=== PATIENT | female | born 1985 | race Caucasian/White ===

== ENCOUNTER 2017-07-18 11:58 | Emergency (ER) | payer OTHER ==
[2017-07-18 12:18] VITALS: BP 138/86; PULSE 92; O2SAT 99
--- NOTE | 2017-07-18 12:23 | ERPHSYRPT ---
- History of Present Illness Time Seen by Provider: 07/18/17 12:07 Source: patient Patient Subjective Stated Complaint: pt here for rash to right wrist for a week , Triage Nursing Assessment: pt has red rash to right wrist with dry cracking skin. walked in, resp easy Physician History: CC: rash hx: 31 y/o patient of Dr Curiel. She has rash on right wrist/hand. It itches. Started with a few other patches on her left arm also. She thought it was poison malik so she used alcohol on it. It is now red, cracked, dry. No fever. No drng. She has hx of DM. Tetanus vaccine up to date. Quality: itchy Severity: moderate Hx Tetanus, Diphtheria Vaccination/Date Given: Yes Hx Influenza Vaccination/Date Given: Yes Hx Pneumococcal Vaccination/Date Given: No Immunizations Up to Date: Yes - Review of Systems Constitutional: No Fever, No Chills Skin: Rash (right hand), Skin Lesions Neurological: No Focal Weakness, No Parasthesia - Past Medical History Pertinent Past Medical History: Yes Cardiac History: High Cholesterol Endocrine Medical History: Diabetes Type I - Social History Smoking Status: Current every day smoker Exposure to second hand smoke: Yes Patient Lives Alone: No - Female History Hx Last Menstrual Period: 2 weeks ago Hx Now: No - Nursing Vital Signs Nursing Vital Signs: Initial Vital Signs Temperature 97.8 F 07/18/17 12:08 Pulse Rate 92 H 07/18/17 12:08 Respiratory Rate 16 07/18/17 12:08 Blood Pressure 138/86 07/18/17 12:08 O2 Sat by Pulse Oximetry 99 07/18/17 12:08 Pain Scale Pain Intensity 13 - Physical Exam General Appearance: alert Eye Exam: PERRL/EOMI Ears, Nose, Throat Exam: moist mucous membranes Neck Exam: supple Extremity Exam: other (right hand/wrist has dry cracked skin. The wrist has thickened skin, appears to be contact/irritant dermatitis. ROM intact. There is a linear border that is unclear why almost like part was covered and not exposed. ) Neurologic Exam: alert, oriented x 3, cooperative Skin Exam: warm, dry, other (no evidence of cellulitis or superinfection) SpO2: 99 Oxygen Delivery: Room Air - Course Nursing assessment & vital signs reviewed: Yes - Progress Progress Note: 07/18/17 12:25 She declines abtx which doesn't appear indicated at present. Will use steroid ointment and also udder cream/bagbalm. Instr given. Counseled pt/family regarding: diagnosis, need for follow-up - Departure Time of Disposition: 12:25 Departure Disposition: Home Clinical Impression: Irritant contact dermatitis due to chemical Condition: Stable Critical Care Time: No Referrals: GOMEZ CURIEL [Primary Care Provider] - Instructions: Contact Dermatitis Additional Instructions: Rx steroid ointment twice a day. Use udder cream/bag balm for dry hand skin. Report any sign of infection right away. Prescriptions: Mometasone Furoate [Elocon] 0 gm TP UD #1 oint...g.
== END 2017-07-18 12:56 | disposition home or self-care (01) ==
LOC: ED 11:58
DX: L24.5 Irritant contact dermatitis due to other chemical products (principal)
CPT/HCPCS: 99282

== ENCOUNTER 2017-12-24 09:00 | Emergency (ER) | payer OTHER ==
[2017-12-24 09:08] VITALS: PULSE 82; O2SAT 100
[2017-12-24] MEDS ORDERED: Sodium Chloride 0.9% 1000 ML 1,000 ML IV STA (09:13)
[2017-12-24] MEDS ORDERED: Zofran 4 MG/2 ML VIAL IV ONE (09:13)
--- NOTE | 2017-12-24 09:19 | ERPHSYRPT ---
- History of Present Illness Time Seen by Provider: 12/24/17 09:13 Historian: patient Exam Limitations: no limitations Patient Subjective Stated Complaint: VOMITING FOR 3 DAYS, WEAKNESS, CHILLS Triage Nursing Assessment: PATIENT ALERT AND ORIENTED. DENIES SHORTNESS OF BREATH, LUNGS CLEAR TO AUSCULTATION. BOWEL SOUNDS HYPOACTIVE. STATES LAST BM , NO DIFFICULTIES. NO EDEMA NOTED. Physician History: 32-year-old female who states that she has a history of pancreatitis in the past also history of diabetes arrives with complaints of persistent nausea and vomiting symptoms for 2-3 days she states she's had epigastric and periumbilical tenderness She has no fevers no urinary symptoms. Past medical history includes hyperlipidemia, diabetes, high blood pressure, kidney problems, pancreatitis Past surgical history includes knee surgery 2 pituitary tumor removed Timing/Duration: day(s) (2-3 days) Activities at Onset: none Quality: aching Abdominal Pain Onset Location: epigastric, periumbilical Severity of Pain-Max: moderate Severity of Pain-Current: mild Modifying Factors: Improves With: vomiting Associated Symptoms: nausea, vomiting, No back, No chest pain, No diaphoresis, No fever/chills, No fatigue, No headache, No heartburn, No loss of appetite, No neck pain, No rash, No shortness of breath Previous symptoms: same symptoms as today Allergies/Adverse Reactions: morphine Allergy (Verified 07/18/17 12:23) Home Medications: Esomeprazole Magnesium [Nexium 24Hr] 40 mg PO DAILY 12/24/17 [History] Insulin Glargine,Hum.rec.anlog [Basaglar Kwikpen U-100] 80 unit SQ BID 12/24/17 [History] Insulin Glulisine [Apidra] 10 unit SQ TID 12/24/17 [History] Lisinopril 10 mg [Zestril 10 MG] 5 mg PO DAILY 12/24/17 [History] Metformin HCl 500 mg [Glucophage 500 MG] 1,000 mg PO BIDWM 12/24/17 [ History] Nebivolol HCl 5 MG [Bystolic 5 MG] 10 mg PO DAILY 12/24/17 [History] Hx Tetanus, Diphtheria Vaccination/Date Given: Yes Hx Influenza Vaccination/Date Given: Yes Hx Pneumococcal Vaccination/Date Given: Yes Immunizations Up to Date: Yes - Review of Systems Constitutional: No Fever, No Chills Eyes: No Symptoms Ears, Nose, & Throat: No Symptoms Respiratory: No Cough, No Dyspnea Cardiac: No Chest Pain, No Edema, No Syncope Abdominal/Gastrointestinal: Abdominal Pain, Nausea, Vomiting, No Diarrhea, No Constipation, No Hematochezia, No Melena, No Dysphagia, No Appetite Changes Genitourinary Symptoms: No Dysuria Musculoskeletal: No Back Pain, No Neck Pain Skin: No Rash Neurological: No Dizziness, No Focal Weakness, No Sensory Changes Psychological: No Symptoms Endocrine: No Symptoms All Other Systems: Reviewed and Negative - Past Medical History Pertinent Past Medical History: Yes Cardiac History: High Cholesterol, Hypertension Endocrine Medical History: Diabetes Type I Psycho-Social History: Anxiety - Past Surgical History Past Surgical History: Yes Musculoskeletal: Orthopedic Surgery Other Surgical History: knee surg, tumor removed - Social History Smoking Status: Current every day smoker Exposure to second hand smoke: Yes Drug Use: none Patient Lives Alone: No - Female History Hx Last Menstrual Period: 10/24/17 Hx Now: (UNSURE) - Nursing Vital Signs Nursing Vital Signs: Initial Vital Signs Temperature 98.7 F 12/24/17 09:01 Pulse Rate 82 12/24/17 09:01 Respiratory Rate 16 12/24/17 09:01 Blood Pressure 145/91 12/24/17 09:01 O2 Sat by Pulse Oximetry 100 12/24/17 09:01 Pain Scale Pain Intensity 0 - Physical Exam General Appearance: no apparent distress, alert Eye Exam: PERRL/EOMI, eyes nml inspection Ears, Nose, Throat Exam: normal ENT inspection, pharynx normal, moist mucous membranes Neck Exam: normal inspection, non-tender, supple, full range of motion Respiratory Exam: normal breath sounds, lungs clear, No respiratory distress Cardiovascular Exam: regular rate/rhythm, normal heart sounds, normal peripheral pulses, No murmur Gastrointestinal/Abdomen Exam: soft, tenderness (mild epigastric tenderness), No distention, No mass, No guarding, No ecchymosis, No pulsatile mass, No rebound, No hernia, No hepatomegaly, No organomegaly, No splenomegaly Back Exam: normal inspection, normal range of motion, No CVA tenderness, No vertebral tenderness Extremity Exam: normal inspection, normal range of motion, pelvis stable Neurologic Exam: alert, oriented x 3, cooperative, 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 II-XII nml as tested, normal mood/affect, nml cerebellar function, sensation nml, No motor deficits Skin Exam: normal color, warm, dry SpO2 Interpretation: normal (100%) SpO2: 100 Oxygen Delivery: Room Air - Course Nursing assessment & vital signs reviewed: Yes Ordered Tests: Active Orders 24 hr Category Date Time Status Accucheck STAT Care 12/24/17 09:15 Active IV Insertion STAT Care 12/24/17 09:13 Active Orthostatic Vital Signs STAT Care 12/24/17 09:19 Active AMYLASE Stat Lab 12/24/17 09:24 Completed CBC W DIFF Stat Lab 12/24/17 09:24 Completed CMP Stat Lab 12/24/17 09:24 Completed CULTURE,URINE Stat Lab 12/24/17 09:14 Received HCG QUALITATIVE,SERUM Stat Lab 12/24/17 09:24 Completed LIPASE Stat Lab 12/24/17 09:24 Completed UA W/ MICROSCOPIC Stat Lab 12/24/17 09:14 Completed Medication Summary Generic Name Dose Route Start Last Admin Trade Name Freq PRN Reason Stop Dose Admin Sodium Chloride 1,000 mls @ 999 mls/hr 12/24/17 09:13 12/24/17 09:34 Sodium Chloride 0.9% 1000 Ml IV 12/24/17 10:13 999 mls/hr .Q1H1M STA Administration Discontinued Medications Generic Name Dose Route Start Last Admin Trade Name Freq PRN Reason Stop Dose Admin Sodium Chloride Confirm 12/24/17 09:31 Sodium Chloride 0.9% 1000 Ml Administered 12/24/17 09:32 Dose 1,000 mls @ ud .ROUTE .STK-MED ONE Ondansetron HCl 4 mg 12/24/17 09:13 12/24/17 09:34 Zofran 4 Mg/2 Ml Vial IV 12/24/17 09:14 4 mg STAT ONE Administration Ondansetron HCl Confirm 12/24/17 09:31 Zofran 4 Mg/2 Ml Vial Administered 12/24/17 09:32 Dose 4 mg .ROUTE .STK-MED ONE Lab/Rad Data: Laboratory Result Diagrams 12/24/17 09:24 12/24/17 09:24 Laboratory Results 12/24/17 12/24/17 12/24/17 Range/Units 09:24 09:24 09:24 WBC 9.6 (4.0-10.5) K/mm3 RBC 3.91 L (4.1-5.4) M/mm3 Hgb 10.6 L (12.0-16.0) gm/dl Hct 30.7 L (35-47) % MCV 78.5 (78-100) fl MCH 27.1 (26-32) pg MCHC 34.5 (32-36) g/dl RDW 13.5 (11.5-14.0) % Plt Count 221 (150-450) K/mm3 MPV 9.7 H (6-9.5) fl Gran % 65.6 (36.0-66.0) % Eos # (Auto) 0.34 (0-0.5) Absolute Lymphs (auto) 2.29 (1.0-4.6) Absolute Monos (auto) 0.65 (0.0-1.3) Lymphocytes % 23.8 L (24.0-44.0) % Monocytes % 6.7 (0.0-12.0) % Eosinophils % 3.5 (0.00-5.0) % Basophils % 0.4 (0.0-0.4) % Absolute Granulocytes 6.32 (1.4-6.9) Basophils # 0.04 (0-0.4) Sodium 139 (137-145) mmol/L Potassium 3.8 (3.5-5.1) mmol/L Chloride 102 (98-107) mmol/L Carbon Dioxide 24 (22-30) mmol/L Anion Gap 16.3 H (5-15) MEQ/L BUN 14 (7-17) mg/dL Creatinine 0.98 (0.52-1.04) mg/dL Estimated GFR > 60.0 ML/MIN Glucose 117 H (74-106) mg/dL Calcium 10.2 (8.4-10.2) mg/dL Total Bilirubin 0.80 (0.2-1.3) mg/dL AST 15 (14-36) U/L ALT 12 (0-35) U/L Alkaline Phosphatase 32 L (38-126) U/L Serum Total Protein 7.2 (6.3-8.2) g/dL Albumin 4.1 (3.5-5.0) g/dL Amylase 41 (30-110) U/L Lipase 42 (23-300) U/L Serum , Qual POSITIVE (Negative) Ur Collection Type Urine Color (YELLOW) Urine Appearance (CLEAR) Urine pH (5-6) Ur Specific [place] (1.005-1.025) Urine Protein (Negative) Urine Ketones (NEGATIVE) Urine Blood (0-5) [place]/ul Urine Nitrite (NEGATIVE) Urine Bilirubin (NEGATIVE) Urine Urobilinogen (0-1) mg/dL Ur Leukocyte Esterase (NEGATIVE) Urine Microscopic RBC (0-2) /HPF Urine Microscopic WBC (0-5) /HPF Ur Epithelial Cells (FEW) /HPF Urine Bacteria (NEGATIVE) /HPF Urine Culture Reflexed (NO) Urine Glucose (NEGATIVE) mg/dL Specimen Received 12/24/17 Range/Units 09:14 WBC (4.0-10.5) K/mm3 RBC (4.1-5.4) M/mm3 Hgb (12.0-16.0) gm/dl Hct (35-47) % MCV (78-100) fl MCH (26-32) pg MCHC (32-36) g/dl RDW (11.5-14.0) % Plt Count (150-450) K/mm3 MPV (6-9.5) fl Gran % (36.0-66.0) % Eos # (Auto) (0-0.5) Absolute Lymphs (auto) (1.0-4.6) Absolute Monos (auto) (0.0-1.3) Lymphocytes % (24.0-44.0) % Monocytes % (0.0-12.0) % Eosinophils % (0.00-5.0) % Basophils % (0.0-0.4) % Absolute Granulocytes (1.4-6.9) Basophils # (0-0.4) Sodium (137-145) mmol/L Potassium (3.5-5.1) mmol/L Chloride (98-107) mmol/L Carbon Dioxide (22-30) mmol/L Anion Gap (5-15) MEQ/L BUN (7-17) mg/dL Creatinine (0.52-1.04) mg/dL Estimated GFR ML/MIN Glucose (74-106) mg/dL Calcium (8.4-10.2) mg/dL Total Bilirubin (0.2-1.3) mg/dL AST (14-36) U/L ALT (0-35) U/L Alkaline Phosphatase (38-126) U/L Serum Total Protein (6.3-8.2) g/dL Albumin (3.5-5.0) g/dL Amylase (30-110) U/L Lipase (23-300) U/L Serum , Qual (Negative) Ur Collection Type VOID Urine Color YELLOW (YELLOW) Urine Appearance CLEAR (CLEAR) Urine pH 6.0 (5-6) Ur Specific [place] 1.010 (1.005-1.025) Urine Protein 30 (Negative) Urine Ketones NEGATIVE (NEGATIVE) Urine Blood NEGATIVE (0-5) [place]/ul Urine Nitrite NEGATIVE (NEGATIVE) Urine Bilirubin NEGATIVE (NEGATIVE) Urine Urobilinogen NORMAL (0-1) mg/dL Ur Leukocyte Esterase TRACE (NEGATIVE) Urine Microscopic RBC 0-2 (0-2) /HPF Urine Microscopic WBC 10-15 (0-5) /HPF Ur Epithelial Cells MANY (FEW) /HPF Urine Bacteria FEW (NEGATIVE) /HPF Urine Culture Reflexed YES (NO) Urine Glucose NEGATIVE (NEGATIVE) mg/dL Specimen Received 12/24/1714 - Progress Progress: improved Progress Note: 12/24/17 10:07 Patient is feeling better after IV fluids and Zofran. Patient with positive hCG and her serum. Patient with 10-15 white cells per high-power field in her urine. Cultures are pending Will place patient on Macrobid 100 mg orally twice a day. Patient does not want anti-emetics at home at this time. No signs of pancreatitis abdominal pain was in the epigastric region which is better after IV fluids. Will discharge patient . Patient advised to follow-up with [facility] or her family doctor - Departure Time of Disposition: 10:09 Departure Disposition: Home Clinical Impression: Epigastric pain, Incidental Vomiting Qualifiers: Vomiting type: unspecified Vomiting Intractability: non-intractable Nausea presence: with nausea Qualified Code(s): R11.2 - Nausea with vomiting, unspecified UTI (urinary tract infection) Qualifiers: Urinary tract infection type: site unspecified Hematuria presence: without hematuria Qualified Code(s): N39.0 - Urinary tract infection, site not specified Condition: Fair Critical Care Time: No Referrals: GOMEZ CURIEL [Primary Care Provider] - Additional Instructions: Return home. Plenty of fluids clear fluids only 24-48 hours if nausea and vomiting or abdominal pain. Macrobid 100 mg orally twice a day for 10 days. Follow-up with your family doctor or [facility]NA[facility]ST physician, call and schedule an appointment. Return for acute distress or for severe symptoms. hold your lisinopril until you talk with your family doctor in the morning. Prescriptions: Nitrofurantoin Macro 100 mg [Macrobid 100MG Capsule] 100 mg PO BID #20 capsule
[2017-12-24] MEDS ORDERED: Sodium Chloride 0.9% 1000 ML 1,000 ML ONE (09:31)
[2017-12-24] MEDS ORDERED: Zofran 4 MG/2 ML VIAL ONE (09:31)
[2017-12-24 09:34] LABS: BASOPHIL % 0.4 % (0.0-0.4); Basophil (Absolute #) 0.04 (0-0.4); Eosinophil % 3.5 % (0.00-5.0); Eosinophil (Absolute #) 0.34 (0-0.5); Granulocyte Absolute (ANC) 6.32 (1.4-6.9); Granulocytes % 65.6 % (36.0-66.0); Hematocrit 30.7 % (35-47); Hemoglobin 10.6 gm/dl (12.0-16.0); Lymphocyte (Absolute #) 2.29 (1.0-4.6); Lymphocytes % 23.8 % (24.0-44.0); Mean Cell Volume 78.5 fl (78-100); Mean Corpuscular Hemoglobin 27.1 pg (26-32); Mean Corpuscular Hgb Concent. 34.5 g/dl (32-36); Mean Platelet Volume 9.7 fl (6-9.5); Monocyte (Absolute #) 0.65 (0.0-1.3); Monocytes % 6.7 % (0.0-12.0); Platelet Count 221 K/mm3 (150-450); Red Blood Count 3.91 M/mm3 (4.1-5.4); Red Cell Distribution Width 13.5 % (11.5-14.0); White Blood Count 9.6 K/mm3 (4.0-10.5)
[2017-12-24 09:45] LABS: ALBUMIN 4.1 g/dL (3.5-5.0); ALKALINE PHOSPHATASE 32 U/L (38-126); AMYLASE 41 U/L (30-110); ANION GAP 16.3 MEQ/L (5-15); BLOOD UREA NITROGEN 14 mg/dL (7-17); CHLORIDE 102 mmol/L (98-107); Calcium 10.2 mg/dL (8.4-10.2); Carbon Dioxide 24 mmol/L (22-30); Creatinine 1 0.98 mg/dL (0.52-1.04); Glucose 117 mg/dL (74-106); LIPASE 42 U/L (23-300); Potassium 3.8 mmol/L (3.5-5.1); SGOT/AST 15 U/L (14-36); SGPT/ALT 12 U/L (0-35); SODIUM 139 mmol/L (137-145); Total Protein 7.2 g/dL (6.3-8.2)
[2017-12-24 09:59] LABS: Appearance CLEAR (CLEAR); Bilirubin NEGATIVE (NEGATIVE); Blood NEGATIVE Ery/ul (0-5); Glucose NEGATIVE (NEGATIVE); Ketones NEGATIVE (NEGATIVE); Leukocyte Esterase TRACE (NEGATIVE); Nitrite NEGATIVE (NEGATIVE); Protein,Urine Dip 30 (Negative); Urobilinogen NORMAL mg/dL (0-1)
[2017-12-24 10:00] VITALS: BP 123/80
[2017-12-24 10:00] LABS: Bacteria FEW /HPF (NEGATIVE); Epithelial Cells MANY /HPF (FEW); RBC 0-2 /HPF (0-2)
== END 2017-12-24 10:47 | disposition home or self-care (01) ==
LOC: ED 09:00
DX: R10.13 Epigastric pain (principal); R11.2 Nausea with vomiting, unspecified; N39.0 Urinary tract infection, site not specified; Z33.1 Pregnant state, incidental; Z79.899 Other long term (current) drug therapy; E10.9 Type 1 diabetes mellitus without complications; Z79.4 Long term (current) use of insulin
CPT/HCPCS: 36000; 36415; 80053; 81000; 82150; 82962; 83690; 84703; 85025; 87077; 87086; 87186; 96360; 96374; 99284; J2405

== ENCOUNTER 2018-01-12 07:33 | Emergency (ER) | payer OTHER ==
[2018-01-12] MEDS ORDERED: Sodium Chloride 0.9% 1000 ML 1,000 ML IV STA (07:48)
--- NOTE | 2018-01-12 07:55 | ERPHSYRPT ---
- History of Present Illness Time Seen by Provider: 01/12/18 07:50 Source: patient Exam Limitations: no limitations Patient Subjective Stated Complaint: Bleeding during , approximately 14 weeks . Triage Nursing Assessment: Pt presents to the ED with complaints of abdominal cramping and bleeding during . Pt states she began spotting blood on Monday, was seen and told she was having a miscarriage. Pt states she was seen by OB on Monday and miscarriage was verified. Pt states bleeding and pain worsened last night and continued this AM. Pt states weakness present at this time, no distress noted, skin PWD. Physician History: 32-year-old white female 1 para 0 last menstrual period October 13. Arrives with complaint of vaginal bleeding and lower abdominal cramping symptoms since Monday. Patient seen January 08 with complaint of vaginal spotting told she was having a miscarriage she had this verified on January 10 she states that she was told that her fetus quit growing at 6 weeks size. He states that she has continued vaginal bleeding and spotting which is increased today. Patient states that she's had ultrasound 2. 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 Timing/Duration: day(s) (vaginal bleeding for 5 days cramping for 5 days, worse today) Severity: moderate Modifying Factors: Improves With: nothing Associated Symptoms: abdominal pain (lower abdominal cramping), other (vaginal bleeding), No nausea, No vomiting, No shortness of breath, No heartburn, No diaphoresis, No cough, No chills, No chest pain, No fever, No headaches, No loss of appetite, No malaise, No rash, No syncope, No seizure, No weakness Allergies/Adverse Reactions: morphine Allergy (Verified 07/18/17 12:23) Home Medications: Insulin Glargine,Hum.rec.anlog [Basaglar Kwikpen U-100] 80 unit SQ BID 12/24/17 [History] Insulin Glulisine [Apidra] 10 unit SQ TID 12/24/17 [History] Methyldopa 250 mg [Aldomet 250 MG] 250 mg PO BID 01/12/18 [History] Vits W-Ca,Fe,FA(<1Mg) [] 1 each PO DAILY 01/12/18 [History] Hx Tetanus, Diphtheria Vaccination/Date Given: Yes Hx Influenza Vaccination/Date Given: Yes Hx Pneumococcal Vaccination/Date Given: No Immunizations Up to Date: Yes - Review of Systems Constitutional: No Fever, No Chills Eyes: No Symptoms Ears, Nose, & Throat: No Symptoms Respiratory: No Cough, No Dyspnea Cardiac: No Chest Pain, No Edema, No Syncope Abdominal/Gastrointestinal: Abdominal Pain (Lower abdominal cramping), No Nausea , No Vomiting, No Diarrhea, No Constipation, No Hematemesis, No Hematochezia, No Melena, No Dysphagia, No Appetite Changes Genitourinary Symptoms: , Vaginal Bleeding, No Dysuria, No Frequency, No Hematuria, No Hesitancy, No Incontinence, No Urgency, No Urinary Retention, No Flank Pain, No Menorrhagia, No Vaginal Discharge, No Vaginal Itching Musculoskeletal: No Back Pain, No Neck Pain Skin: No Rash Neurological: No Dizziness, No Focal Weakness, No Sensory Changes Psychological: No Symptoms Endocrine: No Symptoms All Other Systems: Reviewed and Negative - Past Medical History Pertinent Past Medical History: Yes Cardiac History: High Cholesterol, Hypertension Endocrine Medical History: Diabetes Type I GI Medical History: Pancreatitis Psycho-Social History: Anxiety - Past Surgical History Past Surgical History: Yes Musculoskeletal: Orthopedic Surgery Other Surgical History: knee surg, tumor removed - Social History Smoking Status: Former smoker Exposure to second hand smoke: Yes Drug Use: none Patient Lives Alone: No - Female History Hx Last Menstrual Period: 10/13/2017 Hx Now: Yes - Nursing Vital Signs Nursing Vital Signs: Initial Vital Signs Temperature 98.1 F 01/12/18 07:39 Pulse Rate 97 H 01/12/18 07:39 Respiratory Rate 16 01/12/18 07:39 Blood Pressure 103/74 01/12/18 07:39 O2 Sat by Pulse Oximetry 99 01/12/18 07:39 Pain Scale Pain Intensity 10 - Physical Exam General Appearance: mild distress Eye Exam: PERRL/EOMI, eyes nml inspection Ears, Nose, Throat Exam: normal ENT inspection, TMs normal, pharynx normal, moist mucous membranes Neck Exam: normal inspection, non-tender, supple, full range of motion Respiratory Exam: normal breath sounds, lungs clear, No respiratory distress Cardiovascular Exam: regular rate/rhythm, normal heart sounds, normal peripheral pulses Gastrointestinal/Abdomen Exam: soft, normal bowel sounds, No tenderness, No mass Back Exam: normal inspection, normal range of motion, No CVA tenderness, No vertebral tenderness Extremity Exam: normal inspection, normal range of motion, pelvis stable Neurologic Exam: alert, oriented x 3, cooperative, normal mood/affect, nml cerebellar function, nml station & gait, sensation nml, No motor deficits Skin Exam: normal color, warm, dry, No rash SpO2 Interpretation: normal (99%) SpO2: 99 Oxygen Delivery: Room Air - Course Nursing assessment & vital signs reviewed: Yes - Radiology Ultrasound Exam OB Ultrasound: discussed w/radiologist (2-dimensional trans-abdominal ultrasound: impression: endometrial fluid collection without pole/heart tones either blighted ovum ilene versus early . Spontaneous/incomplete completely excludedgiven clinical history) Ordered Tests: Active Orders 24 hr Category Date Time Status Accucheck STAT Care 01/12/18 10:09 Active IV Insertion STAT Care 01/12/18 07:48 Active Orthostatic Vital Signs STAT Care 01/12/18 10:34 Active Pelvic Exam Assist STAT Care 01/12/18 08:02 Active OB <14 WKS 1ST GESTATION [US] Stat Exams 01/12/18 09:56 Completed CBC W DIFF Stat Lab 01/12/18 07:48 Completed CMP Stat Lab 01/12/18 07:48 Completed HCG, Quantitative (Inhouse) Stat Lab 01/12/18 07:48 Completed PROTIME WITH INR Stat Lab 01/12/18 07:48 Completed PTT Stat Lab 01/12/18 07:48 Completed Medication Summary Generic Name Dose Route Start Last Admin Trade Name Freq PRN Reason Stop Dose Admin Sodium Chloride 1,000 mls @ 100 mls/hr 01/12/18 09:15 01/12/18 09:23 Sodium Chloride 0.9% 1000 Ml IV 02/11/18 09:14 100 mls/hr .Q10H ALO Administration Discontinued Medications Generic Name Dose Route Start Last Admin Trade Name Freq PRN Reason Stop Dose Admin Fentanyl Citrate 25 mcg 01/12/18 08:00 01/12/18 08:08 Sublimaze 100 Mcg/2 Ml IV 01/12/18 08:01 25 mcg STAT ONE Administration Fentanyl Citrate Confirm 01/12/18 08:05 Sublimaze 100 Mcg/2 Ml Administered 01/12/18 08:06 Dose 100 mcg .ROUTE .STK-MED ONE Fentanyl Citrate 75 mcg 01/12/18 09:05 01/12/18 09:27 Sublimaze 100 Mcg/2 Ml IV 01/12/18 09:06 75 mcg STAT ONE Administration Fentanyl Citrate Confirm 01/12/18 09:17 Sublimaze 100 Mcg/2 Ml Administered 01/12/18 09:18 Dose 100 mcg .ROUTE .STK-MED ONE Sodium Chloride 1,000 mls @ 999 mls/hr 01/12/18 07:48 01/12/18 09:29 Sodium Chloride 0.9% 1000 Ml IV 01/12/18 08:48 Infused .Q1H1M STA Infusion Sodium Chloride Confirm 01/12/18 07:59 Sodium Chloride 0.9% 1000 Ml Administered 01/12/18 08:00 Dose 1,000 mls @ ud .ROUTE .STK-MED ONE Insulin Human Regular 7 unit 01/12/18 10:33 01/12/18 10:55 Novolin R SQ 01/12/18 10:34 7 unit STAT ONE Administration Insulin Human Regular Confirm 01/12/18 10:42 Novolin R Administered 01/12/18 10:43 Dose 7 unit .ROUTE .STK-MED ONE Ondansetron HCl 4 mg 01/12/18 08:04 01/12/18 08:08 Zofran 4 Mg/2 Ml Vial IV 01/12/18 08:05 4 mg STAT ONE Administration Ondansetron HCl Confirm 01/12/18 08:05 Zofran 4 Mg/2 Ml Vial Administered 01/12/18 08:06 Dose 4 mg .ROUTE .STK-MED ONE Promethazine HCl 12.5 mg 01/12/18 09:05 01/12/18 09:23 Phenergan 25 Mg Inj IV 01/12/18 09:06 12.5 mg STAT ONE Administration Promethazine HCl Confirm 01/12/18 09:17 Phenergan 25 Mg Inj Administered 01/12/18 09:18 Dose 25 mg .ROUTE .STK-MED ONE Lab/Rad Data: Laboratory Result Diagrams 01/12/18 07:48 01/12/18 07:48 Laboratory Results 0601/12/18 01/12/18 Range/Units 07:48 07:48 07:48 WBC 12.8 H (4.0-10.5) K/mm3 RBC 4.16 (4.1-5.4) M/mm3 Hgb 11.3 L (12.0-16.0) gm/dl Hct 32.7 L (35-47) % MCV 78.6 (78-100) fl MCH 27.1 (26-32) pg MCHC 34.6 (32-36) g/dl RDW 13.6 (11.5-14.0) % Plt Count 276 (150-450) K/mm3 MPV 10.5 H (6-9.5) fl Gran % 72.7 H (36.0-66.0) % Eos # (Auto) 0.35 (0-0.5) Absolute Lymphs (auto) 2.26 (1.0-4.6) Absolute Monos (auto) 0.86 (0.0-1.3) Lymphocytes % 17.7 L (24.0-44.0) % Monocytes % 6.7 (0.0-12.0) % Eosinophils % 2.7 (0.00-5.0) % Basophils % 0.2 (0.0-0.4) % Absolute Granulocytes 9.25 H (1.4-6.9) Basophils # 0.03 (0-0.4) PT 11.3 (9.95-12.35) SECONDS INR 0.97 (0.8-3.0) APTT 35.6 (25.3-37.0) SECONDS Sodium 135 L (137-145) mmol/L Potassium 4.0 (3.5-5.1) mmol/L Chloride 104 (98-107) mmol/L Carbon Dioxide 21 L (22-30) mmol/L Anion Gap 13.4 (5-15) MEQ/L BUN 13 (7-17) mg/dL Creatinine 0.77 (0.52-1.04) mg/dL Estimated GFR > 60.0 ML/MIN Glucose 294 H (74-106) mg/dL Calcium 9.1 (8.4-10.2) mg/dL Total Bilirubin 0.60 (0.2-1.3) mg/dL AST 25 (14-36) U/L ALT 45 H (0-35) U/L Alkaline Phosphatase 62 (38-126) U/L Serum Total Protein 6.7 (6.3-8.2) g/dL Albumin 3.4 L (3.5-5.0) g/dL Beta HCG, Quant 1085.3 mIU/ml - Progress Progress: improved Progress Note: 01/12/18 09:22 32-year-old white female who was diagnosed with an incomplete spontaneous on January 08 when seen in [facility] emergency room she was subsequently seen [address] kina rivera. She states that she's been having lower abdominal cramping and bleeding since January 08, 2018 she states the bleeding has increased and increased pain this morning Patient with demise on ultrasound estimated gestational age is 6 weeks and 6 days by crown rump length on that ultrasound. Patient's hemoglobin is stable as compared to January 08 patient had received RhoGAM according to patient patient's hemoglobin and hematocrit were 10.8 and 31.7 respectively on January 08. Patient is receiving IV normal saline she has received fentanyl 25 g, Zofran 4 mg IV Repeat dosage of 75 g of fentanyl and Phenergan 12.5 mg IV have been ordered because of complaints of patient's continued pain patient's quantitative hCG on January 08 was 3230 Today's quantitative is around 1000 01/12/18 09:52 Pelvic examination patient with large amount of clots and blood in the vaginal vault. These are removed with suction and moody swabs. Patient's cervix is open. Uterus is massaged clots expressed. no products of conception noted. Patient still with the slight open cervix less than 1 cm Some oozing of blood Will obtain ultrasound 01/12/18 11:13 Pelvic ultrasound: Endometrial fluid collection without pole/heart tones either blighted old versus early . Spontaneous/incomplete not completely excluded given clinical history Patient given IV fluids initial 1 L bolus started at 100 per hour blood pressure did go down to the high 80s this possibly could be a fact of her pain medication patient given another bolus of IV fluids blood pressure now 108/65 Patient's hemoglobin is stable quantitative hCG was 1085 it was around 3001 4 days ago I've discussed case with Dr. Bedoya , the patient's OB physician. He will accept patient for transfer over to [facility]. Patient is somewhat somnolent but stable at this time. Will plan to transfer to [facility] impression. Incomplete , vaginal bleeding. Hyperglycemia. (Patient was given 7 units of insulin NovoLog for Accu-Chek of 333) - Departure Time of Disposition: 11:17 Departure Disposition: Transfer (transfer to [facility] Dr Cisneros) Clinical Impression: Vaginal bleeding, Incomplete , Hyperglycemia Condition: Fair Critical Care Time: No Referrals: GOMEZ CURIEL [Primary Care Provider] -
[2018-01-12] MEDS ORDERED: Sodium Chloride 0.9% 1000 ML 1,000 ML ONE ×2 (07:59→09:17)
[2018-01-12] MEDS ORDERED: SUBLIMAZE 100 MCG/2 ML IV ONE ×2 (08:00→09:05)
[2018-01-12 08:04] LABS: BASOPHIL % 0.2 % (0.0-0.4); Basophil (Absolute #) 0.03 (0-0.4); Eosinophil % 2.7 % (0.00-5.0); Eosinophil (Absolute #) 0.35 (0-0.5); Granulocyte Absolute (ANC) 9.25 (1.4-6.9); Granulocytes % 72.7 % (36.0-66.0); Hematocrit 32.7 % (35-47); Hemoglobin 11.3 gm/dl (12.0-16.0); Lymphocyte (Absolute #) 2.26 (1.0-4.6); Lymphocytes % 17.7 % (24.0-44.0); Mean Cell Volume 78.6 fl (78-100); Mean Corpuscular Hgb Concent. 34.6 g/dl (32-36); Mean Platelet Volume 10.5 fl (6-9.5); Monocyte (Absolute #) 0.86 (0.0-1.3); Monocytes % 6.7 % (0.0-12.0); Platelet Count 276 K/mm3 (150-450); Red Blood Count 4.16 M/mm3 (4.1-5.4); Red Cell Distribution Width 13.6 % (11.5-14.0); White Blood Count 12.8 K/mm3 (4.0-10.5)
[2018-01-12] MEDS ORDERED: Zofran 4 MG/2 ML VIAL IV ONE (08:04)
[2018-01-12 08:05] LABS: Mean Corpuscular Hemoglobin 27.1 pg (26-32)
[2018-01-12] MEDS ORDERED: Zofran 4 MG/2 ML VIAL ONE (08:05)
[2018-01-12] MEDS ORDERED: SUBLIMAZE 100 MCG/2 ML ONE ×2 (08:05→09:17)
[2018-01-12 08:51] LABS: ALBUMIN 3.4 g/dL (3.5-5.0); ALKALINE PHOSPHATASE 62 U/L (38-126); ANION GAP 13.4 MEQ/L (5-15); BLOOD UREA NITROGEN 13 mg/dL (7-17); CHLORIDE 104 mmol/L (98-107); Calcium 9.1 mg/dL (8.4-10.2); Carbon Dioxide 21 mmol/L (22-30); Creatinine 1 0.77 mg/dL (0.52-1.04); Glucose 294 mg/dL (74-106); SGOT/AST 25 U/L (14-36); SGPT/ALT 45 U/L (0-35); SODIUM 135 mmol/L (137-145); Total Protein 6.7 g/dL (6.3-8.2)
[2018-01-12] MEDS ORDERED: Phenergan 25 MG INJ IV ONE (09:05)
[2018-01-12 09:07] LABS: HCG, Quantitative (Inhouse) 1085.3 mIU/ml
[2018-01-12] MEDS ORDERED: Sodium Chloride 0.9% 1000 ML 1,000 ML IV SCH (09:15)
[2018-01-12] MEDS ORDERED: Phenergan 25 MG INJ ONE (09:17)
[2018-01-12 10:07] LABS: INR 0.97 (0.8-3.0)
[2018-01-12 10:10] LABS: PTT 35.6 SECONDS (25.3-37.0)
[2018-01-12] MEDS ORDERED: NovoLIN R SQ ONE (10:33)
[2018-01-12] MEDS ORDERED: NovoLIN R ONE (10:42)
--- NOTE | 2018-01-12 10:51 | XRAY ---
Indication: Active miscarriage. Two-dimensional transabdominal early OB ultrasound performed. Comparison: None Uterus is anteverted with ovoid/deformed intraluminal fluid collection either empty gestational sac. No pole, heart tones, or yolk sac. Cervix appears closed. Findings possible early versus blighted ovum. Spontaneous/incomplete not completely excluded given clinical history. Right ovary sonographically unremarkable. Left ovary not seen. No suspicious adnexal mass or free fluid. Impression: Endometrial fluid collection without pole/heart tones either blighted ovum versus early . Spontaneous/incomplete not completely excluded given clinical history.
[2018-01-12 11:38] VITALS: BP 126/76; PULSE 78; O2SAT 100
== END 2018-01-12 12:23 | disposition short-term general hospital (02) ==
LOC: ED 07:33
DX: O03.4 Incomplete spontaneous abortion without complication (principal); E10.65 Type 1 diabetes mellitus with hyperglycemia; Z79.4 Long term (current) use of insulin
CPT/HCPCS: 36000; 36415; 76801; 80053; 82962; 84702; 85025; 85610; 85730; 96360; 96361; 96365; 96366; 96374; 96375; 96376; 99285; J2405; J2550; J3010; A9270-GY

== ENCOUNTER 2018-04-22 21:05 | Emergency (ER) | payer OTHER ==
[2018-04-22 21:22] VITALS: PULSE 84
[2018-04-22] MEDS ORDERED: Tylenol #3 Tablet PO ONE ×2 (21:43→22:33)
[2018-04-22] MEDS ORDERED: Tylenol #3 Tablet ONE ×2 (21:47→22:32)
--- NOTE | 2018-04-22 21:57 | ERPHSYRPT ---
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 DENIES FALL, SWELLING OR BRUISING. Occurred: hours ago Method of Injury: other (LIFTING WITH LEFT ARM) Quality: constant Severity of Pain-Max: moderate Severity of Pain-Current: moderate Extremities Pain Location: arm: left Modifying Factors: Improves With: movement Associated Symptoms: none Allergies/Adverse Reactions: morphine Allergy (Verified 04/22/18 21:22) Home Medications: Insulin Glulisine [Apidra] 10 unit SQ TID 12/24/17 [History] Methyldopa 250 mg [Aldomet 250 MG] 250 mg PO BID 01/12/18 [History] Vits W-Ca,Fe,FA(<1Mg) [] 1 each PO DAILY 01/12/18 [History] Esomeprazole Magnesium [Nexium] 40 mg PO DAILY 04/22/18 [History] Insulin Glargine,Hum.rec.anlog [Tohoracio Solostpeter] 45 unit SQ HS 04/22/18 [History ] Meloxicam [Mobic] 15 mg PO HS 04/22/18 [History] Nebivolol HCl [Bystolic] 10 mg PO DAILY 04/22/18 [History] Tizanidine HCl 4 mg [Zanaflex 4 MG] 4 mg PO TID 04/22/18 [History] Hx Tetanus, Diphtheria Vaccination/Date Given: Yes Hx Influenza Vaccination/Date Given: Yes Hx Pneumococcal Vaccination/Date Given: No - Review of Systems Constitutional: No Symptoms, No Fever, No Chills Ears, Nose, & Throat: No Symptoms Respiratory: No Cough, No Dyspnea Cardiac: No Chest Pain, No Edema, No Syncope Abdominal/Gastrointestinal: No Abdominal Pain, No Nausea, No Vomiting, No Diarrhea Genitourinary Symptoms: No Dysuria Musculoskeletal: Injury, Joint Pain, No Back Pain, No Neck Pain Skin: No Rash Neurological: No Dizziness, No Focal Weakness, No Sensory Changes Psychological: No Symptoms Endocrine: No Symptoms All Other Systems: Reviewed and Negative - Past Medical History Pertinent Past Medical History: Yes Cardiac History: High Cholesterol, Hypertension Endocrine Medical History: Diabetes Type I GI Medical History: Pancreatitis Psycho-Social History: Anxiety - Past Surgical History Past Surgical History: Yes Musculoskeletal: Orthopedic Surgery Female Surgical History: Dilation & Curettage Other Surgical History: knee surg, tumor removed - Social History Smoking Status: Current every day smoker How long have you smoked: 5 years Exposure to second hand smoke: Yes Drug Use: none Patient Lives Alone: Yes - Female History Hx Last Menstrual Period: 03/07/2018 Hx Now: No (unknown) - Nursing Vital Signs Nursing Vital Signs: Initial Vital Signs Temperature 99.0 F 04/22/18 21:14 Pulse Rate 84 04/22/18 21:14 Blood Pressure 159/108 04/22/18 21:14 O2 Sat by Pulse Oximetry 97 04/22/18 21:14 Pain Scale Pain Intensity 7 - Physical Exam General Appearance: no apparent distress Shoulder Exam: pain, soft tissue tenderness (THE LEFT BICEPS IS POSITIONED DISTALLY, PAIN OVER BICEPS WITH RANGE OF MOTION OF ELBOW) Elbow/Forearm Exam: normal inspection Hand Exam: normal inspection DTR - Upper Extremity Exam: bicep (R): 2+, bicep (L): 2+, tricep (R): 2+, tricep (L): 2+ Mental Status Exam: alert, oriented x 3 SpO2: 98 Oxygen Delivery: Room Air Ordered Tests: Active Orders 24 hr Category Date Time Status Sling Application STAT Care 04/22/18 21:43 Active Medication Summary Discontinued Medications Generic Name Dose Route Start Last Admin Trade Name Odalys PRN Reason Stop Dose Admin Acetaminophen/Codeine Phosphate 1 tab 04/22/18 21:43 04/22/18 21:48 Tylenol #3 Tablet PO 04/22/18 21:44 1 tab STAT ONE Administration Acetaminophen/Codeine Phosphate Confirm 04/22/18 21:47 Tylenol #3 Tablet Administered 04/22/18 21:48 Dose 1 tab .ROUTE .STK-MED ONE - Progress Progress: pain not gone completely Progress Note: 04/22/18 22:27 ADMINISTERED LEFT ARM SLING, TYLENOL #3 ORALLY Counseled pt/family regarding: diagnosis - Departure Time of Disposition: 22:30 Departure Disposition: Home Clinical Impression: LEFT BICEPS TENDON TEAR Condition: Stable Critical Care Time: No Referrals: GOMEZ CURIEL [Primary Care Provider] - Additional Instructions: MAINTAIN LEFT ARM SLING FOR COMFORT. TYLENOL #3 EVERY 6 HOURS FOR PAIN. AVOID LIFTING USING LEFT ARM. CONSULT YOUR PRIMARY CARE PROVIDER FOR EVALUATION AND REFERRAL TO ORTHOPEDIC SURGEON. Prescriptions: Codeine Phosphate/APAP #3 [Tylenol #3 Tablet] 1 tab PO Q6H PRN PRN #10 tablet PRN Reason: Pain
[2018-04-22 22:41] VITALS: BP 178/111; O2SAT 97
== END 2018-04-22 22:46 | disposition home or self-care (01) ==
LOC: ED 21:05
DX: S46.212A Strain of muscle, fascia and tendon of other parts of biceps, left arm, initial encounter (principal); X50.0XXA Overexertion from strenuous movement or load, initial encounter; Y93.89 Activity, other specified; Y92.524 Gas station as the place of occurrence of the external cause; Y99.0 Civilian activity done for income or pay; Z79.899 Other long term (current) drug therapy
CPT/HCPCS: 99283; A9270-GY

== ENCOUNTER 2018-10-21 09:38 | Emergency (ER) | payer OTHER ==
[2018-10-21] MEDS ORDERED: Sodium Chloride 0.9% 1000 ML 1,000 ML IV STA (10:04)
[2018-10-21] MEDS ORDERED: Sodium Chloride 0.9% 1000 ML 1,000 ML ONE (10:11)
--- NOTE | 2018-10-21 10:13 | ERPHSYRPT ---
- History of Present Illness Time Seen by Provider: 10/21/18 10:03 Source: patient Exam Limitations: no limitations Patient Subjective Stated Complaint: abdominal cramping, 10 weeks Triage Nursing Assessment: Pt reports being 10 weeks and is having bilateral lower quadrant cramping that began last night, denies bleeding, hx of a miscarriage before she even knew she was approximately 6 months ago, unable to find heart tones at this time Physician History: 32-year-old white female 2 para 0010 Who states she is 10 weeks with last menstrual period 3 months ago estimated date of confinement June 15, 2019, with history of high blood pressure, hypercholesterolemia, diabetes, pancreatitis, anxiety. Arrives with complaint of lower abdominal cramping symptoms since last night, no vaginal bleeding states her urine has been dark no fevers. Patient states she has had transvaginal ultrasound in the past and heart tones were noted during this . Past medical history includes high blood pressure, hypercholesterolemia, diabetes type 1, pancreatitis, anxiety. 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 Social history positive for tobacco use positive for marijuana use Timing/Duration: yesterday Severity: moderate Modifying Factors: Improves With: nothing Associated Symptoms: abdominal pain, No nausea, No vomiting, No shortness of breath, No heartburn, No diaphoresis, No cough, No chills, No chest pain, No fever, No headaches, No loss of appetite, No malaise, No rash, No syncope, No seizure, No weakness Allergies/Adverse Reactions: morphine Allergy (Verified 10/21/18 10:01) Home Medications: Vits W-Ca,Fe,FA(<1Mg) [] 1 each PO DAILY 01/12/18 [History] Esomeprazole Magnesium [Nexium] 40 mg PO DAILY 04/22/18 [History] Insulin Glargine,Hum.rec.anlog [Mana Shaffer] 45 unit SQ HS 04/22/18 [History ] Carvedilol 12.5 mg [Coreg 12.5 mg] 12.5 mg PO BID 10/21/18 [History] Enoxaparin Sodium 30 mg SQ BID 10/21/18 [History] Fexofenadine HCl 180 mg PO DAILY 10/21/18 [History] Insulin Lispro [Humalog] 1 unit SQ UD 10/21/18 [History] Prochlorperazine Maleate 5 mg* [Compazine 5 MG] 5 mg PO TID PRN 10/21/18 [ History] Hx Tetanus, Diphtheria Vaccination/Date Given: Yes Hx Influenza Vaccination/Date Given: Yes Hx Pneumococcal Vaccination/Date Given: No - Review of Systems Constitutional: No Fever, No Chills Eyes: No Symptoms Ears, Nose, & Throat: No Symptoms Respiratory: No Cough, No Dyspnea Cardiac: No Chest Pain, No Edema, No Syncope Abdominal/Gastrointestinal: Abdominal Pain, No Nausea, No Vomiting, No Diarrhea , No Constipation, No Hematemesis, No Hematochezia, No Melena, No Dysphagia, No Appetite Changes Genitourinary Symptoms: No Dysuria Musculoskeletal: No Back Pain, No Neck Pain Skin: No Rash Neurological: No Dizziness, No Focal Weakness, No Sensory Changes Psychological: No Symptoms Endocrine: No Symptoms All Other Systems: Reviewed and Negative - Past Medical History Pertinent Past Medical History: Yes Cardiac History: High Cholesterol, Hypertension Endocrine Medical History: Diabetes Type I GI Medical History: Pancreatitis Psycho-Social History: Anxiety - Past Surgical History Past Surgical History: Yes Musculoskeletal: Orthopedic Surgery Female Surgical History: Dilation & Curettage Other Surgical History: knee surg, tumor removed - Social History Smoking Status: Current every day smoker How long have you smoked: 5 years Exposure to second hand smoke: Yes Drug Use: marijuana Patient Lives Alone: Yes - Female History Hx Now: Yes Expected Date of Delivery: 05/15/19 - Nursing Vital Signs Nursing Vital Signs: Initial Vital Signs Temperature 98.1 F 10/21/18 09:43 Pulse Rate 98 H 10/21/18 09:43 Blood Pressure 143/111 10/21/18 09:43 O2 Sat by Pulse Oximetry 100 10/21/18 09:43 Pain Scale Pain Intensity 4 - Physical Exam General Appearance: no apparent distress, alert Eye Exam: PERRL/EOMI, eyes nml inspection Ears, Nose, Throat Exam: normal ENT inspection, TMs normal, pharynx normal, moist mucous membranes Neck Exam: normal inspection, non-tender, supple, full range of motion Respiratory Exam: normal breath sounds, lungs clear, No respiratory distress Cardiovascular Exam: regular rate/rhythm, normal heart sounds, normal peripheral pulses, capillary refill <2 sec Gastrointestinal/Abdomen Exam: soft, normal bowel sounds, No tenderness, No mass Pelvic Exam: normal external exam, other (pelvic exam: Normal female externnal genitalia, cervix closed, no adnexal tenderness, no bleeding small amount of white mucous, uterus enlarged,) Back Exam: normal inspection, normal range of motion, No CVA tenderness, No vertebral tenderness Extremity Exam: normal inspection, normal range of motion, pelvis stable Neurologic Exam: alert, oriented x 3, cooperative, 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, normal mood/affect, nml cerebellar function, nml station & gait, sensation nml, No motor deficits Skin Exam: normal color, warm, dry, No rash Lymphatic Exam: No adenopathy SpO2 Interpretation: normal (100%) SpO2: 100 - Course Nursing assessment & vital signs reviewed: Yes - Radiology Ultrasound Exam OB Ultrasound: Other (pelvic ultrasound (OB) intrauterine 10 weeks estimated gestational age, heart rate 157) Ordered Tests: Active Orders 24 hr Category Date Time Status Heart Tones-ED STAT Care 10/21/18 10:15 Active IV Insertion STAT Care 10/21/18 10:04 Active Pelvic Exam Assist STAT Care 10/21/18 10:04 Active OB <14 WKS 1ST GESTATION [US] Stat Exams 10/21/18 10:04 Taken CBC W DIFF Stat Lab 10/21/18 10:00 Completed CMP Stat Lab 10/21/18 10:00 Completed Glucose,Critical Care Urgent Lab 10/21/18 11:31 Completed HCG, Quantitative (Inhouse) Stat Lab 10/21/18 10:00 Completed Manual Differential NC Stat Lab 10/21/18 10:00 Completed UA W/RFX UR CULTURE Stat Lab 10/21/18 10:00 Completed Wet Prep Stat Lab 10/21/18 10:05 Completed Medication Summary Discontinued Medications Generic Name Dose Route Start Last Admin Trade Name Freq PRN Reason Stop Dose Admin Cephalexin HCl 500 mg 10/21/18 11:47 10/21/18 11:56 Keflex 500 Mg PO 10/21/18 11:48 500 mg STAT ONE Administration Cephalexin HCl Confirm 10/21/18 11:53 Keflex 500 Mg Administered 10/21/18 11:54 Dose 500 mg .ROUTE .STK-MED ONE Sodium Chloride 1,000 mls @ 999 mls/hr 10/21/18 10:04 10/21/18 11:15 Sodium Chloride 0.9% 1000 Ml IV 10/21/18 11:04 Infused .Q1H1M STA Infusion Sodium Chloride Confirm 10/21/18 10:11 Sodium Chloride 0.9% 1000 Ml Administered 10/21/18 10:12 Dose 1,000 mls @ ud .ROUTE .STK-MED ONE Lab/Rad Data: Laboratory Result Diagrams 10/21/18 10:00 10/21/18 10:00 Laboratory Results 10/21/18 10/21/18 10/21/18 Range/Units 11:31 10:05 10:00 WBC (4.0-10.5) K/mm3 RBC (4.1-5.4) M/mm3 Hgb (12.0-16.0) gm/dl Hct (35-47) % MCV (78-100) fl MCH (26-32) pg MCHC (32-36) g/dl RDW (11.5-14.0) % Plt Count (150-450) K/mm3 MPV (6-9.5) fl Segmented Neutrophils (36.0-66.0) % Band Neutrophils (0.0-2.0) % Lymphocytes (Manual) (24-44) % Monocytes (Manual) (0.0-12.0) % Eosinophils (Manual) (0.00-3.0) % Basophils (Manual) (0.0-1.0) % Platelet Estimate (NORMAL) RBC Morphology Sodium (137-145) mmol/L Potassium (3.5-5.1) mmol/L Chloride (98-107) mmol/L Carbon Dioxide (22-30) mmol/L Anion Gap (5-15) MEQ/L BUN (7-17) mg/dL Creatinine (0.52-1.04) mg/dL Estimated GFR ML/MIN Glucose 253 H (74-106) mg/dL Calcium (8.4-10.2) mg/dL Total Bilirubin (0.2-1.3) mg/dL AST (14-36) U/L ALT (0-35) U/L Alkaline Phosphatase (38-126) U/L Serum Total Protein (6.3-8.2) g/dL Albumin (3.5-5.0) g/dL Beta HCG, Quant mIU/ml Urine Color YELLOW (YELLOW) Urine Appearance SLIGHTLY CLOUDY (CLEAR) Urine pH 6.0 (5-6) Ur Specific [place] 1.013 (1.005-1.025) Urine Protein >=500 (Negative) Urine Ketones NEGATIVE (NEGATIVE) Urine Blood NEGATIVE (0-5) Frederick/ul Urine Nitrite NEGATIVE (NEGATIVE) Urine Bilirubin NEGATIVE (NEGATIVE) Urine Urobilinogen NEGATIVE (0-1) mg/dL Ur Leukocyte Esterase NEGATIVE (NEGATIVE) Urine WBC (Auto) 11-15 (0-5) /HPF Urine RBC (Auto) NONE (0-2) /HPF U Epithel Cells (Auto) RARE (FEW) /HPF Urine Bacteria (Auto) RARE (NEGATIVE) /HPF Urine Culture Reflexed NO (NO) Urine Glucose >=500 (NEGATIVE) mg/dL WBC (Wet Prep) Rare RBC (Wet Prep) Rare Epi Cells (Wet Prep) Moderate Bacteria (Wet Prep) Few Clue Cells (Wet Prep) None Seen Trichomonas (Wet Prep) None Seen Budding Yeast (Wet Prp) Rare 10/21/18 10/21/18 Range/Units 10:00 10:00 WBC 9.4 (4.0-10.5) K/mm3 RBC 3.96 L (4.1-5.4) M/mm3 Hgb 11.9 L (12.0-16.0) gm/dl Hct 32.7 L (35-47) % MCV 82.6 (78-100) fl MCH 30.0 (26-32) pg MCHC 36.4 H (32-36) g/dl RDW 13.6 (11.5-14.0) % Plt Count 162 (150-450) K/mm3 MPV 10.7 H (6-9.5) fl Segmented Neutrophils 82 H (36.0-66.0) % Band Neutrophils 2 (0.0-2.0) % Lymphocytes (Manual) 10 L (24-44) % Monocytes (Manual) 2 (0.0-12.0) % Eosinophils (Manual) 3 (0.00-3.0) % Basophils (Manual) 1 (0.0-1.0) % Platelet Estimate NORMAL (NORMAL) RBC Morphology NORMAL Sodium 132 L (137-145) mmol/L Potassium 3.9 (3.5-5.1) mmol/L Chloride 101 (98-107) mmol/L Carbon Dioxide 23 (22-30) mmol/L Anion Gap 11.5 (5-15) MEQ/L BUN 13 (7-17) mg/dL Creatinine 0.82 (0.52-1.04) mg/dL Estimated GFR > 60.0 ML/MIN Glucose 255 H (74-106) mg/dL Calcium 9.2 (8.4-10.2) mg/dL Total Bilirubin 0.40 (0.2-1.3) mg/dL AST 19 (14-36) U/L ALT 20 (0-35) U/L Alkaline Phosphatase 47 (38-126) U/L Serum Total Protein 6.8 (6.3-8.2) g/dL Albumin 3.3 L (3.5-5.0) g/dL Beta HCG, Quant 42422 mIU/ml Urine Color (YELLOW) Urine Appearance (CLEAR) Urine pH (5-6) Ur Specific [place] (1.005-1.025) Urine Protein (Negative) Urine Ketones (NEGATIVE) Urine Blood (0-5) Frederick/ul Urine Nitrite (NEGATIVE) Urine Bilirubin (NEGATIVE) Urine Urobilinogen (0-1) mg/dL Ur Leukocyte Esterase (NEGATIVE) Urine WBC (Auto) (0-5) /HPF Urine RBC (Auto) (0-2) /HPF U Epithel Cells (Auto) (FEW) /HPF Urine Bacteria (Auto) (NEGATIVE) /HPF Urine Culture Reflexed (NO) Urine Glucose (NEGATIVE) mg/dL WBC (Wet Prep) RBC (Wet Prep) Epi Cells (Wet Prep) Bacteria (Wet Prep) Clue Cells (Wet Prep) Trichomonas (Wet Prep) Budding Yeast (Wet Prp) - Progress Progress: improved Progress Note: 10/21/18 11:27 32-year-old white female 2 para 0010 Who states she believes she is 10 weeks . Here arrives with complaint of lower abdominal cramping since last night no bleeding no nausea no vomiting. Patient with elevated blood pressure on arrival now improved at 138/90 Patient's labs white blood cell 9.4 hemoglobin 11.9 hematocrit 32.7 platelets 162 Sodium 132 potassium 3.9 chloride 101 bicarbonate 23 BUN 13 creatinine 0.82 glucose is elevated at 255 Patient noted to have lipemic blood specimen Quantitative hCG 27,655 Urinalysis specific gravity 1.013 pH 6.0 greater greater than 500 protein greater than 500 glucose 11-15 white cells per high-power field Patient's blood pressure markedly improved from arrival now 138/90. Patient does have a history of chronic high blood pressure Patient is given 1 L of normal saline. Will plan on placing patient on Keflex 500 mg orally every 6 hours for her urine. Patient will be advised to follow-up with her [facility] physician tomorrow and/or her family doctor. Will check patient's glucose now that 1 L of normal saline have instilled. 10/21/18 11:46 Patient states she did not take her insulin coverage this morning. Her repeat glucose is 253. She's been advised to take her glucose. I've advised her of her lipemic blood specimen she states that she has high triglycerides she will follow-up with her family doctor concerning this. She also was informed of her high blood pressure on arrival she states she was nervous she will follow-up with her family doctor concerning this. 10/21/18 12:00 6patient was advised to stop smoking. - Departure Time of Disposition: 11:47 Departure Disposition: Home Clinical Impression: Abdominal cramping affecting , Hyperglycemia Qualifiers: Weeks of gestation: 10 weeks Qualified Code(s): Z3A.10 - 10 weeks gestation of UTI (urinary tract infection) Qualifiers: Urinary tract infection type: acute cystitis Hematuria presence: without hematuria Qualified Code(s): N30.00 - Acute cystitis without hematuria Hypertension Qualifiers: Hypertension type: unspecified Qualified Code(s): I10 - Essential (primary) hypertension Condition: Fair Critical Care Time: No Referrals: JAVIER STEWART [NON-STAFF PHY W/O PRIVILEGES] - GOMEZ CURIEL [Primary Care Provider] - Instructions: Urinary Tract Infection, Adult (DC) Additional Instructions: Return home. Plenty of fluids. Keflex as prescribed. Follow-up with your [facility] physician tomorrow. Follow-up with your family doctor. Take your insulin coverage as instructed by your family doctor/[facility] physician. Continue your current medications. Her blood pressure was elevated today it is improved however you need to follow- up with your [facility] physician/family doctor for continuing care. you are also noted noted to have a lipemic specimen on your blood draw he will need to follow-up with your family doctor for monitoring of your triglyceride/ cholesterol. Contact your family doctor/[facility] physician tomorrow and schedule an appointment. Contact them sooner if any problems. Return for acute distress severe symptoms or for any problems. Prescriptions: Cephalexin Mh 500 mg [Keflex 500 mg] 500 mg PO Q6H #28 capsule
[2018-10-21 10:23] LABS: Hematocrit 32.7 % (35-47); Hemoglobin 11.9 gm/dl (12.0-16.0); Mean Cell Volume 82.6 fl (78-100); Mean Corpuscular Hgb Concent. 36.4 g/dl (32-36); Mean Platelet Volume 10.7 fl (6-9.5); Platelet Count 162 K/mm3 (150-450); Red Blood Count 3.96 M/mm3 (4.1-5.4); Red Cell Distribution Width 13.6 % (11.5-14.0); White Blood Count 9.4 K/mm3 (4.0-10.5)
[2018-10-21 10:29] LABS: Appearance SLIGHTLY CLOUDY (CLEAR); Bacteria RARE /HPF (NEGATIVE); Bilirubin NEGATIVE (NEGATIVE); Blood NEGATIVE Ery/ul (0-5); Epithelial Cells RARE /HPF (FEW); Glucose >=500 mg/dL (NEGATIVE); Ketones NEGATIVE (NEGATIVE); Leukocyte Esterase NEGATIVE (NEGATIVE); Nitrite NEGATIVE (NEGATIVE); Protein,Urine Dip >=500 (Negative); Specific Gravity 1.013 (1.005-1.025); Urobilinogen NEGATIVE mg/dL (0-1)
[2018-10-21 10:38] LABS: Bacteria Few; Clue Cells None Seen; Red Blood Cells Rare; Trichomonas None Seen; White Blood Cells Rare; Yeast Rare
[2018-10-21 10:43] LABS: ALBUMIN 3.3 g/dL (3.5-5.0); ALKALINE PHOSPHATASE 47 U/L (38-126); ANION GAP 11.5 MEQ/L (5-15); BLOOD UREA NITROGEN 13 mg/dL (7-17); CHLORIDE 101 mmol/L (98-107); Calcium 9.2 mg/dL (8.4-10.2); Carbon Dioxide 23 mmol/L (22-30); Creatinine 1 0.82 mg/dL (0.52-1.04); Potassium 3.9 mmol/L (3.5-5.1); SGOT/AST 19 U/L (14-36); SGPT/ALT 20 U/L (0-35); SODIUM 132 mmol/L (137-145); Total Protein 6.8 g/dL (6.3-8.2)
[2018-10-21 10:45] LABS: Glucose 255 mg/dL (74-106)
[2018-10-21 10:49] LABS: BAND 2 % (0.0-2.0); Basophil 1 % (0.0-1.0); Eosinophil 3 % (0.00-3.0); Lymphocytes 10 % (24-44); Monocyte 2 % (0.0-12.0); Neutrophils 82 % (36.0-66.0); Platelet Estimate NORMAL (NORMAL); Total Cells Counted 100
[2018-10-21 11:08] LABS: HCG, Quantitative (Inhouse) 27665 mIU/ml
[2018-10-21 11:15] VITALS: BP 138/90; PULSE 95
[2018-10-21 11:31] VITALS: O2SAT 100
[2018-10-21] MEDS ORDERED: KEFLEX 500 MG PO ONE (11:47)
[2018-10-21] MEDS ORDERED: KEFLEX 500 MG ONE (11:53)
[2018-10-21 12:13] LABS: CHLAMYDIA DNA NEGATIVE; N GONORRHOEAE DNA NEGATIVE
--- NOTE | 2018-10-21 19:34 | XRAY ---
Indication: Cramping. Two-dimensional transabdominal early OB ultrasound performed. Comparison: None for this . There is a single intrauterine gestational sac with presence of a single pole. Mean crown-rump length measures 3.20 cm corresponding to 10 weeks 1 day. heart rate 156 BPM. No abnormal subchorionic fluid. Left and right ovaries unremarkable. No suspicious adnexal mass or free fluid. Impression: Single viable intrauterine measuring 10 weeks 1 day. Expected date confinement is May 18, 2019. Comment: Preliminary report was given.
== END 2018-10-21 12:05 | disposition home or self-care (01) ==
LOC: ED 09:38
DX: O26.891 Other specified pregnancy related conditions, first trimester (principal); Z3A.10 10 weeks gestation of pregnancy; R10.32 Left lower quadrant pain; R10.31 Right lower quadrant pain; I10 Essential (primary) hypertension; E78.00 Pure hypercholesterolemia, unspecified; E10.9 Type 1 diabetes mellitus without complications; F41.9 Anxiety disorder, unspecified; F12.90 Cannabis use, unspecified, uncomplicated
CPT/HCPCS: 36000; 36415; 76801; 80053; 81001; 82947; 84702; 85025; 87210; 87490; 87590; 96360; 99284; A9270-GY

== ENCOUNTER 2018-11-21 16:09 | Emergency (ER) | payer OTHER ==
--- NOTE | 2018-11-21 16:54 | ERPHSYRPT ---
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; EDC May 152018 Timing/Duration: yesterday, gradual onset Activities at Onset: rest Quality: aching, cramping Abdominal Pain Onset Location: suprapubic, flank Pain Radiation: no radiation Severity of Pain-Max: moderate Severity of Pain-Current: mild Modifying Factors: Improves With: nothing Associated Symptoms: back, fatigue, nausea, vomiting (morning sickness), No fever/chills, No rash, No shortness of breath, No syncope Previous symptoms: same symptoms as today Allergies/Adverse Reactions: morphine Allergy (Verified 10/21/18 10:01) Home Medications: Vits W-Ca,Fe,FA(<1Mg) [] 1 each PO DAILY 01/12/18 [History] Esomeprazole Magnesium [Nexium] 40 mg PO DAILY 04/22/18 [History] Insulin Glargine,Hum.rec.anlog [Mana Shaffer] 45 unit SQ HS 04/22/18 [History ] Carvedilol 12.5 mg [Coreg 12.5 mg] 12.5 mg PO BID 10/21/18 [History] Enoxaparin Sodium 30 mg SQ BID 10/21/18 [History] Fexofenadine HCl 180 mg PO DAILY 10/21/18 [History] Insulin Lispro [Humalog] 1 unit SQ UD 10/21/18 [History] Prochlorperazine Maleate 5 mg* [Compazine 5 MG] 5 mg PO TID PRN 10/21/18 [ History] Hx Tetanus, Diphtheria Vaccination/Date Given: Yes Hx Influenza Vaccination/Date Given: Yes Hx Pneumococcal Vaccination/Date Given: No - Review of Systems Constitutional: Malaise, No Fever, No Weight Loss Eyes: No Symptoms Ears, Nose, & Throat: No Symptoms Respiratory: No Cough, No Dyspnea, No Wheezing Cardiac: No Chest Pain, No Palpitations, No Syncope Abdominal/Gastrointestinal: Abdominal Pain, Nausea, Vomiting, No Diarrhea, No Hematemesis Genitourinary Symptoms: Flank Pain, , No Dysuria, No Frequency, No Hematuria, No Vaginal Bleeding, No Vaginal Discharge Musculoskeletal: No Symptoms Skin: No Symptoms Neurological: No Symptoms Psychological: No Symptoms Endocrine: Polyuria, Polydipsia Hematologic/Lymphatic: No Symptoms - Past Medical History Pertinent Past Medical History: Yes Cardiac History: High Cholesterol, Hypertension Endocrine Medical History: Diabetes Type I GI Medical History: Pancreatitis Psycho-Social History: Anxiety - Past Surgical History Past Surgical History: Yes Musculoskeletal: Orthopedic Surgery Female Surgical History: Dilation & Curettage Other Surgical History: knee surg, tumor removed - Social History Smoking Status: Current every day smoker How long have you smoked: 5 years Exposure to second hand smoke: Yes Alcohol Use: None Drug Use: marijuana Patient Lives Alone: Yes Significant Family History: no pertinent family hx - Female History Hx Now: Yes ( 05-15-19) - Nursing Vital Signs Nursing Vital Signs: Initial Vital Signs Temperature 99.5 F 11/21/18 16:10 Pulse Rate 115 H 11/21/18 16:10 Respiratory Rate 18 11/21/18 16:10 Blood Pressure 137/87 11/21/18 16:10 O2 Sat by Pulse Oximetry 97 11/21/18 16:10 Pain Scale Pain Intensity 4 - Physical Exam General Appearance: mild distress, alert Eye Exam: PERRL/EOMI, eyes nml inspection, No photophobia Ears, Nose, Throat Exam: normal ENT inspection, TMs normal, pharynx normal, moist mucous membranes, No pharyngeal erythema, No tonsillar exudate Neck Exam: normal inspection, non-tender, supple, full range of motion, No meningismus, No carotid bruit, No JVD, No lymphadenopathy Respiratory Exam: normal breath sounds, lungs clear, airway intact, No chest tenderness, No respiratory distress, No crackles/rales, No rhonchi, No wheezing Cardiovascular Exam: regular rate/rhythm, normal heart sounds, normal peripheral pulses, capillary refill <2 sec, No murmur, No edema Gastrointestinal/Abdomen Exam: soft, normal bowel sounds, No tenderness, No distention, No mass, No guarding, No rebound, No organomegaly Pelvic Exam: normal external exam, other (cx closed; uterus midline enlarged near dates; no FHT detected), No adnexal mass, No cervical motion tenderness, No vaginal bleeding, No uterine tenderness Rectal Exam: deferred Back Exam: normal inspection, normal range of motion, CVA tenderness (left), No vertebral tenderness, No rash Extremity Exam: normal inspection, normal range of motion, pelvis stable, other (no clonus), No tawanna's sign, No pedal edema Neurologic Exam: alert, oriented x 3, 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, 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, normal mood/affect, nml cerebellar function, nml station & gait Skin Exam: normal color, warm, dry, No rash, No petechiae, No cyanosis - Course Nursing assessment & vital signs reviewed: Yes Ordered Tests: Active Orders 24 hr Category Date Time Status Accucheck STAT Care 11/21/18 16:56 Active Accucheck STAT Care 11/21/18 18:21 Active Cath for Specimen-Straight STAT Care 11/21/18 16:48 Active Heart Tones-ED STAT Care 11/21/18 16:49 Active IV Insertion STAT Care 11/21/18 16:47 Active Pelvic Exam Assist STAT Care 11/21/18 16:47 Active Re-Check Vital Signs STAT Care 11/21/18 16:47 Active BMP Stat Lab 11/21/18 17:00 Completed CBC W DIFF Stat Lab 11/21/18 17:00 Completed CULTURE,URINE Stat Lab 11/21/18 18:00 Received HCG QUALITATIVE,SERUM Stat Lab 11/21/18 17:00 Completed HCG, Quantitative (Inhouse) Stat Lab 11/21/18 17:00 Completed Manual Differential NC Stat Lab 11/21/18 17:00 Completed UA W/RFX UR CULTURE Stat Lab 11/21/18 18:00 Completed Medication Summary Discontinued Medications Generic Name Dose Route Start Last Admin Trade Name Freq PRN Reason Stop Dose Admin Sodium Chloride 250 mls @ 999 mls/hr 11/21/18 16:47 11/21/18 18:30 Sodium Chloride 0.9% 1000 Ml IV 11/21/18 17:02 Infused .Q16M STA Infusion Sodium Chloride Confirm 11/21/18 17:11 Sodium Chloride 0.9% 1000 Ml Administered 11/21/18 17:12 Dose 1,000 mls @ ud .ROUTE .STK-MED ONE Insulin Aspart 20 unit 11/21/18 18:19 11/21/18 18:26 Novolog Insulin SQ 11/21/18 18:20 20 unit STAT ONE Administration Insulin Aspart Confirm 11/21/18 18:25 Novolog Insulin Administered 11/21/18 18:26 Dose 20 unit .ROUTE .RUST-MED ONE Lab/Rad Data: Laboratory Result Diagrams 11/21/18 17:00 11/21/18 17:00 Laboratory Results 11/21/18 11/21/18 11/21/18 Range/Units 18:00 17:00 17:00 WBC (4.0-10.5) K/mm3 RBC (4.1-5.4) M/mm3 Hgb (12.0-16.0) gm/dl Hct (35-47) % MCV (78-100) fl MCH (26-32) pg MCHC (32-36) g/dl RDW (11.5-14.0) % Plt Count (150-450) K/mm3 MPV (6-9.5) fl Sodium 128 L (137-145) mmol/L Potassium 4.5 (3.5-5.1) mmol/L Chloride 99 (98-107) mmol/L Carbon Dioxide 18 L (22-30) mmol/L Anion Gap 15.4 H (5-15) MEQ/L BUN 20 H (7-17) mg/dL Creatinine 0.88 (0.52-1.04) mg/dL Estimated GFR > 60.0 ML/MIN Glucose 420 H (74-106) mg/dL Calcium 9.5 (8.4-10.2) mg/dL Beta HCG, Quant 66138 mIU/ml Serum , Qual POSITIVE (Negative) Urine Color YELLOW (YELLOW) Urine Appearance SLIGHTLY CLOUDY (CLEAR) Urine pH 6.0 (5-6) Ur Specific [place] 1.023 (1.005-1.025) Urine Protein >=500 (Negative) Urine Ketones NEGATIVE (NEGATIVE) Urine Blood SMALL (0-5) Frederick/ul Urine Nitrite NEGATIVE (NEGATIVE) Urine Bilirubin NEGATIVE (NEGATIVE) Urine Urobilinogen NEGATIVE (0-1) mg/dL Ur Leukocyte Esterase NEGATIVE (NEGATIVE) Urine WBC (Auto) 3-5 (0-5) /HPF Urine RBC (Auto) 0-2 (0-2) /HPF U Epithel Cells (Auto) RARE (FEW) /HPF Urine Bacteria (Auto) FEW (NEGATIVE) /HPF Urine Culture Reflexed YES (NO) Urine Glucose >=500 (NEGATIVE) mg/dL 11/21/18 Range/Units 17:00 WBC 12.7 H (4.0-10.5) K/mm3 RBC 3.65 L (4.1-5.4) M/mm3 Hgb 10.9 L (12.0-16.0) gm/dl Hct 30.5 L (35-47) % MCV 83.6 (78-100) fl MCH 29.8 (26-32) pg MCHC 35.7 (32-36) g/dl RDW 13.7 (11.5-14.0) % Plt Count 162 (150-450) K/mm3 MPV 10.8 H (6-9.5) fl Sodium (137-145) mmol/L Potassium (3.5-5.1) mmol/L Chloride (98-107) mmol/L Carbon Dioxide (22-30) mmol/L Anion Gap (5-15) MEQ/L BUN (7-17) mg/dL Creatinine (0.52-1.04) mg/dL Estimated GFR ML/MIN Glucose (74-106) mg/dL Calcium (8.4-10.2) mg/dL Beta HCG, Quant mIU/ml Serum , Qual (Negative) Urine Color (YELLOW) Urine Appearance (CLEAR) Urine pH (5-6) Ur Specific [place] (1.005-1.025) Urine Protein (Negative) Urine Ketones (NEGATIVE) Urine Blood (0-5) Frederick/ul Urine Nitrite (NEGATIVE) Urine Bilirubin (NEGATIVE) Urine Urobilinogen (0-1) mg/dL Ur Leukocyte Esterase (NEGATIVE) Urine WBC (Auto) (0-5) /HPF Urine RBC (Auto) (0-2) /HPF U Epithel Cells (Auto) (FEW) /HPF Urine Bacteria (Auto) (NEGATIVE) /HPF Urine Culture Reflexed (NO) Urine Glucose (NEGATIVE) mg/dL reviewed - Progress Progress: improved (CLINICALLY), re-examined (thirsty; ) Progress Note: 11/21/18 16:55 will hydrate with IV fluid; do pelvic; check fht and lab and recheck 11/21/18 17:47 feeling better after IV fluids; will monitor and recheck 11/21/18 18:20 rechecked and feeling better with IV fluids; reviewed lab and BS 420- she said her sliding scale called for 20 units Humalog sub q- it was ordered; will monitor and recheck; 11/21/18 19:08 RECHECKED AND WILL CONTINUE iv FLUIDS; CONTINUES TO IMPROVE CLINICALLY; INSTRUCTIONS GIVEN Counseled pt/family regarding: lab results, diagnosis, need for follow-up, smoking cessation - Departure Departure Disposition: Home Clinical Impression: iddm POOR CONTROL, First trimester Condition: Stable Critical Care Time: No Referrals: GOMEZ CURIEL [Primary Care Provider] - Instructions: Symptoms Additional Instructions: WATCH DIET; MONITOR GLUCOSE AND USE SLIDING SCALE CALL job placement officer DOC IN AM FOR FOLLOW UP Follow-up with family doctor as directed. Call for appointment. Return if any problems. If you smoke please stop. Call or follow up with your family doctor for assistance if you need it to stop. Please wear your seatbelt when driving. Have a nice day. Thank you for allowing us to participate in your care today. :o) Dr Jose Reaves
[2018-11-21 17:05] LABS: Hematocrit 30.5 % (35-47); Hemoglobin 10.9 gm/dl (12.0-16.0); Mean Cell Volume 83.6 fl (78-100); Mean Corpuscular Hgb Concent. 35.7 g/dl (32-36); Mean Platelet Volume 10.8 fl (6-9.5); Platelet Count 162 K/mm3 (150-450); Red Blood Count 3.65 M/mm3 (4.1-5.4); Red Cell Distribution Width 13.7 % (11.5-14.0); White Blood Count 12.7 K/mm3 (4.0-10.5)
[2018-11-21 17:07] LABS: Mean Corpuscular Hemoglobin 29.8 pg (26-32)
[2018-11-21] MEDS ORDERED: Sodium Chloride 0.9% 1000 ML 1,000 ML ONE (17:11)
[2018-11-21 17:33] LABS: ANION GAP 15.4 MEQ/L (5-15); BLOOD UREA NITROGEN 20 mg/dL (7-17); CHLORIDE 99 mmol/L (98-107); Calcium 9.5 mg/dL (8.4-10.2); Carbon Dioxide 18 mmol/L (22-30); Creatinine 1 0.88 mg/dL (0.52-1.04); HCG, Quantitative (Inhouse) 12665 mIU/ml; Potassium 4.5 mmol/L (3.5-5.1); SODIUM 128 mmol/L (137-145)
[2018-11-21 17:35] LABS: Glucose 420 mg/dL (74-106)
[2018-11-21] MEDS ORDERED: NovoLOG Insulin SQ ONE (18:19)
[2018-11-21] MEDS ORDERED: NovoLOG Insulin ONE (18:25)
[2018-11-21 18:33] LABS: Appearance SLIGHTLY CLOUDY (CLEAR); Bacteria FEW /HPF (NEGATIVE); Bilirubin NEGATIVE (NEGATIVE); Blood SMALL Ery/ul (0-5); Epithelial Cells RARE /HPF (FEW); Glucose >=500 mg/dL (NEGATIVE); Ketones NEGATIVE (NEGATIVE); Leukocyte Esterase NEGATIVE (NEGATIVE); Nitrite NEGATIVE (NEGATIVE); Protein,Urine Dip >=500 (Negative); RBC 0-2 /HPF (0-2); Specific Gravity 1.023 (1.005-1.025); Urobilinogen NEGATIVE mg/dL (0-1)
[2018-11-21 19:58] VITALS: BP 145/99; PULSE 84; O2SAT 99
[2018-11-21 20:38] LABS: Basophil 1 % (0.0-1.0); Eosinophil 1 % (0.00-3.0); Lymphocytes 11 % (24-44); Monocyte 6 % (0.0-12.0); Neutrophils 81 % (36.0-66.0); Platelet Estimate NORMAL (NORMAL); Total Cells Counted 100
[2018-11-21 20:39] LABS: ANISOCYTOSIS 1+
== END 2018-11-21 19:56 | disposition home or self-care (01) ==
LOC: ED 16:09
DX: O24.012 Pre-existing type 1 diabetes mellitus, in pregnancy, second trimester (principal); E10.65 Type 1 diabetes mellitus with hyperglycemia
CPT/HCPCS: 36000; 36415; 80048; 81001; 81025; 82962; 84702; 85025; 87086; 96360; 96372; 99284; P9612; 96374; A9270-GY

== ENCOUNTER 2019-06-03 12:49 | Emergency (ER) | payer OTHER ==
[2019-06-03] MEDS ORDERED: DUONEB 0.5-3 MG/3 ml Neb IH ONE ×2 (13:20→13:41)
[2019-06-03] MEDS ORDERED: Sodium Chloride 0.9% 1000 ML 1,000 ML IV STA ×2 (13:20→14:18)
--- NOTE | 2019-06-03 13:27 | ERPHSYRPT ---
- History of Present Illness Time Seen by Provider: 06/03/19 13:05 Source: patient Exam Limitations: no limitations Patient Subjective Stated Complaint: pt to ER with lightheadedness, weakness and swelling all over body since this morning. pt states he has hx of PE and just had a baby 2 months ago. pt denies fever, N/V. Triage Nursing Assessment: pt presents to ER with weakness and dizziness since this morning. pt states she is also SOB and pts O2 low. pt placed on 2 L O2. pt appears pale and flushed. Physician History: Patient began having dyspnea and dizziness with near-syncope while beginning work at 06:00, that worsened as she was there. Patient's symptoms worsened throughout her time at work prior to coming into the emergency department. Timing/Duration: today, hour(s) (7) Activities at Onset: activity (she was at work) Severity of Dyspnea-Max: severe Severity of Dyspnea-Current: severe Possible Cause: no prior episodes Modifying Factors: Improves With: activity, deep breath Associated Symptoms: constant, lightheadedness, weakness, ankle swelling, dizziness, heaviness, leg swelling, painful breathing, tightness, No chest pain/ discomfort, No edema, No fever, No insomnia, No loss of appetite, No wheezing, No chills, No hemoptysis, No calf pain, No heart racing, No lightheadedness, No muscle spasms feet, No muscle spasms hands, No productive cough, No sweating, No tingling face, No tingling hands International travel in last 2 weeks: No Allergies/Adverse Reactions: morphine Allergy (Verified 06/03/19 14:21) Home Medications: Vits W-Ca,Fe,FA(<1Mg) [] 1 each PO DAILY 01/12/18 [History] Esomeprazole Magnesium [Nexium] 40 mg PO DAILY 04/22/18 [History] Insulin Glargine,Hum.rec.anlog [Mana Shaffer] 45 unit SQ HS 04/22/18 [History ] Carvedilol 12.5 mg [Coreg 12.5 mg] 25 mg PO BID 10/21/18 [History] Enoxaparin Sodium 30 mg SQ BID 10/21/18 [History] Fexofenadine HCl 180 mg PO DAILY 10/21/18 [History] Insulin Lispro [Humalog] 1 unit SQ UD 10/21/18 [History] Prochlorperazine Maleate 5 mg* [Compazine 5 MG] 5 mg PO TID PRN 10/21/18 [ History] Hx Tetanus, Diphtheria Vaccination/Date Given: Yes Hx Influenza Vaccination/Date Given: Yes Hx Pneumococcal Vaccination/Date Given: No Immunizations Up to Date: Yes - Review of Systems Constitutional: Fatigue, No Fever, No Chills Eyes: No Eye Pain, No Vision Changes Ears, Nose, & Throat: No Nose Congestion, No Mouth Pain, No Mouth Swelling, No Throat Swelling, No Hoarse, No Painful Swallowing, No Stridor Respiratory: Dyspnea, Dyspnea on Exertion (TA), No Cough, No Stridor, No Wheezing Cardiac: Edema, Palpitations, No Chest Pain, No Syncope Abdominal/Gastrointestinal: No Abdominal Pain, No Nausea, No Vomiting, No Hematemesis, No Hematochezia, No Melena Genitourinary Symptoms: No Dysuria, No Frequency, No Hematuria, No Flank Pain Musculoskeletal: No Back Pain, No Neck Pain Skin: No Pruritis, No Rash Neurological: No Focal Weakness, No Headache, No Lethargy, No Paralysis, No Parasthesia, No Tremors, No Vertigo Psychological: Anxiety, No Emotional Lability Endocrine: No Polydipsia, No Excessive Sweating Hematologic/Lymphatic: No Easy Bleeding, No Easy Bruising All Other Systems: Reviewed and Negative - Past Medical History Pertinent Past Medical History: Yes Neurological History: No Pertinent History ENT History: No Pertinent History Cardiac History: High Cholesterol, Hypertension Respiratory History: Pulmonary Embolism Endocrine Medical History: Diabetes Type I Musculoskeletal History: No Pertinent History GI Medical History: Pancreatitis History: No Pertinent History Psycho-Social History: Anxiety Female Reproductive Disorders: No Pertinent History Other Medical History: Pituitary removed - Past Surgical History Past Surgical History: Yes Neuro Surgical History: No Pertinent History Cardiac: No Pertinent History Respiratory: No Pertinent History Gastrointestinal: No Pertinent History Genitourinary: No Pertinent History Musculoskeletal: Orthopedic Surgery Female Surgical History: Dilation & Curettage, Section Other Surgical History: knee surg, tumor removed - Social History Smoking Status: Former smoker How long have you smoked: 5 years Exposure to second hand smoke: Yes Alcohol Use: None Drug Use: none Patient Lives Alone: No Significant Family History: no pertinent family hx - Female History Hx Now: No - Nursing Vital Signs Nursing Vital Signs: Initial Vital Signs Temperature 97.4 F 06/03/19 13:01 Pulse Rate 99 H 06/03/19 13:01 Respiratory Rate 16 06/03/19 13:01 Blood Pressure 91/66 06/03/19 13:01 O2 Sat by Pulse Oximetry 90 L 06/03/19 13:01 Pain Scale Pain Intensity 7 - Physical Exam General Appearance: mild distress, alert Eye Exam: PERRL/EOMI, eyes nml inspection, No scleral icterus Ears, Nose, Throat Exam: hearing grossly normal, normal ENT inspection, normal pharynx, No abnormal TM (R), No abnormal TM (L), No sinus pain/drainage, No hearing decreased, No nasal congestion, No pharyngeal erythema, No tonsillar exudate Neck Exam: normal inspection, non-tender, supple, full range of motion, No Brudzinski, No meningismus, No subcutaneous emphysema Respiratory Exam: airway intact, diminished breath sounds, No chest tenderness, No respiratory distress, No accessory muscle use, No prolonged expirations, No crackles/rales, No rhonchi, No wheezing, No stridor Cardiovascular/Chest Exam: normal heart sounds, regular rate/rhythm, normal peripheral pulses, No murmur, No edema, No JVD Abdominal/Gastrointestinal Exam: soft, normal bowel sounds, No tenderness, No distention, No mass, No guarding, No ecchymosis Extremity Exam: non-tender, normal range of motion, normal inspection, pelvis stable, No no calf tenderness, No no pedal edema, No pedal edema, No swelling, No tawanna's sign Peripheral Pulses Exam: dorsalis-pedis (R): 2+, dorsalis-pedis (L): 2+ Neurologic Exam: alert, oriented x 3, 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, 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, normal mood/affect, sensation nml, No motor deficits, No uncooperative, No motor weakness Skin Exam: normal color, warm, dry, No rash, No petechiae, No cyanosis SpO2 Interpretation: normal, hypoxic, ABG ordered, O2 applied SpO2: 92 O2 Delivery: Nasal Cannula (increased from 2 liters to 4 liters) - Course Nursing assessment & vital signs reviewed: Yes EKG Interpreted by Me: RATE (97), Sinus Rhythm, NORMAL AXIS, NORMAL INTERVALS, NORMAL QRS, NORMAL ST-T, Other (nonspecific T wave changes in leads II, III, V5 , V6; negative previous EKG changes) - Radiology Exams Chest X-ray Interpretation: Reviewed by me, Other (Per Radiologist interpretation: mild interstitial pulmonary edema without consolidation/large effusion. Remaining heart, lungs and bony thorax normal) - CT Exams Chest CT Interpretation: No PE, Other (Per Radiologist Interpretation: Negative Pulmonary Embolus; Diffuse Interstitial pulmonary edema with small bilateral pleural effusions without cardiomegaly. Rule out noncardiogenic causes. Small hiatal hernia with distal esophageal wall thickening favoring esophagitis. Old granulomatous disease. 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 Care 06/03/19 13:21 Active Catheter-[place] STAT Care 06/03/19 13:41 Active EKG-ER Only STAT Care 06/03/19 13:20 Active IV Insertion STAT Care 06/03/19 13:20 Active CHEST 1 VIEW (PORTABLE) Stat Exams 06/03/19 13:21 Completed CHEST WITH CONTRAST [CT] Stat Exams 06/03/19 14:17 Completed ARTERIAL BLOOD GASES Stat Lab 06/03/19 13:20 Completed ARTERIAL BLOOD GASES Stat Lab 06/03/19 16:05 Completed BLOOD CULTURE Stat Lab 06/03/19 14:15 Received CBC W DIFF Stat Lab 06/03/19 13:20 Completed CMP Stat Lab 06/03/19 13:40 Completed CULTURE,URINE Stat Lab 06/03/19 15:07 Received Glucose,Critical Care Urgent Lab 06/03/19 13:51 Completed HCG,QUALITATIVE URINE Stat Lab 06/03/19 14:15 Completed Lactic Acid Stat Lab 06/03/19 13:20 Completed MAGNESIUM Stat Lab 06/03/19 13:40 Completed NT PRO BNP Stat Lab 06/03/19 13:40 Completed PROTIME WITH INR Stat Lab 06/03/19 13:40 Received PTT Stat Lab 06/03/19 13:40 Received TROPONIN Q3H Lab 06/04/19 01:30 Ordered TSH, 3RD Generation Stat Lab 06/03/19 13:40 Completed UA W/RFX UR CULTURE Stat Lab 06/03/19 15:07 Completed Urine Triage Profile Stat Lab 06/03/19 14:01 Completed BiPap/CPAP STAT RT 06/03/19 13:31 Active Medication Summary Generic Name Dose Route Start Last Admin Trade Name Odalys PRN Reason Stop Dose Admin Insulin Human Regular 100 101 mls @ 8.08 mls/hr 06/03/19 14:30 06/03/19 15:42 units/ Sodium Chloride IV 07/03/19 14:29 8 units/hr .[id number] ALO 8.08 mls/hr Administration 8 UNITS/HR Discontinued Medications Generic Name Dose Route Start Last Admin Trade Name Odalys PRN Reason Stop Dose Admin Albuterol/Ipratropium 3 ml 06/03/19 13:20 06/03/19 13:42 Duoneb 0.5-3 Mg/3 Ml Neb IH 06/03/19 13:21 3 ml STAT ONE Administration Albuterol/Ipratropium Confirm 06/03/19 13:41 Duoneb 0.5-3 Mg/3 Ml Neb Administered 06/03/19 13:42 Dose 3 ml IH .STK-MED ONE Etomidate 20 mg 06/03/19 13:35 06/03/19 13:52 Amidate 20 Mg/10 Ml IV 06/03/19 13:36 Not Given STAT ONE Sodium Chloride 1,000 mls @ 999 mls/hr 06/03/19 13:20 06/03/19 13:56 Sodium Chloride 0.9% 1000 Ml IV 06/03/19 14:20 999 mls/hr .Q1H1M STA Administration Sodium Chloride Confirm 06/03/19 13:53 Sodium Chloride 0.9% 1000 Ml Administered 06/03/19 13:54 Dose 1,000 mls @ ud .ROUTE .STK-MED ONE Sodium Chloride 1,000 mls @ 999 mls/hr 06/03/19 14:18 06/03/19 15:12 Sodium Chloride 0.9% 1000 Ml IV 06/03/19 15:18 999 mls/hr .Q1H1M STA Administration Sodium Chloride Confirm 06/03/19 15:12 Sodium Chloride 0.9% 1000 Ml Administered 06/03/19 15:13 Dose 1,000 mls @ ud .ROUTE .STK-MED ONE Insulin Human Regular 8 unit 06/03/19 14:18 06/03/19 14:34 Novolin R IV 06/03/19 14:19 8 unit STAT ONE Administration Insulin Human Regular Confirm 06/03/19 14:33 Novolin R Administered 06/03/19 14:34 Dose 8 unit .ROUTE .STK-MED ONE Rocuronium [place] 70 mg 06/03/19 13:35 06/03/19 13:52 Zemuron 100 Mg/10 Ml IV 06/03/19 13:36 Not Given STAT ONE Lab/Rad Data: Laboratory Result Diagrams 06/03/19 13:20 06/03/19 16:10 Laboratory Results 06/03/19 06/03/19 06/03/19 Range/Units 16:10 16:05 15:07 WBC (4.0-10.5) K/mm3 RBC (4.1-5.4) M/mm3 Hgb (12.0-16.0) gm/dl Hct (35-47) % MCV (78-100) fl MCH (26-32) pg MCHC (32-36) g/dl RDW (11.5-14.0) % Plt Count (150-450) K/mm3 MPV (6-9.5) fl Total Counted Absolute Granulocytes (1.4-6.9) Absolute Neutrophils Segmented Neutrophils (36.0-66.0) % Band Neutrophils Lymphocytes (Manual) (24-44) % Monocytes (Manual) (0.0-12.0) % Eosinophils (Manual) (0.00-3.0) % Basophils (Manual) (0.0-1.0) % Metamyelocytes Myelocytes Promyelocytes Nucleated RBCs Hypersegmented Polys Atypical Lymphocytes Blast Cells Plasma Cells Other Cell Type Hypochromia Toxic Granulation Dohle Bodies Matt Rods Platelet Estimate (NORMAL) RBC Morphology Polychromasia Poikilocytosis Basophilic Stippling Anisocytosis Microcytosis Macrocytosis Spherocytes Sickle Cells Target Cells Tear Drop Cells Ovalocytes Stomatocytes Helmet Cells Marion-Garner Bodies [place] Rings Ignacia Cells Acanthocytes (Spur) Rouleaux Schistocytes Morphology Comment Puncture Site RIGHT RADIAL pCO2 33 L (35-45) mmHg pO2 112 H (75-100) mmHg Base Excess -7.0 L (-2.0-2.0) ABG pH 7.34 L (7.35-7.45) ABG HCO3 17.8 L (22-28) Jerry Test YES A-a Gradient 560 a/A Ratio 0.17 Potassium 4.4 4.3 (3.5-5.1) Temperature 37.0 C POC O2 Flow Rate 100 % Vent Mode BiPAP Inspiratory BiPAP 16 Expiratory BiPAP 6 Sodium Direct 128 L (138-146) mmol/L Chloride 105 (98-109) mmol/L Carbon Dioxide 19 L (24-29) mmol/L Anion Gap (5-15) MEQ/L Venous BUN 35 H (8-26) mg/dL Creatinine 2.1 H (0.6-1.3) mg/dL Glucose 354 H (70-105) mg/dL Lactic Acid (0.4-2.0) Ionized Calcium 1.04 L (1.12-1.32) mmol/L Troponin Urine Color YELLOW (YELLOW) Urine Appearance CLOUDY (CLEAR) Urine pH 5.0 (5-6) Ur Specific Mckenzie 1.032 (1.005-1.025) Urine Protein >=500 (Negative) Urine Ketones TRACE (NEGATIVE) Urine Blood NEGATIVE (0-5) Frederick/ul Urine Nitrite NEGATIVE (NEGATIVE) Urine Bilirubin NEGATIVE (NEGATIVE) Urine Urobilinogen NEGATIVE (0-1) mg/dL Ur Leukocyte Esterase NEGATIVE (NEGATIVE) Urine WBC (Auto) 11-15 (0-5) /HPF Urine RBC (Auto) 6-10 (0-2) /HPF U Epithel Cells (Auto) RARE (FEW) /HPF Urine Bacteria (Auto) FEW (NEGATIVE) /HPF Urine Mucus (Auto) SLIGHT (NEGATIVE) /HPF Urine Culture Reflexed YES (NO) Urine Glucose >=500 (NEGATIVE) mg/dL Urine HCG, Qual (Negative) Urine Opiates Level (NEGATIVE) Ur Methadone (NEGATIVE) Urine Barbiturates (NEGATIVE) Ur Phencyclidine (PCP) (NEGATIVE) Urine Amphetamine (NEGATIVE) U Benzodiazepine Level (NEGATIVE) Urine Cocaine (NEGATIVE) Urine Marijuana (THC) (NEGATIVE) 06/03/19 06/03/19 06/03/19 Range/Units 14:15 14:01 13:51 WBC (4.0-10.5) K/mm3 RBC (4.1-5.4) M/mm3 Hgb (12.0-16.0) gm/dl Hct (35-47) % MCV (78-100) fl MCH (26-32) pg MCHC (32-36) g/dl RDW (11.5-14.0) % Plt Count (150-450) K/mm3 MPV (6-9.5) fl Total Counted Absolute Granulocytes (1.4-6.9) Absolute Neutrophils Segmented Neutrophils (36.0-66.0) % Band Neutrophils Lymphocytes (Manual) (24-44) % Monocytes (Manual) (0.0-12.0) % Eosinophils (Manual) (0.00-3.0) % Basophils (Manual) (0.0-1.0) % Metamyelocytes Myelocytes Promyelocytes Nucleated RBCs Hypersegmented Polys Atypical Lymphocytes Blast Cells Plasma Cells Other Cell Type Hypochromia Toxic Granulation Dohle Bodies Matt Rods Platelet Estimate (NORMAL) RBC Morphology Polychromasia Poikilocytosis Basophilic Stippling Anisocytosis Microcytosis Macrocytosis Spherocytes Sickle Cells Target Cells Tear Drop Cells Ovalocytes Stomatocytes Helmet Cells Marion-Garner Bodies [place] Rings Ignacia Cells Acanthocytes (Spur) Rouleaux Schistocytes Morphology Comment Puncture Site pCO2 (35-45) mmHg pO2 (75-100) mmHg Base Excess (-2.0-2.0) ABG pH (7.35-7.45) ABG HCO3 (22-28) Jerry Test A-a Gradient a/A Ratio Potassium (3.5-5.1) Temperature C POC O2 Flow Rate % Vent Mode Inspiratory BiPAP Expiratory BiPAP Sodium Direct (138-146) mmol/L Chloride (98-109) mmol/L Carbon Dioxide (24-29) mmol/L Anion Gap (5-15) MEQ/L Venous BUN (8-26) mg/dL Creatinine (0.6-1.3) mg/dL Glucose 489 H (70-105) mg/dL Lactic Acid (0.4-2.0) Ionized Calcium (1.12-1.32) mmol/L Troponin Urine Color (YELLOW) Urine Appearance (CLEAR) Urine pH (5-6) Ur Specific Mckenzie (1.005-1.025) Urine Protein (Negative) Urine Ketones (NEGATIVE) Urine Blood (0-5) Frederick/ul Urine Nitrite (NEGATIVE) Urine Bilirubin (NEGATIVE) Urine Urobilinogen (0-1) mg/dL Ur Leukocyte Esterase (NEGATIVE) Urine WBC (Auto) (0-5) /HPF Urine RBC (Auto) (0-2) /HPF U Epithel Cells (Auto) (FEW) /HPF Urine Bacteria (Auto) (NEGATIVE) /HPF Urine Mucus (Auto) (NEGATIVE) /HPF Urine Culture Reflexed (NO) Urine Glucose (NEGATIVE) mg/dL Urine HCG, Qual NEGATIVE (Negative) Urine Opiates Level NEGATIVE (NEGATIVE) Ur Methadone NEGATIVE (NEGATIVE) Urine Barbiturates NEGATIVE (NEGATIVE) Ur Phencyclidine (PCP) NEGATIVE (NEGATIVE) Urine Amphetamine NEGATIVE (NEGATIVE) U Benzodiazepine Level POSITIVE (NEGATIVE) Urine Cocaine NEGATIVE (NEGATIVE) Urine Marijuana (THC) NEGATIVE (NEGATIVE) 06/03/19 06/03/19 06/03/19 Range/Units 13:40 13:22 13:20 WBC (4.0-10.5) K/mm3 RBC (4.1-5.4) M/mm3 Hgb (12.0-16.0) gm/dl Hct (35-47) % MCV (78-100) fl MCH (26-32) pg MCHC (32-36) g/dl RDW (11.5-14.0) % Plt Count (150-450) K/mm3 MPV (6-9.5) fl Total Counted Absolute Granulocytes (1.4-6.9) Absolute Neutrophils Segmented Neutrophils (36.0-66.0) % Band Neutrophils Lymphocytes (Manual) (24-44) % Monocytes (Manual) (0.0-12.0) % Eosinophils (Manual) (0.00-3.0) % Basophils (Manual) (0.0-1.0) % Metamyelocytes Myelocytes Promyelocytes Nucleated RBCs Hypersegmented Polys Atypical Lymphocytes Blast Cells Plasma Cells Other Cell Type Hypochromia Toxic Granulation Dohle Bodies Matt Rods Platelet Estimate (NORMAL) RBC Morphology Polychromasia Poikilocytosis Basophilic Stippling Anisocytosis Microcytosis Macrocytosis Spherocytes Sickle Cells Target Cells Tear Drop Cells Ovalocytes Stomatocytes Helmet Cells Marion-Garner Bodies [place] Rings Ignacia Cells Acanthocytes (Spur) Rouleaux Schistocytes Morphology Comment Puncture Site LEFT RADIAL pCO2 24 L (35-45) mmHg pO2 43 L* (75-100) mmHg Base Excess -4.9 L (-2.0-2.0) ABG pH 7.46 H (7.35-7.45) ABG HCO3 17.1 L (22-28) Jerry Test YES A-a Gradient 640 a/A Ratio 0.06 Potassium 5.8 H 5.3 H (3.5-5.1) Temperature 37.0 C POC O2 Flow Rate 100 % Vent Mode Inspiratory BiPAP Expiratory BiPAP Sodium Direct 126 L (138-146) mmol/L Chloride 103 (98-109) mmol/L Carbon Dioxide 19 L (24-29) mmol/L Anion Gap (5-15) MEQ/L Venous BUN 32 H (8-26) mg/dL Creatinine 2.3 H (0.6-1.3) mg/dL Glucose 491 H (70-105) mg/dL Lactic Acid 1.8 (0.4-2.0) Ionized Calcium 1.04 L (1.12-1.32) mmol/L Troponin Cancelled Urine Color (YELLOW) Urine Appearance (CLEAR) Urine pH (5-6) Ur Specific Mckenzie (1.005-1.025) Urine Protein (Negative) Urine Ketones (NEGATIVE) Urine Blood (0-5) Frederick/ul Urine Nitrite (NEGATIVE) Urine Bilirubin (NEGATIVE) Urine Urobilinogen (0-1) mg/dL Ur Leukocyte Esterase (NEGATIVE) Urine WBC (Auto) (0-5) /HPF Urine RBC (Auto) (0-2) /HPF U Epithel Cells (Auto) (FEW) /HPF Urine Bacteria (Auto) (NEGATIVE) /HPF Urine Mucus (Auto) (NEGATIVE) /HPF Urine Culture Reflexed (NO) Urine Glucose (NEGATIVE) mg/dL Urine HCG, Qual (Negative) Urine Opiates Level (NEGATIVE) Ur Methadone (NEGATIVE) Urine Barbiturates (NEGATIVE) Ur Phencyclidine (PCP) (NEGATIVE) Urine Amphetamine (NEGATIVE) U Benzodiazepine Level (NEGATIVE) Urine Cocaine (NEGATIVE) Urine Marijuana (THC) (NEGATIVE) 06/03/19 Range/Units 13:20 WBC 15.3 H (4.0-10.5) K/mm3 RBC 4.49 (4.1-5.4) M/mm3 Hgb 17.4 H (12.0-16.0) gm/dl Hct 35.7 (35-47) % MCV 79.5 (78-100) fl MCH 38.7 H (26-32) pg MCHC 48.7 H (32-36) g/dl RDW 14.7 H (11.5-14.0) % Plt Count 386 (150-450) K/mm3 MPV 10.3 H (6-9.5) fl Total Counted Cancelled Absolute Granulocytes 10.28 H (1.4-6.9) Absolute Neutrophils Cancelled Segmented Neutrophils 67 H (36.0-66.0) % Band Neutrophils Cancelled Lymphocytes (Manual) 23 L (24-44) % Monocytes (Manual) 5 (0.0-12.0) % Eosinophils (Manual) 3 (0.00-3.0) % Basophils (Manual) 2 H (0.0-1.0) % Metamyelocytes Cancelled Myelocytes Cancelled Promyelocytes Cancelled Nucleated RBCs Cancelled Hypersegmented Polys Cancelled Atypical Lymphocytes Cancelled Blast Cells Cancelled Plasma Cells Cancelled Other Cell Type Cancelled Hypochromia Cancelled Toxic Granulation Cancelled Dohle Bodies Cancelled Matt Rods Cancelled Platelet Estimate NORMAL (NORMAL) RBC Morphology NORMAL Polychromasia Cancelled Poikilocytosis Cancelled Basophilic Stippling Cancelled Anisocytosis Cancelled Microcytosis Cancelled Macrocytosis Cancelled Spherocytes Cancelled Sickle Cells Cancelled Target Cells Cancelled Tear Drop Cells Cancelled Ovalocytes Cancelled Stomatocytes Cancelled Helmet Cells Cancelled Marion-Garner Bodies Cancelled [place] Rings Cancelled Holly Cells Cancelled Acanthocytes (Spur) Cancelled Rouleaux Cancelled Schistocytes Cancelled Morphology Comment Cancelled Puncture Site pCO2 (35-45) mmHg pO2 (75-100) mmHg Base Excess (-2.0-2.0) ABG pH (7.35-7.45) ABG HCO3 (22-28) Jerry Test A-a Gradient a/A Ratio Potassium (3.5-5.1) Temperature C POC O2 Flow Rate % Vent Mode Inspiratory BiPAP Expiratory BiPAP Sodium Direct (138-146) mmol/L Chloride (98-109) mmol/L Carbon Dioxide (24-29) mmol/L Anion Gap (5-15) MEQ/L Venous BUN (8-26) mg/dL Creatinine (0.6-1.3) mg/dL Glucose (70-105) mg/dL Lactic Acid (0.4-2.0) Ionized Calcium (1.12-1.32) mmol/L Troponin Urine Color (YELLOW) Urine Appearance (CLEAR) Urine pH (5-6) Ur Specific Mckenzie (1.005-1.025) Urine Protein (Negative) Urine Ketones (NEGATIVE) Urine Blood (0-5) Frederick/ul Urine Nitrite (NEGATIVE) Urine Bilirubin (NEGATIVE) Urine Urobilinogen (0-1) mg/dL Ur Leukocyte Esterase (NEGATIVE) Urine WBC (Auto) (0-5) /HPF Urine RBC (Auto) (0-2) /HPF U Epithel Cells (Auto) (FEW) /HPF Urine Bacteria (Auto) (NEGATIVE) /HPF Urine Mucus (Auto) (NEGATIVE) /HPF Urine Culture Reflexed (NO) Urine Glucose (NEGATIVE) mg/dL Urine HCG, Qual (Negative) Urine Opiates Level (NEGATIVE) Ur Methadone (NEGATIVE) Urine Barbiturates (NEGATIVE) Ur Phencyclidine (PCP) (NEGATIVE) Urine Amphetamine (NEGATIVE) U Benzodiazepine Level (NEGATIVE) Urine Cocaine (NEGATIVE) Urine Marijuana (THC) (NEGATIVE) - Progress Progress: improved, re-examined Air Movement: poor Progress Note: 06/03/19 13:30 Patient's pulse oximetry is getting lower even on 4 liters. Patient feels chest tightness. DuoNeb ordered and BiPap ordered with Respiratory therapy consulted. 06/03/19 13:36 Patient has increased difficulty breathing. low oxygen saturation in the lower 80s and decreased mental status and respiratory effort. Patient was going to be intubated with RSI with etomidate and rocuronium 06/03/19 13:39 Patient is more alert, better respiratory effort and refused intubation. BiPaP placed with significant improved airflow throughout the lungs with improvement in pulse oximetry to the mid 90s. DuoNeb is being performed with the BiPAP 06/03/19 14:19 Patient is maintaing oxygen saturations with BiPAP. Patient will have an IV fluids, Insulin bolus and drip, and will give CTA of Pulmonary Arteries 06/03/19 14:35 Patient doing much better, alert, answers appropriately and in no type of respiratory distress with CTA throughout the lung wilkinson and equal breath sounds 06/03/19 14:45 Laboratory has notified the emergency department two times now that the patient' s blood is so lipemic, that the CMP will take a while to return results and coagulation measurements need to be sent to an outside laboratory. 06/03/19 15:35 Patient did not do well without noninvasive positive pressure ventilation while getting CT scan of her Chest. Patient desaturated to the 70s in a very quick time. Patient improved with positive pressure placed again. 06/03/19 16:05 Patient oxygenating very well with no respiratory distress with the BiPAP and remains alert. Repeat ABG performed. 06/03/19 16:32 Patient's creatinine has improved as well as they hyperglycemia has improved with IV hydration and IV Insulin. Patient has low calcium still, so Insulin drip will be stopped and IV Calcium gluconate will be given. Patient understands the need for [facility] and management with specialty capabilities. Blood Culture(s) Obtained: Yes Antibiotics given: No Discussed with Dr.: Other (@ 16:34, spoke with Dr Orr, Emergency Department attending at [facility] in [place], [place]. Dr Orr accepted the patient for transfer to the emergency department at [facility].) Counseled pt/family regarding: lab results, diagnosis, need for follow-up, rad results - Departure Departure Disposition: Transfer ([facility] Emergency Department) Clinical Impression: Acute respiratory distress, Acute renal insufficiency, Bilateral pleural effusion, Hyperglycemia due to type 1 diabetes mellitus, Hypocalcemia Pulmonary edema Qualifiers: Chronicity: acute Qualified Code(s): J81.0 - Acute pulmonary edema Condition: Serious Critical Care Time: Yes Critical Care Time(excluding separately billable procedures): Critical 75-104 mins Referrals: GOMEZ CURIEL [Primary Care Provider] -
[2019-06-03] MEDS ORDERED: Zemuron 100 MG/10 ML IV ONE (13:35)
[2019-06-03] MEDS ORDERED: Amidate 20 MG/10 ML IV ONE (13:35)
[2019-06-03 13:48] LABS: A-aADO2 640; ABG POTASSIUM 5.3 (3.5-5.1); ARTERIAL BLOOD GAS BASE EXCESS -4.9 (-2.0-2.0); ARTERIAL BLOOD GAS FIO2 100 %; ARTERIAL BLOOD GAS PCO2 24 mmHg (35-45); ARTERIAL BLOOD GAS pH 7.46 (7.35-7.45); HCO3- 17.1 (22-28); Hematocrit 35.7 % (35-47); Hemoglobin 17.4 gm/dl (12.0-16.0); Lactic Acid 1.8 (0.4-2.0); Mean Cell Volume 79.5 fl (78-100); Mean Corpuscular Hgb Concent. 48.7 g/dl (32-36); Mean Platelet Volume 10.3 fl (6-9.5); Platelet Count 386 K/mm3 (150-450); Red Blood Count 4.49 M/mm3 (4.1-5.4); Red Cell Distribution Width 14.7 % (11.5-14.0); White Blood Count 15.3 K/mm3 (4.0-10.5); paO2 pAO1 0.06
[2019-06-03 13:49] LABS: ABG SITE LEFT RADIAL; ARTERIAL BLOOD GAS PO2 43 mmHg (75-100)
[2019-06-03 13:50] LABS: ALLEN TEST OK? YES
[2019-06-03 13:52] LABS: Mean Corpuscular Hemoglobin 38.7 pg (26-32)
[2019-06-03] MEDS ORDERED: Sodium Chloride 0.9% 1000 ML 1,000 ML ONE ×2 (13:53→15:12)
--- NOTE | 2019-06-03 14:16 | XRAY ---
Indication: Dyspnea. Comparison: None Portable apical lordotic chest demonstrates mild interstitial pulmonary edema without consolidation/large effusion. Remaining heart, lungs, and bony thorax normal.
[2019-06-03] MEDS ORDERED: NovoLIN R IV ONE (14:18)
[2019-06-03] MEDS ORDERED: NOVOLIN R INSULIN (FOR DRIPS)** 100 UNITS in Sodium Chloride 0.9% 100 ML IVPB 100 ML IV SCH (14:30)
[2019-06-03] MEDS ORDERED: NovoLIN R ONE (14:33)
[2019-06-03 14:42] LABS: Amphetamine,Urine NEGATIVE (NEGATIVE); Barbiturate,Urine NEGATIVE (NEGATIVE); Benzodiazepine,Urine POSITIVE (NEGATIVE); Cocaine,Urine NEGATIVE (NEGATIVE); Methadone,Urine NEGATIVE (NEGATIVE); Opiate,Urine NEGATIVE (NEGATIVE); PCP,Urine NEGATIVE (NEGATIVE); THC,Urine NEGATIVE (NEGATIVE)
[2019-06-03 15:18] LABS: Appearance CLOUDY (CLEAR); Bacteria FEW /HPF (NEGATIVE); Bilirubin NEGATIVE (NEGATIVE); Blood NEGATIVE Ery/ul (0-5); Epithelial Cells RARE /HPF (FEW); Glucose >=500 mg/dL (NEGATIVE); Ketones TRACE (NEGATIVE); Leukocyte Esterase NEGATIVE (NEGATIVE); Mucus SLIGHT /HPF (NEGATIVE); Nitrite NEGATIVE (NEGATIVE); Protein,Urine Dip >=500 (Negative); Specific Gravity 1.032 (1.005-1.025); Urobilinogen NEGATIVE mg/dL (0-1)
[2019-06-03 15:43] LABS: Basophil 2 % (0.0-1.0); Eosinophil 3 % (0.00-3.0); Lymphocytes 23 % (24-44); Monocyte 5 % (0.0-12.0); Neutrophils 67 % (36.0-66.0); Platelet Estimate NORMAL (NORMAL); Total Cells Counted 100
[2019-06-03 15:57] LABS: Absolute Neutrophil Ct (ANC) 10.28 (1.4-6.9)
[2019-06-03 16:08] LABS: A-aADO2 560; ABG POTASSIUM 4.3 (3.5-5.1); ARTERIAL BLOOD GAS FIO2 100 %; ARTERIAL BLOOD GAS PCO2 33 mmHg (35-45); ARTERIAL BLOOD GAS PO2 112 mmHg (75-100); ARTERIAL BLOOD GAS VENT MODE BiPAP; ARTERIAL BLOOD GAS pH 7.34 (7.35-7.45); HCO3- 17.8 (22-28); paO2 pAO1 0.17
[2019-06-03 16:09] LABS: ISTAT CREA 2.3 mg/dL (0.6-1.3)
[2019-06-03 16:09] LABS: ABG SITE RIGHT RADIAL; ALLEN TEST OK? YES
--- NOTE | 2019-06-03 16:24 | XRAY ---
Indication: Dyspnea and edema. History pulmonary emboli. Multiple contiguous axial images obtained through the chest using 80 cc Isovue-370 contrast and PE protocol. Comparison: None There is good opacification of the pulmonary arteries to include the lobar and segmental branches. No filling defect or pulmonary embolus. Heart is not enlarged. No pericardial effusion/thickening. A few subcarinal and bilateral hilar calcified nodes. Small hiatal hernia. Distal esophagus demonstrates circumferential wall thickening, possible esophagitis from gastroesophageal reflux. Lungs demonstrates diffuse bilateral interstitial pulmonary edema, small bilateral pleural effusions, and mild bilateral compressive atelectasis greatest near the lung bases. Bony thorax intact with minimal degenerative changes throughout the spine. Limited upper abdomen including adrenal glands are unremarkable. Impression: 1. Negative pulmonary embolus. 2. Diffuse interstitial pulmonary edema with small bilateral pleural effusions without cardiomegaly. Rule out noncardiogenic causes. 3. Small hiatal hernia with distal esophageal wall thickening favoring esophagitis. 4. Evidence for old granulomatous disease. CTDI 24.93
[2019-06-03 16:28] LABS: ISTAT CREA 2.1 mg/dL (0.6-1.3)
[2019-06-03] MEDS ORDERED: Calcium Gluconate 10% 1000 MG IV ONE ×2 (16:38→16:52)
[2019-06-03 17:03] VITALS: BP 113/83; PULSE 99; O2SAT 99
== END 2019-06-03 17:30 | disposition short-term general hospital (02) ==
LOC: ED 12:49
DX: J81.0 Acute pulmonary edema (principal); R06.03 Acute respiratory distress; E10.65 Type 1 diabetes mellitus with hyperglycemia; N28.9 Disorder of kidney and ureter, unspecified; J90 Pleural effusion, not elsewhere classified
CPT/HCPCS: 36000; 36415; 36600; 51702; 71045; 71260; 80047; 80053; 80307; 81001; 82375; 82803; 82947; 82962; 83605; 83735; 83880; 84443; 84703; 85025; 85610; 85730; 87040; 87086; 93005; 93041; 94002; 94640; 96360; 96361; 96365; 96374; 96375; 99285; 99291; 99292; J0610; J1815; A9270-GY

== ENCOUNTER 2019-10-23 12:55 | Emergency (ER) | payer OTHER ==
[2019-10-23 13:16] VITALS: BP 148/85; PULSE 89; O2SAT 100
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
[2019-10-23] MEDS ORDERED: Hydromorphone 1 mg/ml Ampule IM ONE (13:38)
[2019-10-23] MEDS ORDERED: Phenergan 25 MG INJ IM ONE (13:38)
[2019-10-23] MEDS ORDERED: solu-MEDROL 125 MG IM ONE (13:39)
[2019-10-23] MEDS ORDERED: Ativan 2 MG/1 ML VIAL IM ONE (13:39)
[2019-10-23] MEDS ORDERED: Phenergan 25 MG INJ ONE (13:49)
[2019-10-23] MEDS ORDERED: Ativan 2 MG/1 ML VIAL ONE (13:50)
[2019-10-23] MEDS ORDERED: Hydromorphone 1 mg/ml Ampule ONE (13:50)
[2019-10-23] MEDS ORDERED: solu-MEDROL 125 MG ONE (13:51)
== END 2019-10-23 15:05 | disposition home or self-care (01) ==
LOC: ED 12:55
DX: M54.6 Pain in thoracic spine (principal); M54.5 Low back pain; V48 Car occupant injured in noncollision transport accident
CPT/HCPCS: 96372; 99284; J1170; J2060; J2550; J2930

== ENCOUNTER 2019-11-01 17:33 | Emergency (ER) | payer OTHER ==
[2019-11-01] MEDS ORDERED: Sodium Chloride 0.9% 1000 ML 1,000 ML IV STA (18:22)
[2019-11-01] MEDS ORDERED: Norflex 60 MG/2 ML IV ONE (18:24)
[2019-11-01] MEDS ORDERED: TORAdol 30 mg Injection IV ONE (18:24)
[2019-11-01] MEDS ORDERED: Sodium Chloride 0.9% 1000 ML 1,000 ML ONE (18:38)
[2019-11-01] MEDS ORDERED: TORAdol 30 mg Injection ONE (18:38)
[2019-11-01] MEDS ORDERED: Norflex 60 MG/2 ML ONE (18:38)
[2019-11-01 18:39] LABS: Hematocrit 33.3 % (35-47); Hemoglobin 12.7 gm/dl (12.0-16.0); Mean Cell Volume 80.6 fl (78-100); Mean Corpuscular Hemoglobin 30.8 pg (26-32); Mean Corpuscular Hgb Concent. 38.1 g/dl (32-36); Mean Platelet Volume 9.3 fl (7.5-11.0); Platelet Count 425 K/mm3 (150-450); Red Blood Count 4.13 M/mm3 (4.1-5.4); Red Cell Distribution Width 15.5 % (11.5-14.0)
[2019-11-01 18:51] LABS: ALBUMIN 3.6 g/dL (3.5-5.0); ANION GAP 15.1 MEQ/L (5-15); Calcium 9.4 mg/dL (8.4-10.2); Creatinine 1 1.63 mg/dL (0.52-1.04)
[2019-11-01 18:52] LABS: Potassium 4.3 mmol/L (3.5-5.1)
[2019-11-01 19:09] LABS: BAND 2 % (0.0-2.0); Eosinophil 7 % (0.00-3.0); Lymphocytes 20 % (24-44); Monocyte 10 % (0.0-12.0); Platelet Estimate NORMAL (NORMAL)
[2019-11-01 19:53] LABS: Neutrophils 61 % (36.0-66.0)
[2019-11-01 19:54] LABS: Total Cells Counted 100
[2019-11-01 20:03] LABS: Appearance CLOUDY (CLEAR); Bacteria RARE /HPF (NEGATIVE); Bilirubin NEGATIVE (NEGATIVE); Blood SMALL Ery/ul (0-5); Epithelial Cells MODERATE /HPF (FEW); Glucose >=500 mg/dL (NEGATIVE); Granular Casts 0-2 /LPF (NEGATIVE); Ketones NEGATIVE (NEGATIVE); Leukocyte Esterase NEGATIVE (NEGATIVE); Nitrite NEGATIVE (NEGATIVE); Protein,Urine Dip >=500 (Negative); Specific Gravity 1.014 (1.005-1.025); Urobilinogen NEGATIVE mg/dL (0-1)
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
[2019-11-01 20:52] VITALS: BP 128/86; PULSE 92
[2019-11-01 23:36] VITALS: O2SAT 93
== END 2019-11-01 20:45 | disposition left against medical advice (07) ==
LOC: ED 17:33
DX: M62.830 Muscle spasm of back (principal); I12.9 Hypertensive chronic kidney disease with stage 1 through stage 4 chronic kidney disease, or unspecified chronic kidney disease; N18.9 Chronic kidney disease, unspecified; D72.829 Elevated white blood cell count, unspecified; E10.9 Type 1 diabetes mellitus without complications; Z79.4 Long term (current) use of insulin; I25.810 Atherosclerosis of coronary artery bypass graft(s) without angina pectoris
CPT/HCPCS: 36000; 36415; 80053; 81001; 83690; 85025; 87086; 96374; 96375; 99284; J1885; J2360

== ENCOUNTER 2020-08-05 10:57 | Emergency (ER) | payer OTHER ==
[2020-08-05] MEDS ORDERED: Sodium Chloride 0.9% 1000 ML 1,000 ML IV STA (11:09)
[2020-08-05] MEDS ORDERED: Zofran 4 MG/2 ML VIAL IV ONE (11:09)
[2020-08-05] MEDS ORDERED: TORAdol 30 mg Injection IV ONE (11:09)
[2020-08-05] MEDS ORDERED: TYLENOL 325 MG PO ONE (11:09)
[2020-08-05] MEDS ORDERED: TORAdol 30 mg Injection ONE (11:17)
[2020-08-05] MEDS ORDERED: TYLENOL 325 MG ONE (11:17)
[2020-08-05] MEDS ORDERED: Zofran 4 MG/2 ML VIAL ONE (11:17)
[2020-08-05] MEDS ORDERED: Sodium Chloride 0.9% 1000 ML 1,000 ML ONE (11:17)
[2020-08-05 11:27] LABS: Absolute Neutrophil Ct (ANC) 6.31 (1.4-6.9); BASOPHIL % 0.6 % (0.0-0.4); Basophil (Absolute #) 0.06 (0-0.4); Eosinophil % 3.9 % (0.00-5.0); Eosinophil (Absolute #) 0.37 (0-0.5); Hematocrit 37.7 % (35-47); Hemoglobin 13.2 gm/dl (12.0-16.0); Mean Cell Volume 79.2 fl (78-100); Mean Corpuscular Hemoglobin 27.7 pg (26-32); Mean Platelet Volume 9.9 fl (7.5-11.0); Monocyte (Absolute #) 0.64 (0.0-1.3); Monocytes % 6.7 % (0.0-12.0); Neutrophil % 65.8 % (36.0-66.0); Platelet Count 186 K/mm3 (150-450); Red Blood Count 4.76 M/mm3 (4.1-5.4); Red Cell Distribution Width 14.2 % (11.5-14.0); White Blood Count 9.6 K/mm3 (4.0-10.5)
[2020-08-05 11:33] LABS: Appearance SLIGHTLY CLOUDY (CLEAR); Bilirubin NEGATIVE (NEGATIVE); Blood NEGATIVE Ery/ul (0-5); Epithelial Cells RARE /HPF (FEW); Glucose >=500 mg/dL (NEGATIVE); Ketones NEGATIVE (NEGATIVE); Leukocyte Esterase NEGATIVE (NEGATIVE); Mucus SLIGHT /HPF (NEGATIVE); Nitrite NEGATIVE (NEGATIVE); Protein,Urine Dip >=500 (Negative); Specific Gravity 1.015 (1.005-1.025); Urobilinogen NEGATIVE mg/dL (0-1)
[2020-08-05 11:36] LABS: ALBUMIN 4.1 g/dL (3.5-5.0); ANION GAP 14.9 MEQ/L (5-15); BILIRUBIN,TOTAL 0.4 mg/dL (0.2-1.3); Bacteria NONE SEEN /HPF (NEGATIVE); Calcium 9.5 mg/dL (8.4-10.2); Creatinine 1 1.54 mg/dL (0.52-1.04); EST GLOMERULAR FILTRATION RATE 41.2 ML/MIN; Potassium 4.7 mmol/L (3.5-5.1); Total Protein 7.7 g/dL (6.3-8.2)
--- NOTE | 2020-08-05 11:45 | ERPHSYRPT ---
- History of Present Illness Time Seen by Provider: 08/05/20 10:58 Source: patient Exam Limitations: no limitations Patient Subjective Stated Complaint: Pt states "I think my pancreatitis is acting up again. My belly has hurt for the past 4 days and I fell two days ago and now I hurt more." Triage Nursing Assessment: presented alert and oriented X 3, skin pwd. Pt ambulates with an upright steady gait, able to speak in clear full sentences. pt in no apparent respiratory distress. Physician History: Patient is here with left hip pain fall headache. Patient also feels like her pancreatitis is acting up. She is some generalized abdominal pain. Location: abdomen Quality: sharp Radiation: none Severity: moderate Duration: fall yesterday Timing: suddenly Modifying factors/associated signs and symptoms: home OTC medication Timing/Duration: today Severity: moderate Modifying Factors: Improves With: other Allergies/Adverse Reactions: morphine Allergy (Verified 11/01/19 17:58) Home Medications: Esomeprazole Magnesium [Nexium] 40 mg PO DAILY 04/22/18 [History] Insulin Glargine,Hum.rec.anlog [Toujeo Solostar] 45 unit SQ HS 04/22/18 [History] Carvedilol 12.5 mg [Coreg 12.5 mg] 25 mg PO BID 10/21/18 [History] Fexofenadine HCl 180 mg PO DAILY 10/21/18 [History] Insulin Lispro [Humalog] 1 unit SQ UD 10/21/18 [History] Prochlorperazine Maleate 5 mg* [Compazine 5 MG] 5 mg PO TID PRN 10/21/18 [History] Clopidogrel Bisulfate 75 mg [PLAVIX 75 MG Tablet] 75 mg PO DAILY 10/23/19 [History] Hx Tetanus, Diphtheria Vaccination/Date Given: Yes Hx Influenza Vaccination/Date Given: Yes Hx Pneumococcal Vaccination/Date Given: No Immunizations Up to Date: Yes Travel Risk - International Travel Have you traveled outside of the country in past 3 weeks: No - Coronavirus Screening Are you exhibiting any of the following symptoms?: No Close contact with a COVID-19 positive Pt in past 14-21 Days: No - Review of Systems Constitutional: No Fever, No Chills Eyes: No Symptoms Ears, Nose, & Throat: No Symptoms Respiratory: No Cough, No Dyspnea Cardiac: No Chest Pain, No Edema, No Syncope Abdominal/Gastrointestinal: No Nausea, No Vomiting, No Diarrhea Genitourinary Symptoms: No Dysuria Musculoskeletal: Other (left hip pain), No Back Pain, No Neck Pain Skin: No Rash Neurological: Headache, No Dizziness, No Focal Weakness, No Sensory Changes Psychological: No Symptoms Endocrine: No Symptoms All Other Systems: Reviewed and Negative - Past Medical History Pertinent Past Medical History: Yes Neurological History: No Pertinent History ENT History: No Pertinent History Cardiac History: Congestive Heart Failure, Coronary Artery Disease, High Cholesterol, Hypertension Respiratory History: Pulmonary Embolism Endocrine Medical History: Diabetes Type I Musculoskeletal History: No Pertinent History GI Medical History: Pancreatitis History: No Pertinent History Psycho-Social History: Anxiety Female Reproductive Disorders: No Pertinent History Other Medical History: Pituitary tumor removed - Past Surgical History Past Surgical History: Yes Neuro Surgical History: No Pertinent History Cardiac: CABG, Cardiac Catheterization Respiratory: No Pertinent History Gastrointestinal: No Pertinent History Genitourinary: No Pertinent History Musculoskeletal: Orthopedic Surgery Female Surgical History: Dilation & Curettage, Section Other Surgical History: knee surg, tumor removed - Social History Smoking Status: Current every day smoker How long have you smoked: years Exposure to second hand smoke: Yes Alcohol Use: None Drug Use: marijuana Patient Lives Alone: Yes Significant Family History: no pertinent family hx - Female History Hx Last Menstrual Period: 07/26/2020 Hx Now: No - Nursing Vital Signs Nursing Vital Signs: Initial Vital Signs Temperature 98.6 F 08/05/20 11:05 Pulse Rate 98 H 08/05/20 11:05 Respiratory Rate 20 08/05/20 11:05 Blood Pressure 140/107 08/05/20 11:05 O2 Sat by Pulse Oximetry 99 08/05/20 11:05 Pain Scale Pain Intensity 8 - Physical Exam General Appearance: no apparent distress, alert Eye Exam: PERRL/EOMI, eyes nml inspection Ears, Nose, Throat Exam: normal ENT inspection, TMs normal, pharynx normal, moist mucous membranes Neck Exam: normal inspection, non-tender, supple, full range of motion Respiratory Exam: normal breath sounds, lungs clear, No respiratory distress Cardiovascular Exam: regular rate/rhythm, normal heart sounds, normal peripheral pulses Gastrointestinal/Abdomen Exam: soft, normal bowel sounds, tenderness, other (Midepigastric tenderness to palpation. No rebound or guarding.), No mass Back Exam: normal inspection, normal range of motion, No CVA tenderness, No vertebral tenderness Extremity Exam: normal inspection, normal range of motion, pelvis stable Neurologic Exam: alert, oriented x 3, cooperative, normal mood/affect, nml cerebellar function, nml station & gait, sensation nml, No motor deficits Skin Exam: normal color, warm, dry, No rash Lymphatic Exam: No adenopathy SpO2 Interpretation: normal SpO2: 99 Comments: 08/05/20 11:45 Motor: There is no pronator drift of out-stretched arms. Muscle bulk and tone are normal. Strength is full bilaterally. Reflexes: Reflexes are 2+ and symmetric at the biceps, triceps, knees, and ankles. Plantar responses are flexor. Sensory: Light touch sense are intact in bilateral upper and lower extremities. There is no sign of neglect. Coordination: Rapid alternating movements are intact. There is no dysmetria on [id number] and [id number]. There are no abnormal or extraneous movements. Romberg is absent. Gait/Stance: Posture is normal. Gait is steady with normal steps, base, arm swing, and turning. Heel and toe walking are normal. Tandem gait is normal. No trismus, able to fully extend neck, normal range of motion of neck without pain. Uvula is midline, no swelling of the mouth, noraml oropharynx. No exudate, no signs of meningitis, no floor of mouth swelling, no hot potato voice on exam. No buccal swelling, no gum bleeding, no signs of tooth abscess/infection. No obvious deformity, sensation intact, 2+ capillary refill, 2 point tactile discrimination intact. 5 out of 5 strength. Full range of motion without pain. Compartments are soft, nontender. Overlying skin shows no tenting, bruising, ecchymosis. - Course Nursing assessment & vital signs reviewed: Yes EKG Interpreted by Me: Sinus Tach Ordered Tests: Active Orders 24 hr Category Date Time Status EKG-ER Only STAT Care 08/05/20 11:09 Active IV Insertion STAT Care 08/05/20 11:09 Active ABDOMEN AND PELVIS W CONTRAST [CT] Stat Exams 08/05/20 11:10 Completed CHEST 2 VIEWS (PA AND LAT) Stat Exams 08/05/20 11:10 Completed HEAD WITHOUT CONTRAST [CT] Stat Exams 08/05/20 11:11 Completed AMYLASE Stat Lab 08/05/20 11:27 Completed CBC W DIFF Stat Lab 08/05/20 11:27 Completed CMP Stat Lab 08/05/20 11:27 Completed HCG,QUALITATIVE URINE Stat Lab 08/05/20 11:27 Completed LIPASE Stat Lab 08/05/20 11:27 Completed Lactic Acid Stat Lab 08/05/20 11:09 Completed TROPONIN Q3H Lab 08/05/20 11:27 Completed TROPONIN Q3H Lab 08/05/20 14:15 Ordered TROPONIN Q3H Lab 08/05/20 17:15 Ordered TROPONIN Q3H Lab 08/05/20 20:15 Ordered TROPONIN Q3H Lab 08/05/20 23:15 Ordered UA W/RFX UR CULTURE Stat Lab 08/05/20 11:27 Completed Medication Summary Discontinued Medications Generic Name Dose Route Start Last Admin Trade Name Freq PRN Reason Stop Dose Admin Acetaminophen 975 mg 08/05/20 11:09 08/05/20 11:19 Tylenol 325 Mg PO 08/05/20 11:10 975 mg STAT ONE Administration Acetaminophen Confirm 08/05/20 11:17 Tylenol 325 Mg Administered 08/05/20 11:18 Dose 975 mg .ROUTE .STK-MED ONE Sodium Chloride 1,000 mls @ 999 mls/hr 08/05/20 11:09 08/05/20 12:21 Sodium Chloride 0.9% 1000 Ml IV 08/05/20 12:09 Infused .Q1H1M STA Infusion Sodium Chloride Confirm 08/05/20 11:17 Sodium Chloride 0.9% 1000 Ml Administered 08/05/20 11:18 Dose 1,000 mls @ ud .ROUTE .STK-MED ONE Ketorolac Tromethamine 30 mg 08/05/20 11:09 08/05/20 11:19 Toradol 30 Mg Injection IV 08/05/20 11:10 30 mg STAT ONE Administration Ketorolac Tromethamine Confirm 08/05/20 11:17 Toradol 30 Mg Injection Administered 08/05/20 11:18 Dose 30 mg .ROUTE .STK-MED ONE Ondansetron HCl 4 mg 08/05/20 11:09 08/05/20 11:19 Zofran 4 Mg/2 Ml Vial IV 08/05/20 11:10 4 mg STAT ONE Administration Ondansetron HCl Confirm 08/05/20 11:17 Zofran 4 Mg/2 Ml Vial Administered 08/05/20 11:18 Dose 4 mg .ROUTE .STK-MED ONE Lab/Rad Data: Laboratory Result Diagrams 08/05/20 11:27 08/05/20 11:27 Laboratory Results 08/05/20 08/05/20 08/05/20 Range/Units 11:27 11:27 11:27 WBC 9.6 (4.0-10.5) K/mm3 RBC 4.76 (4.1-5.4) M/mm3 Hgb 13.2 (12.0-16.0) gm/dl Hct 37.7 (35-47) % MCV 79.2 (78-100) fl MCH 27.7 (26-32) pg MCHC 35.0 (32-36) g/dl RDW 14.2 H (11.5-14.0) % Plt Count 186 (150-450) K/mm3 MPV 9.9 (7.5-11.0) fl Gran % 65.8 (36.0-66.0) % Eos # (Auto) 0.37 (0-0.5) Absolute Lymphs (auto) 2.20 (1.0-4.6) Absolute Monos (auto) 0.64 (0.0-1.3) Lymphocytes % 23.0 L (24.0-44.0) % Monocytes % 6.7 (0.0-12.0) % Eosinophils % 3.9 (0.00-5.0) % Basophils % 0.6 (0.0-0.4) % Absolute Granulocytes 6.31 (1.4-6.9) Basophils # 0.06 (0-0.4) Sodium 129 L (137-145) mmol/L Potassium 4.7 (3.5-5.1) mmol/L Chloride 97 L (98-107) mmol/L Carbon Dioxide 22 (22-30) mmol/L Anion Gap 14.9 (5-15) MEQ/L BUN 37 H (7-17) mg/dL Creatinine 1.54 H (0.52-1.04) mg/dL Estimated GFR 41.2 ML/MIN Glucose 373 H (74-106) mg/dL Lactic Acid (0.4-2.0) Calcium 9.5 (8.4-10.2) mg/dL Total Bilirubin 0.40 (0.2-1.3) mg/dL AST 20 (14-36) U/L ALT 17 (0-35) U/L Alkaline Phosphatase 53 (38-126) U/L Troponin I < 0.012 (0.000-0.034) ng/mL Serum Total Protein 7.7 (6.3-8.2) g/dL Albumin 4.1 (3.5-5.0) g/dL Amylase 47 (30-110) U/L Lipase 190 (23-300) U/L Urine Color (YELLOW) Urine Appearance (CLEAR) Urine pH (5-6) Ur Specific [place] (1.005-1.025) Urine Protein (Negative) Urine Ketones (NEGATIVE) Urine Blood (0-5) [place]/ul Urine Nitrite (NEGATIVE) Urine Bilirubin (NEGATIVE) Urine Urobilinogen (0-1) mg/dL Ur Leukocyte Esterase (NEGATIVE) Urine WBC (Auto) (0-5) /HPF Urine RBC (Auto) (0-2) /HPF U Epithel Cells (Auto) (FEW) /HPF Urine Bacteria (Auto) (NEGATIVE) /HPF Urine Mucus (Auto) (NEGATIVE) /HPF Urine Culture Reflexed (NO) Urine Glucose (NEGATIVE) mg/dL Urine HCG, Qual (Negative) 08/05/20 08/05/20 08/05/20 Range/Units 11:27 11:27 11:09 WBC (4.0-10.5) K/mm3 RBC (4.1-5.4) M/mm3 Hgb (12.0-16.0) gm/dl Hct (35-47) % MCV (78-100) fl MCH (26-32) pg MCHC (32-36) g/dl RDW (11.5-14.0) % Plt Count (150-450) K/mm3 MPV (7.5-11.0) fl Gran % (36.0-66.0) % Eos # (Auto) (0-0.5) Absolute Lymphs (auto) (1.0-4.6) Absolute Monos (auto) (0.0-1.3) Lymphocytes % (24.0-44.0) % Monocytes % (0.0-12.0) % Eosinophils % (0.00-5.0) % Basophils % (0.0-0.4) % Absolute Granulocytes (1.4-6.9) Basophils # (0-0.4) Sodium (137-145) mmol/L Potassium (3.5-5.1) mmol/L Chloride (98-107) mmol/L Carbon Dioxide (22-30) mmol/L Anion Gap (5-15) MEQ/L BUN (7-17) mg/dL Creatinine (0.52-1.04) mg/dL Estimated GFR ML/MIN Glucose (74-106) mg/dL Lactic Acid 2.0 (0.4-2.0) Calcium (8.4-10.2) mg/dL Total Bilirubin (0.2-1.3) mg/dL AST (14-36) U/L ALT (0-35) U/L Alkaline Phosphatase (38-126) U/L Troponin I (0.000-0.034) ng/mL Serum Total Protein (6.3-8.2) g/dL Albumin (3.5-5.0) g/dL Amylase (30-110) U/L Lipase (23-300) U/L Urine Color YELLOW (YELLOW) Urine Appearance SLIGHTLY CLOUDY (CLEAR) Urine pH 5.0 (5-6) Ur Specific [place] 1.015 (1.005-1.025) Urine Protein >=500 (Negative) Urine Ketones NEGATIVE (NEGATIVE) Urine Blood NEGATIVE (0-5) [place]/ul Urine Nitrite NEGATIVE (NEGATIVE) Urine Bilirubin NEGATIVE (NEGATIVE) Urine Urobilinogen NEGATIVE (0-1) mg/dL Ur Leukocyte Esterase NEGATIVE (NEGATIVE) Urine WBC (Auto) 3-5 (0-5) /HPF Urine RBC (Auto) NONE (0-2) /HPF U Epithel Cells (Auto) RARE (FEW) /HPF Urine Bacteria (Auto) NONE SEEN (NEGATIVE) /HPF Urine Mucus (Auto) SLIGHT (NEGATIVE) /HPF Urine Culture Reflexed NO (NO) Urine Glucose >=500 (NEGATIVE) mg/dL Urine HCG, Qual NEGATIVE (Negative) - Progress Progress: improved Progress Note: 08/05/20 11:46 Patient here with abdominal pain and left hip pain. differential diagnosis includes kidney stone, compression fracture, infection, UTI, triple AAA - basic labs including: CBC, lipase, CMP, UA, - insert IV for fluids, pain meds, nausea control - consider imaging: CT ab/pelvis - will also show us the left hip joint. 08/05/20 13:19 CT scan of the head and abdomen did not show any obvious fracture or brain bleed. No signs of pancreatitis on CT scan. Patient did have gastric wall thickening. This may be incomplete distention versus a new malignancy. She will need a endoscopy as an outpatient. I did discuss this with the patient and give her a copy of the CT report for her primary care physician. She should return here if she is unable to see him to get a endoscopy scheduled. Overall, patient does have hyperglycemia without DKA or HHS. She is feeling improved with fluids and pain medication. Therefore, will discharge home at this point time. Return here for new or changing symptoms. - Departure Departure Disposition: Home Clinical Impression: Hyperglycemia, Fall at home, Gastric wall thickening Condition: Stable Critical Care Time: No Referrals: GOMEZ CURIEL [Primary Care Provider] - Instructions: Acute Abdomen (Belly Pain), Adult (DC) Additional Instructions: The gastric wall thickening on your CT scan may be a type of cancer. Therefore I recommend very close follow-up with your primary care physician for urgent endoscopy for further evaluation. If you cannot see your primary care physician, you should make an appointment with a unionmelt operator or return here for new or changing pain.
--- NOTE | 2020-08-05 13:04 | XRAY ---
Indication: Cough. Comparison: June 03, 2019. PA/lateral chest hyperinflated and clear. Heart is not enlarged with interval CABG surgery. Bony thorax intact with new sternotomy wires. Impression: Nonacute hyperinflated chest with chronic features.
--- NOTE | 2020-08-05 13:08 | XRAY ---
Indication: Abdomen pain. History pancreatitis. Multiple contiguous axial images obtained through the abdomen and pelvis using 80 cc Isovue 370 contrast. Comparison: None Lung bases are clear of infiltrate or effusion. Heart is not enlarged. Noncontrasted stomach demonstrates diffuse wall thickening either incomplete distention versus malignancy such as gastric lymphoma or gastrointestinal stromal tumor. Noncontrasted bowel loops appear nonobstructed. Normal appendix. Mild diffuse scattered colonic fecal debris throughout. Mild sigmoid diverticulosis. 1 cm left mid renal exophytic cyst. Tiny cul-de-sac fluid presumed physiologic from rupture/leaking cyst. Uterus demonstrates IUD in situ. Spleen is enlarged measuring 14.5 cm. Remaining liver, gallbladder, pancreas, spleen, adrenal glands, kidneys, ureters, bladder, uterus, and aorta are unremarkable. No pathologic retroperitoneal lymphadenopathy. Osseous structures intact with minimal degenerative changes throughout the spine. Incidental bilateral L4 spondylolysis without spondylolisthesis. Impression: 1. Diffuse gastric wall thickening either incomplete distention versus malignancy such as gastric lymphoma or gastrointestinal stromal tumor. Direct endoscopy recommended. 2. Diffuse fecal stasis and sigmoid diverticulosis. 3. Incidental splenomegaly, left renal cyst, tiny physiologic cul-de-sac fluid, and L4 spondylolysis without spondylolisthesis.
--- NOTE | 2020-08-05 13:10 | XRAY ---
Indication: Left periorbital pain and swelling following fall 2 days ago. Multiple contiguous axial images obtained through the head without contrast. Comparison: None Normal appearing brain parenchyma, ventricles, and bony calvarium. Visualized paranasal sinuses and mastoid air cells are clear. Impression: Normal CT head without contrast exam.
[2020-08-05 13:11] VITALS: BP 121/82; PULSE 78
[2020-08-05 13:19] VITALS: O2SAT 99
== END 2020-08-05 13:29 | disposition home or self-care (01) ==
LOC: ED 10:57
DX: R73.9 Hyperglycemia, unspecified (principal); K31.89 Other diseases of stomach and duodenum; K85.90 Acute pancreatitis without necrosis or infection, unspecified; M25.552 Pain in left hip; R51.9 Headache, unspecified; Z79.899 Other long term (current) drug therapy; I50.9 Heart failure, unspecified; I25.10 Atherosclerotic heart disease of native coronary artery without angina pectoris; E78.00 Pure hypercholesterolemia, unspecified; I10 Essential (primary) hypertension
CPT/HCPCS: 36000; 36415; 70450; 71046; 74177; 80053; 81001; 82150; 83605; 83690; 84484; 84703; 85025; 93005; 96360; 96374; 96375; 99284; J1885; J2405; A9270-GY

== ENCOUNTER 2021-04-20 18:01 | Emergency (ER) | payer OTHER ==
[2021-04-20 20:56] VITALS: O2SAT 100
--- NOTE | 2021-04-20 21:27 | ERPHSYRPT ---
- History of Present Illness Time Seen by Provider: 04/20/21 21:00 Source: patient Exam Limitations: no limitations Patient Subjective Stated Complaint: Patient states " I have mos[place] bites and the ones posterior right foot started hurting about 3 days ago. I am pretty sure they are now infected." Triage Nursing Assessment: Patient arrived to ED in W/C and was 1 assist to room. Patient A/O times 4. Patient able to follow instructions without difficulty. Patient noted to have several scabbed areas to upper and lower bilateral extremities. Patient complaining of 2 scabbed areas to posterior right foot. Both areas closed with greenish colored scabs. No drainage noted. Slight redness noted around wounds. Patient with swelling to right ankle. Patient denies any injury to ankle. Patient states I live in the [place] [facility]. Patient stated she has had bites now for over 2 weeks. Patient stated she hasn't contacted PCP. Patient states she is having throbbing sharp pain in right ankle/leg and isn't able to bear weight on right lower extremity. Cap refill to right lower extremity < 3 seconds. + pedal pulses noted to right lower extremity. Patient denies any SOB or chest pain. No abnormal warmth noted upon touch of right foot/ankle. Patient afebrile. Physician History: Patient is a 35-year-old female presents to our ED with infected wound to the right lower leg. Patient states that she was bitten by mosquitoes. Patient has been scratching. Over the course of the past week she has noticed the area become swollen and tender. Pain described as an ache that is well localized. No radiation. Pain worse with palpation. There is some swelling around the ankle however there is no injury. No bony tenderness. Right lower extremity is neurovascular intact distally. Compartments are soft. Cap refill less than 2 seconds. Patient is otherwise healthy. Patient denies the possibility of . She voices no other complaints or concerns at this time. Timing/Duration: week(s) Severity: moderate Modifying Factors: Improves With: nothing Associated Symptoms: denies symptoms Allergies/Adverse Reactions: morphine Allergy (Intermediate, Verified 04/20/21 20:54) Itching Home Medications: Esomeprazole Magnesium [Nexium] 40 mg PO DAILY 04/22/18 [History] Insulin Glargine,Hum.rec.anlog [Mana Shaffer] 45 unit SQ HS 04/22/18 [History] Carvedilol 12.5 mg [Coreg 12.5 mg] 25 mg PO BID 10/21/18 [History] Fexofenadine HCl 180 mg PO DAILY 10/21/18 [History] Insulin Lispro [Humalog] 1 unit SQ UD 10/21/18 [History] Prochlorperazine Maleate 5 mg* [Compazine 5 MG] 5 mg PO TID PRN 10/21/18 [History] Clopidogrel Bisulfate 75 mg [PLAVIX 75 MG Tablet] 75 mg PO DAILY 10/23/19 [History] Hx Tetanus, Diphtheria Vaccination/Date Given: Yes Hx Influenza Vaccination/Date Given: Yes Hx Pneumococcal Vaccination/Date Given: No Immunizations Up to Date: Yes Travel Risk - International Travel Have you traveled outside of the country in past 3 weeks: No - Coronavirus Screening Are you exhibiting any of the following symptoms?: No Close contact with a COVID-19 positive Pt in past 14-21 Days: No - Vaccine Status Have you recieved a Covid-19 vaccination: No - Review of Systems Constitutional: No Symptoms, No Fever, No Chills Eyes: No Symptoms Ears, Nose, & Throat: No Symptoms Respiratory: No Symptoms, No Cough, No Dyspnea Cardiac: No Symptoms, No Chest Pain, No Edema, No Syncope Abdominal/Gastrointestinal: No Symptoms, No Abdominal Pain, No Nausea, No Vomiting, No Diarrhea Genitourinary Symptoms: No Symptoms, No Dysuria Musculoskeletal: No Symptoms, No Back Pain, No Neck Pain Skin: No Symptoms, No Rash Neurological: No Symptoms, No Dizziness, No Focal Weakness, No Sensory Changes Psychological: No Symptoms Endocrine: No Symptoms Hematologic/Lymphatic: No Symptoms Immunological/Allergic: No Symptoms All Other Systems: Reviewed and Negative - Past Medical History Pertinent Past Medical History: Yes Neurological History: No Pertinent History ENT History: No Pertinent History Cardiac History: Congestive Heart Failure, Coronary Artery Disease, High Cholesterol, Hypertension Respiratory History: Pulmonary Embolism Endocrine Medical History: Diabetes Type I Musculoskeletal History: No Pertinent History GI Medical History: Pancreatitis History: No Pertinent History Psycho-Social History: Anxiety Female Reproductive Disorders: No Pertinent History Other Medical History: Pituitary tumor removed - Past Surgical History Past Surgical History: Yes Neuro Surgical History: No Pertinent History Cardiac: CABG, Cardiac Catheterization Respiratory: No Pertinent History Gastrointestinal: No Pertinent History Genitourinary: No Pertinent History Musculoskeletal: Orthopedic Surgery Female Surgical History: Dilation & Curettage, Section Other Surgical History: knee surg, tumor removed - Social History Smoking Status: Current every day smoker How long have you smoked: 12 years Exposure to second hand smoke: Yes Alcohol Use: None Drug Use: marijuana Patient Lives Alone: No Significant Family History: no pertinent family hx - Female History Hx Last Menstrual Period: IUD Hx Now: No - Nursing Vital Signs Nursing Vital Signs: Initial Vital Signs Temperature 99.0 F 04/20/21 20:55 Pulse Rate 88 04/20/21 20:55 Respiratory Rate 18 04/20/21 20:55 Blood Pressure 137/86 04/20/21 20:55 O2 Sat by Pulse Oximetry 100 04/20/21 20:55 Pain Scale Pain Intensity 10 - Physical Exam General Appearance: no apparent distress, alert Eye Exam: PERRL/EOMI, eyes nml inspection Ears, Nose, Throat Exam: normal ENT inspection, TMs normal, pharynx normal, moist mucous membranes Neck Exam: normal inspection, non-tender, supple, full range of motion Respiratory Exam: normal breath sounds, lungs clear, airway intact, No respiratory distress Cardiovascular Exam: regular rate/rhythm, normal heart sounds, normal peripheral pulses Gastrointestinal/Abdomen Exam: soft, normal bowel sounds, No tenderness, No mass Back Exam: normal inspection, normal range of motion, No CVA tenderness, No vertebral tenderness Extremity Exam: normal inspection, normal range of motion, pelvis stable, other (There there are 2 scabs chest superficial and cephalad to the Achilles tendon. This area is very tender. There are some redness surrounding the area possible early cellulitis.) Neurologic Exam: alert, oriented x 3, cooperative, normal mood/affect, nml cerebellar function, nml station & gait, sensation nml, No motor deficits Skin Exam: normal color, warm, dry, No rash Lymphatic Exam: No adenopathy SpO2 Interpretation: normal SpO2: 100 O2 Delivery: Room Air - Course Nursing assessment & vital signs reviewed: Yes - Progress Progress: improved Progress Note: Patient denies the possibility of . Patient states she is not sexually active. She has an IUD and she has not missed any periods. Patient states there is no need to obtain a test.. 04/20/21 21:25 Counseled pt/family regarding: diagnosis, need for follow-up - Departure Departure Disposition: Home Clinical Impression: Cellulitis, Infected insect bite Condition: Stable Critical Care Time: No Referrals: GOMEZ CURIEL [Primary Care Provider] - Additional Instructions: Discharge/Care Plan DANO DE LA TORRE was seen on 04/20/21 in the Emergency Room. The patient was counseled regarding Diagnosis,Lab results, Imaging studies, need for follow up and when to return to the Emergency Room. Prescriptions given: Discharge Note I have spoken with the patient and/or caregivers. I have explained the patient's condition, diagnosis and treatment plan based on the information available to me at this time. I have answered the patient's and/or caregiver's questions and addressed any concerns. The patient and/or caregivers have as good understanding of the patient's diagnosis, condition and treatment plan as can be expected at this point. The vital signs have been stable. The patient's condition is stable and appropriate for discharge from the emergency department. The patient will pursue further outpatient evaluation with the primary care phys ician or other designated or consulting physician as outlined in the discharge instructions. The patient and/or caregivers are agreeable to this plan of care and follow-up instructions have been explained in detail. The patient and/or caregivers have received these instruction. The patient/and or caregivers are aware that any significant change in condition or worsening of symptoms should prompt an immediate return to this or the closest emergency department or call 911. Prescriptions: Smz/Tmp Ds Tablet [Bactrim Ds Tablet] 1 tab PO Q12H 7 Days #14 tablet
[2021-04-20] MEDS ORDERED: TORAdol 30 mg Injection IM ONE (21:32)
[2021-04-20] MEDS ORDERED: TORAdol 30 mg Injection ONE (21:40)
[2021-04-20 21:50] VITALS: BP 137/97; PULSE 95
== END 2021-04-20 23:45 | disposition home or self-care (01) ==
LOC: ED 18:01
DX: L03.115 Cellulitis of right lower limb (principal); S90.862A Insect bite (nonvenomous), left foot, initial encounter; W57.XXXA Bitten or stung by nonvenomous insect and other nonvenomous arthropods, initial encounter
CPT/HCPCS: 96372; 99283; J1885

== ENCOUNTER 2021-05-26 13:51 | Emergency (ER) | payer OTHER ==
[2021-05-26] MEDS ORDERED: Hydromorphone 1 mg/ml Injection IV ONE (14:20)
--- NOTE | 2021-05-26 14:20 | ERPHSYRPT ---
- History of Present Illness Time Seen by Provider: 05/26/21 14:10 Historian: patient Patient Subjective Stated Complaint: Pt states "I have had left side and back pain for the past two days." Triage Nursing Assessment: PT presented alert and oriented X 3, skin pwd Pt ambu lates with an upright steady gait, able to speak in clear full sentences pt in no apparent respiratory distress. Pt laying comfortably on the bed. Physician History: Patient is a 35-year-old female with a history of pancreatitis due to high triglycerides presents to our ED with a 2-day history of abdominal pain that is getting progressively worse. Patient believes she is experiencing another episode of her pancreatitis. Patient's pain is described as left flank pain t hat radiates to her back. However she does have some discomfort in the epigastric region. No associated trauma. No fever. No nausea or vomiting. No diarrhea. No rash. Symptoms are mild to moderate in intensity. Palpation to the abdomen reproduces symptoms. Patient voices no other complaints or concerns at this time. Timing/Duration: day(s) (2 days) Activities at Onset: none Quality: aching Abdominal Pain Onset Location: flank Pain Radiation: back Severity of Pain-Max: moderate Severity of Pain-Current: mild (Patient is allergic to morphine. Patient requesting Dilaudid.) Modifying Factors: Improves With: nothing Associated Symptoms: denies symptoms Previous symptoms: same symptoms as today Allergies/Adverse Reactions: morphine Allergy (Intermediate, Verified 04/20/21 20:54) Itching Home Medications: Esomeprazole Magnesium [Nexium] 40 mg PO DAILY 04/22/18 [History] Insulin Glargine,Hum.rec.anlog [Mana Shaffer] 45 unit SQ HS 04/22/18 [History] Carvedilol 12.5 mg [Coreg 12.5 mg] 25 mg PO BID 10/21/18 [History] Fexofenadine HCl 180 mg PO DAILY 10/21/18 [History] Insulin Lispro [Humalog] 1 unit SQ UD 10/21/18 [History] Prochlorperazine Maleate 5 mg* [Compazine 5 MG] 5 mg PO TID PRN 10/21/18 [History] Clopidogrel Bisulfate 75 mg [PLAVIX 75 MG Tablet] 75 mg PO DAILY 10/23/19 [History] Hx Tetanus, Diphtheria Vaccination/Date Given: Yes Hx Influenza Vaccination/Date Given: Yes Hx Pneumococcal Vaccination/Date Given: No Immunizations Up to Date: Yes Travel Risk - International Travel Have you traveled outside of the country in past 3 weeks: No - Coronavirus Screening Are you exhibiting any of the following symptoms?: No Close contact with a COVID-19 positive Pt in past 14-21 Days: No - Vaccine Status Have you recieved a Covid-19 vaccination: No - Review of Systems Constitutional: No Symptoms, No Fever, No Chills Eyes: No Symptoms Ears, Nose, & Throat: No Symptoms Respiratory: No Symptoms, No Cough, No Dyspnea Cardiac: No Symptoms, No Chest Pain, No Edema, No Syncope Abdominal/Gastrointestinal: No Symptoms, No Abdominal Pain, No Nausea, No Vomiting, No Diarrhea Genitourinary Symptoms: No Symptoms, No Dysuria Musculoskeletal: No Symptoms, No Back Pain, No Neck Pain Skin: No Symptoms, No Rash Neurological: No Symptoms, No Dizziness, No Focal Weakness, No Sensory Changes Psychological: No Symptoms Endocrine: No Symptoms Hematologic/Lymphatic: No Symptoms Immunological/Allergic: No Symptoms All Other Systems: Reviewed and Negative - Past Medical History Pertinent Past Medical History: Yes Neurological History: No Pertinent History ENT History: No Pertinent History Cardiac History: Congestive Heart Failure, Coronary Artery Disease, High Cholesterol, Hypertension Respiratory History: Pulmonary Embolism Endocrine Medical History: Diabetes Type I Musculoskeletal History: No Pertinent History GI Medical History: Pancreatitis History: No Pertinent History Psycho-Social History: Anxiety Female Reproductive Disorders: No Pertinent History Other Medical History: Pituitary tumor removed - Past Surgical History Past Surgical History: Yes Neuro Surgical History: No Pertinent History Cardiac: CABG, Cardiac Catheterization Respiratory: No Pertinent History Gastrointestinal: No Pertinent History Genitourinary: No Pertinent History Musculoskeletal: Orthopedic Surgery Female Surgical History: Dilation & Curettage, Section Other Surgical History: knee surg, tumor removed - Social History Smoking Status: Current every day smoker How long have you smoked: 12 years Exposure to second hand smoke: Yes Alcohol Use: None Drug Use: marijuana Patient Lives Alone: No Significant Family History: no pertinent family hx - Female History Hx Last Menstrual Period: 05/09/2021 Hx Now: (iud) - Nursing Vital Signs Nursing Vital Signs: Initial Vital Signs Temperature 97.8 F 05/26/21 13:59 Pulse Rate 116 H 05/26/21 13:59 Respiratory Rate 22 05/26/21 13:59 Blood Pressure 139/100 05/26/21 13:59 O2 Sat by Pulse Oximetry 99 05/26/21 13:59 Pain Scale Pain Intensity 4 - Physical Exam General Appearance: no apparent distress, alert Eye Exam: PERRL/EOMI, eyes nml inspection Ears, Nose, Throat Exam: normal ENT inspection, pharynx normal, moist mucous membranes Neck Exam: normal inspection, non-tender, supple, full range of motion Respiratory Exam: normal breath sounds, lungs clear, airway intact, No respiratory distress Cardiovascular Exam: regular rate/rhythm, normal heart sounds, normal peripheral pulses Gastrointestinal/Abdomen Exam: soft, tenderness (Tenderness palpation left flank and epigastric region. Overlying soft tissue intact. No signs of trauma.), No mass Back Exam: normal inspection, normal range of motion, No CVA tenderness, No vertebral tenderness Extremity Exam: normal inspection, normal range of motion, pelvis stable Neurologic Exam: alert, oriented x 3, cooperative, pilot instructor II-XII nml as tested, normal mood/affect, sensation nml, No motor deficits Skin Exam: normal color, warm, dry Lymphatic Exam: No adenopathy SpO2 Interpretation: normal SpO2: 99 O2 Delivery: Room Air - Course Nursing assessment & vital signs reviewed: Yes - CT Exams Abdomen/Pelvis CT Interpretation: Tele-radiologist Report (New 3.4 cm left ovarian cyst. Incidental left renal cyst. IUD in situ and L4 spondylolysis. Without spondylol isthesis. Remaining CT abdomen and pelvis contrast exam negative.) Ordered Tests: Active Orders 24 hr Category Date Time Status IV Insertion STAT Care 05/26/21 14:20 Active ABDOMEN AND PELVIS W CONTRAST [CT] Stat Exams 05/26/21 14:20 Completed CBC W DIFF Stat Lab 05/26/21 14:54 Completed CMP Stat Lab 05/26/21 14:54 Completed LIPASE Stat Lab 05/26/21 14:54 Completed Manual Differential NC Stat Lab 05/26/21 14:54 Completed TROPONIN Q3H Lab 05/26/21 14:54 Completed TROPONIN Q3H Lab 05/26/21 17:40 Completed TROPONIN Q3H Lab 05/26/21 20:30 Ordered TROPONIN Q3H Lab 05/26/21 23:30 Ordered TROPONIN Q3H Lab 05/27/21 02:30 Ordered UA W/RFX UR CULTURE Stat Lab 05/26/21 14:29 Completed Medication Summary Generic Name Dose Route Start Last Admin Trade Name Odalys PRN Reason Stop Dose Admin Sodium Chloride 1,000 mls @ 100 mls/hr 05/26/21 14:30 05/26/21 14:52 Sodium Chloride 0.9% 1000 Ml IV 06/25/21 14:29 100 mls/hr .Q10H ALO Administration Discontinued Medications Generic Name Dose Route Start Last Admin Trade Name Odalys PRN Reason Stop Dose Admin Droperidol 1.25 mg 05/26/21 16:43 05/26/21 16:56 Droperidol 5 Mg/2 Ml Vial IV 05/26/21 16:44 1.25 mg STAT ONE Administration Droperidol Confirm 05/26/21 16:56 Droperidol 5 Mg/2 Ml Vial Administered 05/26/21 16:57 Dose 5 mg .ROUTE .STK-MED ONE Hydromorphone HCl 0.5 mg 05/26/21 14:20 05/26/21 14:54 Hydromorphone 1 Mg/1ml Inj 1 Mg/Ml Syringe IV 05/26/21 14:21 0.5 mg STAT ONE Administration Hydromorphone HCl Confirm 05/26/21 14:49 Hydromorphone 1 Mg/1ml Inj 1 Mg/Ml Syringe Administered 05/26/21 14:50 Dose 1 mg .ROUTE .STK-MED ONE Lab/Rad Data: Laboratory Result Diagrams 05/26/21 14:54 05/26/21 14:54 Laboratory Results 05/26/21 05/26/21 05/26/21 Range/Units 17:40 14:54 14:54 WBC (4.0-10.5) K/mm3 RBC (4.1-5.4) M/mm3 Hgb (12.0-16.0) gm/dl Hct (35-47) % MCV (78-100) fl MCH (26-32) pg MCHC (32-36) g/dl RDW (11.5-14.0) % Plt Count (150-450) K/mm3 MPV (7.5-11.0) fl Gran % (36.0-66.0) % Eos # (Auto) (0-0.5) Absolute Lymphs (auto) (1.0-4.6) Absolute Monos (auto) (0.0-1.3) Lymphocytes % (24.0-44.0) % Monocytes % (0.0-12.0) % Eosinophils % (0.00-5.0) % Basophils % (0.0-0.4) % Absolute Granulocytes (1.4-6.9) Segmented Neutrophils (36.0-66.0) % Lymphocytes (Manual) (24-44) % Monocytes (Manual) (0.0-12.0) % Eosinophils (Manual) (0.00-3.0) % Basophils # (0-0.4) Platelet Estimate (NORMAL) RBC Morphology Sodium 128 L (137-145) mmol/L Potassium 4.2 (3.5-5.1) mmol/L Chloride 96 L (98-107) mmol/L Carbon Dioxide 23 (22-30) mmol/L Anion Gap 13.5 (5-15) MEQ/L BUN 13 (7-17) mg/dL Creatinine 0.97 (0.52-1.04) mg/dL Estimated GFR > 60.0 ML/MIN Glucose 379 H (74-106) mg/dL Calcium 8.8 (8.4-10.2) mg/dL Total Bilirubin 0.90 (0.2-1.3) mg/dL AST 16 (14-36) U/L ALT 11 (0-35) U/L Alkaline Phosphatase 65 (38-126) U/L Troponin I < 0.012 < 0.012 (0.000-0.034) ng/mL Serum Total Protein 7.5 (6.3-8.2) g/dL Albumin 3.8 (3.5-5.0) g/dL Lipase 137 (23-300) U/L Urine Color (YELLOW) Urine Appearance (CLEAR) Urine pH (5-6) Ur Specific [place] (1.005-1.025) Urine Protein (Negative) Urine Ketones (NEGATIVE) Urine Blood (0-5) [place]/ul Urine Nitrite (NEGATIVE) Urine Bilirubin (NEGATIVE) Urine Urobilinogen (0-1) mg/dL Ur Leukocyte Esterase (NEGATIVE) Urine WBC (Auto) (0-5) /HPF Urine RBC (Auto) (0-2) /HPF U Epithel Cells (Auto) (FEW) /HPF Urine Bacteria (Auto) (NEGATIVE) /HPF Urine Mucus (Auto) (NEGATIVE) /HPF Urine Culture Reflexed (NO) Urine Glucose (NEGATIVE) mg/dL 05/26/21 05/26/21 Range/Units 14:54 14:29 WBC 10.8 H (4.0-10.5) K/mm3 RBC 4.56 (4.1-5.4) M/mm3 Hgb 12.8 (12.0-16.0) gm/dl Hct 35.9 (35-47) % MCV 78.7 (78-100) fl MCH 28.1 (26-32) pg MCHC 35.7 (32-36) g/dl RDW 14.4 H (11.5-14.0) % Plt Count 229 (150-450) K/mm3 MPV 9.7 (7.5-11.0) fl Gran % (36.0-66.0) % Eos # (Auto) (0-0.5) Absolute Lymphs (auto) (1.0-4.6) Absolute Monos (auto) (0.0-1.3) Lymphocytes % (24.0-44.0) % Monocytes % (0.0-12.0) % Eosinophils % (0.00-5.0) % Basophils % (0.0-0.4) % Absolute Granulocytes (1.4-6.9) Segmented Neutrophils 77 H (36.0-66.0) % Lymphocytes (Manual) 21 L (24-44) % Monocytes (Manual) 1 (0.0-12.0) % Eosinophils (Manual) 1 (0.00-3.0) % Basophils # (0-0.4) Platelet Estimate NORMAL (NORMAL) RBC Morphology NORMAL Sodium (137-145) mmol/L Potassium (3.5-5.1) mmol/L Chloride (98-107) mmol/L Carbon Dioxide (22-30) mmol/L Anion Gap (5-15) MEQ/L BUN (7-17) mg/dL Creatinine (0.52-1.04) mg/dL Estimated GFR ML/MIN Glucose (74-106) mg/dL Calcium (8.4-10.2) mg/dL Total Bilirubin (0.2-1.3) mg/dL AST (14-36) U/L ALT (0-35) U/L Alkaline Phosphatase (38-126) U/L Troponin I (0.000-0.034) ng/mL Serum Total Protein (6.3-8.2) g/dL Albumin (3.5-5.0) g/dL Lipase (23-300) U/L Urine Color STRAW (YELLOW) Urine Appearance CLEAR (CLEAR) Urine pH 7.0 (5-6) Ur Specific [place] 1.014 (1.005-1.025) Urine Protein >=500 (Negative) Urine Ketones NEGATIVE (NEGATIVE) Urine Blood NEGATIVE (0-5) [place]/ul Urine Nitrite NEGATIVE (NEGATIVE) Urine Bilirubin NEGATIVE (NEGATIVE) Urine Urobilinogen NEGATIVE (0-1) mg/dL Ur Leukocyte Esterase NEGATIVE (NEGATIVE) Urine WBC (Auto) NONE (0-5) /HPF Urine RBC (Auto) NONE (0-2) /HPF U Epithel Cells (Auto) NONE (FEW) /HPF Urine Bacteria (Auto) NONE (NEGATIVE) /HPF Urine Mucus (Auto) SLIGHT (NEGATIVE) /HPF Urine Culture Reflexed NO (NO) Urine Glucose >=500 (NEGATIVE) mg/dL - Progress Progress: improved Progress Note: Patient reassessed. Pain improved but did not completely resolve. Work-up reveals hyponatremia and hyperglycemia. Patient now requesting discharge. CT abdomen pelvis shows an ovarian cyst. Patient states that she will follow up with her primary care doctor within 48 hours for reevaluation. Patient voices no other complaints or concerns at this time. Portions of this note were created with voice recognition technology. There may be grammatical, spelling, punctuation or sound alike errors 05/26/21 19:20 Counseled pt/family regarding: lab results, diagnosis, need for follow-up, rad results - Departure Departure Disposition: Home Clinical Impression: Proteinuria, Glucosuria, Ovarian cyst, Renal cyst, L4 spondylolysis Condition: Stable Critical Care Time: No Referrals: GOMEZ CURIEL [Primary Care Provider] - Additional Instructions: Discharge/Care Plan WILDANO DAWSON was seen on 05/26/21 in the Emergency Room. The patient was counseled regarding Diagnosis,Lab results, Imaging studies, need for follow up and when to return to the Emergency Room. Prescriptions given: Discharge Note I have spoken with the patient and/or caregivers. I have explained the patient's condition, diagnosis and treatment plan based on the information available to me at this time. I have answered the patient's and/or caregiver's questions and addressed any concerns. The patient and/or caregivers have as good understanding of the patient's diagnosis, condition and treatment plan as can be expected at this point. The vital signs have been stable. The patient's condition is stable and appropriate for discharge from the emergency department. The patient will pursue further outpatient evaluation with the primary care physician or other designated or consulting physician as outlined in the discharge instructions. The patient and/or caregivers are agreeable to this plan of care and follow-up instructions have been explained in detail. The patient and/or caregivers have received these instruction. The patient/and or caregivers are aware that any significant change in condition or worsening of symptoms should prompt an immediate return to this or the closest emergency department or call 911.
[2021-05-26] MEDS ORDERED: Sodium Chloride 0.9% 1000 ML 1,000 ML IV SCH (14:30)
[2021-05-26] MEDS ORDERED: Hydromorphone 1 mg/ml Injection ONE (14:49)
[2021-05-26] MEDS ORDERED: Sodium Chloride 0.9% 1000 ML 1,000 ML ONE (14:49)
[2021-05-26 14:57] LABS: Appearance CLEAR (CLEAR); Bilirubin NEGATIVE (NEGATIVE); Blood NEGATIVE Ery/ul (0-5); Glucose >=500 mg/dL (NEGATIVE); Ketones NEGATIVE (NEGATIVE); Leukocyte Esterase NEGATIVE (NEGATIVE); Mucus SLIGHT /HPF (NEGATIVE); Nitrite NEGATIVE (NEGATIVE); Protein,Urine Dip >=500 (Negative); Specific Gravity 1.014 (1.005-1.025); Urobilinogen NEGATIVE mg/dL (0-1)
[2021-05-26 14:58] LABS: Hematocrit 35.9 % (35-47); Hemoglobin 12.8 gm/dl (12.0-16.0); Mean Cell Volume 78.7 fl (78-100); Mean Corpuscular Hemoglobin 28.1 pg (26-32); Mean Corpuscular Hgb Concent. 35.7 g/dl (32-36); Mean Platelet Volume 9.7 fl (7.5-11.0); Platelet Count 229 K/mm3 (150-450); Red Blood Count 4.56 M/mm3 (4.1-5.4); Red Cell Distribution Width 14.4 % (11.5-14.0); White Blood Count 10.8 K/mm3 (4.0-10.5)
[2021-05-26 15:09] LABS: ALBUMIN 3.8 g/dL (3.5-5.0); ALKALINE PHOSPHATASE 65 U/L (38-126); ANION GAP 13.5 MEQ/L (5-15); BLOOD UREA NITROGEN 13 mg/dL (7-17); CHLORIDE 96 mmol/L (98-107); Calcium 8.8 mg/dL (8.4-10.2); Carbon Dioxide 23 mmol/L (22-30); Creatinine 1 0.97 mg/dL (0.52-1.04); EST GLOMERULAR FILTRATION RATE > 60.0 ML/MIN; Glucose 379 mg/dL (74-106); LIPASE 137 U/L (23-300); Potassium 4.2 mmol/L (3.5-5.1); SGOT/AST 16 U/L (14-36); SGPT/ALT 11 U/L (0-35); SODIUM 128 mmol/L (137-145); Total Protein 7.5 g/dL (6.3-8.2)
[2021-05-26 15:39] LABS: Eosinophil 1 % (0.00-3.0); Lymphocytes 21 % (24-44); Monocyte 1 % (0.0-12.0); Neutrophils 77 % (36.0-66.0); Total Cells Counted 100
[2021-05-26 15:41] LABS: Platelet Estimate NORMAL (NORMAL)
--- NOTE | 2021-05-26 16:20 | XRAY ---
Indication: Right abdomen/flank pain. History of pancreatitis. Multiple contiguous axial images obtained through the abdomen and pelvis using 80 cc Isovue 370 contrast. Comparison: August 05, 2020. Lung bases remain clear. Heart not enlarged. Noncontrasted stomach and bowel loops are nonobstructed again with normal appendix. New 3.4 cm left ovary cyst. No free fluid/air. Uterus demonstrates stable IUD. Stable 1 cm left mid renal cyst. Remaining liver, gallbladder, pancreas, spleen, adrenal glands, kidneys, ureters, bladder, uterus, and aorta are unremarkable. No pathologic retroperitoneal lymphadenopathy. Osseous structures intact again with minimal degenerative changes throughout the spine and L4 spondylolysis without spondylolisthesis. Impression: 1. New 3.4 cm left ovary cyst. 2. Again incidental left renal cyst, IUD in situ, and L4 spondylolysis without spondylolisthesis. 3. Remaining CT abdomen/pelvis with contrast exam is negative.
[2021-05-26] MEDS ORDERED: Inapsine 5 MG/2 ML IV ONE (16:43)
[2021-05-26] MEDS ORDERED: Inapsine 5 MG/2 ML ONE (16:56)
[2021-05-26 18:46] VITALS: BP 106/78; PULSE 88
[2021-05-26 19:21] VITALS: O2SAT 99
== END 2021-05-26 19:30 | disposition home or self-care (01) ==
LOC: ED 13:51
DX: R80.9 Proteinuria, unspecified (principal); R81 Glycosuria; N83.209 Unspecified ovarian cyst, unspecified side; N28.1 Cyst of kidney, acquired; M43.06 Spondylolysis, lumbar region
CPT/HCPCS: 36000; 36415; 74177; 80053; 81001; 83690; 84484; 85025; 96374; 96375; 99284; J1170

== ENCOUNTER 2022-02-09 15:53 | Emergency (ER) | payer OTHER ==
[2022-02-09] MEDS ORDERED: TORAdol 30 mg Injection IM ONE (16:12)
--- NOTE | 2022-02-09 16:19 | ERPHSYRPT ---
- History of Present Illness Time Seen by Provider: 02/09/22 16:10 Source: patient Exam Limitations: no limitations Patient Subjective Stated Complaint: Rib pain Triage Nursing Assessment: Patient ambulated back to ED and transferred self to bed per self. Patient A+O X 3. Patient's skin pink, warm and dry. Patient complains of a fall yesterday where a shovel handle hit her in the right side of the ribs. Patient complains of right sided rib pain 04/16. Bruising noted to right rib area. Physician History: Patient is a 36-year-old female presents to our ED with right posterior lateral rib pain. Patient states she tripped in her father's barn and fell onto a shovel handle. Injury occurred last night. Patient awoke with soreness to her right rib. Pain described as an ache that is localized. Pain reproduced with movement and palpation. Pain improved with rest. No other injuries reported. No BHT or LOC. No neck pain. Cervical spine cleared clinically. The fall was not associated with any neurological or cardiovascular symptomology. No chest pain or shortness of breath. No numbness tingling or weakness. No syncope. Symptoms are mild to moderate in intensity. Patient requesting pain medication at this time. Patient has a history of diabetes. Patient voices no other complaints or concerns at this time. 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 This makes her prone to falls. Timing/Duration: yesterday Severity: moderate Modifying Factors: Improves With: medication (Pain reproduced with movement and palpation.) Associated Symptoms: denies symptoms (No associated nausea vomiting or diaphoresis. No right upper quadrant pain. No abdominal pain. No nausea or vomiting.) Allergies/Adverse Reactions: morphine Allergy (Intermediate, Verified 02/09/22 15:57) Itching Home Medications: Esomeprazole Magnesium [Nexium] 40 mg PO DAILY 04/22/18 [History] Insulin Glargine,Hum.rec.anlog [Mana Shaffer] 45 unit SQ HS 04/22/18 [History] Carvedilol 12.5 mg [Coreg 12.5 mg] 25 mg PO BID 10/21/18 [History] Fexofenadine HCl 180 mg PO DAILY 10/21/18 [History] Insulin Lispro [Humalog] 1 unit SQ UD 10/21/18 [History] Prochlorperazine Maleate 5 mg* [Compazine 5 MG] 5 mg PO TID PRN 10/21/18 [History] Clopidogrel Bisulfate [PLAVIX 75 MG Tablet] 75 mg PO DAILY 10/23/19 [History] Hx Tetanus, Diphtheria Vaccination/Date Given: Yes Hx Influenza Vaccination/Date Given: Yes Hx Pneumococcal Vaccination/Date Given: No Immunizations Up to Date: Yes Travel Risk - International Travel Have you traveled outside of the country in past 3 weeks: No - Coronavirus Screening Are you exhibiting any of the following symptoms?: No Close contact with a COVID-19 positive Pt in past 14-21 Days: No - Vaccine Status Have you recieved a Covid-19 vaccination: No - Review of Systems Constitutional: No Symptoms, No Fever, No Chills Eyes: No Symptoms Ears, Nose, & Throat: No Symptoms Respiratory: No Symptoms, No Cough, No Dyspnea Cardiac: No Symptoms, No Chest Pain, No Edema, No Syncope Abdominal/Gastrointestinal: No Symptoms, No Abdominal Pain, No Nausea, No Vomiting, No Diarrhea Genitourinary Symptoms: No Symptoms, No Dysuria Musculoskeletal: No Symptoms, No Back Pain, No Neck Pain Skin: No Symptoms, No Rash Neurological: No Symptoms, No Dizziness, No Focal Weakness, No Sensory Changes Psychological: No Symptoms Endocrine: No Symptoms Hematologic/Lymphatic: No Symptoms Immunological/Allergic: No Symptoms All Other Systems: Reviewed and Negative - Past Medical History Pertinent Past Medical History: Yes Neurological History: No Pertinent History ENT History: No Pertinent History Cardiac History: Congestive Heart Failure, Coronary Artery Disease, High Cholesterol, Hypertension Respiratory History: Pulmonary Embolism Endocrine Medical History: Diabetes Type I Musculoskeletal History: No Pertinent History GI Medical History: Pancreatitis History: No Pertinent History Psycho-Social History: Anxiety Female Reproductive Disorders: No Pertinent History Other Medical History: Pituitary tumor removed - Past Surgical History Past Surgical History: Yes Neuro Surgical History: No Pertinent History Cardiac: CABG, Cardiac Catheterization Respiratory: No Pertinent History Gastrointestinal: No Pertinent History Genitourinary: No Pertinent History Musculoskeletal: Orthopedic Surgery Female Surgical History: Dilation & Curettage, Section Other Surgical History: knee surg, tumor removed - Social History Smoking Status: Current every day smoker How long have you smoked: 12 years Exposure to second hand smoke: Yes Alcohol Use: None Drug Use: marijuana Patient Lives Alone: Yes Significant Family History: no pertinent family hx - Female History Hx Last Menstrual Period: Hysterectomy Hx Now: No - Nursing Vital Signs Nursing Vital Signs: Initial Vital Signs Temperature 96.9 F 02/09/22 16:00 Pulse Rate 106 H 02/09/22 16:00 Respiratory Rate 19 02/09/22 16:00 Blood Pressure 159/126 02/09/22 16:00 O2 Sat by Pulse Oximetry 99 02/09/22 16:00 Pain Scale Pain Intensity 7 - Physical Exam General Appearance: no apparent distress, alert Eye Exam: PERRL/EOMI, eyes nml inspection Ears, Nose, Throat Exam: normal ENT inspection, TMs normal, pharynx normal, moist mucous membranes Neck Exam: normal inspection, non-tender, supple, full range of motion Respiratory Exam: normal breath sounds, lungs clear, airway intact, No respiratory distress Cardiovascular Exam: regular rate/rhythm, normal heart sounds, normal peripheral pulses, other (Bruising to the right posterior lateral rib area. Point tenderness at this location. Palpation reproduces patient's symptoms.) Gastrointestinal/Abdomen Exam: soft, normal bowel sounds, No tenderness, No mass Back Exam: normal inspection, normal range of motion, No CVA tenderness, No vertebral tenderness Extremity Exam: normal inspection, normal range of motion, pelvis stable Neurologic Exam: alert, oriented x 3, cooperative, normal mood/affect, nml cer ebellar function, nml station & gait, sensation nml, No motor deficits Skin Exam: normal color, warm, dry, No rash Lymphatic Exam: No adenopathy SpO2 Interpretation: normal SpO2: 99 O2 Delivery: Room Air - Course Nursing assessment & vital signs reviewed: Yes - Radiology Exams Chest X-ray Interpretation: Interpreted by me (Clear lung wilkinson, normal cardiac silhouette, intact sternotomy wires intact bony thorax no rib fractures. No pneumothorax) Ribs X-ray Interpretation: Interpreted by me (No fractures. No pneumothorax) Ordered Tests: Active Orders 24 hr Category Date Time Status CHEST 1 VIEW (PORTABLE) Stat Exams 02/09/22 16:07 Completed RIBS UNILATERAL Stat Exams 02/09/22 16:07 Completed Incentive Spirometry TID RT 02/09/22 16:44 Active Medication Summary Discontinued Medications Generic Name Dose Route Start Last Admin Trade Name Freq PRN Reason Stop Dose Admin Ketorolac Tromethamine 30 mg 02/09/22 16:12 02/09/22 16:21 Ketorolac Tromethamine 30 Mg/Ml Inj IM 02/09/22 16:13 30 mg STAT ONE Administration Ketorolac Tromethamine Confirm 02/09/22 16:20 Ketorolac Tromethamine 30 Mg/Ml Inj Administered 02/09/22 16:21 Dose 30 mg .ROUTE .STK-MED ONE - Progress Progress: improved Progress Note: Patient reassessed. Pain improved but not resolved. Dr. Alvarez observed the chest and rib x-rays. No obvious fractures. Formal read pending. Formal read will be performed tomorrow by radiology. Will discharge home. Patient voices no other complaints or concerns at this time. A prescription for Toradol was provided to patient for additional pain control. We also provided patient with incentive spirometer. Incentive spirometry training provided. Patient agrees to follow-up with primary care doctor within 48 hours for evaluation. She voices no other complaints or concerns at this time. Portions of this note were created with voice recognition technology. There may be grammatical, spelling, punctuation or sound alike errors 02/09/22 16:49 Counseled pt/family regarding: diagnosis, need for follow-up, rad results - Departure Departure Disposition: Home Clinical Impression: Rib injury Condition: Stable Critical Care Time: No Referrals: GOMEZ CURIEL [Primary Care Provider] - Follow up/PCP as directed
[2022-02-09] MEDS ORDERED: TORAdol 30 mg Injection ONE (16:20)
--- NOTE | 2022-02-09 16:39 | XRAY ---
Indication: Right lateral chest pain following fall. Comparison: None 2 view right ribs demonstrates nondisplaced fracture anterior tip of 10th rib. Incidental CABG surgery with sternotomy wires. No other bony, articular, or soft tissue abnormalities.
--- NOTE | 2022-02-09 16:41 | XRAY ---
Indication: Right lateral chest pain following fall. Comparison: August 05, 2020. PA chest remains inflated and clear. Heart not enlarged again with CABG. Bony thorax demonstrates new anterior right 10th rib fracture.
[2022-02-09 17:01] VITALS: BP 142/80; PULSE 109; O2SAT 98
== END 2022-02-09 17:00 | disposition home or self-care (01) ==
LOC: ED 15:53
DX: S29.9XXA Unspecified injury of thorax, initial encounter (principal); W01.198A Fall on same level from slipping, tripping and stumbling with subsequent striking against other object, initial encounter; Y92.71 Barn as the place of occurrence of the external cause; R07.81 Pleurodynia; E10.319 Type 1 diabetes mellitus with unspecified diabetic retinopathy without macular edema; E78.5 Hyperlipidemia, unspecified; I11.0 Hypertensive heart disease with heart failure; I50.9 Heart failure, unspecified; Z72.0 Tobacco use; Z79.899 Other long term (current) drug therapy; Z28.310 Unvaccinated for COVID-19
CPT/HCPCS: 71045; 71100; 96372; 99283; J1885

== ENCOUNTER 2022-10-11 17:03 | Inpatient (IN) | payer OTHER ==
[2022-10-11] MEDS ORDERED: Zofran 4 MG/2 ML VIAL IV ONE (17:24)
[2022-10-11] MEDS ORDERED: Sodium Chloride 0.9% 1000 ML 1,000 ML IV STA (17:24)
[2022-10-11] MEDS ORDERED: SUBLIMAZE 100 MCG/2 ML IV ONE ×2 (17:29→18:02)
[2022-10-11] MEDS ORDERED: Zofran 4 MG/2 ML VIAL ONE (17:31)
[2022-10-11] MEDS ORDERED: SUBLIMAZE 100 MCG/2 ML ONE ×2 (17:31→18:05)
[2022-10-11] MEDS ORDERED: Sodium Chloride 0.9% 1000 ML 1,000 ML ONE (17:31)
[2022-10-11 17:50] LABS: Absolute Neutrophil Ct (ANC) 13.69 x10^3/uL (1.4-6.9); BASOPHIL % 0.6 % (0.0-0.4); Basophil (Absolute #) 0.11 x10^3/uL (0-0.4); Eosinophil % 0.9 % (0.00-5.0); Eosinophil (Absolute #) 0.16 x10^3/uL (0-0.5); Hematocrit 38.3 % (35-47); IMMATURE GRAN # 0.21 x10^3u/L (0.00-0.03); IMMATURE GRAN % 1.2 % (0.00-0.4); Lymphocyte (Absolute #) 2.59 x10^3/uL (1.0-4.6); Lymphocytes % 14.7 % (24.0-44.0); Mean Cell Volume 79.6 fL (78-100); Mean Corpuscular Hgb Concent. 33.9 g/dL (32-36); Monocyte (Absolute #) 0.82 x10^3/uL (0.0-1.3); Monocytes % 4.7 % (0.0-12.0); Neutrophil % 77.9 % (36.0-66.0); Platelet Count 330 x10^3/uL (150-450); Red Blood Count 4.81 x10^6/uL (4.1-5.4); Red Cell Distribution Width 13.5 % (11.5-14.0); White Blood Count 17.6 x10^3/uL (4.0-10.5)
[2022-10-11 18:10] LABS: ANION GAP 9.2 MEQ/L (5-15); BILIRUBIN,TOTAL 0.6 mg/dL (0.2-1.3); Calcium 7.9 mg/dL (8.4-10.2); Creatinine 1 2.02 mg/dL (0.52-1.04); EST GLOMERULAR FILTRATION RATE 29.8 ML/MIN; Potassium 4.1 mmol/L (3.5-5.1); Total Protein 6.5 g/dL (6.3-8.2)
[2022-10-11 18:19] LABS: Appearance Clear (Clear); Bacteria None Seen /HPF (None Seen); Bilirubin Negative (Negative); Blood Small (Negative); Epithelial Cells Rare /HPF (None Seen); Glucose, Urine >=1000 mg/dL (Negative); Hyaline Casts 0-2 /LPF (0-2); Ketones Negative (Negative); Leukocyte Esterase Negative (Negative); Nitrite Negative (Negative); Ph 6.5 (4.6-8.0); Protein,Urine Dip >=1000 (Negative); RBC 0-2 /HPF (0-5); Specific Gravity 1.025 (1.005-1.030); Urobilinogen 0.2 mg/dL (0.2); WBC 0-2 /HPF (0-5)
[2022-10-11 18:20] LABS: ADD URINE CULTURE? YES (NO)
--- NOTE | 2022-10-11 18:22 | ERPHSYRPT ---
- History of Present Illness Time Seen by Provider: 10/11/22 17:20 Source: patient Exam Limitations: no limitations Patient Subjective Stated Complaint: Pt has been vomiting and having weakness and left abdominal pain that radiates to the back that is constant stabbing pain for the past 2 days Triage Nursing Assessment: Pt brought to the ER by EMS, hypertensive, rates overall pain as 10/10, was at [facility] on Monday and they didn't know what was wrong but they did not do a scan on her, only did blood work, pulses normal, skin p/w/d, appears weak and frail, only has a bowel movement about once a week and last time was about 5 days ago, last intake was Monday night, pt has not taken any insulin today and stated that she hasn't eaten anything and she didnt' want it to drop so I educated her on checking her sugars and taking her medicin es even if she is sick Physician History: Patient 36-year-old female with history of diabetes presents to our ED via EMS for evaluation of nausea vomiting weakness and generalized abdominal pain. Patient's abdominal pain described as an ache that tends to radiate towards her back. Patient rates her pain 10 out of 10. Patient's symptoms have been ongoing for approximately 3 days. Patient went to [facility] 2 days ago. A laboratory work-up was done. No imaging studies. Patient states they were unsure of what was causing her problems. Patient was discharged home. Patient states her symptoms are getting worse. Patient's last bowel movement was approximately 5 days ago. Patient has been eating less. No trauma. No fever. Patient voices no other complaints or concerns at this time. Portions of this note were created with voice recognition technology. There may be grammatical, spelling, punctuation or sound alike errors Timing/Duration: day(s) Severity: moderate (3 days) Modifying Factors: Improves With: nothing Associated Symptoms: denies symptoms Allergies/Adverse Reactions: morphine Allergy (Intermediate, Verified 10/11/22 17:24) Itching Home Medications: Carvedilol 12.5 mg [Coreg 12.5 mg] 25 mg PO BID 10/21/18 [History] Fexofenadine HCl 180 mg PO DAILY 10/21/18 [History] Insulin Lispro [Humalog] 1 unit SQ UD 10/21/18 [History] Clopidogrel Bisulfate [PLAVIX 75 MG Tablet] 75 mg PO DAILY 10/23/19 [History] Cyclobenzaprine HCl 10 mg [Cyclobenzaprine 10 MG] 10 mg PO TID PRN 10/11/22 [History] Insulin Glargine,Hum.rec.anlog [Basaglar Tempo Pen U-100] 34 unit SQ HS 10/11/22 [History] PANTOPRAZOLE 40 mg Tablet [Protonix 40MG Tablet] 40 mg PO QAM 10/11/22 [H istory] Sacubitril/Valsartan [Entresto 24 mg-26 mg Tablet] 2 tab PO DAILY 10/11/22 [History] Trazodone HCl 100 mg PO DAILY 10/11/22 [History] Venlafaxine HCl [Effexor Xr] 150 mg PO DAILY 10/11/22 [History] Hx Tetanus, Diphtheria Vaccination/Date Given: Yes Hx Influenza Vaccination/Date Given: Yes Hx Pneumococcal Vaccination/Date Given: No Travel Risk - International Travel Have you traveled outside of the country in past 3 weeks: No - Coronavirus Screening Are you exhibiting any of the following symptoms?: Yes Symptoms: Vomiting/Diarrhea Close contact with a COVID-19 positive Pt in past 14-21 Days: No - Vaccine Status Have you recieved a Covid-19 vaccination: No - Review of Systems Constitutional: No Symptoms, No Fever, No Chills Eyes: No Symptoms Ears, Nose, & Throat: No Symptoms Respiratory: No Symptoms, No Cough, No Dyspnea Cardiac: No Symptoms, No Chest Pain, No Edema, No Syncope Abdominal/Gastrointestinal: No Symptoms, No Abdominal Pain, No Nausea, No Vomiting, No Diarrhea Genitourinary Symptoms: No Symptoms, No Dysuria Musculoskeletal: No Symptoms, No Back Pain, No Neck Pain Skin: No Symptoms, No Rash Neurological: No Symptoms, No Dizziness, No Focal Weakness, No Sensory Changes Psychological: No Symptoms Endocrine: No Symptoms Hematologic/Lymphatic: No Symptoms Immunological/Allergic: No Symptoms All Other Systems: Reviewed and Negative - Past Medical History Pertinent Past Medical History: Yes Neurological History: No Pertinent History ENT History: No Pertinent History Cardiac History: Congestive Heart Failure, Coronary Artery Disease, High Cholesterol, Hypertension Respiratory History: Pulmonary Embolism Endocrine Medical History: Diabetes Type I Musculoskeletal History: No Pertinent History GI Medical History: Pancreatitis History: No Pertinent History Psycho-Social History: Anxiety Female Reproductive Disorders: No Pertinent History Other Medical History: Pituitary tumor removed - Past Surgical History Past Surgical History: Yes Neuro Surgical History: No Pertinent History Cardiac: CABG, Cardiac Catheterization Respiratory: No Pertinent History Gastrointestinal: No Pertinent History Genitourinary: No Pertinent History Musculoskeletal: Orthopedic Surgery Female Surgical History: Dilation & Curettage, Section Other Surgical History: knee surg, tumor removed - Social History Smoking Status: Current every day smoker How long have you smoked: 12 years Exposure to second hand smoke: Yes Alcohol Use: None Drug Use: marijuana Patient Lives Alone: No Significant Family History: no pertinent family hx - Female History Hx Now: No (hysterectomy) - Nursing Vital Signs Nursing Vital Signs: Initial Vital Signs Temperature 98.0 F 10/11/22 17:08 Pulse Rate 91 H 10/11/22 17:08 Blood Pressure 156/102 10/11/22 17:08 O2 Sat by Pulse Oximetry 100 10/11/22 17:08 Pain Scale Pain Intensity 8 - Physical Exam General Appearance: no apparent distress, alert Eye Exam: PERRL/EOMI, eyes nml inspection Ears, Nose, Throat Exam: normal ENT inspection, TMs normal, pharynx normal, moist mucous membranes Neck Exam: normal inspection, non-tender, supple, full range of motion Respiratory Exam: normal breath sounds, lungs clear, No respiratory distress Cardiovascular Exam: regular rate/rhythm, normal heart sounds, normal peripheral pulses Gastrointestinal/Abdomen Exam: soft, normal bowel sounds, No tenderness, No mass Back Exam: normal inspection, normal range of motion, No CVA tenderness, No vertebral tenderness Extremity Exam: normal inspection, normal range of motion, pelvis stable Neurologic Exam: alert, oriented x 3, cooperative, normal mood/affect, nml cerebellar function, nml station & gait, sensation nml, No motor deficits Skin Exam: normal color, warm, dry, No rash Lymphatic Exam: No adenopathy SpO2: 98 - Course Nursing assessment & vital signs reviewed: Yes - CT Exams Abdomen/Pelvis CT Interpretation: Tele-radiologist Report (Near empty stomach again demonstrates diffuse wall thickening either incomplete distention versus gastric lymphoma. New moderate diffuse fecal stasis. Remaining abdomen pelvis negative) Ordered Tests: Active Orders 24 hr Category Date Time Status IV Insertion STAT Care 10/11/22 17:24 Active POCT Glucose Check STAT Care 10/11/22 17:23 Active ABDOMEN AND PELVIS W/0 CONTRAS [CT] Stat Exams 10/11/22 17:24 Taken CBC W DIFF Stat Lab 10/11/22 17:30 Completed CMP Stat Lab 10/11/22 17:30 Completed CULTURE,URINE Stat Lab 10/11/22 17:27 Received HCG,QUALITATIVE URINE Stat Lab 10/11/22 17:27 Completed LIPASE Stat Lab 10/11/22 17:30 Completed POCT GLUCOSE Stat Lab 10/11/22 17:18 Completed TROPONIN Q4H Lab 10/11/22 17:30 Completed TROPONIN Q4H Lab 10/11/22 21:30 Ordered TROPONIN Q4H Lab 10/12/22 01:30 Ordered UA W/RFX UR CULTURE Stat Lab 10/11/22 17:27 Completed Transfer Order Routine Transfer 10/11/22 Ordered Medication Summary Discontinued Medications Generic Name Dose Route Start Last Admin Trade Name Freq PRN Reason Stop Dose Admin Fentanyl Citrate 100 mcg 10/11/22 17:29 10/11/22 17:33 Fentanyl Citrate 100 Mcg/2 Ml* Vial IV 10/11/22 17:30 100 mcg STAT ONE Administration Fentanyl Citrate Confirm 10/11/22 17:31 Fentanyl Citrate 100 Mcg/2 Ml* Vial Administered 10/11/22 17:32 Dose 100 mcg .ROUTE .STK-MED ONE Fentanyl Citrate 100 mcg 10/11/22 18:02 10/11/22 18:06 Fentanyl Citrate 100 Mcg/2 Ml* Vial IV 10/11/22 18:03 100 mcg STAT ONE Administration Fentanyl Citrate Confirm 10/11/22 18:05 Fentanyl Citrate 100 Mcg/2 Ml* Vial Administered 10/11/22 18:06 Dose 100 mcg .ROUTE .STK-MED ONE Sodium Chloride 1,000 mls @ 999 mls/hr 10/11/22 17:24 10/11/22 18:34 Sodium Chloride 0.9% 1000 Ml IV 10/11/22 18:24 Infused .Q1H1M STA Infusion Sodium Chloride Confirm 10/11/22 17:31 Sodium Chloride 0.9% 1000 Ml Administered 10/11/22 17:32 Dose 1,000 mls @ ud .ROUTE .STK-MED ONE Ondansetron HCl 4 mg 10/11/22 17:24 10/11/22 17:33 Ondansetron Hcl 4 Mg/2 Ml Vial IV 10/11/22 17:25 4 mg STAT ONE Administration Ondansetron HCl Confirm 10/11/22 17:31 Ondansetron Hcl 4 Mg/2 Ml Vial Administered 10/11/22 17:32 Dose 4 mg .ROUTE .STK-MED ONE Lab/Rad Data: Laboratory Result Diagrams 10/11/22 17:30 10/11/22 17:30 Laboratory Results 10/11/22 10/11/22 10/11/22 Range/Units 17:30 17:30 17:30 WBC 17.6 H (4.0-10.5) x10^3/uL RBC 4.81 (4.1-5.4) x10^6/uL Hgb 13.0 (12.0-16.0) g/dL Hct 38.3 (35-47) % MCV 79.6 (78-100) fL MCH 27.0 (26-32) pg MCHC 33.9 (32-36) g/dL RDW 13.5 (11.5-14.0) % Plt Count 330 (150-450) x10^3/uL MPV 9.0 (7.5-11.0) fL Gran % 77.9 H (36.0-66.0) % Immature Gran % (Auto) 1.2 H (0.00-0.4) % Nucleat RBC Rel Count 0.0 (0.00-0.1) % Eos # (Auto) 0.16 (0-0.5) x10^3/uL Immature Gran # (Auto) 0.21 H (0.00-0.03) x10^3u/L Absolute Lymphs (auto) 2.59 (1.0-4.6) x10^3/uL Absolute Monos (auto) 0.82 (0.0-1.3) x10^3/uL Absolute Nucleated RBC 0.00 (0.00-0.01) x10^3u/L Lymphocytes % 14.7 L (24.0-44.0) % Monocytes % 4.7 (0.0-12.0) % Eosinophils % 0.9 (0.00-5.0) % Basophils % 0.6 (0.0-0.4) % Absolute Granulocytes 13.69 H (1.4-6.9) x10^3/uL Basophils # 0.11 (0-0.4) x10^3/uL Sodium 133 L (137-145) mmol/L Potassium 4.1 (3.5-5.1) mmol/L Chloride 102 (98-107) mmol/L Carbon Dioxide 26 (22-30) mmol/L Anion Gap 9.2 (5-15) MEQ/L BUN 18 H (7-17) mg/dL Creatinine 2.02 H (0.52-1.04) mg/dL Estimated GFR 29.8 ML/MIN Glucose 288 H (74-106) mg/dL POC Glucometer (74 to 106) mg/dL Calcium 7.9 L (8.4-10.2) mg/dL Total Bilirubin 0.60 (0.2-1.3) mg/dL AST 23 (14-36) U/L ALT 16 (0-35) U/L Alkaline Phosphatase 88 (38-126) U/L Troponin I 0.014 (0.000-0.034) ng/mL Serum Total Protein 6.5 (6.3-8.2) g/dL Albumin 3.0 L (3.5-5.0) g/dL Lipase 92 (23-300) U/L Urine Color (Yellow) Urine Appearance (Clear) Urine pH (4.6-8.0) Ur Specific Callaway (1.005-1.030) Urine Protein (Negative) Urine Glucose (UA) (Negative) mg/dL Urine Ketones (Negative) Urine Blood (Negative) Urine Nitrite (Negative) Urine Bilirubin (Negative) Urine Urobilinogen (0.2) mg/dL Ur Leukocyte Esterase (Negative) U Hyaline Cast (Auto) (0-2) /LPF Urine Microscopic RBC (0-5) /HPF Urine Microscopic WBC (0-5) /HPF Ur Epithelial Cells (None Seen) /HPF Urine Bacteria (None Seen) /HPF Urine Culture Reflexed (NO) Urine HCG, Qual (Negative) 10/11/22 10/11/22 10/11/22 Range/Units 17:27 17:27 17:18 WBC (4.0-10.5) x10^3/uL RBC (4.1-5.4) x10^6/uL Hgb (12.0-16.0) g/dL Hct (35-47) % MCV (78-100) fL MCH (26-32) pg MCHC (32-36) g/dL RDW (11.5-14.0) % Plt Count (150-450) x10^3/uL MPV (7.5-11.0) fL Gran % (36.0-66.0) % Immature Gran % (Auto) (0.00-0.4) % Nucleat RBC Rel Count (0.00-0.1) % Eos # (Auto) (0-0.5) x10^3/uL Immature Gran # (Auto) (0.00-0.03) x10^3u/L Absolute Lymphs (auto) (1.0-4.6) x10^3/uL Absolute Monos (auto) (0.0-1.3) x10^3/uL Absolute Nucleated RBC (0.00-0.01) x10^3u/L Lymphocytes % (24.0-44.0) % Monocytes % (0.0-12.0) % Eosinophils % (0.00-5.0) % Basophils % (0.0-0.4) % Absolute Granulocytes (1.4-6.9) x10^3/uL Basophils # (0-0.4) x10^3/uL Sodium (137-145) mmol/L Potassium (3.5-5.1) mmol/L Chloride (98-107) mmol/L Carbon Dioxide (22-30) mmol/L Anion Gap (5-15) MEQ/L BUN (7-17) mg/dL Creatinine (0.52-1.04) mg/dL Estimated GFR ML/MIN Glucose (74-106) mg/dL POC Glucometer 272 H (74 to 106) mg/dL Calcium (8.4-10.2) mg/dL Total Bilirubin (0.2-1.3) mg/dL AST (14-36) U/L ALT (0-35) U/L Alkaline Phosphatase (38-126) U/L Troponin I (0.000-0.034) ng/mL Serum Total Protein (6.3-8.2) g/dL Albumin (3.5-5.0) g/dL Lipase (23-300) U/L Urine Color Yellow (Yellow) Urine Appearance Clear (Clear) Urine pH 6.5 (4.6-8.0) Ur Specific [place] 1.025 (1.005-1.030) Urine Protein >=1000 A (Negative) Urine Glucose (UA) >=1000 A (Negative) mg/dL Urine Ketones Negative (Negative) Urine Blood Small A (Negative) Urine Nitrite Negative (Negative) Urine Bilirubin Negative (Negative) Urine Urobilinogen 0.2 (0.2) mg/dL Ur Leukocyte Esterase Negative (Negative) U Hyaline Cast (Auto) 0-2 (0-2) /LPF Urine Microscopic RBC 0-2 (0-5) /HPF Urine Microscopic WBC 0-2 (0-5) /HPF Ur Epithelial Cells Rare (None Seen) /HPF Urine Bacteria None Seen (None Seen) /HPF Urine Culture Reflexed YES (NO) Urine HCG, Qual NEGATIVE (Negative) - Progress Progress: improved Progress Note: Patient reassessed. Pain improved after administration of fentanyl. Patient feels nauseous. Work-up reveals a leukocytosis hyponatremia acute renal injury hyper glycemia and glucosuria. Testing ordered includes CT scan abdomen pelvis. CBC CMP COVID test pending lipase normal. Initial troponin negative. Patient given normal saline fentanyl and Zofran. Patient is a 36-year-old female presents to our ED for evaluation of abdominal pain. Patient arrived via EMS. Physical exam reveals diffuse abdominal pain. 10/11/22 19:02 Patient complaints are acute. Complexity of problems addressed is moderate. Acute exacerbation with chronic illness. No critical care time. Complexity of data reviewed and analyzed is moderate. Test ordered test reviewed. EMS provided a significant part of patient's history. EMS served as the patient's independent historian upon arrival. Case discussed with hospitalist who accepts admission to observation. Risk of complication and or morbidity/mortality of patient management is moderate. Patient will be admitted. Patient agrees to admission as a [facility] for further evaluation and treatment. Case discussed with Dr. Gerber and hospitalist accepts admission to observation. Plan of care discussed with patient. She agrees to admission at [facility] for further evaluation and treatment. Admitting diagnosis is diffuse fecal stasis, abdominal pain, hyponatremia, dehydration, acute renal injury, leukocytosis, hyperglycemia, glucosuria Portions of this note were created with voice recognition technology. There may be grammatical, spelling, punctuation or sound alike errors D 10/11/22 19:04 10/11/22 19:31 Counseled pt/family regarding: lab results, diagnosis, rad results - Departure Departure Disposition: Observation Clinical Impression: Diffuse fecal stasis, Diffuse wall thickening, Leukocytosis, Hyponatremia, SHANNON (acute kidney injury), Hyperglycemia, Glucosuria, Abdominal pain Condition: Stable Critical Care Time: No Referrals: GOMEZ CURIEL [Primary Care Provider] - Follow up/PCP as directed
[2022-10-11 19:32] LABS: INFLUENZA A NEGATIVE (NEGATIVE); INFLUENZA B NEGATIVE (NEGATIVE); RESPIRATORY SYNCTIAL VIRUS NEGATIVE (Negative); SARS-CoV-2 Xpert Express NEGATIVE (NEGATIVE)
[2022-10-11] MEDS ORDERED: Hydromorphone 1 mg/ml Injection IV ONE (19:33)
[2022-10-11] MEDS ORDERED: Hydromorphone 1 mg/ml Injection ONE ×2 (19:35→23:03)
[2022-10-11] MEDS ORDERED: Hydromorphone 1 mg/ml Injection IV PRN (20:52)
--- NOTE | 2022-10-11 21:16 | PCM.HP ---
History of Present Illness - Chief Complaint Chief Complaint: abdominal pain, leukocytosis History of Present Illness: 36 yo wf with hx of CAD, CHF(unclear EF), T1DM, Blindness, HTN, CKD(unclear Cr) admitted for 3 days of worsening abd pain. Pt has had this issues on and off with this for approx 2 months. Its not clear what makes it better. She went to another hospital 2 weeks with unrevealing imaging and was told it could be her gall bladder. The pain is not colicky in nature. She has had some emesis and notes some dark stools. She has lost 10-15 lbs. She notes night sweats. She has a ? hx of PUD. She takes NSAIDs infrequently. In ED she was noted to have thickening of stomach wall with no other pathology. She also had a possible SHANNON. - Review of Systems Constitutional: Night Sweats Eyes: No Symptoms Ears, Nose, & Throat: No Symptoms Respiratory: No Symptoms Cardiac: No Symptoms Abdominal/Gastrointestinal: Abdominal Pain, Nausea, Vomiting Genitourinary Symptoms: No Symptoms Musculoskeletal: No Symptoms Skin: No Symptoms Neurological: No Symptoms Psychological: No Symptoms Endocrine: No Symptoms Hematologic/Lymphatic: No Symptoms Immunological/Allergic: No Symptoms Medications & Allergies Home Medications: Home Medication List Carvedilol 12.5 mg [Coreg 12.5 mg] 25 mg PO BID 10/21/18 [History Confirmed 10/11/22] Fexofenadine HCl 180 mg PO DAILY 10/21/18 [History Confirmed 10/11/22] Insulin Lispro [Humalog] 1 unit SQ UD 10/21/18 [History Confirmed 10/11/22] Clopidogrel Bisulfate [PLAVIX 75 MG Tablet] 75 mg PO DAILY 10/23/19 [History Confirmed 10/11/22] Clonazepam [Klonopin] 0.5 mg PO TID 10/11/22 [History Confirmed 10/11/22] Cyclobenzaprine HCl 10 mg [Cyclobenzaprine 10 MG] 10 mg PO TID PRN 10/11/22 [History Confirmed 10/11/22] Insulin Glargine,Hum.rec.anlog [Basaglar Tempo Pen U-100] 34 unit SQ HS 10/11/22 [History Confirmed 10/11/22] PANTOPRAZOLE 40 mg Tablet [Protonix 40MG Tablet] 40 mg PO QAM 10/11/22 [History Confirmed 10/11/22] Ramelteon [Rozerem] 8 mg PO HS 10/11/22 [History Confirmed 10/11/22] Sacubitril/Valsartan [Entresto 24 mg-26 mg Tablet] 2 tab PO DAILY 10/11/22 [History Confirmed 10/11/22] Trazodone HCl 150 mg PO HS 10/11/22 [History Confirmed 10/11/22] Venlafaxine HCl [Effexor Xr] 150 mg PO HS 10/11/22 [History Confirmed 10/11/22] Allergies/Adverse Reactions: Allergies Allergy/AdvReac Type Severity Reaction Status Date / Time morphine Allergy Intermediate Itching Verified 10/11/22 20:53 - Past Medical History Past Medical History: Yes Neurological History: No Pertinent History ENT History: Other Cardiac History: Congestive Heart Failure, Coronary Artery Disease, High Cholesterol, Hypertension Respiratory History: CHF, Pulmonary Embolism Endocrine Medical History: Diabetes Type I Musculoskelatal History: No Pertinent History GI Medical History: Pancreatitis History: No Pertinent History Pyscho-Social History: Anxiety, Depression Reproductive Disorders: No Pertinent History Comment: Pituitary tumor removed - Female History Are you now?: No (hysterectomy) - Past Surgical History Past Surgical History: Yes Neuro Surgical History: No Pertinent History Cardiac History: CABG, Cardiac Catheterization Respiratory Surgery: No Pertinent History GI Surgical History: No Pertinent History Genitourinary Surgical Hx: No Pertinent History Musculskeletal Surgical Hx: Orthopedic Surgery Female Surgical History: Dilation & Curettage, Section Other Surgical History: knee surgery, pituitary tumor removed - Social History Smoking Status: Current every day smoker How long have you smoked: 12 years Exposure to second hand smoke: Yes Alcohol: None Drug Use: marijuana Significant Family History: no pertinent family hx - Physical Exam Vital Signs: Vital Signs - 24 hr Temp Pulse Resp BP Pulse Ox 10/11/22 20:00 98.1 F 88 16 171/103 94 L 10/11/22 19:32 98 10/11/22 19:00 88 16 154/105 97 10/11/22 18:00 88 16 159/107 98 10/11/22 17:08 98.0 F 91 H 156/102 100 General Appearance: no apparent distress Neurologic Exam: alert, oriented x 3, cooperative Eye Exam: PERRL/EOMI, eyes nml inspection Ears, Nose, Throat Exam: normal ENT inspection Neck Exam: normal inspection Respiratory Exam: normal breath sounds Cardiovascular Exam: regular rate/rhythm Gastrointestinal/Abdomen Exam: soft, normal bowel sounds, guarding, No tenderness, No distention Back Exam: normal inspection Extremity Exam: normal inspection, normal range of motion Skin Exam: normal color, warm, No dry Results - Labs Lab/Micro Results: Lab Results-Last 24 Hours 10/11/22 10/11/22 10/11/22 Range/Units 17:18 17:27 17:27 WBC (4.0-10.5) x10^3/uL RBC (4.1-5.4) x10^6/uL Hgb (12.0-16.0) g/dL Hct (35-47) % MCV (78-100) fL MCH (26-32) pg MCHC (32-36) g/dL RDW (11.5-14.0) % Plt Count (150-450) x10^3/uL MPV (7.5-11.0) fL Gran % (36.0-66.0) % Immature Gran % (Auto) (0.00-0.4) % Nucleat RBC Rel Count (0.00-0.1) % Eos # (Auto) (0-0.5) x10^3/uL Immature Gran # (Auto) (0.00-0.03) x10^3u/L Absolute Lymphs (auto) (1.0-4.6) x10^3/uL Absolute Monos (auto) (0.0-1.3) x10^3/uL Absolute Nucleated RBC (0.00-0.01) x10^3u/L Lymphocytes % (24.0-44.0) % Monocytes % (0.0-12.0) % Eosinophils % (0.00-5.0) % Basophils % (0.0-0.4) % Absolute Granulocytes (1.4-6.9) x10^3/uL Basophils # (0-0.4) x10^3/uL Sodium (137-145) mmol/L Potassium (3.5-5.1) mmol/L Chloride (98-107) mmol/L Carbon Dioxide (22-30) mmol/L Anion Gap (5-15) MEQ/L BUN (7-17) mg/dL Creatinine (0.52-1.04) mg/dL Estimated GFR ML/MIN Glucose (74-106) mg/dL POC Glucometer 272 H (74 to 106) mg/dL Calcium (8.4-10.2) mg/dL Total Bilirubin (0.2-1.3) mg/dL AST (14-36) U/L ALT (0-35) U/L Alkaline Phosphatase (38-126) U/L Troponin I (0.000-0.034) ng/mL Serum Total Protein (6.3-8.2) g/dL Albumin (3.5-5.0) g/dL Lipase (23-300) U/L Urine Color Yellow (Yellow) Urine Appearance Clear (Clear) Urine pH 6.5 (4.6-8.0) Ur Specific [place] 1.025 (1.005-1.030) Urine Protein >=1000 A (Negative) Urine Glucose (UA) >=1000 A (Negative) mg/dL Urine Ketones Negative (Negative) Urine Blood Small A (Negative) Urine Nitrite Negative (Negative) Urine Bilirubin Negative (Negative) Urine Urobilinogen 0.2 (0.2) mg/dL Ur Leukocyte Esterase Negative (Negative) U Hyaline Cast (Auto) 0-2 (0-2) /LPF Urine Microscopic RBC 0-2 (0-5) /HPF Urine Microscopic WBC 0-2 (0-5) /HPF Ur Epithelial Cells Rare (None Seen) /HPF Urine Bacteria None Seen (None Seen) /HPF Urine Culture Reflexed YES (NO) Urine HCG, Qual NEGATIVE (Negative) Influenza Type A Ag (NEGATIVE) Influenza Type B Ag (NEGATIVE) RSV (PCR) (Negative) SARS-CoV-2 (PCR) (NEGATIVE) 10/11/22 10/11/22 10/11/22 Range/Units 17:30 17:30 17:30 WBC 17.6 H (4.0-10.5) x10^3/uL RBC 4.81 (4.1-5.4) x10^6/uL Hgb 13.0 (12.0-16.0) g/dL Hct 38.3 (35-47) % MCV 79.6 (78-100) fL MCH 27.0 (26-32) pg MCHC 33.9 (32-36) g/dL RDW 13.5 (11.5-14.0) % Plt Count 330 (150-450) x10^3/uL MPV 9.0 (7.5-11.0) fL Gran % 77.9 H (36.0-66.0) % Immature Gran % (Auto) 1.2 H (0.00-0.4) % Nucleat RBC Rel Count 0.0 (0.00-0.1) % Eos # (Auto) 0.16 (0-0.5) x10^3/uL Immature Gran # (Auto) 0.21 H (0.00-0.03) x10^3u/L Absolute Lymphs (auto) 2.59 (1.0-4.6) x10^3/uL Absolute Monos (auto) 0.82 (0.0-1.3) x10^3/uL Absolute Nucleated RBC 0.00 (0.00-0.01) x10^3u/L Lymphocytes % 14.7 L (24.0-44.0) % Monocytes % 4.7 (0.0-12.0) % Eosinophils % 0.9 (0.00-5.0) % Basophils % 0.6 (0.0-0.4) % Absolute Granulocytes 13.69 H (1.4-6.9) x10^3/uL Basophils # 0.11 (0-0.4) x10^3/uL Sodium 133 L (137-145) mmol/L Potassium 4.1 (3.5-5.1) mmol/L Chloride 102 (98-107) mmol/L Carbon Dioxide 26 (22-30) mmol/L Anion Gap 9.2 (5-15) MEQ/L BUN 18 H (7-17) mg/dL Creatinine 2.02 H (0.52-1.04) mg/dL Estimated GFR 29.8 ML/MIN Glucose 288 H (74-106) mg/dL POC Glucometer (74 to 106) mg/dL Calcium 7.9 L (8.4-10.2) mg/dL Total Bilirubin 0.60 (0.2-1.3) mg/dL AST 23 (14-36) U/L ALT 16 (0-35) U/L Alkaline Phosphatase 88 (38-126) U/L Troponin I 0.014 (0.000-0.034) ng/mL Serum Total Protein 6.5 (6.3-8.2) g/dL Albumin 3.0 L (3.5-5.0) g/dL Lipase 92 (23-300) U/L Urine Color (Yellow) Urine Appearance (Clear) Urine pH (4.6-8.0) Ur Specific [place] (1.005-1.030) Urine Protein (Negative) Urine Glucose (UA) (Negative) mg/dL Urine Ketones (Negative) Urine Blood (Negative) Urine Nitrite (Negative) Urine Bilirubin (Negative) Urine Urobilinogen (0.2) mg/dL Ur Leukocyte Esterase (Negative) U Hyaline Cast (Auto) (0-2) /LPF Urine Microscopic RBC (0-5) /HPF Urine Microscopic WBC (0-5) /HPF Ur Epithelial Cells (None Seen) /HPF Urine Bacteria (None Seen) /HPF Urine Culture Reflexed (NO) Urine HCG, Qual (Negative) Influenza Type A Ag (NEGATIVE) Influenza Type B Ag (NEGATIVE) RSV (PCR) (Negative) SARS-CoV-2 (PCR) (NEGATIVE) 10/11/22 Range/Units 17:40 WBC (4.0-10.5) x10^3/uL RBC (4.1-5.4) x10^6/uL Hgb (12.0-16.0) g/dL Hct (35-47) % MCV (78-100) fL MCH (26-32) pg MCHC (32-36) g/dL RDW (11.5-14.0) % Plt Count (150-450) x10^3/uL MPV (7.5-11.0) fL Gran % (36.0-66.0) % Immature Gran % (Auto) (0.00-0.4) % Nucleat RBC Rel Count (0.00-0.1) % Eos # (Auto) (0-0.5) x10^3/uL Immature Gran # (Auto) (0.00-0.03) x10^3u/L Absolute Lymphs (auto) (1.0-4.6) x10^3/uL Absolute Monos (auto) (0.0-1.3) x10^3/uL Absolute Nucleated RBC (0.00-0.01) x10^3u/L Lymphocytes % (24.0-44.0) % Monocytes % (0.0-12.0) % Eosinophils % (0.00-5.0) % Basophils % (0.0-0.4) % Absolute Granulocytes (1.4-6.9) x10^3/uL Basophils # (0-0.4) x10^3/uL Sodium (137-145) mmol/L Potassium (3.5-5.1) mmol/L Chloride (98-107) mmol/L Carbon Dioxide (22-30) mmol/L Anion Gap (5-15) MEQ/L BUN (7-17) mg/dL Creatinine (0.52-1.04) mg/dL Estimated GFR ML/MIN Glucose (74-106) mg/dL POC Glucometer (74 to 106) mg/dL Calcium (8.4-10.2) mg/dL Total Bilirubin (0.2-1.3) mg/dL AST (14-36) U/L ALT (0-35) U/L Alkaline Phosphatase (38-126) U/L Troponin I (0.000-0.034) ng/mL Serum Total Protein (6.3-8.2) g/dL Albumin (3.5-5.0) g/dL Lipase (23-300) U/L Urine Color (Yellow) Urine Appearance (Clear) Urine pH (4.6-8.0) Ur Specific [place] (1.005-1.030) Urine Protein (Negative) Urine Glucose (UA) (Negative) mg/dL Urine Ketones (Negative) Urine Blood (Negative) Urine Nitrite (Negative) Urine Bilirubin (Negative) Urine Urobilinogen (0.2) mg/dL Ur Leukocyte Esterase (Negative) U Hyaline Cast (Auto) (0-2) /LPF Urine Microscopic RBC (0-5) /HPF Urine Microscopic WBC (0-5) /HPF Ur Epithelial Cells (None Seen) /HPF Urine Bacteria (None Seen) /HPF Urine Culture Reflexed (NO) Urine HCG, Qual (Negative) Influenza Type A Ag NEGATIVE (NEGATIVE) Influenza Type B Ag NEGATIVE (NEGATIVE) RSV (PCR) NEGATIVE (Negative) SARS-CoV-2 (PCR) NEGATIVE (NEGATIVE) Accuchecks Date 10/11/22 Time 17:20 - Radiology Impressions Radiology Exams & Impressions: Radiology Procedures Category Date Time Status ABDOMEN AND PELVIS W/0 CONTRAS [CT] Stat Exams 10/11/22 17:24 Taken Assessment/Plan (1) Abdominal pain Current Visit: Yes Status: Acute Assessment & Plan: A/P: 1. Abd pain: subacute. CT read reviewed with ED: noted to have thickening of stomach wall. Will need EGD by surgery during hospital course. Will place on PPI. 2. Leukocytosis: no clear source. No fevers. ? stress response. Will follow 3. SHANNON: ?. Patient states she has CKD. Will hold entresto. IVFs tonight. Urine lytes ordered 4. T1DM: lantus + SS ordered. Lantus dose lowered given poor appetite 5. HTN: Oral meds 6. CAD: Continue plavix for now 7. Dark stools: follow H/H 8. MDD: psych meds ordered 9. FEN: diet tonight. IVFs as well. NPO midnight 10. PX: SCDs Juanito Noriega MD entire encounter done via telemedicine Code(s): R10.9 - UNSPECIFIED ABDOMINAL PAIN Telemedicine Encounter - Telemedicine Encounter Telemedicine Encounter: The entirety of this encounter was performed via Telemedicine"
[2022-10-11] MEDS: Lactated Ringers 1,000 ML IV SCH (21:20)
[2022-10-11] MEDS: Effexor XR 75 MG PO SCH (22:13)
[2022-10-11] MEDS: COREG 12.5 MG PO SCH (22:14)
[2022-10-11] MEDS: clonazePAM PO SCH (22:14)
[2022-10-11] MEDS: Lantus Insulin SQ SCH (22:14)
[2022-10-11] MEDS: Desyrel 150 MG PO SCH (22:14)
[2022-10-11] MEDS: HUMALOG SQ PRN (22:15)
[2022-10-11] MEDS: PROTONIX 40 MG IV IV SCH (22:20)
[2022-10-12 02:29] LABS: Absolute Neutrophil Ct (ANC) 7.58 x10^3/uL (1.4-6.9); BASOPHIL % 0.4 % (0.0-0.4); Basophil (Absolute #) 0.05 x10^3/uL (0-0.4); Eosinophil (Absolute #) 0.26 x10^3/uL (0-0.5); Hematocrit 30.9 % (35-47); Hemoglobin 10.5 g/dL (12.0-16.0); IMMATURE GRAN # 0.09 x10^3u/L (0.00-0.03); IMMATURE GRAN % 0.7 % (0.00-0.4); Lymphocyte (Absolute #) 4.04 x10^3/uL (1.0-4.6); Lymphocytes % 31.5 % (24.0-44.0); Mean Cell Volume 79.4 fL (78-100); Mean Platelet Volume 8.4 fL (7.5-11.0); Monocyte (Absolute #) 0.81 x10^3/uL (0.0-1.3); Monocytes % 6.3 % (0.0-12.0); Neutrophil % 59.1 % (36.0-66.0); Platelet Count 192 x10^3/uL (150-450); Red Blood Count 3.89 x10^6/uL (4.1-5.4); Red Cell Distribution Width 13.5 % (11.5-14.0); White Blood Count 12.8 x10^3/uL (4.0-10.5)
[2022-10-12] MEDS: Hydromorphone 1 mg/ml Injection IV PRN ×4 (02:37→15:25)
[2022-10-12] MEDS: Zofran 4 MG/2 ML VIAL IV PRN ×3 (02:43→17:35)
[2022-10-12 02:49] LABS: ANION GAP 4.4 MEQ/L (5-15); Calcium 7.2 mg/dL (8.4-10.2); Creatinine 1 2.05 mg/dL (0.52-1.04); EST GLOMERULAR FILTRATION RATE 29.3 ML/MIN; Potassium 3.6 mmol/L (3.5-5.1)
[2022-10-12] MEDS: Lactated Ringers 1,000 ML IV SCH ×2 (06:40→17:13)
--- NOTE | 2022-10-12 08:47 | XRAY ---
Indication: Pain, nausea, and vomiting. Multiple contiguous axial images obtained through the abdomen and pelvis without contrast. Comparison: May 26, 2021. Lung bases demonstrate stable right lower lobe calcified granulomas. Heart not enlarged. [place] subcarinal and right infrahilar calcified nodes not previously imaged. Near empty stomach demonstrates diffuse circumferential wall thickening presumed due to incomplete distention. Gastric lymphoma not completely excluded. Noncontrasted stomach and bowel loops appear nonobstructed again with normal appendix. New moderate diffuse fecal debris throughout. There has been interval hysterectomy. Stable tiny left renal cyst and a few tiny splenic calcified granulomas. No free fluid/air. Remaining liver, gallbladder, pancreas, spleen, adrenal glands, kidneys, ureters, and bladder are unremarkable for noncontrast exam. There remains minimal aortoiliac calcifications without AAA. Osseous structures intact again with minimal degenerative changes throughout the spine, remote T9 superior endplate fracture, L4 spondylolysis without listhesis, and broad-based L4-S1 disc bulge. Impression: 1. Diffuse gastric wall thickening either incomplete distention versus gastric lymphoma. 2. New moderate diffuse fecal stasis. 3. Chronic findings including old granulomatous disease, chronic bony findings, and arteriosclerotic disease.
[2022-10-12] MEDS: clonazePAM PO SCH ×3 (09:22→22:28)
[2022-10-12] MEDS: PLAVIX Tablet PO SCH (09:22)
[2022-10-12] MEDS: CLARITIN 10 MG PO SCH (09:22)
[2022-10-12] MEDS: COREG 12.5 MG PO SCH ×2 (09:22→22:28)
[2022-10-12] MEDS: Effexor XR 75 MG PO SCH (09:23)
--- NOTE | 2022-10-12 12:58 | XRAY ---
Indication: Cough 2 weeks. Comparison: February 09, 2022 PA/lateral chest remains inflated and clear. Heart not enlarged again with CABG. Bony thorax intact again with mild degenerative changes. Impression: Nonacute chest with chronic features.
[2022-10-12] MEDS ORDERED: Hydromorphone 1 mg/ml Injection IV ONE (13:15)
[2022-10-12] MEDS ORDERED: HYDROMORPHONE 30 MG/30 ML-NS PCA IV PRN (16:58)
--- NOTE | 2022-10-12 17:14 | PCM.NOTE ---
Date and Time: 10/12/22 170 Subjective Assessment: Pt c/o 9/10 pain, I discussed dilaudid ART GILDER (states not lasting 4h for her) - she says, "That's what helped me in the past." Frequent issues with abd pain related to her diabetes apparently. Per outside medical records: She was in [facility] 10/01/22, for abd pain/n/v and left AMA. Was in [facility] 10/02-10/03/22 before leaving AMA, for abd pain, SHANNON, bryan depression, SOB, and adenomyomatosis of GB. On u/s, had no cholecystitis but gb sludge. She was in [facility] ER on 10/09/22 and they didn't think she needed admitted, but were going to place her on antibiotics and have her f/u with surgery. - Review of Systems Abdominal/Gastrointestinal: Abdominal Pain, Nausea (controlled w zofran) Objective Exam General Appearance: no apparent distress, alert Neurologic Exam: oriented x 3, cooperative Skin Exam: warm, dry, other (facial hair), No rash Eye Exam: eyes nml inspection Ears, Nose, Throat Exam: moist mucous membranes Neck Exam: normal inspection Respiratory Exam: normal breath sounds, lungs clear, No crackles/rales, No rhonchi, No wheezing Cardiovascular Exam: regular rate/rhythm, normal heart sounds, No murmur Gastrointestinal/Abdomen Exam: soft, tenderness (epigastrum, LUQ, LLQ), No normal bowel sounds (hypoactive but present), No distention, No mass, No guarding, No rebound Extremity Exam: normal inspection, No pedal edema, No swelling Back Exam: normal inspection, No rash OBJECTIVE DATA Vital Signs: Vital Signs - 24 hr Temp Pulse Resp BP Pulse Ox 10/12/22 16:00 98.0 F 84 17 146/85 96 10/12/22 11:28 98.8 F 85 16 146/86 96 10/12/22 07:17 92 H 16 131/96 97 10/12/22 04:00 97.8 F 88 15 157/98 94 L 10/11/22 23:36 97.1 F 92 H 17 167/93 95 10/11/22 20:00 98.1 F 88 16 171/103 94 L 10/11/22 19:32 98 10/11/22 19:00 88 16 154/105 97 10/11/22 18:00 88 16 159/107 98 Pain Assessment - Last Documented Pain Intensity 8 Pain Scale Used [facility] Intake and Output: Intake & Output 10/10/22 10/11/22 10/12/22 10/13/22 11:59 11:59 11:59 11:59 Intake Total 899 0 Output Total 200 Balance 699 0 Weight 66.1 kg Lab Results: Lab Results-Last 24 Hours 10/11/22 10/11/22 10/11/22 Range/Units 17:18 17:27 17:27 WBC (4.0-10.5) x10^3/uL RBC (4.1-5.4) x10^6/uL Hgb (12.0-16.0) g/dL Hct (35-47) % MCV (78-100) fL MCH (26-32) pg MCHC (32-36) g/dL RDW (11.5-14.0) % Plt Count (150-450) x10^3/uL MPV (7.5-11.0) fL Gran % (36.0-66.0) % Immature Gran % (Auto) (0.00-0.4) % Nucleat RBC Rel Count (0.00-0.1) % Eos # (Auto) (0-0.5) x10^3/uL Immature Gran # (Auto) (0.00-0.03) x10^3u/L Absolute Lymphs (auto) (1.0-4.6) x10^3/uL Absolute Monos (auto) (0.0-1.3) x10^3/uL Absolute Nucleated RBC (0.00-0.01) x10^3u/L Lymphocytes % (24.0-44.0) % Monocytes % (0.0-12.0) % Eosinophils % (0.00-5.0) % Basophils % (0.0-0.4) % Absolute Granulocytes (1.4-6.9) x10^3/uL Basophils # (0-0.4) x10^3/uL Sodium (137-145) mmol/L Potassium (3.5-5.1) mmol/L Chloride (98-107) mmol/L Carbon Dioxide (22-30) mmol/L Anion Gap (5-15) MEQ/L BUN (7-17) mg/dL Creatinine (0.52-1.04) mg/dL Estimated GFR ML/MIN Glucose (74-106) mg/dL POC Glucometer 272 H (74 to 106) mg/dL Hemoglobin A1c (4.5-6.0) % Calcium (8.4-10.2) mg/dL Total Bilirubin (0.2-1.3) mg/dL AST (14-36) U/L ALT (0-35) U/L Alkaline Phosphatase (38-126) U/L Troponin I (0.000-0.034) ng/mL Serum Total Protein (6.3-8.2) g/dL Albumin (3.5-5.0) g/dL Lipase (23-300) U/L Procalcitonin (0.030-0.080) ng/mL Urine Color Yellow (Yellow) Urine Appearance Clear (Clear) Urine pH 6.5 (4.6-8.0) Ur Specific Reading 1.025 (1.005-1.030) Urine Protein >=1000 A (Negative) Urine Glucose (UA) >=1000 A (Negative) mg/dL Urine Ketones Negative (Negative) Urine Blood Small A (Negative) Urine Nitrite Negative (Negative) Urine Bilirubin Negative (Negative) Urine Urobilinogen 0.2 (0.2) mg/dL Ur Leukocyte Esterase Negative (Negative) U Hyaline Cast (Auto) 0-2 (0-2) /LPF Urine Microscopic RBC 0-2 (0-5) /HPF Urine Microscopic WBC 0-2 (0-5) /HPF Ur Epithelial Cells Rare (None Seen) /HPF Urine Bacteria None Seen (None Seen) /HPF Urine Culture Reflexed YES (NO) Ur Random Creatinine MG/DL Urine Sodium (30-90) mmol/L Urine HCG, Qual NEGATIVE (Negative) Influenza Type A Ag (NEGATIVE) Influenza Type B Ag (NEGATIVE) RSV (PCR) (Negative) SARS-CoV-2 (PCR) (NEGATIVE) 10/11/22 10/11/22 10/11/22 Range/Units 17:27 17:27 17:30 WBC 17.6 H (4.0-10.5) x10^3/uL RBC 4.81 (4.1-5.4) x10^6/uL Hgb 13.0 (12.0-16.0) g/dL Hct 38.3 (35-47) % MCV 79.6 (78-100) fL MCH 27.0 (26-32) pg MCHC 33.9 (32-36) g/dL RDW 13.5 (11.5-14.0) % Plt Count 330 (150-450) x10^3/uL MPV 9.0 (7.5-11.0) fL Gran % 77.9 H (36.0-66.0) % Immature Gran % (Auto) 1.2 H (0.00-0.4) % Nucleat RBC Rel Count 0.0 (0.00-0.1) % Eos # (Auto) 0.16 (0-0.5) x10^3/uL Immature Gran # (Auto) 0.21 H (0.00-0.03) x10^3u/L Absolute Lymphs (auto) 2.59 (1.0-4.6) x10^3/uL Absolute Monos (auto) 0.82 (0.0-1.3) x10^3/uL Absolute Nucleated RBC 0.00 (0.00-0.01) x10^3u/L Lymphocytes % 14.7 L (24.0-44.0) % Monocytes % 4.7 (0.0-12.0) % Eosinophils % 0.9 (0.00-5.0) % Basophils % 0.6 (0.0-0.4) % Absolute Granulocytes 13.69 H (1.4-6.9) x10^3/uL Basophils # 0.11 (0-0.4) x10^3/uL Sodium (137-145) mmol/L Potassium (3.5-5.1) mmol/L Chloride (98-107) mmol/L Carbon Dioxide (22-30) mmol/L Anion Gap (5-15) MEQ/L BUN (7-17) mg/dL Creatinine (0.52-1.04) mg/dL Estimated GFR ML/MIN Glucose (74-106) mg/dL POC Glucometer (74 to 106) mg/dL Hemoglobin A1c (4.5-6.0) % Calcium (8.4-10.2) mg/dL Total Bilirubin (0.2-1.3) mg/dL AST (14-36) U/L ALT (0-35) U/L Alkaline Phosphatase (38-126) U/L Troponin I (0.000-0.034) ng/mL Serum Total Protein (6.3-8.2) g/dL Albumin (3.5-5.0) g/dL Lipase (23-300) U/L Procalcitonin (0.030-0.080) ng/mL Urine Color (Yellow) Urine Appearance (Clear) Urine pH (4.6-8.0) Ur Specific Reading (1.005-1.030) Urine Protein (Negative) Urine Glucose (UA) (Negative) mg/dL Urine Ketones (Negative) Urine Blood (Negative) Urine Nitrite (Negative) Urine Bilirubin (Negative) Urine Urobilinogen (0.2) mg/dL Ur Leukocyte Esterase (Negative) U Hyaline Cast (Auto) (0-2) /LPF Urine Microscopic RBC (0-5) /HPF Urine Microscopic WBC (0-5) /HPF Ur Epithelial Cells (None Seen) /HPF Urine Bacteria (None Seen) /HPF Urine Culture Reflexed (NO) Ur Random Creatinine 77.5 MG/DL Urine Sodium 47 (30-90) mmol/L Urine HCG, Qual (Negative) Influenza Type A Ag (NEGATIVE) Influenza Type B Ag (NEGATIVE) RSV (PCR) (Negative) SARS-CoV-2 (PCR) (NEGATIVE) 10/11/22 10/11/22 10/11/22 Range/Units 17:30 17:30 17:40 WBC (4.0-10.5) x10^3/uL RBC (4.1-5.4) x10^6/uL Hgb (12.0-16.0) g/dL Hct (35-47) % MCV (78-100) fL MCH (26-32) pg MCHC (32-36) g/dL RDW (11.5-14.0) % Plt Count (150-450) x10^3/uL MPV (7.5-11.0) fL Gran % (36.0-66.0) % Immature Gran % (Auto) (0.00-0.4) % Nucleat RBC Rel Count (0.00-0.1) % Eos # (Auto) (0-0.5) x10^3/uL Immature Gran # (Auto) (0.00-0.03) x10^3u/L Absolute Lymphs (auto) (1.0-4.6) x10^3/uL Absolute Monos (auto) (0.0-1.3) x10^3/uL Absolute Nucleated RBC (0.00-0.01) x10^3u/L Lymphocytes % (24.0-44.0) % Monocytes % (0.0-12.0) % Eosinophils % (0.00-5.0) % Basophils % (0.0-0.4) % Absolute Granulocytes (1.4-6.9) x10^3/uL Basophils # (0-0.4) x10^3/uL Sodium 133 L (137-145) mmol/L Potassium 4.1 (3.5-5.1) mmol/L Chloride 102 (98-107) mmol/L Carbon Dioxide 26 (22-30) mmol/L Anion Gap 9.2 (5-15) MEQ/L BUN 18 H (7-17) mg/dL Creatinine 2.02 H (0.52-1.04) mg/dL Estimated GFR 29.8 ML/MIN Glucose 288 H (74-106) mg/dL POC Glucometer (74 to 106) mg/dL Hemoglobin A1c (4.5-6.0) % Calcium 7.9 L (8.4-10.2) mg/dL Total Bilirubin 0.60 (0.2-1.3) mg/dL AST 23 (14-36) U/L ALT 16 (0-35) U/L Alkaline Phosphatase 88 (38-126) U/L Troponin I 0.014 (0.000-0.034) ng/mL Serum Total Protein 6.5 (6.3-8.2) g/dL Albumin 3.0 L (3.5-5.0) g/dL Lipase 92 (23-300) U/L Procalcitonin (0.030-0.080) ng/mL Urine Color (Yellow) Urine Appearance (Clear) Urine pH (4.6-8.0) Ur Specific Reading (1.005-1.030) Urine Protein (Negative) Urine Glucose (UA) (Negative) mg/dL Urine Ketones (Negative) Urine Blood (Negative) Urine Nitrite (Negative) Urine Bilirubin (Negative) Urine Urobilinogen (0.2) mg/dL Ur Leukocyte Esterase (Negative) U Hyaline Cast (Auto) (0-2) /LPF Urine Microscopic RBC (0-5) /HPF Urine Microscopic WBC (0-5) /HPF Ur Epithelial Cells (None Seen) /HPF Urine Bacteria (None Seen) /HPF Urine Culture Reflexed (NO) Ur Random Creatinine MG/DL Urine Sodium (30-90) mmol/L Urine HCG, Qual (Negative) Influenza Type A Ag NEGATIVE (NEGATIVE) Influenza Type B Ag NEGATIVE (NEGATIVE) RSV (PCR) NEGATIVE (Negative) SARS-CoV-2 (PCR) NEGATIVE (NEGATIVE) 10/11/22 10/11/22 10/11/22 Range/Units 17:46 21:28 21:40 WBC (4.0-10.5) x10^3/uL RBC (4.1-5.4) x10^6/uL Hgb (12.0-16.0) g/dL Hct (35-47) % MCV (78-100) fL MCH (26-32) pg MCHC (32-36) g/dL RDW (11.5-14.0) % Plt Count (150-450) x10^3/uL MPV (7.5-11.0) fL Gran % (36.0-66.0) % Immature Gran % (Auto) (0.00-0.4) % Nucleat RBC Rel Count (0.00-0.1) % Eos # (Auto) (0-0.5) x10^3/uL Immature Gran # (Auto) (0.00-0.03) x10^3u/L Absolute Lymphs (auto) (1.0-4.6) x10^3/uL Absolute Monos (auto) (0.0-1.3) x10^3/uL Absolute Nucleated RBC (0.00-0.01) x10^3u/L Lymphocytes % (24.0-44.0) % Monocytes % (0.0-12.0) % Eosinophils % (0.00-5.0) % Basophils % (0.0-0.4) % Absolute Granulocytes (1.4-6.9) x10^3/uL Basophils # (0-0.4) x10^3/uL Sodium (137-145) mmol/L Potassium (3.5-5.1) mmol/L Chloride (98-107) mmol/L Carbon Dioxide (22-30) mmol/L Anion Gap (5-15) MEQ/L BUN (7-17) mg/dL Creatinine (0.52-1.04) mg/dL Estimated GFR ML/MIN Glucose (74-106) mg/dL POC Glucometer 210 H (74 to 106) mg/dL Hemoglobin A1c 9.26 H (4.5-6.0) % Calcium (8.4-10.2) mg/dL Total Bilirubin (0.2-1.3) mg/dL AST (14-36) U/L ALT (0-35) U/L Alkaline Phosphatase (38-126) U/L Troponin I < 0.012 (0.000-0.034) ng/mL Serum Total Protein (6.3-8.2) g/dL Albumin (3.5-5.0) g/dL Lipase (23-300) U/L Procalcitonin (0.030-0.080) ng/mL Urine Color (Yellow) Urine Appearance (Clear) Urine pH (4.6-8.0) Ur Specific Reading (1.005-1.030) Urine Protein (Negative) Urine Glucose (UA) (Negative) mg/dL Urine Ketones (Negative) Urine Blood (Negative) Urine Nitrite (Negative) Urine Bilirubin (Negative) Urine Urobilinogen (0.2) mg/dL Ur Leukocyte Esterase (Negative) U Hyaline Cast (Auto) (0-2) /LPF Urine Microscopic RBC (0-5) /HPF Urine Microscopic WBC (0-5) /HPF Ur Epithelial Cells (None Seen) /HPF Urine Bacteria (None Seen) /HPF Urine Culture Reflexed (NO) Ur Random Creatinine MG/DL Urine Sodium (30-90) mmol/L Urine HCG, Qual (Negative) Influenza Type A Ag (NEGATIVE) Influenza Type B Ag (NEGATIVE) RSV (PCR) (Negative) SARS-CoV-2 (PCR) (NEGATIVE) 10/12/22 10/12/22 10/12/22 Range/Units 02:26 02:26 02:26 WBC 12.8 H (4.0-10.5) x10^3/uL RBC 3.89 L (4.1-5.4) x10^6/uL Hgb 10.5 L (12.0-16.0) g/dL Hct 30.9 L (35-47) % MCV 79.4 (78-100) fL MCH 27.0 (26-32) pg MCHC 34.0 (32-36) g/dL RDW 13.5 (11.5-14.0) % Plt Count 192 D (150-450) x10^3/uL MPV 8.4 (7.5-11.0) fL Gran % 59.1 (36.0-66.0) % Immature Gran % (Auto) 0.7 H (0.00-0.4) % Nucleat RBC Rel Count 0.0 (0.00-0.1) % Eos # (Auto) 0.26 (0-0.5) x10^3/uL Immature Gran # (Auto) 0.09 H (0.00-0.03) x10^3u/L Absolute Lymphs (auto) 4.04 (1.0-4.6) x10^3/uL Absolute Monos (auto) 0.81 (0.0-1.3) x10^3/uL Absolute Nucleated RBC 0.00 (0.00-0.01) x10^3u/L Lymphocytes % 31.5 (24.0-44.0) % Monocytes % 6.3 (0.0-12.0) % Eosinophils % 2.0 (0.00-5.0) % Basophils % 0.4 (0.0-0.4) % Absolute Granulocytes 7.58 H (1.4-6.9) x10^3/uL Basophils # 0.05 (0-0.4) x10^3/uL Sodium 133 L (137-145) mmol/L Potassium 3.6 (3.5-5.1) mmol/L Chloride 106 (98-107) mmol/L Carbon Dioxide 26 (22-30) mmol/L Anion Gap 4.4 L (5-15) MEQ/L BUN 16 (7-17) mg/dL Creatinine 2.05 H (0.52-1.04) mg/dL Estimated GFR 29.3 ML/MIN Glucose 109 H (74-106) mg/dL POC Glucometer (74 to 106) mg/dL Hemoglobin A1c (4.5-6.0) % Calcium 7.2 L (8.4-10.2) mg/dL Total Bilirubin (0.2-1.3) mg/dL AST (14-36) U/L ALT (0-35) U/L Alkaline Phosphatase (38-126) U/L Troponin I < 0.012 (0.000-0.034) ng/mL Serum Total Protein (6.3-8.2) g/dL Albumin (3.5-5.0) g/dL Lipase (23-300) U/L Procalcitonin (0.030-0.080) ng/mL Urine Color (Yellow) Urine Appearance (Clear) Urine pH (4.6-8.0) Ur Specific Reading (1.005-1.030) Urine Protein (Negative) Urine Glucose (UA) (Negative) mg/dL Urine Ketones (Negative) Urine Blood (Negative) Urine Nitrite (Negative) Urine Bilirubin (Negative) Urine Urobilinogen (0.2) mg/dL Ur Leukocyte Esterase (Negative) U Hyaline Cast (Auto) (0-2) /LPF Urine Microscopic RBC (0-5) /HPF Urine Microscopic WBC (0-5) /HPF Ur Epithelial Cells (None Seen) /HPF Urine Bacteria (None Seen) /HPF Urine Culture Reflexed (NO) Ur Random Creatinine MG/DL Urine Sodium (30-90) mmol/L Urine HCG, Qual (Negative) Influenza Type A Ag (NEGATIVE) Influenza Type B Ag (NEGATIVE) RSV (PCR) (Negative) SARS-CoV-2 (PCR) (NEGATIVE) 10/12/22 10/12/22 10/12/22 Range/Units 07:08 11:03 12:44 WBC (4.0-10.5) x10^3/uL RBC (4.1-5.4) x10^6/uL Hgb (12.0-16.0) g/dL Hct (35-47) % MCV (78-100) fL MCH (26-32) pg MCHC (32-36) g/dL RDW (11.5-14.0) % Plt Count (150-450) x10^3/uL MPV (7.5-11.0) fL Gran % (36.0-66.0) % Immature Gran % (Auto) (0.00-0.4) % Nucleat RBC Rel Count (0.00-0.1) % Eos # (Auto) (0-0.5) x10^3/uL Immature Gran # (Auto) (0.00-0.03) x10^3u/L Absolute Lymphs (auto) (1.0-4.6) x10^3/uL Absolute Monos (auto) (0.0-1.3) x10^3/uL Absolute Nucleated RBC (0.00-0.01) x10^3u/L Lymphocytes % (24.0-44.0) % Monocytes % (0.0-12.0) % Eosinophils % (0.00-5.0) % Basophils % (0.0-0.4) % Absolute Granulocytes (1.4-6.9) x10^3/uL Basophils # (0-0.4) x10^3/uL Sodium (137-145) mmol/L Potassium (3.5-5.1) mmol/L Chloride (98-107) mmol/L Carbon Dioxide (22-30) mmol/L Anion Gap (5-15) MEQ/L BUN (7-17) mg/dL Creatinine (0.52-1.04) mg/dL Estimated GFR ML/MIN Glucose (74-106) mg/dL POC Glucometer 102 96 (74 to 106) mg/dL Hemoglobin A1c (4.5-6.0) % Calcium (8.4-10.2) mg/dL Total Bilirubin (0.2-1.3) mg/dL AST (14-36) U/L ALT (0-35) U/L Alkaline Phosphatase (38-126) U/L Troponin I (0.000-0.034) ng/mL Serum Total Protein (6.3-8.2) g/dL Albumin (3.5-5.0) g/dL Lipase (23-300) U/L Procalcitonin 0.061 (0.030-0.080) ng/mL Urine Color (Yellow) Urine Appearance (Clear) Urine pH (4.6-8.0) Ur Specific Reading (1.005-1.030) Urine Protein (Negative) Urine Glucose (UA) (Negative) mg/dL Urine Ketones (Negative) Urine Blood (Negative) Urine Nitrite (Negative) Urine Bilirubin (Negative) Urine Urobilinogen (0.2) mg/dL Ur Leukocyte Esterase (Negative) U Hyaline Cast (Auto) (0-2) /LPF Urine Microscopic RBC (0-5) /HPF Urine Microscopic WBC (0-5) /HPF Ur Epithelial Cells (None Seen) /HPF Urine Bacteria (None Seen) /HPF Urine Culture Reflexed (NO) Ur Random Creatinine MG/DL Urine Sodium (30-90) mmol/L Urine HCG, Qual (Negative) Influenza Type A Ag (NEGATIVE) Influenza Type B Ag (NEGATIVE) RSV (PCR) (Negative) SARS-CoV-2 (PCR) (NEGATIVE) 10/12/22 Range/Units 16:16 WBC (4.0-10.5) x10^3/uL RBC (4.1-5.4) x10^6/uL Hgb (12.0-16.0) g/dL Hct (35-47) % MCV (78-100) fL MCH (26-32) pg MCHC (32-36) g/dL RDW (11.5-14.0) % Plt Count (150-450) x10^3/uL MPV (7.5-11.0) fL Gran % (36.0-66.0) % Immature Gran % (Auto) (0.00-0.4) % Nucleat RBC Rel Count (0.00-0.1) % Eos # (Auto) (0-0.5) x10^3/uL Immature Gran # (Auto) (0.00-0.03) x10^3u/L Absolute Lymphs (auto) (1.0-4.6) x10^3/uL Absolute Monos (auto) (0.0-1.3) x10^3/uL Absolute Nucleated RBC (0.00-0.01) x10^3u/L Lymphocytes % (24.0-44.0) % Monocytes % (0.0-12.0) % Eosinophils % (0.00-5.0) % Basophils % (0.0-0.4) % Absolute Granulocytes (1.4-6.9) x10^3/uL Basophils # (0-0.4) x10^3/uL Sodium (137-145) mmol/L Potassium (3.5-5.1) mmol/L Chloride (98-107) mmol/L Carbon Dioxide (22-30) mmol/L Anion Gap (5-15) MEQ/L BUN (7-17) mg/dL Creatinine (0.52-1.04) mg/dL Estimated GFR ML/MIN Glucose (74-106) mg/dL POC Glucometer 82 (74 to 106) mg/dL Hemoglobin A1c (4.5-6.0) % Calcium (8.4-10.2) mg/dL Total Bilirubin (0.2-1.3) mg/dL AST (14-36) U/L ALT (0-35) U/L Alkaline Phosphatase (38-126) U/L Troponin I (0.000-0.034) ng/mL Serum Total Protein (6.3-8.2) g/dL Albumin (3.5-5.0) g/dL Lipase (23-300) U/L Procalcitonin (0.030-0.080) ng/mL Urine Color (Yellow) Urine Appearance (Clear) Urine pH (4.6-8.0) Ur Specific Reading (1.005-1.030) Urine Protein (Negative) Urine Glucose (UA) (Negative) mg/dL Urine Ketones (Negative) Urine Blood (Negative) Urine Nitrite (Negative) Urine Bilirubin (Negative) Urine Urobilinogen (0.2) mg/dL Ur Leukocyte Esterase (Negative) U Hyaline Cast (Auto) (0-2) /LPF Urine Microscopic RBC (0-5) /HPF Urine Microscopic WBC (0-5) /HPF Ur Epithelial Cells (None Seen) /HPF Urine Bacteria (None Seen) /HPF Urine Culture Reflexed (NO) Ur Random Creatinine MG/DL Urine Sodium (30-90) mmol/L Urine HCG, Qual (Negative) Influenza Type A Ag (NEGATIVE) Influenza Type B Ag (NEGATIVE) RSV (PCR) (Negative) SARS-CoV-2 (PCR) (NEGATIVE) Radiology Exams: Radiology Procedures Category Date Time Status ABDOMEN AND PELVIS W/0 CONTRAS [CT] Stat Exams 10/11/22 17:24 Completed CHEST 2 VIEWS (PA AND LAT) Urgent Exams 10/12/22 12:16 Completed Assessment/Plan (1) Abdominal pain Current Visit: Yes Status: Acute Qualifiers: Abdominal location: generalized Qualified Code(s): R10.84 - Generalized abdominal pain Assessment & Plan: Epigastrum, LUQ rad to L flank, and LLQ. Differential: gastric thickening (possible lymphoma) or PUD; GB disease (per recent u/s at [place]), colitis. Her WBC are elevated, but better today (down to 12.8 from 17.6) and no left shift today. Her procalcitonin is normal. I have not started her on antibiotics. Changed dilaudid to ART GILDER. On PPI 40mg daily IV. NPO awaiting surgery consult, thank you. Advised she may need EGD, colonoscopy, cholecystectomy, or some combination of above. Code(s): R10.9 - UNSPECIFIED ABDOMINAL PAIN (2) SHANNON (acute kidney injury) Current Visit: Yes Status: Acute Assessment & Plan: eGFR 29.3 today. Acute on chronic. 11/01/19 - 38.9 (eGFR) 05/26/21 - >60 08/05/22 - 41.2 Code(s): N17.9 - ACUTE KIDNEY FAILURE, UNSPECIFIED (3) Hyperglycemia due to type 1 diabetes mellitus Current Visit: No Status: Chronic Code(s): E10.65 - TYPE 1 DIABETES MELLITUS WITH HYPERGLYCEMIA (4) CAD (coronary artery disease) Current Visit: Yes Status: Chronic Code(s): I25.10 - ATHSCL HEART DISEASE OF [place] CORONARY ARTERY W/O ANG PCTRS
[2022-10-12] MEDS: PROTONIX 40 MG IV IV SCH (22:28)
[2022-10-12] MEDS: Desyrel 150 MG PO SCH (22:28)
[2022-10-12] MEDS: Lantus Insulin SQ SCH (23:02)
[2022-10-13] MEDS: Lactated Ringers 1,000 ML IV SCH (03:25)
[2022-10-13 04:50] LABS: Absolute Neutrophil Ct (ANC) 4.08 x10^3/uL (1.4-6.9); BASOPHIL % 0.6 % (0.0-0.4); Basophil (Absolute #) 0.05 x10^3/uL (0-0.4); Eosinophil % 2.9 % (0.00-5.0); Eosinophil (Absolute #) 0.23 x10^3/uL (0-0.5); Hematocrit 28.9 % (35-47); Hemoglobin 9.6 g/dL (12.0-16.0); IMMATURE GRAN # 0.04 x10^3u/L (0.00-0.03); IMMATURE GRAN % 0.5 % (0.00-0.4); Lymphocyte (Absolute #) 3.06 x10^3/uL (1.0-4.6); Lymphocytes % 38.1 % (24.0-44.0); Mean Cell Volume 80.1 fL (78-100); Mean Corpuscular Hemoglobin 26.6 pg (26-32); Mean Corpuscular Hgb Concent. 33.2 g/dL (32-36); Mean Platelet Volume 8.7 fL (7.5-11.0); Monocyte (Absolute #) 0.57 x10^3/uL (0.0-1.3); Monocytes % 7.1 % (0.0-12.0); Neutrophil % 50.8 % (36.0-66.0); Platelet Count 146 x10^3/uL (150-450); Red Blood Count 3.61 x10^6/uL (4.1-5.4); Red Cell Distribution Width 13.2 % (11.5-14.0)
[2022-10-13 05:44] LABS: ALBUMIN 2.2 g/dL (3.5-5.0); ANION GAP 3.7 MEQ/L (5-15); BILIRUBIN,TOTAL 0.3 mg/dL (0.2-1.3); Calcium 7.4 mg/dL (8.4-10.2); Creatinine 1 2.21 mg/dL (0.52-1.04); EST GLOMERULAR FILTRATION RATE 26.9 ML/MIN; Potassium 3.8 mmol/L (3.5-5.1); Total Protein 4.8 g/dL (6.3-8.2)
[2022-10-13] MEDS: Zofran 4 MG/2 ML VIAL IV PRN (06:15)
--- NOTE | 2022-10-13 07:43 | CONS ---
CONSULT DATE: 10/12/2022 HISTORY: Mariam Cantu is 36 years old. She has been vomiting for over two weeks. [facility], basically seen no help. She had a CT scan here showing a gallbladder wall thickening with pericholecystic fluid and some sludge certainly seeming consistent with an acalculus cholecystitis. She has been having problems off and on here for six weeks with lots of nausea, vomiting and some abdominal pain and now she basically cannot eat. PHYSICAL EXAM: She is cachectic. Her abdomen was soft. Her abdomen is flat. IMPRESSION: Cholecystitis and sludge. PLAN: Laparoscopic cholecystectomy. The procedure was discussed with her.
--- NOTE | 2022-10-13 08:23 | PCM.NOTE ---
Date and Time: 10/13/22819 Subjective Assessment: Pt's pain is a little better, 7/10 now (more than was previously right now for some reason). No vomiting. She is aggravated at having to be NPO. Surgery consulted, thank you, and will be coming to do cholecystectomy at some point today. - Review of Systems Constitutional: No Fever Abdominal/Gastrointestinal: Abdominal Pain, No Vomiting Objective Exam General Appearance: no apparent distress, alert Neurologic Exam: oriented x 3, cooperative Skin Exam: normal color, warm, dry, No rash Eye Exam: eyes nml inspection Ears, Nose, Throat Exam: moist mucous membranes Neck Exam: normal inspection Respiratory Exam: normal breath sounds, lungs clear, No crackles/rales, No rhonchi, No wheezing Cardiovascular Exam: regular rate/rhythm, normal heart sounds, No murmur Gastrointestinal/Abdomen Exam: soft, normal bowel sounds, tenderness (generalized, but worse in LUQ), No distention, No mass, No guarding, No rebound Extremity Exam: normal inspection, No pedal edema, No swelling Back Exam: normal inspection, No rash OBJECTIVE DATA Vital Signs: Vital Signs - 24 hr Temp Pulse Resp BP Pulse Ox 10/13/22 07:19 97.5 F 94 H 18 130/76 95 10/13/22 07:00 15 92 L 10/13/22 06:53 95 10/13/22 05:07 95 10/13/22 03:51 97.5 F 88 16 125/75 98 10/13/22 03:00 16 100 10/12/22 23:46 97.1 F 94 H 15 155/98 97 10/12/22 23:00 16 98 10/12/22 20:00 97.7 F 86 16 171/99 100 10/12/22 16:00 98.0 F 84 17 146/85 96 10/12/22 11:28 98.8 F 85 16 146/86 96 Pain Assessment - Last Documented Pain Intensity 7 Pain Scale Used [facility] Intake and Output: Intake & Output 10/10/22 10/11/22 10/12/22 10/13/22 11:59 11:59 11:59 11:59 Intake Total 899 416 Output Total 200 400 Balance 699 16 Weight 66.1 kg 66.1 kg Lab Results: Lab Results-Last 24 Hours 10/11/22 10/12/22 10/12/22 Range/Units 21:28 07:08 11:03 WBC (4.0-10.5) x10^3/uL RBC (4.1-5.4) x10^6/uL Hgb (12.0-16.0) g/dL Hct (35-47) % MCV (78-100) fL MCH (26-32) pg MCHC (32-36) g/dL RDW (11.5-14.0) % Plt Count (150-450) x10^3/uL MPV (7.5-11.0) fL Gran % (36.0-66.0) % Immature Gran % (Auto) (0.00-0.4) % Nucleat RBC Rel Count (0.00-0.1) % Eos # (Auto) (0-0.5) x10^3/uL Immature Gran # (Auto) (0.00-0.03) x10^3u/L Absolute Lymphs (auto) (1.0-4.6) x10^3/uL Absolute Monos (auto) (0.0-1.3) x10^3/uL Absolute Nucleated RBC (0.00-0.01) x10^3u/L Lymphocytes % (24.0-44.0) % Monocytes % (0.0-12.0) % Eosinophils % (0.00-5.0) % Basophils % (0.0-0.4) % Absolute Granulocytes (1.4-6.9) x10^3/uL Basophils # (0-0.4) x10^3/uL Sodium (137-145) mmol/L Potassium (3.5-5.1) mmol/L Chloride (98-107) mmol/L Carbon Dioxide (22-30) mmol/L Anion Gap (5-15) MEQ/L BUN (7-17) mg/dL Creatinine (0.52-1.04) mg/dL Estimated GFR ML/MIN Glucose (74-106) mg/dL POC Glucometer 210 H 102 96 (74 to 106) mg/dL Calcium (8.4-10.2) mg/dL Total Bilirubin (0.2-1.3) mg/dL AST (14-36) U/L ALT (0-35) U/L Alkaline Phosphatase (38-126) U/L Serum Total Protein (6.3-8.2) g/dL Albumin (3.5-5.0) g/dL Procalcitonin (0.030-0.080) ng/mL 10/12/22 10/12/22 10/12/22 Range/Units 12:44 16:16 20:49 WBC (4.0-10.5) x10^3/uL RBC (4.1-5.4) x10^6/uL Hgb (12.0-16.0) g/dL Hct (35-47) % MCV (78-100) fL MCH (26-32) pg MCHC (32-36) g/dL RDW (11.5-14.0) % Plt Count (150-450) x10^3/uL MPV (7.5-11.0) fL Gran % (36.0-66.0) % Immature Gran % (Auto) (0.00-0.4) % Nucleat RBC Rel Count (0.00-0.1) % Eos # (Auto) (0-0.5) x10^3/uL Immature Gran # (Auto) (0.00-0.03) x10^3u/L Absolute Lymphs (auto) (1.0-4.6) x10^3/uL Absolute Monos (auto) (0.0-1.3) x10^3/uL Absolute Nucleated RBC (0.00-0.01) x10^3u/L Lymphocytes % (24.0-44.0) % Monocytes % (0.0-12.0) % Eosinophils % (0.00-5.0) % Basophils % (0.0-0.4) % Absolute Granulocytes (1.4-6.9) x10^3/uL Basophils # (0-0.4) x10^3/uL Sodium (137-145) mmol/L Potassium (3.5-5.1) mmol/L Chloride (98-107) mmol/L Carbon Dioxide (22-30) mmol/L Anion Gap (5-15) MEQ/L BUN (7-17) mg/dL Creatinine (0.52-1.04) mg/dL Estimated GFR ML/MIN Glucose (74-106) mg/dL POC Glucometer 82 116 H (74 to 106) mg/dL Calcium (8.4-10.2) mg/dL Total Bilirubin (0.2-1.3) mg/dL AST (14-36) U/L ALT (0-35) U/L Alkaline Phosphatase (38-126) U/L Serum Total Protein (6.3-8.2) g/dL Albumin (3.5-5.0) g/dL Procalcitonin 0.061 (0.030-0.080) ng/mL 10/13/22 10/13/22 10/13/22 Range/Units 04:51 04:51 07:07 WBC 8.0 (4.0-10.5) x10^3/uL RBC 3.61 L (4.1-5.4) x10^6/uL Hgb 9.6 L (12.0-16.0) g/dL Hct 28.9 L (35-47) % MCV 80.1 (78-100) fL MCH 26.6 (26-32) pg MCHC 33.2 (32-36) g/dL RDW 13.2 (11.5-14.0) % Plt Count 146 L (150-450) x10^3/uL MPV 8.7 (7.5-11.0) fL Gran % 50.8 (36.0-66.0) % Immature Gran % (Auto) 0.5 H (0.00-0.4) % Nucleat RBC Rel Count 0.0 (0.00-0.1) % Eos # (Auto) 0.23 (0-0.5) x10^3/uL Immature Gran # (Auto) 0.04 H (0.00-0.03) x10^3u/L Absolute Lymphs (auto) 3.06 (1.0-4.6) x10^3/uL Absolute Monos (auto) 0.57 (0.0-1.3) x10^3/uL Absolute Nucleated RBC 0.00 (0.00-0.01) x10^3u/L Lymphocytes % 38.1 (24.0-44.0) % Monocytes % 7.1 (0.0-12.0) % Eosinophils % 2.9 (0.00-5.0) % Basophils % 0.6 (0.0-0.4) % Absolute Granulocytes 4.08 (1.4-6.9) x10^3/uL Basophils # 0.05 (0-0.4) x10^3/uL Sodium 132 L (137-145) mmol/L Potassium 3.8 (3.5-5.1) mmol/L Chloride 104 (98-107) mmol/L Carbon Dioxide 29 (22-30) mmol/L Anion Gap 3.7 L (5-15) MEQ/L BUN 17 (7-17) mg/dL Creatinine 2.21 H (0.52-1.04) mg/dL Estimated GFR 26.9 ML/MIN Glucose 110 H (74-106) mg/dL POC Glucometer 86 (74 to 106) mg/dL Calcium 7.4 L (8.4-10.2) mg/dL Total Bilirubin 0.30 (0.2-1.3) mg/dL AST 17 (14-36) U/L ALT 14 (0-35) U/L Alkaline Phosphatase 60 (38-126) U/L Serum Total Protein 4.8 L (6.3-8.2) g/dL Albumin 2.2 L (3.5-5.0) g/dL Procalcitonin (0.030-0.080) ng/mL Radiology Exams: Radiology Procedures Category Date Time Status ABDOMEN AND PELVIS W/0 CONTRAS [CT] Stat Exams 10/11/22 17:24 Completed CHEST 2 VIEWS (PA AND LAT) Urgent Exams 10/12/22 12:16 Completed Assessment/Plan (1) Abdominal pain Current Visit: Yes Status: Acute Qualifiers: Abdominal location: generalized Qualified Code(s): R10.84 - Generalized abdominal pain Assessment & Plan: Will get cholecystectomy today with surgery, thank you. Code(s): R10.9 - UNSPECIFIED ABDOMINAL PAIN (2) SHANNON (acute kidney injury) Current Visit: Yes Status: Acute Assessment & Plan: Consulting nephrology; fluids have been repeated but renal function continues to decrease. Code(s): N17.9 - ACUTE KIDNEY FAILURE, UNSPECIFIED (3) Hyperglycemia due to type 1 diabetes mellitus Current Visit: No Status: Chronic Assessment & Plan: Her BS actually lower today - 88 - so adding dextrose to IVs. Code(s): E10.65 - TYPE 1 DIABETES MELLITUS WITH HYPERGLYCEMIA (4) CAD (coronary artery disease) Current Visit: Yes Status: Chronic Qualifiers: Coronary Disease-Associated Artery/Lesion type: [place] artery [place] vs. transplanted heart: [place] heart Associated angina: without angina Qualified Code(s): I25.10 - Atherosclerotic heart disease of [place] coronary artery without angina pectoris Code(s): I25.10 - ATHSCL HEART DISEASE OF [place] CORONARY ARTERY W/O ANG PCTRS
[2022-10-13] MEDS: Dextrose 5%-NS IV Solution 1000 ML 1,000 ML IV SCH (09:44)
[2022-10-13] MEDS: COREG 12.5 MG PO SCH (09:44)
[2022-10-13] MEDS: Effexor XR 75 MG PO SCH (09:44)
[2022-10-13] MEDS: PLAVIX Tablet PO SCH (09:44)
[2022-10-13] MEDS: CLARITIN 10 MG PO SCH (09:44)
[2022-10-13] MEDS: clonazePAM PO SCH ×2 (09:44→15:40)
[2022-10-13] MEDS ORDERED: Sensorcaine 0.25% 10 ML ONE (12:51)
[2022-10-13] MEDS ORDERED: Lactated Ringers 1,000 ML IV ONE (18:00)
[2022-10-13] MEDS ORDERED: Transderm Scop 1.5MG Patch TOP ONE (18:09)
[2022-10-13] MEDS ORDERED: Xylocaine-Mpf 2% 5 Ml Vial ONE (18:18)
[2022-10-13] MEDS ORDERED: Decadron 4 MG INJ ONE (18:18)
[2022-10-13] MEDS ORDERED: TORAdol 30 mg Injection ONE ×2 (18:18→19:40)
[2022-10-13] MEDS ORDERED: SUBLIMAZE 100 MCG/2 ML ONE (18:18)
[2022-10-13] MEDS ORDERED: DIPRIVAN 200 MG/20 ML IV ONE (18:18)
[2022-10-13] MEDS ORDERED: BRIDION 200MG/2ML IV ONE (18:18)
[2022-10-13] MEDS ORDERED: Zemuron 100 MG/10 ML ONE ×3 (18:18→23:13)
[2022-10-13] MEDS ORDERED: Zofran 4 MG/2 ML VIAL ONE (18:18)
[2022-10-13] MEDS ORDERED: Pre-Attached Lta Kit TP ONE (18:21)
[2022-10-13] MEDS ORDERED: Magnesium Sulfate 1 GM/2 ML VIAL ONE (18:21)
[2022-10-13] MEDS ORDERED: OFIRMEV 100 ML IV ONE (18:21)
[2022-10-13] MEDS ORDERED: PHENYLEPHRINE HCL ONE (18:27)
[2022-10-13] MEDS ORDERED: Versed 2 MG/2 ML Injection ONE (18:27)
[2022-10-13] MEDS ORDERED: Ketamine HCl 50 MG/ML ONE (18:36)
[2022-10-13] MEDS ORDERED: MEFOXIN 2 GM PREMIX** 2 GM/50 ML ML IV ONE (18:46)
[2022-10-13] MEDS ORDERED: Ephedrine Sulfate 50 MG/ML ONE ×2 (19:20→23:11)
[2022-10-13] MEDS ORDERED: ROBINUL ONE (19:29)
[2022-10-13] MEDS ORDERED: PITRESSIN 20 UNITS ONE (19:52)
[2022-10-13] MEDS ORDERED: Thrombin-JMI 5000 UNITS TP ONE (19:54)
[2022-10-13] MEDS ORDERED: AlbuRx 25% 50ML VIAL*** 50 ML IV ONE (19:57)
[2022-10-13] MEDS ORDERED: Calcium Gluconate 10% 1000 MG IV ONE (20:02)
[2022-10-13] MEDS ORDERED: CALCIUM CHLORIDE 10% 1000 MG ONE (20:08)
[2022-10-13] MEDS ORDERED: Sodium Chloride 0.9% 1000 ML 1,000 ML ONE ×2 (20:12→21:53)
[2022-10-13] MEDS ORDERED: Sodium Chloride 0.9% 100 ML ONE (20:13)
[2022-10-13] MEDS ORDERED: NOREPINEPHRINE 8 MG/250 ML-D5W 0 MG/0 ML PLAST..BAG IV ONE (20:20)
[2022-10-13 22:06] LABS: ABO TYPING O; Antibody Screen NEGATIVE (NEGATIVE); RH TYPING NEGATIVE
[2022-10-13 22:08] LABS: CROSS MATCH (PRBC) COMPATIBLE (COMPATIBLE)
[2022-10-13] MEDS ORDERED: Propofol 1000 mg/100 ml Bottle 100 ML IV ONE (22:38)
[2022-10-13] MEDS: Propofol 1000 mg/100 ml Bottle 100 ML IV PRN (22:40)
[2022-10-13] MEDS ORDERED: NORCO 7.5/325 MG TAB PO PRN (23:08)
[2022-10-13] MEDS ORDERED: Zofran 4 MG/2 ML VIAL IV PRN (23:09)
[2022-10-13] MEDS ORDERED: MORPHINE SULFATE 2 MG INJ ONE (23:11)
[2022-10-13 23:13] LABS: Hematocrit 37.7 % (35-47)
[2022-10-13 23:16] LABS: Hemoglobin 12.6 g/dL (12.0-16.0)
[2022-10-13] MEDS ORDERED: FENTANYL 500 MCG/10 ML VIAL 1,500 MCG in Sodium Chloride 0.9% 150 ML 120 ML IV PRN (23:19)
[2022-10-13] MEDS ORDERED: FENTANYL 500 MCG/10 ML VIAL IV ONE ×3 (23:29→23:58)
[2022-10-13] MEDS ORDERED: Sodium Chloride 0.9% 150 ML 150 ML IV ONE (23:41)
[2022-10-13 23:58] LABS: A-aADO2 61; ABG HEMOGLOBIN 14.5; ABG POTASSIUM 4.3 (3.5-5.1); ARTERIAL BLD GAS O2 SATURATION 99.2 % (95-100); ARTERIAL BLD GAS TIDAL VOLUME 480 cc; ARTERIAL BLOOD GAS BASE EXCESS -3.9 (-2.0-2.0); ARTERIAL BLOOD GAS FIO2 40 %; ARTERIAL BLOOD GAS PCO2 31 mmHg (35-45); ARTERIAL BLOOD GAS PEEP 5 cmH2O; ARTERIAL BLOOD GAS PO2 185 mmHg (75-100); ARTERIAL BLOOD GAS VENT MODE VC/AC; ARTERIAL BLOOD GAS VENT RATE 12 /MIN; ARTERIAL BLOOD GAS pH 7.41 (7.35-7.45); CARBOXYHEMOGLOBIN 0.9 % THgb (0.0-6.9); HCO3- 19.6 (22-28); HGB O2 SAT 97.2 g/dF (94-100); Methhemoglobin 1.1 % (1.4-1.5); paO2 pAO1 0.75
[2022-10-13 23:59] LABS: ABG SITE Art Line
[2022-10-14] MEDS: D5W/0.45NS W/ 20mEq KCl 1000 ML 1,000 ML IV SCH ×2 (00:01→09:54)
[2022-10-14] MEDS ORDERED: Sodium Chloride 0.9% 150 ML 150 ML IV ONE (00:04)
[2022-10-14] MEDS: PROTONIX 40 MG IV IV SCH ×2 (01:27→22:33)
[2022-10-14] MEDS: clonazePAM PO SCH ×4 (01:44→22:33)
[2022-10-14] MEDS: Desyrel 150 MG PO SCH ×2 (01:44→22:33)
[2022-10-14] MEDS: COREG 12.5 MG PO SCH ×3 (01:44→22:33)
[2022-10-14] MEDS ORDERED: Propofol 1000 mg/100 ml Bottle 100 ML IV ONE ×3 (01:47→09:50)
[2022-10-14] MEDS: Propofol 1000 mg/100 ml Bottle 100 ML IV PRN ×3 (01:48→09:54)
[2022-10-14] MEDS: Lantus Insulin SQ SCH ×2 (01:52→22:44)
[2022-10-14] MEDS: HUMALOG SQ PRN ×3 (01:53→12:16)
[2022-10-14] MEDS: Lubrifresh P.M. 3.5 gm Ointment OP SCH ×2 (02:05→11:16)
[2022-10-14] MEDS: PERIDEX MM SCH ×2 (02:05→11:17)
[2022-10-14] MEDS: Dextrose 5%-NS IV Solution 1000 ML 1,000 ML IV SCH (02:08)
[2022-10-14 04:06] LABS: A-aADO2 43; ABG HEMOGLOBIN 13.8; ABG POTASSIUM 4.5 (3.5-5.1); ABG SITE ART LINE; ARTERIAL BLD GAS O2 SATURATION 99.2 % (95-100); ARTERIAL BLD GAS TIDAL VOLUME 480 cc; ARTERIAL BLOOD GAS BASE EXCESS -5.8 (-2.0-2.0); ARTERIAL BLOOD GAS FIO2 30 %; ARTERIAL BLOOD GAS PCO2 40 mmHg (35-45); ARTERIAL BLOOD GAS PEEP 5 cmH2O; ARTERIAL BLOOD GAS PO2 121 mmHg (75-100); ARTERIAL BLOOD GAS VENT MODE VC/AC; ARTERIAL BLOOD GAS VENT RATE 12 /MIN; ARTERIAL BLOOD GAS pH 7.31 (7.35-7.45); CARBOXYHEMOGLOBIN 1.6 % THgb (0.0-6.9); HCO3- 20.1 (22-28); HGB O2 SAT 96.8 g/dF (94-100); Methhemoglobin 0.8 % (1.4-1.5); paO2 pAO1 0.74
[2022-10-14 04:17] LABS: Hematocrit 39.5 % (35-47); Hemoglobin 13.3 g/dL (12.0-16.0); Mean Cell Volume 83.5 fL (78-100); Mean Corpuscular Hemoglobin 28.1 pg (26-32); Mean Corpuscular Hgb Concent. 33.7 g/dL (32-36); Mean Platelet Volume 8.7 fL (7.5-11.0); Platelet Count 120 x10^3/uL (150-450); Red Blood Count 4.73 x10^6/uL (4.1-5.4); Red Cell Distribution Width 13.5 % (11.5-14.0); White Blood Count 14.2 x10^3/uL (4.0-10.5)
[2022-10-14 04:25] LABS: ALBUMIN 2.2 g/dL (3.5-5.0); ANION GAP 10.3 MEQ/L (5-15); Calcium 7.3 mg/dL (8.4-10.2); Creatinine 1 2.08 mg/dL (0.52-1.04); Direct Bilirubin 0.2 mg/dL (0.0-0.4); EST GLOMERULAR FILTRATION RATE 28.8 ML/MIN; Potassium 4.5 mmol/L (3.5-5.1); Total Protein 4.5 g/dL (6.3-8.2)
[2022-10-14] MEDS ORDERED: Versed 50 MG/ 10 Ml MDV ONE (06:01)
[2022-10-14] MEDS ORDERED: Sodium Chloride 0.9% 250 ML 0 ML IV ONE (06:02)
[2022-10-14] MEDS ORDERED: Sodium Chloride 0.9% 250 ML 250 ML IV ONE (06:05)
[2022-10-14] MEDS ORDERED: Versed 50 MG/ 10 Ml MDV*** 50 MG in Sodium Chloride 0.9% 250 ML 240 ML IV PRN (06:14)
[2022-10-14] MEDS ORDERED: DIPRIVAN 200 MG/20 ML IV ONE (07:01)
[2022-10-14] MEDS ORDERED: Xylocaine-Mpf 2% 5 Ml Vial ONE (07:01)
[2022-10-14] MEDS ORDERED: SUBLIMAZE 100 MCG/2 ML ONE (07:02)
[2022-10-14] MEDS ORDERED: Versed 2 MG/2 ML Injection ONE (07:02)
[2022-10-14] MEDS ORDERED: DIPRIVAN 200 MG/20 ML IV STA (07:17)
[2022-10-14] MEDS ORDERED: DIPRIVAN 200 MG/20 ML IV PRN (07:20)
--- NOTE | 2022-10-14 08:53 | XRAY ---
Indication: Central line, endotracheal tube, and NG tube placement. Status post laparoscopic cholecystectomy. Comparison: One day earlier. Portable chest demonstrates new endotracheal tube and NG tube tips 4 cm above emilia. New right internal jugular central venous access catheter with tip projecting over the SVC without pneumothorax. Remaining heart and lungs normal again with incidental CABG. Limited upper abdomen demonstrates new bilateral subdiaphragmatic free air presumed related to recent surgery. Comment: Preliminary interpretation made by C. No critical discrepancy.
--- NOTE | 2022-10-14 11:05 | OP ---
SURGERY DATE/TIME: 10/13/2022 5483 PREOPERATIVE DIAGNOSIS: Acute cholecystitis/cholelithiasis. POSTOPERATIVE DIAGNOSIS: Acute cholecystitis/cholelithiasis with posterior gallbladder fossa mushiness, necrosis with bleeding. PROCEDURES: 1) Laparoscopic cholecystectomy. 2) Liver bed packing. 3) Re-inspection and control of mid posterior bed 2 mm venous tributary in necrotic liver field. SURGEON: Dr. Alex George. PACKER INSULATION: Dr. Teddy George was called for assistance and assisted to control the bleeding in the second half of the procedure. ANESTHESIA: General. ESTIMATED BLOOD LOSS: Blood loss 3 units. Blood transfused 3 units. DRAINS: None. CONDITION: Stable but critical to the ICU. 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 She had some issues over some years. She might very well have some ulcer disease and I am not totally sure about ETOH intake. DESCRIPTION OF PROCEDURE AND FINDINGS: She was taken to surgery. General anesthetic, routine prep and drape. Veress needle inserted. Opening pressure of 1, insufflating pressure 14. Four - 5's were placed and good visualization. Gallbladder is acutely inflamed. Cystic duct defined. Cystic artery defined. There was one adhesion of the duodenum against the liver which was taken down on the liver side did not show any bleeding but certainly was at least an interesting area. The cystic duct triply clipped. Cystic artery triply clipped. Coming out from this the gallbladder fossa was taken away from the gallbladder. The gallbladder fossa posteriorly was certainly very edematous. She had significant posterior infection into the liver. It continued. It was taken off of the fundus. It was delivered. There had been absolutely no bleeding, no blood, nothing at this point and then after delivering through the epigastric hole and putting the 5 port back in the epigastric hole there was a puddle of blood under this port in the area of the gallbladder fossa in the area where this adhesion was to the duodenum. Initially blood was oozing out. Three or four 4x4's long ways. The 5 port was changed to 10 port and these were placed, packed and it still kept oozing out. Another 8 Raytec was placed for a total of 12 Raytec. There was blood oozing out up over the top of the stomach to the left of the spleen also. At this time the blood pressure had dropped. Blood had been asked for. Blood was starting to get transfused. We were in a total holding pattern. The bleeding was certainly better with the packing but still seemed to be oozing out the edge of the field. The blood was started. Reverse Trendelenburg was changed to flat or slight Trendelenburg. Dr. Teddy George had been called. Dr. Teddy George arrived with two hemostatic kits from [place]. At this time the field really had been drying up and at least three or four of the Raytec had been pulled off of the edges and pulled out. The field basically had gone down to about 4 Raytec centrally and this area of the liver that I thought might be concerning where it had been stuck to the duodenum did not seem to be bleeding at all. It seems to be bleeding straight out of the mid liver-gallbladder fossa. Coming down from the top there was one area not so bad of bleeding that was electrocoagulated at 40 and there was only about 2 cm from the edge but pulling the next Raytec out 3 cm to 4 cm from its fundal edge which was almost right smack dab in the middle of the gallbladder fossa this area of liver was very soft and mushy and there was a 2 mm vein edge seen. This was able to be partially clipped from above and below and substantial hemostasis obtained. Pressure was held for five minutes and at this time it seemed dry. Pressure was held for another five minutes and was dry. The rest of the field was totally cleaned up and everything else was dry. We contemplated drains but we did not feel that we absolutely needed one. The cystic duct was satisfactory. Common bile duct was satisfactory. The foam and Surgicel was placed and then a second row of foam and Surgicel. The field was dry. The hole closure device was used on the 10/11 port. CO2 was evacuated. The other two ports removed, two of these under direct visualization and the last were obviously not. Skin closed with lorna. The larger epigastric port closed with 3-0 Prolene, sterile dressing applied. The patient tolerated the procedure satisfactorily. Findings discussed with the family in the waiting room. IMPRESSION: The patient has had some continuation of infection posteriorly into the gallbladder fossa basically starting to produce a focal abscess-like area where a venous tributary was able to be disrupted while lifting the gallbladder up out of the gallbladder fossa in the traditional steps of dissection. It required temporary packing because the blood pressure dropped down to 60 almost immediately and it was subsequently controlled.
--- NOTE | 2022-10-14 11:59 | PCM.NOTE ---
Date and Time: 10/14/22 1159 Subjective Assessment: Pt's surgery was yesterday evening with Dr. Alex George, thank you (cholecystectomy). Unfortunately she had bleeding during the surgery, about 3L reportedly, with blood transfusion ultimately of 4 units (but no FFP required). I spoke with the [employer] about it this morning. She had low BP and was unstable in the OR, so when transferred to [facility] she actually went to ICU on the ventilator until we could be sure she was stable. This morning she has shown signs of discomfort/tried to self-extubate and she was actually continued on sedation until I got here at about 07:20 and we could determine the plan. RT has been contacted as well and the plan is to wean and extubate at approx 8:45-9 am. - Review of Systems All Other Systems: Unable due to condition Objective Exam General Appearance: no apparent distress, other (sedated, on ventilator) Skin Exam: normal color, warm, dry, No rash Wound Assessment: Skin/Wound Assessment Wound/Incision Assessment Start: 10/13/22 20:00 Text: Status: Active Freq: Q6H Protocol: Document 10/14/22 08:00 [facility] (Rec: 10/14/22 08:50 [facility] [id number]) Co-Sign 10/14/22 08:00 [facility] Wound/Incision Assessment Abdomen Wound Assessment Shift Assessment Wound Type APPEARS TO BE 3 PUNCTURE SITES Comment APPEARS TO BE 3 PUNCTURE SITES . 2 ARE CLEAN, DRY AND INTACT. UMBILICAL INCISION SHADOWING NOTED AND OUTLINED. Wound Photo Photo Taken No Respiratory Exam: normal breath sounds, lungs clear, No crackles/rales, No rhonchi, No wheezing Cardiovascular Exam: regular rate/rhythm, normal heart sounds, No murmur Gastrointestinal/Abdomen Exam: soft, other (periumbilical wound with scant blood present.), No normal bowel sounds (hypoactive but present), No distention Extremity Exam: normal inspection, other (scd's present), No pedal edema, No swelling OBJECTIVE DATA Vital Signs: Vital Signs - 24 hr Temp Pulse Resp BP BP BP Pulse Ox 10/14/22 11:00 105 H 32 H 206/114 206/114 100 10/14/22 10:56 104 H 22 99 10/14/22 09:57 95 H 12 118/75 118/75 99 10/14/22 09:00 97 H 12 121/78 121/78 99 10/14/22 08:00 98.3 F 100 H 12 126/82 122/79 99 10/14/22 07:30 104 H 12 99 10/14/22 07:00 107 H 9 L 149/104 100 10/14/22 06:25 98 H 12 125/90 99 10/14/22 05:23 97 F 98 H 12 116/85 99 10/14/22 04:32 100 H 12 142/86 100 10/14/22 04:31 100 H 10/14/22 04:00 99 H 10/14/22 03:37 97 F 99 H 12 116/74 100 10/14/22 03:00 99 H 10/14/22 02:52 96.7 F 97 H 12 141/86 100 10/14/22 02:00 96.8 F 94 H 12 133/82 133/82 94 L 10/14/22 01:00 86 12 120/75 97 10/14/22 00:30 83 12 110/70 98 10/14/22 00:00 96.2 F 84 12 119/75 119/75 100 10/13/22 23:45 96 F 84 12 119/75 100 10/13/22 23:34 95 H 23 100 10/13/22 23:27 92 H 23 100 10/13/22 18:50 18 96 10/13/22 16:00 97.5 F 91 H 16 155/91 96 10/13/22 15:00 18 97 10/13/22 14:43 97.5 F 90 16 131/87 97 Pain Assessment - Last Documented Pain Intensity 0 Pain Scale Used [facility] Intake and Output: Intake & Output 10/11/22 10/12/22 10/13/22 10/14/22 11:59 11:59 11:59 11:59 Intake Total 290 579 6514 Output Total 517 916 9755 Balance 699 16 848 Weight 66.1 kg 70.2 kg 70.2 kg Lab Results: Lab Results-Last 24 Hours 10/13/22 10/13/22 10/13/22 Range/Units 16:17 20:20 20:20 WBC (4.0-10.5) x10^3/uL RBC (4.1-5.4) x10^6/uL Hgb (12.0-16.0) g/dL Hct (35-47) % MCV (78-100) fL MCH (26-32) pg MCHC (32-36) g/dL RDW (11.5-14.0) % Plt Count (150-450) x10^3/uL MPV (7.5-11.0) fL Puncture Site pCO2 (35-45) mmHg pO2 (75-100) mmHg Base Excess (-2.0-2.0) O2 Saturation (94-100) g/dF ABG pH (7.35-7.45) ABG HCO3 (22-28) ABG O2 Sat (Measured) (95-100) % Jerry Test A-a Gradient a/A Ratio Hemoglobin Carboxyhemoglobin (0.0-6.9) % THgb Methemoglobin (1.4-1.5) % Potassium (3.5-5.1) Temperature C POC O2 Flow Rate % Vent Mode Vent Rate /MIN Tidal Volume cc PEEP cmH2O Sodium (137-145) mmol/L Chloride (98-107) mmol/L Carbon Dioxide (22-30) mmol/L Anion Gap (5-15) MEQ/L BUN (7-17) mg/dL Creatinine (0.52-1.04) mg/dL Estimated GFR ML/MIN Glucose (74-106) mg/dL POC Glucometer 107 H (74 to 106) mg/dL Calcium (8.4-10.2) mg/dL Total Bilirubin (0.2-1.3) mg/dL Direct Bilirubin (0.0-0.4) mg/dL AST (14-36) U/L ALT (0-35) U/L Alkaline Phosphatase (38-126) U/L Serum Total Protein (6.3-8.2) g/dL Albumin (3.5-5.0) g/dL ABO Group Rh Factor Antibody Screen (NEGATIVE) Crossmatch COMPATIBLE COMPATIBLE (COMPATIBLE) 10/13/22 10/13/22 10/13/22 Range/Units 20:35 20:35 20:35 WBC (4.0-10.5) x10^3/uL RBC (4.1-5.4) x10^6/uL Hgb (12.0-16.0) g/dL Hct (35-47) % MCV (78-100) fL MCH (26-32) pg MCHC (32-36) g/dL RDW (11.5-14.0) % Plt Count (150-450) x10^3/uL MPV (7.5-11.0) fL Puncture Site pCO2 (35-45) mmHg pO2 (75-100) mmHg Base Excess (-2.0-2.0) O2 Saturation (94-100) g/dF ABG pH (7.35-7.45) ABG HCO3 (22-28) ABG O2 Sat (Measured) (95-100) % Jerry Test A-a Gradient a/A Ratio Hemoglobin Carboxyhemoglobin (0.0-6.9) % THgb Methemoglobin (1.4-1.5) % Potassium (3.5-5.1) Temperature C POC O2 Flow Rate % Vent Mode Vent Rate /MIN Tidal Volume cc PEEP cmH2O Sodium (137-145) mmol/L Chloride (98-107) mmol/L Carbon Dioxide (22-30) mmol/L Anion Gap (5-15) MEQ/L BUN (7-17) mg/dL Creatinine (0.52-1.04) mg/dL Estimated GFR ML/MIN Glucose (74-106) mg/dL POC Glucometer (74 to 106) mg/dL Calcium (8.4-10.2) mg/dL Total Bilirubin (0.2-1.3) mg/dL Direct Bilirubin (0.0-0.4) mg/dL AST (14-36) U/L ALT (0-35) U/L Alkaline Phosphatase (38-126) U/L Serum Total Protein (6.3-8.2) g/dL Albumin (3.5-5.0) g/dL ABO Group O Rh Factor NEGATIVE Antibody Screen NEGATIVE (NEGATIVE) Crossmatch COMPATIBLE COMPATIBLE COMPATIBLE (COMPATIBLE) 10/13/22 10/13/22 10/13/22 Range/Units 20:35 23:11 23:50 WBC (4.0-10.5) x10^3/uL RBC (4.1-5.4) x10^6/uL Hgb 12.6 D (12.0-16.0) g/dL Hct 37.7 (35-47) % MCV (78-100) fL MCH (26-32) pg MCHC (32-36) g/dL RDW (11.5-14.0) % Plt Count (150-450) x10^3/uL MPV (7.5-11.0) fL Puncture Site Art Line pCO2 31 L (35-45) mmHg pO2 185 H* (75-100) mmHg Base Excess -3.9 L (-2.0-2.0) O2 Saturation 97.2 (94-100) g/dF ABG pH 7.41 (7.35-7.45) ABG HCO3 19.6 L (22-28) ABG O2 Sat (Measured) 99.2 (95-100) % Jerry Test N/A A-a Gradient 61 a/A Ratio 0.75 Hemoglobin 14.5 Carboxyhemoglobin 0.9 (0.0-6.9) % THgb Methemoglobin 1.1 L (1.4-1.5) % Potassium 4.3 (3.5-5.1) Temperature 37.0 C POC O2 Flow Rate 40 % Vent Mode VC/AC Vent Rate 12 /MIN Tidal Volume 480 cc PEEP 5 cmH2O Sodium (137-145) mmol/L Chloride (98-107) mmol/L Carbon Dioxide (22-30) mmol/L Anion Gap (5-15) MEQ/L BUN (7-17) mg/dL Creatinine (0.52-1.04) mg/dL Estimated GFR ML/MIN Glucose (74-106) mg/dL POC Glucometer (74 to 106) mg/dL Calcium (8.4-10.2) mg/dL Total Bilirubin (0.2-1.3) mg/dL Direct Bilirubin (0.0-0.4) mg/dL AST (14-36) U/L ALT (0-35) U/L Alkaline Phosphatase (38-126) U/L Serum Total Protein (6.3-8.2) g/dL Albumin (3.5-5.0) g/dL ABO Group Rh Factor Antibody Screen (NEGATIVE) Crossmatch COMPATIBLE (COMPATIBLE) 10/14/22 10/14/22 10/14/22 Range/Units 01:37 03:57 04:04 WBC 14.2 H (4.0-10.5) x10^3/uL RBC 4.73 (4.1-5.4) x10^6/uL Hgb 13.3 (12.0-16.0) g/dL Hct 39.5 (35-47) % MCV 83.5 (78-100) fL MCH 28.1 (26-32) pg MCHC 33.7 (32-36) g/dL RDW 13.5 (11.5-14.0) % Plt Count 120 L (150-450) x10^3/uL MPV 8.7 (7.5-11.0) fL Puncture Site ART LINE pCO2 40 (35-45) mmHg pO2 121 H* (75-100) mmHg Base Excess -5.8 L (-2.0-2.0) O2 Saturation 96.8 (94-100) g/dF ABG pH 7.31 L (7.35-7.45) ABG HCO3 20.1 L (22-28) ABG O2 Sat (Measured) 99.2 (95-100) % Jerry Test N/A A-a Gradient 43 a/A Ratio 0.74 Hemoglobin 13.8 Carboxyhemoglobin 1.6 (0.0-6.9) % THgb Methemoglobin 0.8 L (1.4-1.5) % Potassium 4.5 (3.5-5.1) Temperature 37.0 C POC O2 Flow Rate 30 % Vent Mode VC/AC Vent Rate 12 /MIN Tidal Volume 480 cc PEEP 5 cmH2O Sodium (137-145) mmol/L Chloride (98-107) mmol/L Carbon Dioxide (22-30) mmol/L Anion Gap (5-15) MEQ/L BUN (7-17) mg/dL Creatinine (0.52-1.04) mg/dL Estimated GFR ML/MIN Glucose (74-106) mg/dL POC Glucometer 258 H (74 to 106) mg/dL Calcium (8.4-10.2) mg/dL Total Bilirubin (0.2-1.3) mg/dL Direct Bilirubin (0.0-0.4) mg/dL AST (14-36) U/L ALT (0-35) U/L Alkaline Phosphatase (38-126) U/L Serum Total Protein (6.3-8.2) g/dL Albumin (3.5-5.0) g/dL ABO Group Rh Factor Antibody Screen (NEGATIVE) Crossmatch (COMPATIBLE) 10/14/22 10/14/22 10/14/22 Range/Units 04:04 04:58 07:56 WBC (4.0-10.5) x10^3/uL RBC (4.1-5.4) x10^6/uL Hgb (12.0-16.0) g/dL Hct (35-47) % MCV (78-100) fL MCH (26-32) pg MCHC (32-36) g/dL RDW (11.5-14.0) % Plt Count (150-450) x10^3/uL MPV (7.5-11.0) fL Puncture Site pCO2 (35-45) mmHg pO2 (75-100) mmHg Base Excess (-2.0-2.0) O2 Saturation (94-100) g/dF ABG pH (7.35-7.45) ABG HCO3 (22-28) ABG O2 Sat (Measured) (95-100) % Jerry Test A-a Gradient a/A Ratio Hemoglobin Carboxyhemoglobin (0.0-6.9) % THgb Methemoglobin (1.4-1.5) % Potassium 4.5 (3.5-5.1) Temperature C POC O2 Flow Rate % Vent Mode Vent Rate /MIN Tidal Volume cc PEEP cmH2O Sodium 131 L (137-145) mmol/L Chloride 106 (98-107) mmol/L Carbon Dioxide 19 L (22-30) mmol/L Anion Gap 10.3 (5-15) MEQ/L BUN 20 H (7-17) mg/dL Creatinine 2.08 H (0.52-1.04) mg/dL Estimated GFR 28.8 ML/MIN Glucose 273 H (74-106) mg/dL POC Glucometer 255 H 249 H (74 to 106) mg/dL Calcium 7.3 L (8.4-10.2) mg/dL Total Bilirubin 1.00 (0.2-1.3) mg/dL Direct Bilirubin 0.2 (0.0-0.4) mg/dL AST 87 H (14-36) U/L ALT 64 H (0-35) U/L Alkaline Phosphatase 72 (38-126) U/L Serum Total Protein 4.5 L (6.3-8.2) g/dL Albumin 2.2 L (3.5-5.0) g/dL ABO Group Rh Factor Antibody Screen (NEGATIVE) Crossmatch (COMPATIBLE) 10/14/22 Range/Units 11:50 WBC (4.0-10.5) x10^3/uL RBC (4.1-5.4) x10^6/uL Hgb (12.0-16.0) g/dL Hct (35-47) % MCV (78-100) fL MCH (26-32) pg MCHC (32-36) g/dL RDW (11.5-14.0) % Plt Count (150-450) x10^3/uL MPV (7.5-11.0) fL Puncture Site pCO2 (35-45) mmHg pO2 (75-100) mmHg Base Excess (-2.0-2.0) O2 Saturation (94-100) g/dF ABG pH (7.35-7.45) ABG HCO3 (22-28) ABG O2 Sat (Measured) (95-100) % Jerry Test A-a Gradient a/A Ratio Hemoglobin Carboxyhemoglobin (0.0-6.9) % THgb Methemoglobin (1.4-1.5) % Potassium (3.5-5.1) Temperature C POC O2 Flow Rate % Vent Mode Vent Rate /MIN Tidal Volume cc PEEP cmH2O Sodium (137-145) mmol/L Chloride (98-107) mmol/L Carbon Dioxide (22-30) mmol/L Anion Gap (5-15) MEQ/L BUN (7-17) mg/dL Creatinine (0.52-1.04) mg/dL Estimated GFR ML/MIN Glucose (74-106) mg/dL POC Glucometer 201 H (74 to 106) mg/dL Calcium (8.4-10.2) mg/dL Total Bilirubin (0.2-1.3) mg/dL Direct Bilirubin (0.0-0.4) mg/dL AST (14-36) U/L ALT (0-35) U/L Alkaline Phosphatase (38-126) U/L Serum Total Protein (6.3-8.2) g/dL Albumin (3.5-5.0) g/dL ABO Group Rh Factor Antibody Screen (NEGATIVE) Crossmatch (COMPATIBLE) Radiology Exams: Radiology Procedures Category Date Time Status CHEST 1 VIEW (PORTABLE) DAILY Exams 10/15/22 04:00 Ordered CHEST 1 VIEW (PORTABLE) DAILY Exams 10/16/22 04:00 Ordered CHEST 1 VIEW (PORTABLE) DAILY Exams 10/17/22 04:00 Ordered CHEST 1 VIEW (PORTABLE) DAILY Exams 10/18/22 04:00 Ordered CHEST 1 VIEW (PORTABLE) DAILY Exams 10/19/22 04:00 Ordered CHEST 1 VIEW (PORTABLE) Stat Exams 10/13/22 23:08 Completed CHEST 2 VIEWS (PA AND LAT) Urgent Exams 10/12/22 12:16 Completed Multi-Disciplinary Progress Notes: Multi-Disciplinary Progress Notes 10/14/22 11:31 Case Management Note by Karen Pichardo S/W MOTHER- SHE DOES NOT ANTICIPATE ANY CHANGES IN DC PLANS AT THIS TIME. SHE ANTICIPATES FOR PATIENT RETURN HOME WITH NO NEW NEEDS. SHE WAS INSTRUCTED TO LET NURSING/LATHE HAND KNOW IF ANYTHING IS NEEDED AT TIME OF DC- SHE VERIFIED UNDERSTANDING Initialized on 10/14/22 11:31 - END OF NOTE 10/14/22 10:56 (created 10/14/22 11:15) Respiratory Note by Yissel Ramirez The patient is weaned off of her Proprofol and Versed and was able to follow all commands and lift head off of bed and keep it off until I told her to relax it. O2 sat 100% HR 107 RR 29. Patient was extubated at 1056 and placed on 2lpm Initialized on 10/14/22 11:15 - END OF NOTE Assessment/Plan (1) post cholecystectomy Current Visit: Yes Status: Acute Assessment & Plan: On ventilator, but should be able to extubate this morning. Tidal volume has been great. She has been rousing and is reported by RN as seeming unhappy at being on a ventilator. POD #1. (2) Anemia Current Visit: Yes Status: Acute Qualifiers: Anemia type: other cause Other causes of anemia: acute posthemorrhagic Qualified Code(s): D62 - Acute posthemorrhagic anemia Assessment & Plan: Due to blood loss during surgery. Check labs again tonight and tomorrow. Code(s): D64.9 - ANEMIA, UNSPECIFIED (3) SHANNON (acute kidney injury) Current Visit: Yes Status: Acute Assessment & Plan: nephrology was consulted. Code(s): N17.9 - ACUTE KIDNEY FAILURE, UNSPECIFIED (4) Hyperglycemia due to type 1 diabetes mellitus Current Visit: No Status: Chronic Code(s): E10.65 - TYPE 1 DIABETES MELLITUS WITH HYPERGLYCEMIA (5) CAD (coronary artery disease) Current Visit: Yes Status: Chronic Qualifiers: Coronary Disease-Associated Artery/Lesion type: [place] artery [place] vs. transplanted heart: koi heart Associated angina: without angina Qualified Code(s): I25.10 - Atherosclerotic heart disease of [place] coronary artery without angina pectoris Code(s): I25.10 - ATHSCL HEART DISEASE OF [place] CORONARY ARTERY W/O ANG PCTRS
[2022-10-14] MEDS ORDERED: Hydromorphone 1 mg/ml Injection IV ONE ×2 (12:03→13:30)
[2022-10-14] MEDS ORDERED: HYDROMORPHONE 30 MG/30 ML-NS PCA IV PRN (12:03)
[2022-10-14] MEDS: Effexor XR 75 MG PO SCH (12:49)
[2022-10-14] MEDS: CLARITIN 10 MG PO SCH (12:49)
[2022-10-14] MEDS ORDERED: PHARMACY DOSING REQUIRED: DILAUDID PCA IV STA (13:23)
[2022-10-14] MEDS ORDERED: Zyprexa Zydis 5 MG PO ONE (16:11)
[2022-10-14] MEDS: PLAVIX Tablet PO SCH (16:12)
--- NOTE | 2022-10-14 16:18 | PCM.NOTE ---
Date and Time: 10/14/22 1612 Subjective Assessment: I came to see patient as she pulled out her IJ line and is insistent to go home immediately. she made a comment to the nurse that she "just wants to " she is tearful and regrets her behavior now, she feels like no one was listenting to her. her major problem is that she wants to be allowed to go outside and smoke, she refuses a nicotine patch. of note she has no local physician and has signed out AMA from several hospitals in the last 3 weeks so it appears this behavior is a pattern. she is not suicidial, she has no hallucinations, she is oriented to person, place and time and seems to be capable of making her own decisions but certainly demonstrates poor judgement and insight. she had a complicated cholecystectomy last night and required transfusion, was extubated earlier today. she has passed flatus Objective Exam General Appearance: anxiety, other (tearful) Neurologic Exam: alert, oriented x 3 Skin Exam: normal color, warm, dry Wound Assessment: Skin/Wound Assessment Wound/Incision Assessment Start: 10/13/22 20:00 Text: Status: Active Freq: Q6H Protocol: Document 10/14/22 14:00 [facility] (Rec: 10/14/22 14:28 [facility] [id number]) Wound/Incision Assessment Abdomen Wound Assessment Shift Assessment Wound Type APPEARS TO BE 3 PUNCTURE SITES Comment APPEARS TO BE 3 PUNCTURE SITES . 2 ARE CLEAN, DRY AND INTACT. UMBILICAL INCISION SHADOWING NOTED AND OUTLINED. Wound Photo Photo Taken No Respiratory Exam: normal breath sounds, lungs clear, No respiratory distress Cardiovascular Exam: regular rate/rhythm, normal heart sounds, other (well healed previous sternotomy incision) Gastrointestinal/Abdomen Exam: soft, normal bowel sounds, other (dressings c/d/i) Extremity Exam: normal inspection, normal range of motion OBJECTIVE DATA Vital Signs: Vital Signs - 24 hr Temp Pulse Resp BP BP BP Pulse Ox 10/14/22 13:30 17 99 10/14/22 12:18 20 94 L 10/14/22 12:00 105 H 20 194/107 180/144 100 10/14/22 11:00 105 H 32 H 206/114 206/114 100 10/14/22 10:56 104 H 22 99 10/14/22 09:57 95 H 12 118/75 118/75 99 10/14/22 09:00 97 H 12 121/78 121/78 99 10/14/22 08:00 98.3 F 100 H 12 126/82 122/79 99 10/14/22 07:30 104 H 12 99 10/14/22 07:00 107 H 9 L 149/104 100 10/14/22 06:25 98 H 12 125/90 99 10/14/22 05:23 97 F 98 H 12 116/85 99 10/14/22 04:32 100 H 12 142/86 100 10/14/22 04:31 100 H 10/14/22 04:00 99 H 10/14/22 03:37 97 F 99 H 12 116/74 100 10/14/22 03:00 99 H 10/14/22 02:52 96.7 F 97 H 12 141/86 100 10/14/22 02:00 96.8 F 94 H 12 133/82 133/82 94 L 10/14/22 01:00 86 12 120/75 97 10/14/22 00:30 83 12 110/70 98 10/14/22 00:00 96.2 F 84 12 119/75 119/75 100 10/13/22 23:45 96 F 84 12 119/75 100 10/13/22 23:34 95 H 23 100 10/13/22 23:27 92 H 23 100 10/13/22 18:50 18 96 Pain Assessment - Last Documented Pain Intensity 10 Pain Scale Used 0-10 Pain Scale Intake and Output: Intake & Output 10/12/22 10/13/22 10/14/22 10/15/22 11:59 11:59 11:59 11:59 Intake Total 515 717 9079 Output Total 114 793 0662 Balance 699 16 848 Weight 66.1 kg 70.2 kg 70.2 kg Lab Results: Lab Results-Last 24 Hours 10/13/22 10/13/22 10/13/22 Range/Units 16:17 20:20 20:20 WBC (4.0-10.5) x10^3/uL RBC (4.1-5.4) x10^6/uL Hgb (12.0-16.0) g/dL Hct (35-47) % MCV (78-100) fL MCH (26-32) pg MCHC (32-36) g/dL RDW (11.5-14.0) % Plt Count (150-450) x10^3/uL MPV (7.5-11.0) fL Puncture Site pCO2 (35-45) mmHg pO2 (75-100) mmHg Base Excess (-2.0-2.0) O2 Saturation (94-100) g/dF ABG pH (7.35-7.45) ABG HCO3 (22-28) ABG O2 Sat (Measured) (95-100) % Jerry Test A-a Gradient a/A Ratio Hemoglobin Carboxyhemoglobin (0.0-6.9) % THgb Methemoglobin (1.4-1.5) % Potassium (3.5-5.1) Temperature C POC O2 Flow Rate % Vent Mode Vent Rate /MIN Tidal Volume cc PEEP cmH2O Sodium (137-145) mmol/L Chloride (98-107) mmol/L Carbon Dioxide (22-30) mmol/L Anion Gap (5-15) MEQ/L BUN (7-17) mg/dL Creatinine (0.52-1.04) mg/dL Estimated GFR ML/MIN Glucose (74-106) mg/dL POC Glucometer 107 H (74 to 106) mg/dL Calcium (8.4-10.2) mg/dL Total Bilirubin (0.2-1.3) mg/dL Direct Bilirubin (0.0-0.4) mg/dL AST (14-36) U/L ALT (0-35) U/L Alkaline Phosphatase (38-126) U/L Serum Total Protein (6.3-8.2) g/dL Albumin (3.5-5.0) g/dL ABO Group Rh Factor Antibody Screen (NEGATIVE) Crossmatch COMPATIBLE COMPATIBLE (COMPATIBLE) 10/13/22 10/13/22 10/13/22 Range/Units 20:35 20:35 20:35 WBC (4.0-10.5) x10^3/uL RBC (4.1-5.4) x10^6/uL Hgb (12.0-16.0) g/dL Hct (35-47) % MCV (78-100) fL MCH (26-32) pg MCHC (32-36) g/dL RDW (11.5-14.0) % Plt Count (150-450) x10^3/uL MPV (7.5-11.0) fL Puncture Site pCO2 (35-45) mmHg pO2 (75-100) mmHg Base Excess (-2.0-2.0) O2 Saturation (94-100) g/dF ABG pH (7.35-7.45) ABG HCO3 (22-28) ABG O2 Sat (Measured) (95-100) % Jerry Test A-a Gradient a/A Ratio Hemoglobin Carboxyhemoglobin (0.0-6.9) % THgb Methemoglobin (1.4-1.5) % Potassium (3.5-5.1) Temperature C POC O2 Flow Rate % Vent Mode Vent Rate /MIN Tidal Volume cc PEEP cmH2O Sodium (137-145) mmol/L Chloride (98-107) mmol/L Carbon Dioxide (22-30) mmol/L Anion Gap (5-15) MEQ/L BUN (7-17) mg/dL Creatinine (0.52-1.04) mg/dL Estimated GFR ML/MIN Glucose (74-106) mg/dL POC Glucometer (74 to 106) mg/dL Calcium (8.4-10.2) mg/dL Total Bilirubin (0.2-1.3) mg/dL Direct Bilirubin (0.0-0.4) mg/dL AST (14-36) U/L ALT (0-35) U/L Alkaline Phosphatase (38-126) U/L Serum Total Protein (6.3-8.2) g/dL Albumin (3.5-5.0) g/dL ABO Group O Rh Factor NEGATIVE Antibody Screen NEGATIVE (NEGATIVE) Crossmatch COMPATIBLE COMPATIBLE COMPATIBLE (COMPATIBLE) 10/13/22 10/13/22 10/13/22 Range/Units 20:35 23:11 23:50 WBC (4.0-10.5) x10^3/uL RBC (4.1-5.4) x10^6/uL Hgb 12.6 D (12.0-16.0) g/dL Hct 37.7 (35-47) % MCV (78-100) fL MCH (26-32) pg MCHC (32-36) g/dL RDW (11.5-14.0) % Plt Count (150-450) x10^3/uL MPV (7.5-11.0) fL Puncture Site Art Line pCO2 31 L (35-45) mmHg pO2 185 H* (75-100) mmHg Base Excess -3.9 L (-2.0-2.0) O2 Saturation 97.2 (94-100) g/dF ABG pH 7.41 (7.35-7.45) ABG HCO3 19.6 L (22-28) ABG O2 Sat (Measured) 99.2 (95-100) % Jerry Test N/A A-a Gradient 61 a/A Ratio 0.75 Hemoglobin 14.5 Carboxyhemoglobin 0.9 (0.0-6.9) % THgb Methemoglobin 1.1 L (1.4-1.5) % Potassium 4.3 (3.5-5.1) Temperature 37.0 C POC O2 Flow Rate 40 % Vent Mode VC/AC Vent Rate 12 /MIN Tidal Volume 480 cc PEEP 5 cmH2O Sodium (137-145) mmol/L Chloride (98-107) mmol/L Carbon Dioxide (22-30) mmol/L Anion Gap (5-15) MEQ/L BUN (7-17) mg/dL Creatinine (0.52-1.04) mg/dL Estimated GFR ML/MIN Glucose (74-106) mg/dL POC Glucometer (74 to 106) mg/dL Calcium (8.4-10.2) mg/dL Total Bilirubin (0.2-1.3) mg/dL Direct Bilirubin (0.0-0.4) mg/dL AST (14-36) U/L ALT (0-35) U/L Alkaline Phosphatase (38-126) U/L Serum Total Protein (6.3-8.2) g/dL Albumin (3.5-5.0) g/dL ABO Group Rh Factor Antibody Screen (NEGATIVE) Crossmatch COMPATIBLE (COMPATIBLE) 10/14/22 10/14/22 10/14/22 Range/Units 01:37 03:57 04:04 WBC 14.2 H (4.0-10.5) x10^3/uL RBC 4.73 (4.1-5.4) x10^6/uL Hgb 13.3 (12.0-16.0) g/dL Hct 39.5 (35-47) % MCV 83.5 (78-100) fL MCH 28.1 (26-32) pg MCHC 33.7 (32-36) g/dL RDW 13.5 (11.5-14.0) % Plt Count 120 L (150-450) x10^3/uL MPV 8.7 (7.5-11.0) fL Puncture Site ART LINE pCO2 40 (35-45) mmHg pO2 121 H* (75-100) mmHg Base Excess -5.8 L (-2.0-2.0) O2 Saturation 96.8 (94-100) g/dF ABG pH 7.31 L (7.35-7.45) ABG HCO3 20.1 L (22-28) ABG O2 Sat (Measured) 99.2 (95-100) % Jerry Test N/A A-a Gradient 43 a/A Ratio 0.74 Hemoglobin 13.8 Carboxyhemoglobin 1.6 (0.0-6.9) % THgb Methemoglobin 0.8 L (1.4-1.5) % Potassium 4.5 (3.5-5.1) Temperature 37.0 C POC O2 Flow Rate 30 % Vent Mode VC/AC Vent Rate 12 /MIN Tidal Volume 480 cc PEEP 5 cmH2O Sodium (137-145) mmol/L Chloride (98-107) mmol/L Carbon Dioxide (22-30) mmol/L Anion Gap (5-15) MEQ/L BUN (7-17) mg/dL Creatinine (0.52-1.04) mg/dL Estimated GFR ML/MIN Glucose (74-106) mg/dL POC Glucometer 258 H (74 to 106) mg/dL Calcium (8.4-10.2) mg/dL Total Bilirubin (0.2-1.3) mg/dL Direct Bilirubin (0.0-0.4) mg/dL AST (14-36) U/L ALT (0-35) U/L Alkaline Phosphatase (38-126) U/L Serum Total Protein (6.3-8.2) g/dL Albumin (3.5-5.0) g/dL ABO Group Rh Factor Antibody Screen (NEGATIVE) Crossmatch (COMPATIBLE) 10/14/22 10/14/22 10/14/22 Range/Units 04:04 04:58 07:56 WBC (4.0-10.5) x10^3/uL RBC (4.1-5.4) x10^6/uL Hgb (12.0-16.0) g/dL Hct (35-47) % MCV (78-100) fL MCH (26-32) pg MCHC (32-36) g/dL RDW (11.5-14.0) % Plt Count (150-450) x10^3/uL MPV (7.5-11.0) fL Puncture Site pCO2 (35-45) mmHg pO2 (75-100) mmHg Base Excess (-2.0-2.0) O2 Saturation (94-100) g/dF ABG pH (7.35-7.45) ABG HCO3 (22-28) ABG O2 Sat (Measured) (95-100) % Jerry Test A-a Gradient a/A Ratio Hemoglobin Carboxyhemoglobin (0.0-6.9) % THgb Methemoglobin (1.4-1.5) % Potassium 4.5 (3.5-5.1) Temperature C POC O2 Flow Rate % Vent Mode Vent Rate /MIN Tidal Volume cc PEEP cmH2O Sodium 131 L (137-145) mmol/L Chloride 106 (98-107) mmol/L Carbon Dioxide 19 L (22-30) mmol/L Anion Gap 10.3 (5-15) MEQ/L BUN 20 H (7-17) mg/dL Creatinine 2.08 H (0.52-1.04) mg/dL Estimated GFR 28.8 ML/MIN Glucose 273 H (74-106) mg/dL POC Glucometer 255 H 249 H (74 to 106) mg/dL Calcium 7.3 L (8.4-10.2) mg/dL Total Bilirubin 1.00 (0.2-1.3) mg/dL Direct Bilirubin 0.2 (0.0-0.4) mg/dL AST 87 H (14-36) U/L ALT 64 H (0-35) U/L Alkaline Phosphatase 72 (38-126) U/L Serum Total Protein 4.5 L (6.3-8.2) g/dL Albumin 2.2 L (3.5-5.0) g/dL ABO Group Rh Factor Antibody Screen (NEGATIVE) Crossmatch (COMPATIBLE) 10/14/22 Range/Units 11:50 WBC (4.0-10.5) x10^3/uL RBC (4.1-5.4) x10^6/uL Hgb (12.0-16.0) g/dL Hct (35-47) % MCV (78-100) fL MCH (26-32) pg MCHC (32-36) g/dL RDW (11.5-14.0) % Plt Count (150-450) x10^3/uL MPV (7.5-11.0) fL Puncture Site pCO2 (35-45) mmHg pO2 (75-100) mmHg Base Excess (-2.0-2.0) O2 Saturation (94-100) g/dF ABG pH (7.35-7.45) ABG HCO3 (22-28) ABG O2 Sat (Measured) (95-100) % Jerry Test A-a Gradient a/A Ratio Hemoglobin Carboxyhemoglobin (0.0-6.9) % THgb Methemoglobin (1.4-1.5) % Potassium (3.5-5.1) Temperature C POC O2 Flow Rate % Vent Mode Vent Rate /MIN Tidal Volume cc PEEP cmH2O Sodium (137-145) mmol/L Chloride (98-107) mmol/L Carbon Dioxide (22-30) mmol/L Anion Gap (5-15) MEQ/L BUN (7-17) mg/dL Creatinine (0.52-1.04) mg/dL Estimated GFR ML/MIN Glucose (74-106) mg/dL POC Glucometer 201 H (74 to 106) mg/dL Calcium (8.4-10.2) mg/dL Total Bilirubin (0.2-1.3) mg/dL Direct Bilirubin (0.0-0.4) mg/dL AST (14-36) U/L ALT (0-35) U/L Alkaline Phosphatase (38-126) U/L Serum Total Protein (6.3-8.2) g/dL Albumin (3.5-5.0) g/dL ABO Group Rh Factor Antibody Screen (NEGATIVE) Crossmatch (COMPATIBLE) Radiology Exams: Radiology Procedures Category Date Time Status CHEST 1 VIEW (PORTABLE) DAILY Exams 10/15/22 04:00 Ordered CHEST 1 VIEW (PORTABLE) DAILY Exams 10/16/22 04:00 Ordered CHEST 1 VIEW (PORTABLE) DAILY Exams 10/17/22 04:00 Ordered CHEST 1 VIEW (PORTABLE) DAILY Exams 10/18/22 04:00 Ordered CHEST 1 VIEW (PORTABLE) DAILY Exams 10/19/22 04:00 Ordered CHEST 1 VIEW (PORTABLE) Stat Exams 10/13/22 23:08 Completed Multi-Disciplinary Progress Notes: Multi-Disciplinary Progress Notes 10/14/22 11:31 Case Management Note by Karen Pichardo S/W MOTHER- SHE DOES NOT ANTICIPATE ANY CHANGES IN DC PLANS AT THIS TIME. SHE ANTICIPATES FOR PATIENT RETURN HOME WITH NO NEW NEEDS. SHE WAS INSTRUCTED TO LET NURSING/MICA MACHINE OPERATOR KNOW IF ANYTHING IS NEEDED AT TIME OF DC- SHE VERIFIED UNDERSTANDING Initialized on 10/14/22 11:31 - END OF NOTE 10/14/22 10:56 (created 10/14/22 11:15) Respiratory Note by Yissel Ramirez The patient is weaned off of her Proprofol and Versed and was able to follow all commands and lift head off of bed and keep it off until I told her to relax it. O2 sat 100% HR 107 RR 29. 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 hopefully can go home tomorrow safely (4) CAD (coronary artery disease) Current Visit: Yes Status: Chronic Qualifiers: Coronary Disease-Associated Artery/Lesion type: [place] artery [place] vs. transplanted heart: [place] heart Associated angina: without angina Qualified Code(s): I25.10 - Atherosclerotic heart disease of [place] coronary artery without angina pectoris Code(s): I25.10 - ATHSCL HEART DISEASE OF [place] CORONARY ARTERY W/O ANG PCTRS
[2022-10-14] MEDS ORDERED: Sodium Chloride 0.9% 1000 ML 0 ML ONE (19:43)
[2022-10-14] MEDS ORDERED: Sodium Chloride 0.9% 1000 ML 1,000 ML IV SCH (19:45)
[2022-10-15] MEDS ORDERED: Lactated Ringers 1,000 ML IV ONE (05:21)
[2022-10-15 05:49] LABS: Hematocrit 37.2 % (35-47); Hemoglobin 12.4 g/dL (12.0-16.0); Mean Cell Volume 83.8 fL (78-100); Mean Corpuscular Hemoglobin 27.9 pg (26-32); Mean Corpuscular Hgb Concent. 33.3 g/dL (32-36); Mean Platelet Volume 9.6 fL (7.5-11.0); Platelet Count 104 x10^3/uL (150-450); Red Blood Count 4.44 x10^6/uL (4.1-5.4); Red Cell Distribution Width 13.8 % (11.5-14.0); White Blood Count 11.1 x10^3/uL (4.0-10.5)
[2022-10-15 06:18] LABS: ALBUMIN 2.3 g/dL (3.5-5.0); ANION GAP 7.5 MEQ/L (5-15); BILIRUBIN,TOTAL 0.5 mg/dL (0.2-1.3); Calcium 7.6 mg/dL (8.4-10.2); Creatinine 1 2.35 mg/dL (0.52-1.04); Potassium 4.1 mmol/L (3.5-5.1); Total Protein 4.8 g/dL (6.3-8.2)
[2022-10-15 07:09] VITALS: BP 149/94; PULSE 84; O2SAT 92
--- NOTE | 2022-10-15 07:16 | PCM.DS ---
Discharge Summary Date of Admission: 10/12/22 17:08 Admitting Physician: JOSAFAT SOLIMAN MD Consults: Consults on Case 10/11/22 22:39 Consult Surgery ROUTINE 10/13/22 06:57 Consult Nephrology ROUTINE Primary Care Provider: GOMEZ CURIEL Allergies Allergies morphine Allergy (Intermediate, Verified 10/11/22 20:53) Itching Hospital Summary - Hospital Course Hospital Course: patient doing well after cholecystectomy, had some bleeding during surgery but now h/h is stable, passing flatus and tolerating po intake. she is doing well postoperatively, transitioning to po pain meds today and if ok with surgery can go home later today - Vitals & Intake/Output Vital Signs: Vital Signs Temperature 98.7 F 10/15/22 07:08 Pulse Rate 84 10/15/22 07:08 Respiratory Rate 16 10/15/22 07:08 Blood Pressure 149/94 10/15/22 07:08 O2 Sat by Pulse Oximetry 92 L 10/15/22 07:08 Intake & Output: Intake & Output 10/12/22 10/13/22 10/14/22 10/15/22 11:59 11:59 11:59 11:59 Intake Total 279 823 8193 2408 Output Total 371 412 0025 250 Balance 699 16 848 2158 Weight 66.1 kg 70.2 kg 70.2 kg - Lab Result Diagrams: 10/15/22 05:38 10/15/22 05:38 Lab Results-Last 24 Hrs: Lab Results-Last 24 Hours 10/14/22 10/14/22 10/14/22 Range/Units 07:56 11:50 16:48 WBC (4.0-10.5) x10^3/uL RBC (4.1-5.4) x10^6/uL Hgb (12.0-16.0) g/dL Hct (35-47) % MCV (78-100) fL MCH (26-32) pg MCHC (32-36) g/dL RDW (11.5-14.0) % Plt Count (150-450) x10^3/uL MPV (7.5-11.0) fL Sodium (137-145) mmol/L Potassium (3.5-5.1) mmol/L Chloride (98-107) mmol/L Carbon Dioxide (22-30) mmol/L Anion Gap (5-15) MEQ/L BUN (7-17) mg/dL Creatinine (0.52-1.04) mg/dL Estimated GFR ML/MIN Glucose (74-106) mg/dL POC Glucometer 249 H 201 H 116 H (74 to 106) mg/dL Calcium (8.4-10.2) mg/dL Total Bilirubin (0.2-1.3) mg/dL Direct Bilirubin (0.0-0.4) mg/dL AST (14-36) U/L ALT (0-35) U/L Alkaline Phosphatase (38-126) U/L Serum Total Protein (6.3-8.2) g/dL Albumin (3.5-5.0) g/dL 10/14/22 10/15/22 10/15/22 Range/Units 22:35 05:38 05:38 WBC 11.1 H (4.0-10.5) x10^3/uL RBC 4.44 (4.1-5.4) x10^6/uL Hgb 12.4 (12.0-16.0) g/dL Hct 37.2 (35-47) % MCV 83.8 (78-100) fL MCH 27.9 (26-32) pg MCHC 33.3 (32-36) g/dL RDW 13.8 (11.5-14.0) % Plt Count 104 L (150-450) x10^3/uL MPV 9.6 (7.5-11.0) fL Sodium 135 L (137-145) mmol/L Potassium 4.1 (3.5-5.1) mmol/L Chloride 107 (98-107) mmol/L Carbon Dioxide 24 (22-30) mmol/L Anion Gap 7.5 (5-15) MEQ/L BUN 21 H (7-17) mg/dL Creatinine 2.35 H (0.52-1.04) mg/dL Estimated GFR 25.0 ML/MIN Glucose 93 (74-106) mg/dL POC Glucometer 197 H (74 to 106) mg/dL Calcium 7.6 L (8.4-10.2) mg/dL Total Bilirubin 0.50 (0.2-1.3) mg/dL Direct Bilirubin 0 (0.0-0.4) mg/dL AST 43 H (14-36) U/L ALT 51 H (0-35) U/L Alkaline Phosphatase 73 (38-126) U/L Serum Total Protein 4.8 L (6.3-8.2) g/dL Albumin 2.3 L (3.5-5.0) g/dL Micro Results-Entire Visit: Microbiology 10/11/22 17:27 Urine Culture - Final Urine, Void <10K NORMAL SKIN EVANGELIST PROBABLE SKIN CONTAMINANT Accuchecks Date 10/14/22 Date 10/14/22 Date 10/14/22 Time 16:45 Time 11:45 Time 07:58 - Radiology Exams Ordered Rad Exams-Entire Visit: Radiology Procedures Category Date Time Status CHEST 1 VIEW (PORTABLE) DAILY Exams 10/16/22 04:00 Stop Req CHEST 1 VIEW (PORTABLE) DAILY Exams 10/17/22 04:00 Stop Req CHEST 1 VIEW (PORTABLE) DAILY Exams 10/18/22 04:00 Stop Req CHEST 1 VIEW (PORTABLE) DAILY Exams 10/19/22 04:00 Stop Req CHEST 1 VIEW (PORTABLE) Stat Exams 10/13/22 23:08 Completed - Procedures and Test Procedures and Tests throughout Hospitalization: Therapy Orders & Screens 10/12/22 08:00 PT Screen per Nursing Assess ONCE Comment: Protocol Order Physician Instructions: Greater than 3 points order PT Admission Screenin Reason For Exam: Triggered on Admission Diagnosis: Abd pain, leukocytosis Open Wound/Cellutlitis/Pressure Ulcers: No Acute Fx/ORIF/Change in wt bearing status: No Severe MUSCULOSKELETAL pain: No ADL Dysfunction: Yes: does not cook for herself Acute CVA w/Hemiparesis/Hemiplegia: No Decreased Functional Mobility/Strength: Yes Sprain/Strain: No Acute Post-op Mobility Dysfunction: No Total Points: 4 10/12/22 09:00 OT Screen per Nursing Assess ONCE Comment: Protocol Order Physician Instructions: Greater than 3 points order OT Admission Screening Reason For Exam: Triggered on Admission Diagnosis: Abd pain, leukocytosis Open Wound/Cellutlitis/Pressure Ulcers: No Acute Fx/ORIF/Change in wt bearing status: No Severe MUSCULOSKELETAL pain: No ADL Dysfunction: Yes: does not cook for herself Acute CVA w/Hemiparesis/Hemiplegia: No Decreased Functional Mobility/Strength: Yes Sprain/Strain: No Acute Post-op Mobility Dysfunction: No Total Points: 4 10/13/22 23:24 Ventilator Management Q4H Comment: Diagnosis: Abd pain, leukocytosis Vent Settings: Vt 480, RR 12, PEEP 5, FiO2 40% 10/13/22 23:33 Oxygen Venti-Mask 40% Comment: Diagnosis: Abd pain, leukocytosis Respiratory Therapy Assessment DAILY Comment: Diagnosis: Abd pain, leukocytosis 10/14/22 10:00 Incentive Spirometry TID Comment: Diagnosis: Abd pain, leukocytosis Discharge Exam General Appearance: no apparent distress, obese Neurologic Exam: alert, oriented x 3 Respiratory Exam: normal breath sounds, lungs clear, No respiratory distress Cardiovascular Exam: regular rate/rhythm, normal heart sounds Gastrointestinal/Abdomen Exam: soft, normal bowel sounds, No guarding, No rebound Wound Assessment: Skin/Wound Assessment Wound/Incision Assessment Start: 10/13/22 20:00 Text: Status: Active Freq: Q6H Protocol: Document 10/15/22 04:35 MS (Rec: 10/15/22 04:58 MS [id number]) Wound/Incision Assessment Abdomen Wound Assessment Shift Assessment Wound Type Incision Wound Stage Non Pressure Wound Dressing Status Dry & Intact,Drainage circled Drainage Amount Minimal Comment 3 SMALL INCISION SITES. 2 DRESSINGS ARE CLEAN, DRY AND INTACT. UMBILICAL INCISION SHADOWING NOTED, NO CHANGES TO DRAINAGE Final Diagnosis/Problem List - Final Discharge Diagnosis/Problem (1) post cholecystectomy Current Visit: Yes Status: Acute Assessment & Plan: passing flatus, tolerating po and h/h stable. doing well (2) Anxiety Current Visit: Yes Status: Acute Code(s): F41.9 - ANXIETY DISORDER, UNS PECIFIED (3) SHANNON (acute kidney injury) Current Visit: Yes Status: Acute Assessment & Plan: will need outpatient f/u with nephrology, appears to have chronic renal disease Code(s): N17.9 - ACUTE KIDNEY FAILURE, UNSPECIFIED (4) CAD (coronary artery disease) Current Visit: Yes Status: Chronic Code(s): I25.10 - ATHSCL HEART DISEASE OF [place] CORONARY ARTERY W/O ANG PCTRS - Discharge Disposition: Home, Self-Care Condition: Stable Prescriptions: New Hydrocodone/Acetaminophen [Hydrocodone-Acetamin 7.5-325] 1 each PO Q4-6HPRN PRN #30 tablet MDD 6 PRN Reason: Pain Continue Carvedilol 12.5 mg [Coreg 12.5 mg] 25 mg PO BID Fexofenadine HCl 180 mg PO DAILY Insulin Lispro [Humalog] 1 unit SQ UD Clopidogrel Bisulfate [PLAVIX Tablet] 75 mg PO DAILY Venlafaxine HCl [Effexor Xr] 150 mg PO HS Sacubitril/Valsartan [Entresto 24 mg-26 mg Tablet] 2 tab PO DAILY PANTOPRAZOLE 40 mg Tablet [Protonix 40MG Tablet] 40 mg PO QAM Cyclobenzaprine HCl 10 mg [Cyclobenzaprine 10 MG] 10 mg PO TID PRN PRN Reason: Muscle Spasms Insulin Glargine,Hum.rec.anlog [Basaglar Tempo Pen U-100] 34 unit SQ HS Trazodone HCl 150 mg PO HS Ramelteon [Rozerem] 8 mg PO HS Clonazepam [Klonopin] 0.5 mg PO TID Follow up with: MAGDALENA RODRIGUEZ [CONSULTING PHYSICIAN] - GOMEZ CURIEL [Primary Care Provider] -
[2022-10-15] MEDS: PLAVIX Tablet PO SCH (09:55)
[2022-10-15] MEDS: clonazePAM PO SCH (10:16)
[2022-10-15] MEDS: Effexor XR 75 MG PO SCH (10:16)
[2022-10-15] MEDS: CLARITIN 10 MG PO SCH (10:17)
[2022-10-15] MEDS: COREG 12.5 MG PO SCH (10:17)
--- NOTE | 2022-10-17 08:36 | PROG NOTE ---
HISTORY: Postoperative day #1. The patient basically extubated herself, removed her arterial lines, removed her Oh, removed her NG through the night. She has settled. She is mad at her boyfriend right now but is doing well. She is sitting at the end of the bed [place] style with legs crossed. Fairly alert and oriented and having a reasonable discussion. She said she feels pretty well. Her breathing is satisfactory. She is not having any unusual pain. Hemoglobin is 12. IMPRESSION: The patient looks totally stable post major gallbladder procedure. She had bleeding intraoperatively that required packing control and treating with blood transfusion. Her hemoglobin is actually up to 13 now. She is doing well.
== END 2022-10-15 11:28 | disposition home or self-care (01) | DRG 418 ==
LOC: ED 17:03 → MED SURG 19:53 → ED 10-12 17:03 → OBSVTOIN 10-12 17:08 → MED SURG 10-12 19:53 → ICU 10-13 22:37
PROVIDERS: ADMIT Internal Medicine Critical Care Medicine; ATTEND Family Medicine
PROC: 0FT44ZZ Resection of Gallbladder, Percutaneous Endoscopic Approach (ICD-10-PCS; principal; 2022-10-12)
DX: K80.00 Calculus of gallbladder with acute cholecystitis without obstruction (principal); K91.61 Intraoperative hemorrhage and hematoma of a digestive system organ or structure complicating a digestive system procedure; N17.9 Acute kidney failure, unspecified; E10.65 Type 1 diabetes mellitus with hyperglycemia; I25.10 Atherosclerotic heart disease of native coronary artery without angina pectoris; I11.0 Hypertensive heart disease with heart failure; I50.9 Heart failure, unspecified; R10.84 Generalized abdominal pain; D64.9 Anemia, unspecified; F41.9 Anxiety disorder, unspecified; F32.9 Major depressive disorder, single episode, unspecified; Z72.0 Tobacco use; Z79.899 Other long term (current) drug therapy; Z20.828 Contact with and (suspected) exposure to other viral communicable diseases
CPT/HCPCS: 0241U; 36000; 36415; 36430; 36600; 47562; 71045; 71046; 74176; 80048; 80053; 81001; 81025; 82248; 82375; 82570; 82803; 82947; 83036; 83690; 84145; 84300; 84484; 85014; 85018; 85025; 85027; 86850; 86900; 86901; 86922; 87086; 94002; 94003; 94762; 96360; 96374; 96375; 96376; 99285; G0378; J0610; J0694; J1100; J1170; J1817; J1885; J2250; J2270; J2370; J2405; J2704; J3010; J3475; P9016; P9047; A9270-GY

== ENCOUNTER 2022-10-26 22:06 | Emergency (ER) | payer OTHER ==
--- NOTE | 2022-10-26 22:36 | ERPHSYRPT ---
- History of Present Illness Time Seen by Provider: 10/26/22 22:20 Historian: patient Exam Limitations: no limitations Patient Subjective Stated Complaint: pt states she has beenhaving abd pain since surgery, has been getting worse every day. did not have a bm since surgery until yesterday. yesterday had diarrhea 3 times. has been passing gas today. Triage Nursing Assessment: pt alert and oriented, answers questions approp. pt arrive per ambulance and transfers to stretcher per self. abd soft, pt reports tenderness on rt side. bowel sounds hypo and distant. skin warm and dry. Physician History: This is a 36-year-old white female patient who underwent a laparoscopic cholecystectomy within the last approximately 2 weeks and had a slightly prolonged hospital course secondary to a liver injury that was able to be dealt with at the time of surgery. Postoperatively she states that she has had pain throughout the postoperative period but the pain was worse today. Patient ran out of her prescription pain medicine 3 days ago. Patient has a history of hypertension, diabetes, gastroesophageal reflux disease, CHF, coronary artery disease (cardiac catheterization and CABG) she also has a history of hyperlipidemia and pancreatitis. She is a daily smoker of cigarettes. Patient specifically states she does not have any shortness of breath and she does not have chest pain at this time. She has not had any vomiting or diarrhea symptoms. Pain is most sharp in the right upper quadrant and pain is improved when she lays on her left side. Patient is moving around well without any evidence of pain while on the hospital bed. Patient cannot take morphine but states that she can take Dilaudid without any issues and that was what they had her on during her recent hospitalization. Timing/Duration: worse Abdominal Pain Onset Location: RUQ Pain Radiation: no radiation Severity of Pain-Max: moderate Severity of Pain-Current: moderate Modifying Factors: Improves With: nothing Associated Symptoms: denies symptoms Previous symptoms: same symptoms as today, recently seen, recent hospitalization, recently treated Allergies/Adverse Reactions: morphine Allergy (Intermediate, Verified 10/11/22 20:53) Itching Home Medications: Carvedilol 12.5 mg [Coreg 12.5 mg] 25 mg PO BID 10/21/18 [History] Fexofenadine HCl 180 mg PO DAILY 10/21/18 [History] Insulin Lispro [Humalog] 1 unit SQ UD 10/21/18 [History] Clonazepam [Klonopin] 0.5 mg PO TID 10/11/22 [History] Cyclobenzaprine HCl 10 mg [Cyclobenzaprine 10 MG] 10 mg PO TID PRN 10/11/22 [History] Insulin Glargine,Hum.rec.anlog [Basaglar Tempo Pen U-100] 34 unit SQ HS 10/11/22 [History] PANTOPRAZOLE 40 mg Tablet [Protonix 40MG Tablet] 40 mg PO QAM 10/11/22 [History] Ramelteon [Rozerem] 8 mg PO HS 10/11/22 [History] Sacubitril/Valsartan [Entresto 24 mg-26 mg Tablet] 2 tab PO DAILY 10/11/22 [History] Trazodone HCl 150 mg PO HS 10/11/22 [History] Venlafaxine HCl [Effexor Xr] 150 mg PO HS 10/11/22 [History] Hx Tetanus, Diphtheria Vaccination/Date Given: Yes Hx Influenza Vaccination/Date Given: Yes Hx Pneumococcal Vaccination/Date Given: No Immunizations Up to Date: Yes Travel Risk - International Travel Have you traveled outside of the country in past 3 weeks: No - Coronavirus Screening Are you exhibiting any of the following symptoms?: No Close contact with a COVID-19 positive Pt in past 14-21 Days: No - Vaccine Status Have you recieved a Covid-19 vaccination: No - Review of Systems Constitutional: No Symptoms Eyes: No Symptoms Ears, Nose, & Throat: No Symptoms Respiratory: No Symptoms Cardiac: No Symptoms Abdominal/Gastrointestinal: Abdominal Pain, No Nausea, No Vomiting, No Diarrhea Genitourinary Symptoms: No Symptoms Musculoskeletal: No Symptoms Skin: No Symptoms Neurological: No Symptoms Psychological: No Symptoms Endocrine: No Symptoms Hematologic/Lymphatic: No Symptoms Immunological/Allergic: No Symptoms All Other Systems: Reviewed and Negative - Past Medical History Pertinent Past Medical History: Yes Neurological History: No Pertinent History ENT History: Other Cardiac History: Congestive Heart Failure, Coronary Artery Disease, High Cholesterol, Hypertension Respiratory History: CHF, Pulmonary Embolism Endocrine Medical History: Diabetes Type I Musculoskeletal History: No Pertinent History GI Medical History: Pancreatitis History: No Pertinent History Psycho-Social History: Anxiety, Depression Female Reproductive Disorders: No Pertinent History Other Medical History: Pituitary tumor removed - Past Surgical History Past Surgical History: Yes Neuro Surgical History: No Pertinent History Cardiac: CABG, Cardiac Catheterization Respiratory: No Pertinent History Gastrointestinal: No Pertinent History, Cholecystectomy Genitourinary: No Pertinent History Musculoskeletal: Orthopedic Surgery Female Surgical History: Hysterectomy, Dilation & Curettage, Section Other Surgical History: cholecystectomy with liver laceration repair 10/13/22. knee surgery, pituitary tumor removed - Social History Smoking Status: Current every day smoker How long have you smoked: 15 yrs Exposure to second hand smoke: No (uses pipe) Alcohol Use: None Drug Use: marijuana Patient Lives Alone: No Significant Family History: no pertinent family hx - Female History Hx Last Menstrual Period: hyster Hx Now: No - Nursing Vital Signs Nursing Vital Signs: Initial Vital Signs Temperature 97.8 F 10/26/22 22:08 Pulse Rate 98 H 10/26/22 22:08 Respiratory Rate 18 10/26/22 22:08 Blood Pressure 181/124 10/26/22 22:08 O2 Sat by Pulse Oximetry 100 10/26/22 22:08 Pain Scale Pain Intensity 8 - Physical Exam General Appearance: no apparent distress, alert, thin Eye Exam: PERRL/EOMI, eyes nml inspection Ears, Nose, Throat Exam: normal ENT inspection, moist mucous membranes Neck Exam: normal inspection, non-tender, supple, full range of motion Respiratory Exam: normal breath sounds, lungs clear, airway intact, No chest tenderness, No respiratory distress Cardiovascular Exam: regular rate/rhythm, normal heart sounds, normal peripheral pulses Gastrointestinal/Abdomen Exam: soft, normal bowel sounds, tenderness (Mild tenderness in the areas of the incision sites.), other (Laparoscopic incision sites all appear to be intact with either lorna or sutures. They are not bleeding. There is no evidence of cellulitis or infection. There is no drainage from any of the port sites.), No distention, No guarding Pelvic Exam: not done Rectal Exam: not done Back Exam: normal inspection, normal range of motion, No CVA tenderness Extremity Exam: normal inspection, normal range of motion, pelvis stable Neurologic Exam: alert, oriented x 3, cooperative, picture enlarger II-XII nml as tested, normal mood/affect, nml cerebellar function, nml station & gait, sensation nml Skin Exam: normal color, warm, dry Lymphatic Exam: No adenopathy SpO2 Interpretation: normal SpO2: 100 O2 Delivery: Room Air - Course Nursing assessment & vital signs reviewed: Yes Ordered Tests: Active Orders 24 hr Category Date Time Status IV Insertion STAT Care 10/26/22 22:37 Active ABDOMEN AND PELVIS W/0 CONTRAS [CT] Stat Exams 10/26/22 22:37 Taken AMYLASE Stat Lab 10/26/22 22:33 Completed CBC W DIFF Stat Lab 10/26/22 22:33 Completed CMP Stat Lab 10/26/22 22:33 Completed CULTURE,URINE Stat Lab 10/26/22 23:14 Received LIPASE Stat Lab 10/26/22 22:33 Completed UA W/RFX UR CULTURE Stat Lab 10/26/22 23:14 Completed Medication Summary Generic Name Dose Route Start Last Admin Trade Name Freq PRN Reason Stop Dose Admin Sodium Chloride 1,000 mls @ 100 mls/hr 10/26/22 22:45 10/26/22 22:49 Sodium Chloride 0.9% 1000 Ml IV 11/25/22 22:44 100 mls/hr .Q10H ALO Administration Discontinued Medications Generic Name Dose Route Start Last Admin Trade Name Freq PRN Reason Stop Dose Admin Hydromorphone HCl 1 mg 10/26/22 22:37 10/26/22 22:49 Hydromorphone 1 Mg/1ml Inj 1 Mg/Ml Syringe IV 10/26/22 22:38 1 mg STAT ONE Administration Hydromorphone HCl Confirm 10/26/22 22:48 Hydromorphone 1 Mg/1ml Inj 1 Mg/Ml Syringe Administered 10/26/22 22:49 Dose 1 mg .ROUTE .STK-MED ONE Hydromorphone HCl 1 mg 10/26/22 23:51 10/27/22 00:28 Hydromorphone 1 Mg/1ml Inj 1 Mg/Ml Syringe IV 10/26/22 23:52 1 mg STAT ONE Administration Hydromorphone HCl Confirm 10/27/22 00:26 Hydromorphone 1 Mg/1ml Inj 1 Mg/Ml Syringe Administered 10/27/22 00:27 Dose 1 mg .ROUTE .STK-MED ONE Ondansetron HCl 4 mg 10/26/22 22:37 10/26/22 22:49 Ondansetron Hcl 4 Mg/2 Ml Vial IV 10/26/22 22:38 4 mg STAT ONE Administration Ondansetron HCl Confirm 10/26/22 22:48 Ondansetron Hcl 4 Mg/2 Ml Vial Administered 10/26/22 22:49 Dose 4 mg .ROUTE .STK-MED ONE Lab/Rad Data: Laboratory Result Diagrams 10/26/22 22:33 10/26/22 22:33 Laboratory Results 10/26/22 10/26/22 10/26/22 Range/Units 23:14 22:33 22:33 WBC 8.6 (4.0-10.5) x10^3/uL RBC 4.43 (4.1-5.4) x10^6/uL Hgb 12.5 (12.0-16.0) g/dL Hct 36.3 (35-47) % MCV 81.9 (78-100) fL MCH 28.2 (26-32) pg MCHC 34.4 (32-36) g/dL RDW 13.3 (11.5-14.0) % Plt Count 178 (150-450) x10^3/uL MPV 9.5 (7.5-11.0) fL Gran % 60.1 (36.0-66.0) % Immature Gran % (Auto) 0.2 (0.00-0.4) % Nucleat RBC Rel Count 0.0 (0.00-0.1) % Eos # (Auto) 0.36 (0-0.5) x10^3/uL Immature Gran # (Auto) 0.02 (0.00-0.03) x10^3u/L Absolute Lymphs (auto) 2.52 (1.0-4.6) x10^3/uL Absolute Monos (auto) 0.44 (0.0-1.3) x10^3/uL Absolute Nucleated RBC 0.00 (0.00-0.01) x10^3u/L Lymphocytes % 29.5 (24.0-44.0) % Monocytes % 5.1 (0.0-12.0) % Eosinophils % 4.2 (0.00-5.0) % Basophils % 0.9 (0.0-0.4) % Absolute Granulocytes 5.13 (1.4-6.9) x10^3/uL Basophils # 0.08 (0-0.4) x10^3/uL Sodium 136 L (137-145) mmol/L Potassium 3.4 L (3.5-5.1) mmol/L Chloride 101 (98-107) mmol/L Carbon Dioxide 34 H (22-30) mmol/L Anion Gap 4.1 L (5-15) MEQ/L BUN 20 H (7-17) mg/dL Creatinine 2.13 H (0.52-1.04) mg/dL Estimated GFR 28.0 ML/MIN Glucose 120 H (74-106) mg/dL Calcium 7.6 L (8.4-10.2) mg/dL Total Bilirubin 0.40 (0.2-1.3) mg/dL AST 23 (14-36) U/L ALT 17 (0-35) U/L Alkaline Phosphatase 95 (38-126) U/L Serum Total Protein 5.7 L (6.3-8.2) g/dL Albumin 2.7 L (3.5-5.0) g/dL Amylase 50 (30-110) U/L Lipase 63 (23-300) U/L Urine Color Yellow (Yellow) Urine Appearance Cloudy A (Clear) Urine pH 5.5 (4.6-8.0) Ur Specific [place] 1.025 (1.005-1.030) Urine Protein >=1000 A (Negative) Urine Glucose (UA) 250 A (Negative) mg/dL Urine Ketones Negative (Negative) Urine Blood Small A (Negative) Urine Nitrite Negative (Negative) Urine Bilirubin Negative (Negative) Urine Urobilinogen 0.2 (0.2) mg/dL Ur Leukocyte Esterase Negative (Negative) U Hyaline Cast (Auto) 26-50 A (0-2) /LPF Urine Microscopic RBC 0-2 (0-5) /HPF Urine Microscopic WBC 11-20 A (0-5) /HPF Ur Epithelial Cells Moderate A (None Seen) /HPF Urine Bacteria Rare A (None Seen) /HPF Urine Culture Reflexed YES (NO) - Progress Progress: improved, pain not gone completely, re-examined Progress Note: 10/27/22 01:00 The CAT scan of the abdomen pelvis does show evidence of enteritis which the patient actually is aware of and on Flagyl at this time. Patient's white count is normal and there is no left shift. Patient is afebrile. There is some fluid in the pelvis and patient did have a significant surgical procedure with postoperative, intraoperative bleed which required longer than typical intervention to correct. Urinalysis does not have positive nitrite and leukocyte Estrace. There is significant epithelial cells present and very rare bacteria in her urine. She does have white cells present but it is not a clean specimen. I will not treat her urine findings at this point. We will wait until the culture returns. The patient's medical issue is 1 of moderate complexity. The complexity and work-up was based on the patient's past medical/past surgical history, review of the patient's medication list, review of the patient's drug allergy list, history present illness and physical final examination. The work-up includes pl acement of intravenous line, infusion of intravenous fluids, infusions of intravenous Dilaudid, intravenous Zofran was provided, we obtain a urinalysis, CBC, CMP, amylase and lipase levels. We also obtained a CAT scan of the abdomen pelvis. The results of the above studies were reviewed by me. I discussed these findings with the patient on a couple of occasions. She is aware that today's CAT scan shows thickened wall of the stomach. She said that she is aware of this finding and had an upper endoscopy performed recently and there were no significant findings per her report. Patient's abdomen is benign clinically. There are no emergent findings on the lab work results or on the CAT scan of the abdomen pelvis. She has had intermittent loose stools and she is to continue taking her Flagyl. She is to make sure that she is taking plenty of clear liquids orally. She is to contact her primary care provider and her surgeon later today to make arranges for follow-up appointment in the next 5 to 7 days. She did state that she has an appointment to see her primary care physician on 10/31/2022 and her surgeon on 11/03/2022. She was encouraged to call them today to let them know that she was here in the emergency department. The outpatient physicians will be controlling her outpatient pain regiment Counseled pt/family regarding: lab results, diagnosis, need for follow-up, rad results Medical Desision Making - Discussion of managment Reviewed:: Test results Agreed on:: Treatment plan - Diagnostic Testing Diagnostic test were ordered, analyzed, and reviewed by me: Yes Radiological Interpretation: Reviewed by me - Departure Departure Disposition: Home Clinical Impression: Postoperative abdominal pain, Enterocolitis, Gastric wall thickening Condition: Stable Critical Care Time: No Additional Instructions: Plenty of clear liquids before advancing your diet. Call your primary care physician and your surgeon today to make them aware that you were here in the emergency room and discussed pain management with them. Continue your Flagyl as prescribed. Discussed with both of them the findings of thickened gastric wall to see if anything further needs to be done with regard to this finding
[2022-10-26] MEDS ORDERED: Hydromorphone 1 mg/ml Injection IV ONE ×2 (22:37→23:51)
[2022-10-26] MEDS ORDERED: Zofran 4 MG/2 ML VIAL IV ONE (22:37)
[2022-10-26] MEDS ORDERED: Sodium Chloride 0.9% 1000 ML 1,000 ML IV SCH (22:45)
[2022-10-26] MEDS ORDERED: Hydromorphone 1 mg/ml Injection ONE (22:48)
[2022-10-26] MEDS ORDERED: Zofran 4 MG/2 ML VIAL ONE (22:48)
[2022-10-26 22:53] LABS: Absolute Neutrophil Ct (ANC) 5.13 x10^3/uL (1.4-6.9); BASOPHIL % 0.9 % (0.0-0.4); Basophil (Absolute #) 0.08 x10^3/uL (0-0.4); Eosinophil % 4.2 % (0.00-5.0); Eosinophil (Absolute #) 0.36 x10^3/uL (0-0.5); Hematocrit 36.3 % (35-47); Hemoglobin 12.5 g/dL (12.0-16.0); IMMATURE GRAN # 0.02 x10^3u/L (0.00-0.03); IMMATURE GRAN % 0.2 % (0.00-0.4); Lymphocyte (Absolute #) 2.52 x10^3/uL (1.0-4.6); Lymphocytes % 29.5 % (24.0-44.0); Mean Cell Volume 81.9 fL (78-100); Mean Corpuscular Hemoglobin 28.2 pg (26-32); Mean Corpuscular Hgb Concent. 34.4 g/dL (32-36); Mean Platelet Volume 9.5 fL (7.5-11.0); Monocyte (Absolute #) 0.44 x10^3/uL (0.0-1.3); Monocytes % 5.1 % (0.0-12.0); Neutrophil % 60.1 % (36.0-66.0); Platelet Count 178 x10^3/uL (150-450); Red Blood Count 4.43 x10^6/uL (4.1-5.4); Red Cell Distribution Width 13.3 % (11.5-14.0); White Blood Count 8.6 x10^3/uL (4.0-10.5)
[2022-10-26 23:43] LABS: ALBUMIN 2.7 g/dL (3.5-5.0); ANION GAP 4.1 MEQ/L (5-15); BILIRUBIN,TOTAL 0.4 mg/dL (0.2-1.3); Calcium 7.6 mg/dL (8.4-10.2); Creatinine 1 2.13 mg/dL (0.52-1.04); Potassium 3.4 mmol/L (3.5-5.1); Total Protein 5.7 g/dL (6.3-8.2)
[2022-10-26 23:50] LABS: Appearance Cloudy (Clear); Bacteria Rare /HPF (None Seen); Bilirubin Negative (Negative); Blood Small (Negative); Epithelial Cells Moderate /HPF (None Seen); Glucose, Urine 250 mg/dL (Negative); Ketones Negative (Negative); Leukocyte Esterase Negative (Negative); Nitrite Negative (Negative); Ph 5.5 (4.6-8.0); Protein,Urine Dip >=1000 (Negative); RBC 0-2 /HPF (0-5); Specific Gravity 1.025 (1.005-1.030); Urobilinogen 0.2 mg/dL (0.2)
[2022-10-27 00:01] LABS: Hyaline Casts 26-50 /LPF (0-2)
[2022-10-27 00:12] LABS: ADD URINE CULTURE? YES (NO)
[2022-10-27] MEDS ORDERED: Hydromorphone 1 mg/ml Injection ONE (00:26)
[2022-10-27 01:06] VITALS: BP 164/104; PULSE 92
[2022-10-27 01:07] VITALS: O2SAT 100
--- NOTE | 2022-10-27 08:42 | XRAY ---
Indication: Right abdomen pain, nausea, vomiting, diarrhea. Status post cholecystectomy October 13, 2022. Multiple contiguous axial images obtained through the abdomen and pelvis without contrast. Comparison: October 11, 2022 Lung bases remain clear again with incidental right lower lobe calcified granuloma. Heart not enlarged. Interval cholecystectomy with tiny fluid in the gallbladder fossa and additional small fluid in pelvis. Free fluid either postoperative seroma, hematoma, biloma, or infected fluid collection. Lack of IV contrast precludes further characterization. No obvious walled off fluid collection or free air. Abdominal wall laparoscopic postsurgical changes. Noncontrasted stomach and bowel loops nonobstructed with normal appendix. Again near empty stomach demonstrates diffuse circumferential wall thickening either incomplete distention versus malignancy such as lymphoma. Duodenal and jejunal bowel loops now demonstrates mild circumferential wall thickening with fluid leveling, ileus versus enteritis. Stable tiny left renal cyst, splenic calcified granulomas, and hysterectomy. Remaining liver, pancreas, spleen, adrenal glands, kidneys, ureters, and bladder are unremarkable for noncontrast exam. Again minimal aortoiliac calcifications without AAA. Impression: 1. Status post laparoscopic cholecystomy. Small free fluid either postoperative seroma, hematoma, biloma, versus infected fluid collection. 2. Again diffuse gastric wall thickening either incomplete distention versus malignancy. 3. New small bowel wall thickening with fluid leveling, ileus versus enteritis. 4. Again chronic findings including tiny left renal cysts, old granulomatous disease, and arteriosclerotic disease. Comment: Preliminary interpretation made by [facility]. No critical discrepancy.
== END 2022-10-27 01:17 | disposition home or self-care (01) ==
LOC: ED 22:06
DX: G89.18 Other acute postprocedural pain (principal); R10.11 Right upper quadrant pain; K52.9 Noninfective gastroenteritis and colitis, unspecified; R93.5 Abnormal findings on diagnostic imaging of other abdominal regions, including retroperitoneum; E10.9 Type 1 diabetes mellitus without complications; I11.0 Hypertensive heart disease with heart failure; E78.5 Hyperlipidemia, unspecified; I50.9 Heart failure, unspecified; Z79.4 Long term (current) use of insulin; Z79.899 Other long term (current) drug therapy; Z28.310 Unvaccinated for COVID-19; Z72.0 Tobacco use
CPT/HCPCS: 36000; 36415; 74176; 80053; 81001; 82150; 83690; 85025; 87086; 96374; 96375; 96376; 99284; J1170; J2405

== ENCOUNTER 2022-11-12 01:33 | Inpatient (IN) | payer OTHER ==
--- NOTE | 2022-11-12 01:40 | ERPHSYRPT ---
- History of Present Illness Historian: patient Exam Limitations: no limitations Timing/Duration: yesterday Activities at Onset: none Quality: sharpness, stabbing Abdominal Pain Onset Location: LUQ, LLQ, flank Pain Radiation: no radiation Severity of Pain-Max: severe Severity of Pain-Current: severe Modifying Factors: Worsens With: movement, palpation, vomiting Associated Symptoms: back, diaphoresis, nausea, vomiting, No chest pain, No diarrhea, No fever/chills, No shortness of breath Previous symptoms: same symptoms as today Hx Tetanus, Diphtheria Vaccination/Date Given: Yes Hx Influenza Vaccination/Date Given: Yes Hx Pneumococcal Vaccination/Date Given: No <ESTEPHANIA COX - Last Filed: 11/12/22 06:59> <CHRISTY ARNDT - Last Filed: 11/12/22 09:18> - History of Present Illness Time Seen by Provider: 11/12/22 01:40 Physician History: Patient presents w/ left sided abd/flank pain x 2 days. She reports nausea w/ 6 episodes of vomiting today. Last BM was today. Denies hematuria, dysuria. No fev ers reported. Pain described as sharp, stabbing, 8/10 in severity after analgesia. No hx of kidney stones. (ESTEPHANIA COX) Allergies/Adverse Reactions: morphine Allergy (Intermediate, Verified 11/12/22 01:35) Itching Home Medications: Carvedilol 12.5 mg [Coreg 12.5 mg] 25 mg PO BID 10/21/18 [History] Fexofenadine HCl 180 mg PO DAILY 10/21/18 [History] Insulin Lispro [Humalog] 1 unit SQ UD 10/21/18 [History] Clonazepam [Klonopin] 0.5 mg PO TID 10/11/22 [History] Cyclobenzaprine HCl 10 mg [Cyclobenzaprine 10 MG] 10 mg PO TID PRN 10/11/22 [History] Insulin Glargine,Hum.rec.anlog [Basaglar Tempo Pen U-100] 34 unit SQ HS 10/11/22 [History] PANTOPRAZOLE 40 mg Tablet [Protonix 40MG Tablet] 40 mg PO QAM 10/11/22 [History] Ramelteon [Rozerem] 8 mg PO HS 10/11/22 [History] Sacubitril/Valsartan [Entresto 24 mg-26 mg Tablet] 2 tab PO DAILY 10/11/22 [History] Trazodone HCl 150 mg PO HS 10/11/22 [History] Venlafaxine HCl [Effexor Xr] 150 mg PO HS 10/11/22 [History] Travel Risk - Vaccine Status Have you recieved a Covid-19 vaccination: No <ESTEPHANIA COX - Last Filed: 11/12/22 06:59> - Review of Systems Constitutional: No Symptoms Eyes: No Symptoms Ears, Nose, & Throat: No Symptoms Respiratory: No Symptoms Cardiac: No Symptoms Abdominal/Gastrointestinal: Abdominal Pain, Nausea, Vomiting, Appetite Changes, No Diarrhea, No Constipation, No Hematemesis, No Hematochezia, No Melena, No Dysphagia Genitourinary Symptoms: Frequency, Urgency, Flank Pain, No Dysuria, No Hematuria Musculoskeletal: No Symptoms Skin: No Symptoms Neurological: No Symptoms Psychological: No Symptoms Endocrine: No Symptoms Hematologic/Lymphatic: No Symptoms Immunological/Allergic: No Symptoms All Other Systems: Reviewed and Negative <ESTEPHANIA COX - Last Filed: 11/12/22 06:59> - Past Medical History Pertinent Past Medical History: Yes Neurological History: No Pertinent History ENT History: Other Cardiac History: Congestive Heart Failure, Coronary Artery Disease, High Cholesterol, Hypertension Respiratory History: CHF, Pulmonary Embolism Endocrine Medical History: Diabetes Type I Musculoskeletal History: No Pertinent History GI Medical History: Pancreatitis History: No Pertinent History Psycho-Social History: Anxiety, Depression Female Reproductive Disorders: No Pertinent History Other Medical History: Pituitary tumor removed - Past Surgical History Past Surgical History: Yes Neuro Surgical History: No Pertinent History Cardiac: CABG, Cardiac Catheterization Respiratory: No Pertinent History Gastrointestinal: No Pertinent History, Cholecystectomy Genitourinary: No Pertinent History Musculoskeletal: Orthopedic Surgery Female Surgical History: Hysterectomy, Dilation & Curettage, Section Other Surgical History: cholecystectomy with liver laceration repair 10/13/22. knee surgery, pituitary tumor removed - Social History Smoking Status: Current every day smoker How long have you smoked: 15 yrs Exposure to second hand smoke: No (uses pipe) Alcohol Use: None Drug Use: marijuana Patient Lives Alone: No Significant Family History: no pertinent family hx <ESTEPHANIA COXMariella - Last Filed: 11/12/22 06:59> - Physical Exam General Appearance: no apparent distress Eye Exam: eyes nml inspection Ears, Nose, Throat Exam: normal ENT inspection Neck Exam: normal inspection Respiratory Exam: normal breath sounds, lungs clear, airway intact, No respiratory distress Cardiovascular Exam: regular rate/rhythm, normal heart sounds, capillary refill <2 sec Gastrointestinal/Abdomen Exam: soft, normal bowel sounds, No tenderness, No guarding, No rebound Back Exam: normal inspection, CVA tenderness (left) Extremity Exam: normal inspection, No swelling, No tenderness Neurologic Exam: alert, oriented x 3, cooperative Skin Exam: diaphoresis SpO2 Interpretation: normal O2 Delivery: Room Air <ESTEPHANIA COXMariella - Last Filed: 11/12/22 06:59> - Nursing Vital Signs Nursing Vital Signs: Initial Vital Signs Temperature 97.6 F 11/12/22 01:44 Pulse Rate 91 H 11/12/22 01:44 Respiratory Rate 18 11/12/22 01:44 Blood Pressure 158/116 11/12/22 01:44 O2 Sat by Pulse Oximetry 99 11/12/22 01:44 Pain Scale Pain Intensity 0 - Course Nursing assessment & vital signs reviewed: Yes - CT Exams Abdomen/Pelvis CT Interpretation: Tele-radiologist Report, Other (interval increase in surrounding perihepatic fluid, increase in loculated pocket of air adjacent to pyloris and duodenum, gastric findings suggestive of gastric pathology vs sealed off duodenal perforation) <ESTEPHANIA COXMariella - Last Filed: 11/12/22 06:59> Ordered Tests: Active Orders 24 hr Category Date Time Status IV Insertion STAT Care 11/12/22 02:08 Active ABDOMEN AND PELVIS W CONTRAST [CT] Stat Exams 11/12/22 04:08 Completed ABDOMEN AND PELVIS W/0 CONTRAS [CT] Stat Exams 11/12/22 02:08 Completed CBC W DIFF Stat Lab 11/12/22 02:31 Completed CMP Stat Lab 11/12/22 02:31 Completed CULTURE,URINE Stat Lab 11/12/22 02:10 Received LIPASE Stat Lab 11/12/22 02:31 Completed Lactic Acid Stat Lab 11/12/22 02:29 Completed MAGNESIUM Stat Lab 11/12/22 02:50 Completed POCT GLUCOSE Stat Lab 11/12/22 03:50 Completed POCT GLUCOSE Stat Lab 11/12/22 07:12 Completed POCT GLUCOSE Stat Lab 11/12/22 09:03 Completed UA W/RFX UR CULTURE Stat Lab 11/12/22 02:10 Completed Urine Protein/Creatinine Ratio [TP/CR Urine Ratio] Stat Lab 11/12/22 03:01 Completed Transfer Order Routine Transfer 11/12/22 Ordered Medication Summary Generic Name Dose Route Start Last Admin Trade Name Freq PRN Reason Stop Dose Admin Magnesium Sulfate/Dextrose 100 mls @ 100 mls/hr 11/12/22 03:15 11/12/22 03:17 Magnesium 1 Gm / 100 Ml D5w IV 11/12/22 05:14 100 mls/hr Q1H ALO Administration Discontinued Medications Generic Name Dose Route Start Last Admin Trade Name Freq PRN Reason Stop Dose Admin Dextrose 50 ml 11/12/22 02:45 11/12/22 03:03 Dextrose 50%-Water 50 Ml Abboject IV 11/12/22 02:46 Not Given STAT ONE Dextrose 50 ml 11/12/22 03:04 11/12/22 03:07 Dextrose 50%-Water 50 Ml Vial IV 11/12/22 03:05 50 ml STAT ONE Administration Droperidol 1.25 mg 11/12/22 02:08 11/12/22 02:48 Droperidol 5 Mg/2 Ml Vial IV 11/12/22 02:09 1.25 mg STAT ONE Administration Droperidol Confirm 11/12/22 02:47 Droperidol 5 Mg/2 Ml Vial Administered 11/12/22 02:48 Dose 5 mg .ROUTE .STK-MED ONE Sodium Chloride 1,000 mls @ 999 mls/hr 11/12/22 02:08 11/12/22 04:06 Sodium Chloride 0.9% 1000 Ml IV 11/12/22 03:08 Infused .Q1H1M STA Infusion Sodium Chloride Confirm 11/12/22 02:47 Sodium Chloride 0.9% 1000 Ml Administered 11/12/22 02:48 Dose 1,000 mls @ ud .ROUTE .STK-MED ONE Dextrose 1,000 mls @ 150 mls/hr 11/12/22 09:30 Dextrose 5%/Water Iv Soln. 1000 Ml IV 12/12/22 09:29 .Q6H40M ALO Dextrose Confirm 11/12/22 09:08 Dextrose 5%/Water Iv Soln. 1000 Ml Administered 11/12/22 09:09 Dose 1,000 mls @ ud IV .STK-MED ONE Ketorolac Tromethamine 30 mg 11/12/22 04:09 11/12/22 04:19 Ketorolac Tromethamine 30 Mg/Ml Inj IV 11/12/22 04:10 30 mg STAT ONE Administration Ketorolac Tromethamine Confirm 11/12/22 04:19 Ketorolac Tromethamine 30 Mg/Ml Inj Administered 11/12/22 04:20 Dose 30 mg .ROUTE .STK-MED ONE Potassium Chloride 40 meq 11/12/22 02:50 11/12/22 03:07 Potassium Chloride Tab 10 Meq Tab PO 11/12/22 02:51 40 meq STAT ONE Administration Potassium Chloride Confirm 11/12/22 02:54 Potassium Chloride Tab 10 Meq Tab Administered 11/12/22 02:55 Dose 40 meq PO .STK-MED ONE Lab/Rad Data: Laboratory Result Diagrams 11/12/22 02:31 11/12/22 02:31 Laboratory Results 11/12/22 11/12/22 11/12/22 Range/Units 09:03 07:12 03:50 WBC (4.0-10.5) x10^3/uL RBC (4.1-5.4) x10^6/uL Hgb (12.0-16.0) g/dL Hct (35-47) % MCV (78-100) fL MCH (26-32) pg MCHC (32-36) g/dL RDW (11.5-14.0) % Plt Count (150-450) x10^3/uL MPV (7.5-11.0) fL Gran % (36.0-66.0) % Immature Gran % (Auto) (0.00-0.4) % Nucleat RBC Rel Count (0.00-0.1) % Eos # (Auto) (0-0.5) x10^3/uL Immature Gran # (Auto) (0.00-0.03) x10^3u/L Absolute Lymphs (auto) (1.0-4.6) x10^3/uL Absolute Monos (auto) (0.0-1.3) x10^3/uL Absolute Nucleated RBC (0.00-0.01) x10^3u/L Lymphocytes % (24.0-44.0) % Monocytes % (0.0-12.0) % Eosinophils % (0.00-5.0) % Basophils % (0.0-0.4) % Absolute Granulocytes (1.4-6.9) x10^3/uL Basophils # (0-0.4) x10^3/uL Sodium (137-145) mmol/L Potassium (3.5-5.1) mmol/L Chloride (98-107) mmol/L Carbon Dioxide (22-30) mmol/L Anion Gap (5-15) MEQ/L BUN (7-17) mg/dL Creatinine (0.52-1.04) mg/dL Estimated GFR ML/MIN Glucose (74-106) mg/dL POC Glucometer 62 L 139 H 109 H (74 to 106) mg/dL Lactic Acid (0.4-2.0) Calcium (8.4-10.2) mg/dL Magnesium (1.6-2.3) mg/dL Total Bilirubin (0.2-1.3) mg/dL AST (14-36) U/L ALT (0-35) U/L Alkaline Phosphatase (38-126) U/L Serum Total Protein (6.3-8.2) g/dL Albumin (3.5-5.0) g/dL Lipase (23-300) U/L Urine Color (Yellow) Urine Appearance (Clear) Urine pH (4.6-8.0) Ur Specific [place] (1.005-1.030) Urine Protein (Negative) Urine Glucose (UA) (Negative) mg/dL Urine Ketones (Negative) Urine Blood (Negative) Urine Nitrite (Negative) Urine Bilirubin (Negative) Urine Urobilinogen (0.2) mg/dL Ur Leukocyte Esterase (Negative) U Hyaline Cast (Auto) (0-2) /LPF Urine Microscopic RBC (0-5) /HPF Urine Microscopic WBC (0-5) /HPF Ur Epithelial Cells (None Seen) /HPF Urine Bacteria (None Seen) /HPF Urine Culture Reflexed (NO) Ur Random Creatinine mg/dl U Random Total Protein (<12) mg/dl U [place] Prot/Creat Ratio (0.0-0.15) mg/mg Influenza Type A Ag (NEGATIVE) Influenza Type B Ag (NEGATIVE) RSV (PCR) (NEGATIVE) SARS-CoV-2 (PCR) (NEGATIVE) 11/12/22 11/12/22 11/12/22 Range/Units 03:30 03:01 02:50 WBC (4.0-10.5) x10^3/uL RBC (4.1-5.4) x10^6/uL Hgb (12.0-16.0) g/dL Hct (35-47) % MCV (78-100) fL MCH (26-32) pg MCHC (32-36) g/dL RDW (11.5-14.0) % Plt Count (150-450) x10^3/uL MPV (7.5-11.0) fL Gran % (36.0-66.0) % Immature Gran % (Auto) (0.00-0.4) % Nucleat RBC Rel Count (0.00-0.1) % Eos # (Auto) (0-0.5) x10^3/uL Immature Gran # (Auto) (0.00-0.03) x10^3u/L Absolute Lymphs (auto) (1.0-4.6) x10^3/uL Absolute Monos (auto) (0.0-1.3) x10^3/uL Absolute Nucleated RBC (0.00-0.01) x10^3u/L Lymphocytes % (24.0-44.0) % Monocytes % (0.0-12.0) % Eosinophils % (0.00-5.0) % Basophils % (0.0-0.4) % Absolute Granulocytes (1.4-6.9) x10^3/uL Basophils # (0-0.4) x10^3/uL Sodium (137-145) mmol/L Potassium (3.5-5.1) mmol/L Chloride (98-107) mmol/L Carbon Dioxide (22-30) mmol/L Anion Gap (5-15) MEQ/L BUN (7-17) mg/dL Creatinine (0.52-1.04) mg/dL Estimated GFR ML/MIN Glucose (74-106) mg/dL POC Glucometer (74 to 106) mg/dL Lactic Acid (0.4-2.0) Calcium (8.4-10.2) mg/dL Magnesium 1.1 L (1.6-2.3) mg/dL Total Bilirubin (0.2-1.3) mg/dL AST (14-36) U/L ALT (0-35) U/L Alkaline Phosphatase (38-126) U/L Serum Total Protein (6.3-8.2) g/dL Albumin (3.5-5.0) g/dL Lipase (23-300) U/L Urine Color (Yellow) Urine Appearance (Clear) Urine pH (4.6-8.0) Ur Specific [place] (1.005-1.030) Urine Protein (Negative) Urine Glucose (UA) (Negative) mg/dL Urine Ketones (Negative) Urine Blood (Negative) Urine Nitrite (Negative) Urine Bilirubin (Negative) Urine Urobilinogen (0.2) mg/dL Ur Leukocyte Esterase (Negative) U Hyaline Cast (Auto) (0-2) /LPF Urine Microscopic RBC (0-5) /HPF Urine Microscopic WBC (0-5) /HPF Ur Epithelial Cells (None Seen) /HPF Urine Bacteria (None Seen) /HPF Urine Culture Reflexed (NO) Ur Random Creatinine 124.8 mg/dl U Random Total Protein 2449.0 (<12) mg/dl U [place] Prot/Creat Ratio 19.62 H (0.0-0.15) mg/mg Influenza Type A Ag NEGATIVE (NEGATIVE) Influenza Type B Ag NEGATIVE (NEGATIVE) RSV (PCR) NEGATIVE (NEGATIVE) SARS-CoV-2 (PCR) NEGATIVE (NEGATIVE) 11/12/22 11/12/22 11/12/22 Range/Units 02:31 02:31 02:29 WBC 10.8 H (4.0-10.5) x10^3/uL RBC 4.42 (4.1-5.4) x10^6/uL Hgb 12.5 (12.0-16.0) g/dL Hct 36.0 (35-47) % MCV 81.4 (78-100) fL MCH 28.3 (26-32) pg MCHC 34.7 (32-36) g/dL RDW 13.5 (11.5-14.0) % Plt Count 182 (150-450) x10^3/uL MPV 9.0 (7.5-11.0) fL Gran % 64.5 (36.0-66.0) % Immature Gran % (Auto) 0.4 (0.00-0.4) % Nucleat RBC Rel Count 0.0 (0.00-0.1) % Eos # (Auto) 0.38 (0-0.5) x10^3/uL Immature Gran # (Auto) 0.04 H (0.00-0.03) x10^3u/L Absolute Lymphs (auto) 2.64 (1.0-4.6) x10^3/uL Absolute Monos (auto) 0.72 (0.0-1.3) x10^3/uL Absolute Nucleated RBC 0.00 (0.00-0.01) x10^3u/L Lymphocytes % 24.4 (24.0-44.0) % Monocytes % 6.7 (0.0-12.0) % Eosinophils % 3.5 (0.00-5.0) % Basophils % 0.5 (0.0-0.4) % Absolute Granulocytes 6.99 H (1.4-6.9) x10^3/uL Basophils # 0.05 (0-0.4) x10^3/uL Sodium 135 L (137-145) mmol/L Potassium 3.1 L (3.5-5.1) mmol/L Chloride 105 (98-107) mmol/L Carbon Dioxide 26 (22-30) mmol/L Anion Gap 7.7 (5-15) MEQ/L BUN 20 H (7-17) mg/dL Creatinine 2.21 H (0.52-1.04) mg/dL Estimated GFR 26.9 ML/MIN Glucose 45 L* (74-106) mg/dL POC Glucometer (74 to 106) mg/dL Lactic Acid 0.8 (0.4-2.0) Calcium 7.1 L (8.4-10.2) mg/dL Magnesium (1.6-2.3) mg/dL Total Bilirubin 0.30 (0.2-1.3) mg/dL AST 20 (14-36) U/L ALT 14 (0-35) U/L Alkaline Phosphatase 71 (38-126) U/L Serum Total Protein 5.5 L (6.3-8.2) g/dL Albumin 2.7 L (3.5-5.0) g/dL Lipase 36 (23-300) U/L Urine Color (Yellow) Urine Appearance (Clear) Urine pH (4.6-8.0) Ur Specific [place] (1.005-1.030) Urine Protein (Negative) Urine Glucose (UA) (Negative) mg/dL Urine Ketones (Negative) Urine Blood (Negative) Urine Nitrite (Negative) Urine Bilirubin (Negative) Urine Urobilinogen (0.2) mg/dL Ur Leukocyte Esterase (Negative) U Hyaline Cast (Auto) (0-2) /LPF Urine Microscopic RBC (0-5) /HPF Urine Microscopic WBC (0-5) /HPF Ur Epithelial Cells (None Seen) /HPF Urine Bacteria (None Seen) /HPF Urine Culture Reflexed (NO) Ur Random Creatinine mg/dl U Random Total Protein (<12) mg/dl U [place] Prot/Creat Ratio (0.0-0.15) mg/mg Influenza Type A Ag (NEGATIVE) Influenza Type B Ag (NEGATIVE) RSV (PCR) (NEGATIVE) SARS-CoV-2 (PCR) (NEGATIVE) 11/12/22 Range/Units 02:10 WBC (4.0-10.5) x10^3/uL RBC (4.1-5.4) x10^6/uL Hgb (12.0-16.0) g/dL Hct (35-47) % MCV (78-100) fL MCH (26-32) pg MCHC (32-36) g/dL RDW (11.5-14.0) % Plt Count (150-450) x10^3/uL MPV (7.5-11.0) fL Gran % (36.0-66.0) % Immature Gran % (Auto) (0.00-0.4) % Nucleat RBC Rel Count (0.00-0.1) % Eos # (Auto) (0-0.5) x10^3/uL Immature Gran # (Auto) (0.00-0.03) x10^3u/L Absolute Lymphs (auto) (1.0-4.6) x10^3/uL Absolute Monos (auto) (0.0-1.3) x10^3/uL Absolute Nucleated RBC (0.00-0.01) x10^3u/L Lymphocytes % (24.0-44.0) % Monocytes % (0.0-12.0) % Eosinophils % (0.00-5.0) % Basophils % (0.0-0.4) % Absolute Granulocytes (1.4-6.9) x10^3/uL Basophils # (0-0.4) x10^3/uL Sodium (137-145) mmol/L Potassium (3.5-5.1) mmol/L Chloride (98-107) mmol/L Carbon Dioxide (22-30) mmol/L Anion Gap (5-15) MEQ/L BUN (7-17) mg/dL Creatinine (0.52-1.04) mg/dL Estimated GFR ML/MIN Glucose (74-106) mg/dL POC Glucometer (74 to 106) mg/dL Lactic Acid (0.4-2.0) Calcium (8.4-10.2) mg/dL Magnesium (1.6-2.3) mg/dL Total Bilirubin (0.2-1.3) mg/dL AST (14-36) U/L ALT (0-35) U/L Alkaline Phosphatase (38-126) U/L Serum Total Protein (6.3-8.2) g/dL Albumin (3.5-5.0) g/dL Lipase (23-300) U/L Urine Color Yellow (Yellow) Urine Appearance Cloudy A (Clear) Urine pH 5.5 (4.6-8.0) Ur Specific [place] 1.020 (1.005-1.030) Urine Protein >=1000 A (Negative) Urine Glucose (UA) 100 A (Negative) mg/dL Urine Ketones Negative (Negative) Urine Blood Small A (Negative) Urine Nitrite Negative (Negative) Urine Bilirubin Negative (Negative) Urine Urobilinogen 1.0 A (0.2) mg/dL Ur Leukocyte Esterase Negative (Negative) U Hyaline Cast (Auto) 6-10 A (0-2) /LPF Urine Microscopic RBC 0-2 (0-5) /HPF Urine Microscopic WBC 3-5 (0-5) /HPF Ur Epithelial Cells Few (None Seen) /HPF Urine Bacteria None Seen (None Seen) /HPF Urine Culture Reflexed YES (NO) Ur Random Creatinine mg/dl U Random Total Protein (<12) mg/dl U [place] Prot/Creat Ratio (0.0-0.15) mg/mg Influenza Type A Ag (NEGATIVE) Influenza Type B Ag (NEGATIVE) RSV (PCR) (NEGATIVE) SARS-CoV-2 (PCR) (NEGATIVE) - Progress Progress: pain not gone completely Will see patient in: hospital (observation) Counseled pt/family regarding: lab results, diagnosis, rad results <ESTEPHANIA COX - Last Filed: 11/12/22 06:59> - Progress Progress Note: 11/12/22 04:19 Labs K 3.1, 40kcl given, Mg 1.1, 4g MgSO4 given, Glucose 45, 1 amp of D50 given, UA >1000 protein, 100 glucose, small blood CT showed concern for increasing perihepatic fluid and possible sealed off gastric/duodenal perforation vs Kruckenberg tumor. CT w/ contrast recommended for further evaluation, abd exam remains non acute, soft w/ guarding and no rebound. EGD evaluation recommended by radiology. Will discuss admission w/ surgery consult. 11/12/22 04:46 Spoke w/ Dr. Lucian George at 0435 who recommended adding PO contrast prior to making admission decision. 11/12/22 06:59 CT w/ contrast still pending at shift change, transfer care to Dr. Arndt at 0700. (ESTEPHANIA COX) Medical Desision Making - Discussion of managment Care discussed with:: hospitalist Reviewed:: Test results, Need for additional workup Agreed on:: Treatment plan, place in obs Will see patient: in hospital - Diagnostic Testing Diagnostic test were ordered, analyzed, and reviewed by me: Yes Radiological Interpretation: Interpreted by me, Reviewed by me, Teleradiologist Report - Risk of complications The pt has a mod risk of morbidity or mortality based on: Need for prescription drug management The pt has a high risk of morbidity or mortality based on: Decision regarding hospitilization or escalation of hosp level of care <ESTEPHANIA COX - Last Filed: 11/12/22 06:59> - Risk of complications The pt has a mod risk of morbidity or mortality based on: Need for minor surgical intervention in patient with know risk factors <CHRISTY ARNDT - Last Filed: 11/12/22 09:18> <ESTEPHANIA COX - Last Filed: 11/12/22 06:59> - Departure Departure Disposition: Observation Critical Care Time: Yes Critical Care Time(excluding separately billable procedures): Critical 30-74 mins <CHRISTY ARNDT - Last Filed: 11/12/22 09:18> - Departure Clinical Impression: Pancolitis, SHANNON (acute kidney injury), Hypomagnesemia Condition: Fair Referrals: GOMEZ CURIEL [Primary Care Provider] - Follow up/PCP as directed
[2022-11-12] MEDS ORDERED: Sodium Chloride 0.9% 1000 ML 1,000 ML IV STA (02:08)
[2022-11-12 02:33] LABS: Absolute Neutrophil Ct (ANC) 6.99 x10^3/uL (1.4-6.9); BASOPHIL % 0.5 % (0.0-0.4); Basophil (Absolute #) 0.05 x10^3/uL (0-0.4); Eosinophil % 3.5 % (0.00-5.0); Eosinophil (Absolute #) 0.38 x10^3/uL (0-0.5); Hemoglobin 12.5 g/dL (12.0-16.0); IMMATURE GRAN # 0.04 x10^3u/L (0.00-0.03); IMMATURE GRAN % 0.4 % (0.00-0.4); Lymphocyte (Absolute #) 2.64 x10^3/uL (1.0-4.6); Lymphocytes % 24.4 % (24.0-44.0); Mean Cell Volume 81.4 fL (78-100); Mean Corpuscular Hemoglobin 28.3 pg (26-32); Mean Corpuscular Hgb Concent. 34.7 g/dL (32-36); Monocyte (Absolute #) 0.72 x10^3/uL (0.0-1.3); Monocytes % 6.7 % (0.0-12.0); Neutrophil % 64.5 % (36.0-66.0); Platelet Count 182 x10^3/uL (150-450); Red Blood Count 4.42 x10^6/uL (4.1-5.4); Red Cell Distribution Width 13.5 % (11.5-14.0); White Blood Count 10.8 x10^3/uL (4.0-10.5)
[2022-11-12 02:42] LABS: ALBUMIN 2.7 g/dL (3.5-5.0); ANION GAP 7.7 MEQ/L (5-15); BILIRUBIN,TOTAL 0.3 mg/dL (0.2-1.3); Calcium 7.1 mg/dL (8.4-10.2); Creatinine 1 2.21 mg/dL (0.52-1.04); EST GLOMERULAR FILTRATION RATE 26.9 ML/MIN; Potassium 3.1 mmol/L (3.5-5.1); Total Protein 5.5 g/dL (6.3-8.2)
[2022-11-12 02:43] LABS: Appearance Cloudy (Clear); Bacteria None Seen /HPF (None Seen); Bilirubin Negative (Negative); Blood Small (Negative); Epithelial Cells Few /HPF (None Seen); Glucose, Urine 100 mg/dL (Negative); Ketones Negative (Negative); Leukocyte Esterase Negative (Negative); Nitrite Negative (Negative); Ph 5.5 (4.6-8.0); Protein,Urine Dip >=1000 (Negative); RBC 0-2 /HPF (0-5)
[2022-11-12 02:44] LABS: ADD URINE CULTURE? YES (NO)
[2022-11-12] MEDS ORDERED: D50W 50 ml Abboject IV ONE (02:45)
[2022-11-12] MEDS ORDERED: Sodium Chloride 0.9% 1000 ML 1,000 ML ONE (02:47)
[2022-11-12] MEDS ORDERED: Klor Con PO ONE ×2 (02:50→02:54)
[2022-11-12] MEDS ORDERED: D50W 50ML Vial IV ONE (03:04)
[2022-11-12] MEDS ORDERED: Magnesium 1 Gm / 100 Ml D5W*** 100 ML IV ONE ×2 (03:06→03:16)
[2022-11-12] MEDS: Magnesium 1 Gm / 100 Ml D5W*** 100 ML IV SCH ×2 (03:06→03:17)
[2022-11-12 03:12] LABS: Creatinine, Urine Random 124.8 mg/dl
--- NOTE | 2022-11-12 04:00 | XRAY ---
CLINICAL HISTORY:Abdominal pain. Prior history of hysterectomy and gallbladder removal; COMPARISON:10/27/2022; TECHNIQUES:CT of the abdomen and pelvis was performed with axial images as well as sagittal and coronal reconstruction images without intravenous contrast. DLP: 275 mGy*cm. CTDI: 5.17 mGy; FINDINGS: The liver is normal in size, and morphology and appears unremarkable with no intrahepatic or extrahepatic bile duct dilation. Interval increase in surrounding perihepatic fluid which measures 1.4 cm, previously it measures 0.7 cm in thickness. Interval increase in a loculated pocket of air adjacent to the pyloric and duodenum could be due to localized sealed-off perforation, however exact evaluation is not possible due to limitations as the study was done without IV annd without oral contrast. Mild interval increase in free fluid in the pelvis. Gall bladder is surgically absent. Surgical lorna are noted in the gall bladder fossa. Unremarkable appearing pancreas. No pancreatic mass or ductal dilatation is seen. Unremarkable appearing spleen. The adrenal glands are normal. The kidneys appear unremarkable with no cysts, calculi, masses or hydronephrosis. The ureters are normal with no stones. Unremarkable abdominal aorta without specific evidence of aneurysm or dissection. Mild atherosclerotic changes are noted in the distal aorta and external and internal iliac branches. IVC is normal. Redemonstration of diffusely thick wall stomach with increased surrounding collateral vessels. Small Bowel and colon are non-distended with no abnormality. Appendicolith is noted but no thickening or sierra appendiceal fat stranding is seen. Large bowel loops appear unremarkable. No evidence of bowel obstruction. Uterus is not visualized consistently with a history of surgery. The urinary bladder is unremarkable with no stones. The uterus is surgically absent. No adnexal mass or cyst is seen. Sections through the lung bases are clear. Partly converted sternotomy changes are seen. Mild degenerative changes seen in the visualized spine. Bilateral pars defect L4 but no anterolisthesis is noted. Mild body wall edema is also noted. IMPRESSION: 1. Interval increase in surrounding perihepatic fluid. 2. Interval increase in a loculated pocket of air adjacent to the pyloric and duodenum could be due to localized sealed-off perforation, however exact evaluation is not possible due to limitations as the study was done without IV and without oral contrast. 3. Redemonstration of the diffuse gastric wall and rugal fold thickening with submucosal edema with surrounding increased collateral vessels. Would recommend endoscopy to rule out underlying gastric pathology and the possibility of sealed-off duodenal perforation. 4. Surgically absent uterus and adnexa. 5. Keeping in view hysterosalpingoophorectomy, correlation with history for previous ovarian malignancy is advised and further possibility of Krukenberg tumor should be considered in this patient. Endoscopic evaluation of the stomach is advised. Electronically Signed by: Andrea Ahumada MD. (11/12/2022 02:52:40 [employer])
[2022-11-12 04:09] LABS: INFLUENZA A NEGATIVE (NEGATIVE); INFLUENZA B NEGATIVE (NEGATIVE); RESPIRATORY SYNCTIAL VIRUS NEGATIVE (NEGATIVE); SARS-CoV-2 Xpert Express NEGATIVE (NEGATIVE)
[2022-11-12] MEDS ORDERED: TORAdol 30 mg Injection IV ONE (04:09)
[2022-11-12 04:15] LABS: Protein Creatinine Ratio, Ran. 19.62 mg/mg (0.0-0.15)
[2022-11-12] MEDS ORDERED: TORAdol 30 mg Injection ONE (04:19)
--- NOTE | 2022-11-12 07:08 | XRAY ---
CLINICAL HISTORY:Abdomen pain, Past history of CABG, cholecystectomy, and hysterectomy; COMPARISON:None; TECHNIQUES:CT of the abdomen and pelvis was performed with axial images as well as sagittal and coronal reconstruction images with intravenous contrast. 80 cc of Isovue 360 IV contrast was given. Bowel loops are opacified by prior administration of oral contrast. Images were reviewed in soft tissue and bone window settings; FINDINGS: The stomach is distended, it shows thickened gastric folds with no evidence of masses. The pylorus shows mural thickening as well. The first part of the duodenum shows circumferential mural thickening. Diffuse edematous mural thickening was noted involving the transverse and ascending colon with air-fluid levels suggesting an inflammatory process. Small Bowel and colon are non-distended. No free air. Appendix is visualized and appears grossly unremarkable with no evidence of sierra appendiceal fat stranding. The liver is normal in size, morphology and position. The liver appears unremarkable with no intrahepatic or extrahepatic bile duct dilation. Portal vein appears normal in caliber. No evidence of portal thrombosis. Gallbladder is not visualized, surgical clips noted in the GB fossa representing cholecystectomy. Unremarkable appearing pancreas. No pancreatic mass or ductal dilatation is seen. Unremarkable appearing spleen. The adrenal glands are normal. No abdominal wall pathology is seen. The kidneys appear normal in size. No calculi, masses or hydronephrosis. Subcentimeter non-enhancing cyst noted in the lower pole of left kidney (Bosniak type I). The ureters are normal with no stones. The bladder is unremarkable with no stones. Unremarkable abdominal aorta without specific evidence of aneurysm or dissection. IVC is normal. The stomach appears grossly unremarkable. Unremarkable appearing duodenum. Mild free fluid noted in the pelvis. Minimal perihepatic fluid is noted. Uterus is not visualized consistent with history of hysterectomy, vaginal stump appears grossly unremarkable. Subtle diffuse sclerosis was noted in the visualized bones, further evaluation for metabolic disease workup or renal osteodystrophy needs consideration. L4-L5 and L5-S1 posterior disc bulge/posterior longitudinal ligament calcification compromising the spinal canal and requires further evaluation by MRI. The visualized lung bases appear unremarkable. Sternotomy sutures noted. IMPRESSION: 1. Gastric folds thickening and first part of the duodenum mural thickening which are likely due to gastritis. Confirmation by endoscopy is advised. The previously mentioned extra luminal air appears to be intra luminal. 2. Diffuse edematous mural thickening was noted involving transverse and ascending colon with air-fluid levels suggesting an inflammatory process. 3. Mild free fluid was noted in the pelvis and minimal perihepatic fluid. 4. Subtle diffuse sclerosis was noted in the visualized bones, further evaluation for metabolic disease workup or renal osteodystrophy needs consideration. Electronically Signed by: Andrea Ahumada MD. (11/12/2022 05:59:10 G[employer] GEO[employer]HER)
[2022-11-12] MEDS ORDERED: Dextrose 5%/Water IV Soln. 1000 ML 0 ML IV ONE (09:08)
[2022-11-12] MEDS ORDERED: SUBLIMAZE 100 MCG/2 ML IV PRN (09:15)
[2022-11-12] MEDS ORDERED: D5W/0.45NS W/ 20mEq KCl 1000 ML 1,000 ML IV SCH (09:30)
[2022-11-12] MEDS ORDERED: Dextrose 5%/Water IV Soln. 1000 ML 1,000 ML IV SCH (09:30)
[2022-11-12] MEDS ORDERED: TYLENOL 325 MG PO PRN (10:04)
[2022-11-12] MEDS ORDERED: Zofran 4 MG/2 ML VIAL IV PRN (10:04)
[2022-11-12] MEDS ORDERED: PROTONIX 40 MG IV IV SCH (10:04)
[2022-11-12] MEDS: Pepcid 20 MG VIAL IV SCH ×2 (11:45→21:04)
[2022-11-12] MEDS: ROCEPHIN 1 Gm-D5w 50 ml Bag** 1 G/50 ML IVPB IV SCH (11:46)
[2022-11-12] MEDS: SUBLIMAZE 100 MCG/2 ML IV PRN ×5 (11:47→23:57)
[2022-11-12] MEDS: solu-MEDROL 60 MG, Sterile H2O 10 ml 2 ML IV SCH ×6 (13:21→23:56)
[2022-11-12] MEDS: FLAGYL 500 MG IVPB 500 MG/100 ML BAG IV SCH ×3 (13:22→23:58)
[2022-11-12] MEDS ORDERED: NON-FORMULARY ITEM (Insulin Lispro 1 UNIT Ml) SQ SCH (13:45)
[2022-11-12] MEDS: ENTRESTO 49 MG-51 MG TABLET PO SCH ×2 (13:53→21:03)
[2022-11-12] MEDS ORDERED: PLAVIX Tablet PO SCH (14:00)
[2022-11-12] MEDS: clonazePAM PO SCH ×2 (14:42→21:03)
[2022-11-12] MEDS: COREG 12.5 MG PO SCH ×2 (14:54→21:03)
[2022-11-12] MEDS ORDERED: KLONOPIN PO SCH (15:00)
[2022-11-12] MEDS: APRESOLINE 20 MG/ML INJ IV PRN (16:28)
[2022-11-12] MEDS ORDERED: Golytely Solution 4000 ML PO ONE (18:15)
--- NOTE | 2022-11-12 19:44 | PCM.HP ---
History of Present Illness - Chief Complaint Chief Complaint: Acute Colitis History of Present Illness: is a 36 year old female who reported to the ER with a 2-3 day history of left lower abdomen and left flank pain. she has had profuse watery nonbloody diarrhea with nausea and vomiting as well. she has had no fever, she had a cholecystectomy about 3 weeks ago and has some bleeding during the case but has done well postoperative until the last few days. she denies any previous history of similar illness. - Review of Systems Constitutional: No Fever, No Chills Respiratory: No Cough, No Short Of Breath Cardiac: No Chest Pain, No Edema, No Syncope Abdominal/Gastrointestinal: Abdominal Pain, Nausea, Vomiting, Diarrhea Genitourinary Symptoms: No Dysuria Skin: No Rash All Other Systems: Reviewed and Negative Medications & Allergies Home Medications: Home Medication List Carvedilol 12.5 mg [Coreg 12.5 mg] 25 mg PO BID 10/21/18 [History Confirmed 10/26/22] Fexofenadine HCl 180 mg PO DAILY 10/21/18 [History Confirmed 10/26/22] Insulin Lispro [Humalog] 1 unit SQ UD 10/21/18 [History Confirmed 10/26/22] Clonazepam [Klonopin] 0.5 mg PO TID 10/11/22 [History Confirmed 10/26/22] Cyclobenzaprine HCl 10 mg [Cyclobenzaprine 10 MG] 10 mg PO TID PRN 10/11/22 [History Confirmed 10/26/22] Insulin Glargine,Hum.rec.anlog [Basaglar Tempo Pen U-100] 34 unit SQ HS 10/11/22 [History Confirmed 10/26/22] PANTOPRAZOLE 40 mg Tablet [Protonix 40MG Tablet] 40 mg PO QAM 10/11/22 [History Confirmed 10/26/22] Ramelteon [Rozerem] 8 mg PO HS 10/11/22 [History Confirmed 10/26/22] Sacubitril/Valsartan [Entresto 24 mg-26 mg Tablet] 1 tab PO BID 10/11/22 [History Confirmed 11/12/22] Trazodone HCl 150 mg PO HS 10/11/22 [History Confirmed 11/12/22] Venlafaxine HCl [Effexor Xr] 150 mg PO HS 10/11/22 [History Confirmed 11/12/22] Clopidogrel Bisulfate [PLAVIX Tablet] 75 mg PO DAILY #1 10/15/22 [Rx Confirmed 10/26/22] Allergies/Adverse Reactions: Allergies Allergy/AdvReac Type Severity Reaction Status Date / Time morphine Allergy Intermediate Itching Verified 11/12/22 01:35 - Past Medical History Past Medical History: Yes Neurological History: No Pertinent History ENT History: Other Cardiac History: Congestive Heart Failure, Coronary Artery Disease, High Cholesterol, Hypertension Respiratory History: CHF, Pulmonary Embolism Endocrine Medical History: Diabetes Type I Musculoskelatal History: No Pertinent History GI Medical History: Pancreatitis History: No Pertinent History Pyscho-Social History: Anxiety, Depression Reproductive Disorders: No Pertinent History Comment: Pituitary tumor removed - Female History Hx Last Menstrual Period: 09/2021-post hysterectomy Are you now?: No - Past Surgical History Past Surgical History: Yes Neuro Surgical History: No Pertinent History Cardiac History: CABG, Cardiac Catheterization Respiratory Surgery: No Pertinent History GI Surgical History: No Pertinent History, Cholecystectomy Genitourinary Surgical Hx: No Pertinent History Musculskeletal Surgical Hx: Orthopedic Surgery Female Surgical History: Hysterectomy, Dilation & Curettage, Section Other Surgical History: cholecystectomy with liver laceration repair 10/13/22. knee surgery, pituitary tumor removed - Social History Smoking Status: Current every day smoker How long have you smoked: 15 yrs Exposure to second hand smoke: No (uses pipe) Alcohol: None Drug Use: marijuana Significant Family History: no pertinent family hx - Physical Exam Vital Signs: Vital Signs - 24 hr Temp Pulse Resp BP Pulse Ox 11/12/22 16:11 98.4 F 92 H 18 172/107 98 11/12/22 14:30 96 H 175/100 11/12/22 11:09 97.0 F 93 H 16 184/103 97 11/12/22 11:00 97 F 93 H 16 184/103 97 11/12/22 10:04 97.0 F 86 17 182/107 97 11/12/22 09:04 97.6 F 98 H 18 199/112 98 11/12/22 07:00 80 130/80 96 11/12/22 06:00 87 148/107 97 11/12/22 04:00 90 128/88 97 11/12/22 03:01 83 20 131/85 96 11/12/22 01:44 97.6 F 91 H 18 158/116 99 General Appearance: no apparent distress, alert Neurologic Exam: alert, oriented x 3 Respiratory Exam: normal breath sounds, lungs clear, No respiratory distress Cardiovascular Exam: regular rate/rhythm, normal heart sounds, normal peripheral pulses Gastrointestinal/Abdomen Exam: normal bowel sounds, tenderness (LLQ), No distention, No guarding, No rebound Extremity Exam: normal inspection, normal range of motion, pelvis stable Skin Exam: normal color, warm, dry, No rash Results - Labs Lab/Micro Results: Lab Results-Last 24 Hours 11/12/22 11/12/22 11/12/22 Range/Units 02:10 02:29 02:31 WBC 10.8 H (4.0-10.5) x10^3/uL RBC 4.42 (4.1-5.4) x10^6/uL Hgb 12.5 (12.0-16.0) g/dL Hct 36.0 (35-47) % MCV 81.4 (78-100) fL MCH 28.3 (26-32) pg MCHC 34.7 (32-36) g/dL RDW 13.5 (11.5-14.0) % Plt Count 182 (150-450) x10^3/uL MPV 9.0 (7.5-11.0) fL Gran % 64.5 (36.0-66.0) % Immature Gran % (Auto) 0.4 (0.00-0.4) % Nucleat RBC Rel Count 0.0 (0.00-0.1) % Eos # (Auto) 0.38 (0-0.5) x10^3/uL Immature Gran # (Auto) 0.04 H (0.00-0.03) x10^3u/L Absolute Lymphs (auto) 2.64 (1.0-4.6) x10^3/uL Absolute Monos (auto) 0.72 (0.0-1.3) x10^3/uL Absolute Nucleated RBC 0.00 (0.00-0.01) x10^3u/L Lymphocytes % 24.4 (24.0-44.0) % Monocytes % 6.7 (0.0-12.0) % Eosinophils % 3.5 (0.00-5.0) % Basophils % 0.5 (0.0-0.4) % Absolute Granulocytes 6.99 H (1.4-6.9) x10^3/uL Basophils # 0.05 (0-0.4) x10^3/uL Sodium (137-145) mmol/L Potassium (3.5-5.1) mmol/L Chloride (98-107) mmol/L Carbon Dioxide (22-30) mmol/L Anion Gap (5-15) MEQ/L BUN (7-17) mg/dL Creatinine (0.52-1.04) mg/dL Estimated GFR ML/MIN Glucose (74-106) mg/dL POC Glucometer (74 to 106) mg/dL Lactic Acid 0.8 (0.4-2.0) Calcium (8.4-10.2) mg/dL Magnesium (1.6-2.3) mg/dL Total Bilirubin (0.2-1.3) mg/dL AST (14-36) U/L ALT (0-35) U/L Alkaline Phosphatase (38-126) U/L Serum Total Protein (6.3-8.2) g/dL Albumin (3.5-5.0) g/dL Lipase (23-300) U/L Urine Color Yellow (Yellow) Urine Appearance Cloudy A (Clear) Urine pH 5.5 (4.6-8.0) Ur Specific [place] 1.020 (1.005-1.030) Urine Protein >=1000 A (Negative) Urine Glucose (UA) 100 A (Negative) mg/dL Urine Ketones Negative (Negative) Urine Blood Small A (Negative) Urine Nitrite Negative (Negative) Urine Bilirubin Negative (Negative) Urine Urobilinogen 1.0 A (0.2) mg/dL Ur Leukocyte Esterase Negative (Negative) U Hyaline Cast (Auto) 6-10 A (0-2) /LPF Urine Microscopic RBC 0-2 (0-5) /HPF Urine Microscopic WBC 3-5 (0-5) /HPF Ur Epithelial Cells Few (None Seen) /HPF Urine Bacteria None Seen (None Seen) /HPF Urine Culture Reflexed YES (NO) Ur Random Creatinine mg/dl U Random Total Protein (<12) mg/dl U [place] Prot/Creat Ratio (0.0-0.15) mg/mg Influenza Type A Ag (NEGATIVE) Influenza Type B Ag (NEGATIVE) RSV (PCR) (NEGATIVE) SARS-CoV-2 (PCR) (NEGATIVE) 11/12/22 11/12/22 11/12/22 Range/Units 02:31 02:50 03:01 WBC (4.0-10.5) x10^3/uL RBC (4.1-5.4) x10^6/uL Hgb (12.0-16.0) g/dL Hct (35-47) % MCV (78-100) fL MCH (26-32) pg MCHC (32-36) g/dL RDW (11.5-14.0) % Plt Count (150-450) x10^3/uL MPV (7.5-11.0) fL Gran % (36.0-66.0) % Immature Gran % (Auto) (0.00-0.4) % Nucleat RBC Rel Count (0.00-0.1) % Eos # (Auto) (0-0.5) x10^3/uL Immature Gran # (Auto) (0.00-0.03) x10^3u/L Absolute Lymphs (auto) (1.0-4.6) x10^3/uL Absolute Monos (auto) (0.0-1.3) x10^3/uL Absolute Nucleated RBC (0.00-0.01) x10^3u/L Lymphocytes % (24.0-44.0) % Monocytes % (0.0-12.0) % Eosinophils % (0.00-5.0) % Basophils % (0.0-0.4) % Absolute Granulocytes (1.4-6.9) x10^3/uL Basophils # (0-0.4) x10^3/uL Sodium 135 L (137-145) mmol/L Potassium 3.1 L (3.5-5.1) mmol/L Chloride 105 (98-107) mmol/L Carbon Dioxide 26 (22-30) mmol/L Anion Gap 7.7 (5-15) MEQ/L BUN 20 H (7-17) mg/dL Creatinine 2.21 H (0.52-1.04) mg/dL Estimated GFR 26.9 ML/MIN Glucose 45 L* (74-106) mg/dL POC Glucometer (74 to 106) mg/dL Lactic Acid (0.4-2.0) Calcium 7.1 L (8.4-10.2) mg/dL Magnesium 1.1 L (1.6-2.3) mg/dL Total Bilirubin 0.30 (0.2-1.3) mg/dL AST 20 (14-36) U/L ALT 14 (0-35) U/L Alkaline Phosphatase 71 (38-126) U/L Serum Total Protein 5.5 L (6.3-8.2) g/dL Albumin 2.7 L (3.5-5.0) g/dL Lipase 36 (23-300) U/L Urine Color (Yellow) Urine Appearance (Clear) Urine pH (4.6-8.0) Ur Specific [place] (1.005-1.030) Urine Protein (Negative) Urine Glucose (UA) (Negative) mg/dL Urine Ketones (Negative) Urine Blood (Negative) Urine Nitrite (Negative) Urine Bilirubin (Negative) Urine Urobilinogen (0.2) mg/dL Ur Leukocyte Esterase (Negative) U Hyaline Cast (Auto) (0-2) /LPF Urine Microscopic RBC (0-5) /HPF Urine Microscopic WBC (0-5) /HPF Ur Epithelial Cells (None Seen) /HPF Urine Bacteria (None Seen) /HPF Urine Culture Reflexed (NO) Ur Random Creatinine 124.8 mg/dl U Random Total Protein 2449.0 (<12) mg/dl U [place] Prot/Creat Ratio 19.62 H (0.0-0.15) mg/mg Influenza Type A Ag (NEGATIVE) Influenza Type B Ag (NEGATIVE) RSV (PCR) (NEGATIVE) SARS-CoV-2 (PCR) (NEGATIVE) 11/12/22 11/12/22 11/12/22 Range/Units 03:30 03:50 07:12 WBC (4.0-10.5) x10^3/uL RBC (4.1-5.4) x10^6/uL Hgb (12.0-16.0) g/dL Hct (35-47) % MCV (78-100) fL MCH (26-32) pg MCHC (32-36) g/dL RDW (11.5-14.0) % Plt Count (150-450) x10^3/uL MPV (7.5-11.0) fL Gran % (36.0-66.0) % Immature Gran % (Auto) (0.00-0.4) % Nucleat RBC Rel Count (0.00-0.1) % Eos # (Auto) (0-0.5) x10^3/uL Immature Gran # (Auto) (0.00-0.03) x10^3u/L Absolute Lymphs (auto) (1.0-4.6) x10^3/uL Absolute Monos (auto) (0.0-1.3) x10^3/uL Absolute Nucleated RBC (0.00-0.01) x10^3u/L Lymphocytes % (24.0-44.0) % Monocytes % (0.0-12.0) % Eosinophils % (0.00-5.0) % Basophils % (0.0-0.4) % Absolute Granulocytes (1.4-6.9) x10^3/uL Basophils # (0-0.4) x10^3/uL Sodium (137-145) mmol/L Potassium (3.5-5.1) mmol/L Chloride (98-107) mmol/L Carbon Dioxide (22-30) mmol/L Anion Gap (5-15) MEQ/L BUN (7-17) mg/dL Creatinine (0.52-1.04) mg/dL Estimated GFR ML/MIN Glucose (74-106) mg/dL POC Glucometer 109 H 139 H (74 to 106) mg/dL Lactic Acid (0.4-2.0) Calcium (8.4-10.2) mg/dL Magnesium (1.6-2.3) mg/dL Total Bilirubin (0.2-1.3) mg/dL AST (14-36) U/L ALT (0-35) U/L Alkaline Phosphatase (38-126) U/L Serum Total Protein (6.3-8.2) g/dL Albumin (3.5-5.0) g/dL Lipase (23-300) U/L Urine Color (Yellow) Urine Appearance (Clear) Urine pH (4.6-8.0) Ur Specific [place] (1.005-1.030) Urine Protein (Negative) Urine Glucose (UA) (Negative) mg/dL Urine Ketones (Negative) Urine Blood (Negative) Urine Nitrite (Negative) Urine Bilirubin (Negative) Urine Urobilinogen (0.2) mg/dL Ur Leukocyte Esterase (Negative) U Hyaline Cast (Auto) (0-2) /LPF Urine Microscopic RBC (0-5) /HPF Urine Microscopic WBC (0-5) /HPF Ur Epithelial Cells (None Seen) /HPF Urine Bacteria (None Seen) /HPF Urine Culture Reflexed (NO) Ur Random Creatinine mg/dl U Random Total Protein (<12) mg/dl U [place] Prot/Creat Ratio (0.0-0.15) mg/mg Influenza Type A Ag NEGATIVE (NEGATIVE) Influenza Type B Ag NEGATIVE (NEGATIVE) RSV (PCR) NEGATIVE (NEGATIVE) SARS-CoV-2 (PCR) NEGATIVE (NEGATIVE) 11/12/22 11/12/22 11/12/22 Range/Units 09:03 09:51 10:51 WBC (4.0-10.5) x10^3/uL RBC (4.1-5.4) x10^6/uL Hgb (12.0-16.0) g/dL Hct (35-47) % MCV (78-100) fL MCH (26-32) pg MCHC (32-36) g/dL RDW (11.5-14.0) % Plt Count (150-450) x10^3/uL MPV (7.5-11.0) fL Gran % (36.0-66.0) % Immature Gran % (Auto) (0.00-0.4) % Nucleat RBC Rel Count (0.00-0.1) % Eos # (Auto) (0-0.5) x10^3/uL Immature Gran # (Auto) (0.00-0.03) x10^3u/L Absolute Lymphs (auto) (1.0-4.6) x10^3/uL Absolute Monos (auto) (0.0-1.3) x10^3/uL Absolute Nucleated RBC (0.00-0.01) x10^3u/L Lymphocytes % (24.0-44.0) % Monocytes % (0.0-12.0) % Eosinophils % (0.00-5.0) % Basophils % (0.0-0.4) % Absolute Granulocytes (1.4-6.9) x10^3/uL Basophils # (0-0.4) x10^3/uL Sodium (137-145) mmol/L Potassium (3.5-5.1) mmol/L Chloride (98-107) mmol/L Carbon Dioxide (22-30) mmol/L Anion Gap (5-15) MEQ/L BUN (7-17) mg/dL Creatinine (0.52-1.04) mg/dL Estimated GFR ML/MIN Glucose (74-106) mg/dL POC Glucometer 62 L 48 L* 86 (74 to 106) mg/dL Lactic Acid (0.4-2.0) Calcium (8.4-10.2) mg/dL Magnesium (1.6-2.3) mg/dL Total Bilirubin (0.2-1.3) mg/dL AST (14-36) U/L ALT (0-35) U/L Alkaline Phosphatase (38-126) U/L Serum Total Protein (6.3-8.2) g/dL Albumin (3.5-5.0) g/dL Lipase (23-300) U/L Urine Color (Yellow) Urine Appearance (Clear) Urine pH (4.6-8.0) Ur Specific [place] (1.005-1.030) Urine Protein (Negative) Urine Glucose (UA) (Negative) mg/dL Urine Ketones (Negative) Urine Blood (Negative) Urine Nitrite (Negative) Urine Bilirubin (Negative) Urine Urobilinogen (0.2) mg/dL Ur Leukocyte Esterase (Negative) U Hyaline Cast (Auto) (0-2) /LPF Urine Microscopic RBC (0-5) /HPF Urine Microscopic WBC (0-5) /HPF Ur Epithelial Cells (None Seen) /HPF Urine Bacteria (None Seen) /HPF Urine Culture Reflexed (NO) Ur Random Creatinine mg/dl U Random Total Protein (<12) mg/dl U [place] Prot/Creat Ratio (0.0-0.15) mg/mg Influenza Type A Ag (NEGATIVE) Influenza Type B Ag (NEGATIVE) RSV (PCR) (NEGATIVE) SARS-CoV-2 (PCR) (NEGATIVE) 11/12/22 Range/Units 16:32 WBC (4.0-10.5) x10^3/uL RBC (4.1-5.4) x10^6/uL Hgb (12.0-16.0) g/dL Hct (35-47) % MCV (78-100) fL MCH (26-32) pg MCHC (32-36) g/dL RDW (11.5-14.0) % Plt Count (150-450) x10^3/uL MPV (7.5-11.0) fL Gran % (36.0-66.0) % Immature Gran % (Auto) (0.00-0.4) % Nucleat RBC Rel Count (0.00-0.1) % Eos # (Auto) (0-0.5) x10^3/uL Immature Gran # (Auto) (0.00-0.03) x10^3u/L Absolute Lymphs (auto) (1.0-4.6) x10^3/uL Absolute Monos (auto) (0.0-1.3) x10^3/uL Absolute Nucleated RBC (0.00-0.01) x10^3u/L Lymphocytes % (24.0-44.0) % Monocytes % (0.0-12.0) % Eosinophils % (0.00-5.0) % Basophils % (0.0-0.4) % Absolute Granulocytes (1.4-6.9) x10^3/uL Basophils # (0-0.4) x10^3/uL Sodium (137-145) mmol/L Potassium (3.5-5.1) mmol/L Chloride (98-107) mmol/L Carbon Dioxide (22-30) mmol/L Anion Gap (5-15) MEQ/L BUN (7-17) mg/dL Creatinine (0.52-1.04) mg/dL Estimated GFR ML/MIN Glucose (74-106) mg/dL POC Glucometer 171 H (74 to 106) mg/dL Lactic Acid (0.4-2.0) Calcium (8.4-10.2) mg/dL Magnesium (1.6-2.3) mg/dL Total Bilirubin (0.2-1.3) mg/dL AST (14-36) U/L ALT (0-35) U/L Alkaline Phosphatase (38-126) U/L Serum Total Protein (6.3-8.2) g/dL Albumin (3.5-5.0) g/dL Lipase (23-300) U/L Urine Color (Yellow) Urine Appearance (Clear) Urine pH (4.6-8.0) Ur Specific [place] (1.005-1.030) Urine Protein (Negative) Urine Glucose (UA) (Negative) mg/dL Urine Ketones (Negative) Urine Blood (Negative) Urine Nitrite (Negative) Urine Bilirubin (Negative) Urine Urobilinogen (0.2) mg/dL Ur Leukocyte Esterase (Negative) U Hyaline Cast (Auto) (0-2) /LPF Urine Microscopic RBC (0-5) /HPF Urine Microscopic WBC (0-5) /HPF Ur Epithelial Cells (None Seen) /HPF Urine Bacteria (None Seen) /HPF Urine Culture Reflexed (NO) Ur Random Creatinine mg/dl U Random Total Protein (<12) mg/dl U [place] Prot/Creat Ratio (0.0-0.15) mg/mg Influenza Type A Ag (NEGATIVE) Influenza Type B Ag (NEGATIVE) RSV (PCR) (NEGATIVE) SARS-CoV-2 (PCR) (NEGATIVE) Accuchecks Date 11/12/22 Date 11/12/22 Date 11/12/22 Date 11/12/22 Time 16:47 Time 11:08 Time 09:02 Time 07:12 - Radiology Impressions Radiology Exams & Impressions: Radiology Procedures Category Date Time Status ABDOMEN AND PELVIS W CONTRAST [CT] Stat Exams 11/12/22 04:08 Completed ABDOMEN AND PELVIS W/0 CONTRAS [CT] Stat Exams 11/12/22 02:08 Completed Assessment/Plan (1) Pancolitis Current Visit: Yes Status: Acute Assessment & Plan: continue rocephin, flagyl and IV steroids started in the ER, patient was seen by surgery and is prepping for a colonoscopy tomorrow morning. fentanyl and zofran ordered for symptom control. will repeat labs in the am. Code(s): K51.00 - ULCERATIVE (CHRONIC) PANCOLITIS WITHOUT COMPLICATIONS (2) Hypokalemia Current Visit: Yes Status: Acute Assessment & Plan: replaced with po and with IV fluids, repeat in the am. Code(s): E87.6 - HYPOKALEMIA (3) Abdominal pain Current Visit: No Status: Acute Qualifiers: Code(s): R10.9 - UNSPECIFIED ABDOMINAL PAIN (4) CAD (coronary artery disease) Current Visit: No Status: Chronic Qualifiers: Code(s): I25.10 - ATHSCL HEART DISEASE OF [place] CORONARY ARTERY W/O ANG PCTRS
[2022-11-12] MEDS: Zofran 4 MG/2 ML VIAL IV PRN (19:51)
[2022-11-12] MEDS ORDERED: CLONIDINE 0.1 MG TABLET PO ONE (20:18)
[2022-11-12] MEDS: D5W/0.45NS W/ 20mEq KCl 1000 ML 1,000 ML IV SCH (21:02)
[2022-11-12] MEDS: Effexor XR 75 MG PO SCH (21:03)
[2022-11-12] MEDS: Cyclobenzaprine 10 MG PO PRN (21:04)
[2022-11-12] MEDS ORDERED: NON-FORMULARY ITEM (Sacubitril/Valsartan [Entresto 24 Mg-26 Mg Tablet] 1 EACH Tablet) PO SCH (22:00)
[2022-11-12] MEDS ORDERED: NON-FORMULARY ITEM (Venlafaxine Hcl [Effexor Xr] 150 MG Cap.Er.24h) PO SCH (22:00)
[2022-11-13] MEDS: SUBLIMAZE 100 MCG/2 ML IV PRN ×10 (02:04→22:03)
[2022-11-13] MEDS: Zofran 4 MG/2 ML VIAL IV PRN ×3 (02:05→19:38)
[2022-11-13] MEDS: solu-MEDROL 60 MG, Sterile H2O 10 ml 2 ML IV SCH ×8 (04:57→23:10)
[2022-11-13] MEDS: FLAGYL 500 MG IVPB 500 MG/100 ML BAG IV SCH ×4 (04:58→23:12)
[2022-11-13 05:52] LABS: Absolute Neutrophil Ct (ANC) 7.43 x10^3/uL (1.4-6.9); BASOPHIL % 0.1 % (0.0-0.4); Basophil (Absolute #) 0.01 x10^3/uL (0-0.4); Eosinophil % 0.1 % (0.00-5.0); Eosinophil (Absolute #) 0.01 x10^3/uL (0-0.5); Hematocrit 34.8 % (35-47); IMMATURE GRAN # 0.03 x10^3u/L (0.00-0.03); IMMATURE GRAN % 0.4 % (0.00-0.4); Lymphocytes % 8.5 % (24.0-44.0); Mean Cell Volume 80.2 fL (78-100); Mean Corpuscular Hemoglobin 27.6 pg (26-32); Mean Corpuscular Hgb Concent. 34.5 g/dL (32-36); Mean Platelet Volume 9.4 fL (7.5-11.0); Monocyte (Absolute #) 0.09 x10^3/uL (0.0-1.3); Monocytes % 1.1 % (0.0-12.0); Neutrophil % 89.8 % (36.0-66.0); Platelet Count 232 x10^3/uL (150-450); Red Blood Count 4.34 x10^6/uL (4.1-5.4); Red Cell Distribution Width 13.7 % (11.5-14.0); White Blood Count 8.3 x10^3/uL (4.0-10.5)
[2022-11-13 06:04] LABS: ALBUMIN 2.7 g/dL (3.5-5.0); ANION GAP 11.3 MEQ/L (5-15); BILIRUBIN,TOTAL 0.4 mg/dL (0.2-1.3); Creatinine 1 1.89 mg/dL (0.52-1.04); EST GLOMERULAR FILTRATION RATE 32.2 ML/MIN; MAGNESIUM 1.5 mg/dL (1.6-2.3); Potassium 4.2 mmol/L (3.5-5.1); Total Protein 5.6 g/dL (6.3-8.2)
[2022-11-13] MEDS: clonazePAM PO SCH ×3 (06:25→19:37)
--- NOTE | 2022-11-13 07:14 | PCM.NOTE ---
Date and Time: 11/13/22712 Subjective Assessment: pain is better controlled today, no vomiting overnight. prepped for c-scope today Objective Exam General Appearance: no apparent distress Neurologic Exam: alert, oriented x 3, cooperative Respiratory Exam: normal breath sounds, lungs clear, No respiratory distress Cardiovascular Exam: regular rate/rhythm, normal heart sounds Gastrointestinal/Abdomen Exam: soft, tenderness (LLQ-improved, very mild) Extremity Exam: normal inspection, normal range of motion OBJECTIVE DATA Vital Signs: Vital Signs - 24 hr Temp Pulse Resp BP Pulse Ox 11/13/22 04:00 98.9 F 107 H 18 133/82 99 11/12/22 23:21 98.5 F 92 H 18 184/99 98 11/12/22 20:00 99.4 F 114 H 18 161/98 99 11/12/22 16:11 98.4 F 92 H 18 172/107 98 11/12/22 14:30 96 H 175/100 11/12/22 11:09 97.0 F 93 H 16 184/103 97 11/12/22 11:00 97 F 93 H 16 184/103 97 11/12/22 10:04 97.0 F 86 17 182/107 97 11/12/22 09:04 97.6 F 98 H 18 199/112 98 Pain Assessment - Last Documented Pain Intensity 8 Pain Scale Used 0-10 Pain Scale Intake and Output: Intake & Output 11/10/22 11/11/22 11/12/22 11/13/22 11:59 11:59 11:59 11:59 Intake Total 5749 Balance 5749 Weight 68.1 kg Lab Results: Lab Results-Last 24 Hours 11/12/22 11/12/22 11/12/22 Range/Units 07:12 09:03 09:51 WBC (4.0-10.5) x10^3/uL RBC (4.1-5.4) x10^6/uL Hgb (12.0-16.0) g/dL Hct (35-47) % MCV (78-100) fL MCH (26-32) pg MCHC (32-36) g/dL RDW (11.5-14.0) % Plt Count (150-450) x10^3/uL MPV (7.5-11.0) fL Gran % (36.0-66.0) % Immature Gran % (Auto) (0.00-0.4) % Nucleat RBC Rel Count (0.00-0.1) % Eos # (Auto) (0-0.5) x10^3/uL Immature Gran # (Auto) (0.00-0.03) x10^3u/L Absolute Lymphs (auto) (1.0-4.6) x10^3/uL Absolute Monos (auto) (0.0-1.3) x10^3/uL Absolute Nucleated RBC (0.00-0.01) x10^3u/L Lymphocytes % (24.0-44.0) % Monocytes % (0.0-12.0) % Eosinophils % (0.00-5.0) % Basophils % (0.0-0.4) % Absolute Granulocytes (1.4-6.9) x10^3/uL Basophils # (0-0.4) x10^3/uL Sodium (137-145) mmol/L Potassium (3.5-5.1) mmol/L Chloride (98-107) mmol/L Carbon Dioxide (22-30) mmol/L Anion Gap (5-15) MEQ/L BUN (7-17) mg/dL Creatinine (0.52-1.04) mg/dL Estimated GFR ML/MIN Glucose (74-106) mg/dL POC Glucometer 139 H 62 L 48 L* (74 to 106) mg/dL Calcium (8.4-10.2) mg/dL Magnesium (1.6-2.3) mg/dL Total Bilirubin (0.2-1.3) mg/dL AST (14-36) U/L ALT (0-35) U/L Alkaline Phosphatase (38-126) U/L Serum Total Protein (6.3-8.2) g/dL Albumin (3.5-5.0) g/dL 11/12/22 11/12/22 11/12/22 Range/Units 10:51 16:32 21:17 WBC (4.0-10.5) x10^3/uL RBC (4.1-5.4) x10^6/uL Hgb (12.0-16.0) g/dL Hct (35-47) % MCV (78-100) fL MCH (26-32) pg MCHC (32-36) g/dL RDW (11.5-14.0) % Plt Count (150-450) x10^3/uL MPV (7.5-11.0) fL Gran % (36.0-66.0) % Immature Gran % (Auto) (0.00-0.4) % Nucleat RBC Rel Count (0.00-0.1) % Eos # (Auto) (0-0.5) x10^3/uL Immature Gran # (Auto) (0.00-0.03) x10^3u/L Absolute Lymphs (auto) (1.0-4.6) x10^3/uL Absolute Monos (auto) (0.0-1.3) x10^3/uL Absolute Nucleated RBC (0.00-0.01) x10^3u/L Lymphocytes % (24.0-44.0) % Monocytes % (0.0-12.0) % Eosinophils % (0.00-5.0) % Basophils % (0.0-0.4) % Absolute Granulocytes (1.4-6.9) x10^3/uL Basophils # (0-0.4) x10^3/uL Sodium (137-145) mmol/L Potassium (3.5-5.1) mmol/L Chloride (98-107) mmol/L Carbon Dioxide (22-30) mmol/L Anion Gap (5-15) MEQ/L BUN (7-17) mg/dL Creatinine (0.52-1.04) mg/dL Estimated GFR ML/MIN Glucose (74-106) mg/dL POC Glucometer 86 171 H 285 H (74 to 106) mg/dL Calcium (8.4-10.2) mg/dL Magnesium (1.6-2.3) mg/dL Total Bilirubin (0.2-1.3) mg/dL AST (14-36) U/L ALT (0-35) U/L Alkaline Phosphatase (38-126) U/L Serum Total Protein (6.3-8.2) g/dL Albumin (3.5-5.0) g/dL 11/13/22 11/13/22 Range/Units 05:20 05:20 WBC 8.3 (4.0-10.5) x10^3/uL RBC 4.34 (4.1-5.4) x10^6/uL Hgb 12.0 (12.0-16.0) g/dL Hct 34.8 L (35-47) % MCV 80.2 (78-100) fL MCH 27.6 (26-32) pg MCHC 34.5 (32-36) g/dL RDW 13.7 (11.5-14.0) % Plt Count 232 (150-450) x10^3/uL MPV 9.4 (7.5-11.0) fL Gran % 89.8 H (36.0-66.0) % Immature Gran % (Auto) 0.4 (0.00-0.4) % Nucleat RBC Rel Count 0.0 (0.00-0.1) % Eos # (Auto) 0.01 (0-0.5) x10^3/uL Immature Gran # (Auto) 0.03 (0.00-0.03) x10^3u/L Absolute Lymphs (auto) 0.70 L (1.0-4.6) x10^3/uL Absolute Monos (auto) 0.09 (0.0-1.3) x10^3/uL Absolute Nucleated RBC 0.00 (0.00-0.01) x10^3u/L Lymphocytes % 8.5 L (24.0-44.0) % Monocytes % 1.1 (0.0-12.0) % Eosinophils % 0.1 (0.00-5.0) % Basophils % 0.1 (0.0-0.4) % Absolute Granulocytes 7.43 H (1.4-6.9) x10^3/uL Basophils # 0.01 (0-0.4) x10^3/uL Sodium 130 L (137-145) mmol/L Potassium 4.2 D (3.5-5.1) mmol/L Chloride 104 (98-107) mmol/L Carbon Dioxide 19 L (22-30) mmol/L Anion Gap 11.3 (5-15) MEQ/L BUN 17 (7-17) mg/dL Creatinine 1.89 H (0.52-1.04) mg/dL Estimated GFR 32.2 ML/MIN Glucose 274 H (74-106) mg/dL POC Glucometer (74 to 106) mg/dL Calcium 7.0 L (8.4-10.2) mg/dL Magnesium 1.5 L (1.6-2.3) mg/dL Total Bilirubin 0.40 (0.2-1.3) mg/dL AST 18 (14-36) U/L ALT 14 (0-35) U/L Alkaline Phosphatase 72 (38-126) U/L Serum Total Protein 5.6 L (6.3-8.2) g/dL Albumin 2.7 L (3.5-5.0) g/dL Radiology Exams: Radiology Procedures Category Date Time Status ABDOMEN AND PELVIS W CONTRAST [CT] Stat Exams 11/12/22 04:08 Completed ABDOMEN AND PELVIS W/0 CONTRAS [CT] Stat Exams 11/12/22 02:08 Completed Assessment/Plan (1) Pancolitis Current Visit: Yes Status: Acute Assessment & Plan: improved clinically, continue IV steroids and rocephin/flagyl at this time Code(s): K51.00 - ULCERATIVE (CHRONIC) PANCOLITIS WITHOUT COMPLICATIONS (2) Hypokalemia Current Visit: Yes Status: Acute Code(s): E87.6 - HYPOKALEMIA (3) Abdominal pain Current Visit: No Status: Acute Qualifiers: Code(s): R10.9 - UNSPECIFIED ABDOMINAL PAIN (4) CAD (coronary artery disease) Current Visit: No Status: Chronic Qualifiers: Code(s): I25.10 - ATHSCL HEART DISEASE OF [place] CORONARY ARTERY W/O ANG PCTRS
[2022-11-13] MEDS: D5W/0.45NS W/ 20mEq KCl 1000 ML 1,000 ML IV SCH (07:25)
[2022-11-13] MEDS: Lactated Ringers 1,000 ML IV SCH ×2 (07:57→17:48)
[2022-11-13] MEDS: Cyclobenzaprine 10 MG PO PRN (08:57)
[2022-11-13] MEDS: ROCEPHIN 1 Gm-D5w 50 ml Bag** 1 G/50 ML IVPB IV SCH (08:57)
[2022-11-13] MEDS: Protonix 40MG Tablet PO SCH (08:57)
[2022-11-13] MEDS: COREG 12.5 MG PO SCH ×2 (08:57→19:36)
[2022-11-13] MEDS: Pepcid 20 MG VIAL IV SCH ×2 (08:57→22:03)
[2022-11-13] MEDS: ENTRESTO 49 MG-51 MG TABLET PO SCH ×2 (08:59→19:37)
[2022-11-13] MEDS ORDERED: DIPRIVAN 200 MG/20 ML IV ONE ×2 (10:27→10:52)
[2022-11-13] MEDS ORDERED: Xylocaine-Mpf 2% 5 Ml Vial ONE (10:27)
[2022-11-13] MEDS ORDERED: Lactated Ringers 1,000 ML IV ONE (10:33)
[2022-11-13] MEDS: HUMALOG SQ PRN ×2 (11:50→17:09)
[2022-11-13] MEDS ORDERED: solu-MEDROL ONE (17:01)
[2022-11-13] MEDS: Effexor XR 75 MG PO SCH ×2 (19:36→22:02)
[2022-11-13] MEDS: Ambien 10 MG PO SCH (22:03)
[2022-11-13] MEDS: APRESOLINE 20 MG/ML INJ IV PRN (23:10)
[2022-11-14] MEDS: SUBLIMAZE 100 MCG/2 ML IV PRN ×9 (00:03→17:11)
[2022-11-14] MEDS: APRESOLINE 20 MG/ML INJ IV PRN ×2 (04:05→15:25)
[2022-11-14 04:57] LABS: Absolute Neutrophil Ct (ANC) 12.01 x10^3/uL (1.4-6.9); BASOPHIL % 0.1 % (0.0-0.4); Basophil (Absolute #) 0.01 x10^3/uL (0-0.4); Eosinophil (Absolute #) 0 x10^3/uL (0-0.5); Hematocrit 31.6 % (35-47); Hemoglobin 11.5 g/dL (12.0-16.0); IMMATURE GRAN # 0.07 x10^3u/L (0.00-0.03); IMMATURE GRAN % 0.5 % (0.00-0.4); Lymphocytes % 4.6 % (24.0-44.0); Mean Cell Volume 79.2 fL (78-100); Mean Corpuscular Hemoglobin 28.8 pg (26-32); Mean Corpuscular Hgb Concent. 36.4 g/dL (32-36); Mean Platelet Volume 9.4 fL (7.5-11.0); Monocyte (Absolute #) 0.25 x10^3/uL (0.0-1.3); Monocytes % 1.9 % (0.0-12.0); Neutrophil % 92.9 % (36.0-66.0); Platelet Count 202 x10^3/uL (150-450); Red Blood Count 3.99 x10^6/uL (4.1-5.4); Red Cell Distribution Width 14.2 % (11.5-14.0); White Blood Count 12.9 x10^3/uL (4.0-10.5)
[2022-11-14] MEDS: Lactated Ringers 1,000 ML IV SCH ×2 (05:00→20:20)
[2022-11-14 05:11] LABS: ALBUMIN 2.4 g/dL (3.5-5.0); ANION GAP 9.2 MEQ/L (5-15); BILIRUBIN,TOTAL 0.4 mg/dL (0.2-1.3); Calcium 7.1 mg/dL (8.4-10.2); Creatinine 1 2.05 mg/dL (0.52-1.04); EST GLOMERULAR FILTRATION RATE 29.3 ML/MIN; MAGNESIUM 1.3 mg/dL (1.6-2.3); Potassium 4.2 mmol/L (3.5-5.1); Total Protein 5.1 g/dL (6.3-8.2)
[2022-11-14] MEDS ORDERED: SUBLIMAZE 100 MCG/2 ML ONE (06:43)
[2022-11-14] MEDS: FLAGYL 500 MG IVPB 500 MG/100 ML BAG IV SCH ×3 (06:51→18:10)
[2022-11-14] MEDS: solu-MEDROL 60 MG, Sterile H2O 10 ml 2 ML IV SCH ×6 (06:55→18:10)
--- NOTE | 2022-11-14 08:12 | PCM.NOTE ---
Date and Time: 11/14/22810 Subjective Assessment: patient states her pain is a little worse today, no other new complaints. still having some diarrhea but is slowing down per her report Objective Exam General Appearance: no apparent distress Neurologic Exam: alert, oriented x 3 Respiratory Exam: normal breath sounds, lungs clear, No respiratory distress Cardiovascular Exam: regular rate/rhythm, normal heart sounds Gastrointestinal/Abdomen Exam: soft, tenderness (LLQ), No guarding, No rebound Extremity Exam: normal inspection, normal range of motion OBJECTIVE DATA Vital Signs: Vital Signs - 24 hr Temp Pulse Resp BP Pulse Ox 11/14/22 07:14 97.9 F 120 H 16 139/75 93 L 11/14/22 04:00 97.4 F 101 H 20 185/98 98 11/13/22 23:47 106 H 16 153/75 11/13/22 23:05 98.2 F 109 H 18 205/121 97 11/13/22 19:27 98.5 F 110 H 18 179/100 99 11/13/22 16:00 97.1 F 108 H 17 165/86 97 11/13/22 12:00 97.1 F 97 H 17 148/85 97 Pain Assessment - Last Documented Pain Intensity 9 Pain Scale Used 0-10 Pain Scale Intake and Output: Intake & Output 11/11/22 11/12/22 11/13/22 11/14/22 11:59 11:59 11:59 11:59 Intake Total 5749 2480 Balance 5749 2480 Weight 68.1 kg 68.1 kg Lab Results: Lab Results-Last 24 Hours 11/13/22 11/13/22 11/13/22 Range/Units 11:42 16:40 20:51 WBC (4.0-10.5) x10^3/uL RBC (4.1-5.4) x10^6/uL Hgb (12.0-16.0) g/dL Hct (35-47) % MCV (78-100) fL MCH (26-32) pg MCHC (32-36) g/dL RDW (11.5-14.0) % Plt Count (150-450) x10^3/uL MPV (7.5-11.0) fL Gran % (36.0-66.0) % Immature Gran % (Auto) (0.00-0.4) % Nucleat RBC Rel Count (0.00-0.1) % Eos # (Auto) (0-0.5) x10^3/uL Immature Gran # (Auto) (0.00-0.03) x10^3u/L Absolute Lymphs (auto) (1.0-4.6) x10^3/uL Absolute Monos (auto) (0.0-1.3) x10^3/uL Absolute Nucleated RBC (0.00-0.01) x10^3u/L Lymphocytes % (24.0-44.0) % Monocytes % (0.0-12.0) % Eosinophils % (0.00-5.0) % Basophils % (0.0-0.4) % Absolute Granulocytes (1.4-6.9) x10^3/uL Basophils # (0-0.4) x10^3/uL Sodium (137-145) mmol/L Potassium (3.5-5.1) mmol/L Chloride (98-107) mmol/L Carbon Dioxide (22-30) mmol/L Anion Gap (5-15) MEQ/L BUN (7-17) mg/dL Creatinine (0.52-1.04) mg/dL Estimated GFR ML/MIN Glucose (74-106) mg/dL POC Glucometer 252 H 292 H 207 H (74 to 106) mg/dL Calcium (8.4-10.2) mg/dL Magnesium (1.6-2.3) mg/dL Total Bilirubin (0.2-1.3) mg/dL AST (14-36) U/L ALT (0-35) U/L Alkaline Phosphatase (38-126) U/L Serum Total Protein (6.3-8.2) g/dL Albumin (3.5-5.0) g/dL 11/14/22 11/14/22 11/14/22 Range/Units 04:32 04:32 06:56 WBC 12.9 H (4.0-10.5) x10^3/uL RBC 3.99 L (4.1-5.4) x10^6/uL Hgb 11.5 L (12.0-16.0) g/dL Hct 31.6 L (35-47) % MCV 79.2 (78-100) fL MCH 28.8 (26-32) pg MCHC 36.4 H (32-36) g/dL RDW 14.2 H (11.5-14.0) % Plt Count 202 (150-450) x10^3/uL MPV 9.4 (7.5-11.0) fL Gran % 92.9 H (36.0-66.0) % Immature Gran % (Auto) 0.5 H (0.00-0.4) % Nucleat RBC Rel Count 0.0 (0.00-0.1) % Eos # (Auto) 0 (0-0.5) x10^3/uL Immature Gran # (Auto) 0.07 H (0.00-0.03) x10^3u/L Absolute Lymphs (auto) 0.60 L (1.0-4.6) x10^3/uL Absolute Monos (auto) 0.25 (0.0-1.3) x10^3/uL Absolute Nucleated RBC 0.00 (0.00-0.01) x10^3u/L Lymphocytes % 4.6 L (24.0-44.0) % Monocytes % 1.9 (0.0-12.0) % Eosinophils % 0.0 (0.00-5.0) % Basophils % 0.1 (0.0-0.4) % Absolute Granulocytes 12.01 H (1.4-6.9) x10^3/uL Basophils # 0.01 (0-0.4) x10^3/uL Sodium 128 L (137-145) mmol/L Potassium 4.2 (3.5-5.1) mmol/L Chloride 102 (98-107) mmol/L Carbon Dioxide 21 L (22-30) mmol/L Anion Gap 9.2 (5-15) MEQ/L BUN 23 H (7-17) mg/dL Creatinine 2.05 H (0.52-1.04) mg/dL Estimated GFR 29.3 ML/MIN Glucose 246 H (74-106) mg/dL POC Glucometer 234 H (74 to 106) mg/dL Calcium 7.1 L (8.4-10.2) mg/dL Magnesium 1.3 L (1.6-2.3) mg/dL Total Bilirubin 0.40 (0.2-1.3) mg/dL AST 16 (14-36) U/L ALT 11 (0-35) U/L Alkaline Phosphatase 68 (38-126) U/L Serum Total Protein 5.1 L (6.3-8.2) g/dL Albumin 2.4 L (3.5-5.0) g/dL Assessment/Plan (1) Pancolitis Current Visit: Yes Status: Acute Assessment & Plan: continue rocephin/flagyl and steroids. appears to be improving slowly. had colonoscopy yesterday, no op note on chart this morning Code(s): K51.00 - ULCERATIVE (CHRONIC) PANCOLITIS WITHOUT COMPLICATIONS (2) Hypokalemia Current Visit: Yes Status: Acute Code(s): E87.6 - HYPOKALEMIA (3) Abdominal pain Current Visit: No Status: Acute Qualifiers: Code(s): R10.9 - UNSPECIFIED ABDOMINAL PAIN (4) CAD (coronary artery disease) Current Visit: No Status: Chronic Qualifiers: Code(s): I25.10 - ATHSCL HEART DISEASE OF [place] CORONARY ARTERY W/O ANG PCTRS
[2022-11-14] MEDS: Pepcid 20 MG VIAL IV SCH ×2 (08:49→22:01)
[2022-11-14] MEDS: Zofran 4 MG/2 ML VIAL IV PRN ×2 (08:50→13:10)
[2022-11-14] MEDS: ROCEPHIN 1 Gm-D5w 50 ml Bag** 1 G/50 ML IVPB IV SCH (08:55)
[2022-11-14] MEDS: clonazePAM PO SCH ×3 (08:56→21:58)
[2022-11-14] MEDS: Protonix 40MG Tablet PO SCH (08:57)
[2022-11-14] MEDS: ENTRESTO 49 MG-51 MG TABLET PO SCH ×2 (08:57→21:58)
[2022-11-14] MEDS: PLAVIX Tablet PO SCH (08:57)
[2022-11-14] MEDS: ECOTRIN 81 MG PO SCH (08:57)
[2022-11-14] MEDS: COREG 12.5 MG PO SCH ×2 (08:58→21:58)
--- NOTE | 2022-11-14 10:39 | CONS ---
CONSULT DATE: 11/12/2022 HISTORY: Mariam Cantu is familiar with me. I did a cholecystectomy a few weeks ago on her. She had an intraoperative venous bleed that was substantial. She did well. She was stabilized and the bleeding stopped and she was able to go home in two days subsequently after a short ICU visit. She had apparently been in a hospital in [place], I am not sure whether or [facility] or [facility], with complaint of abdominal pain and subsequently released. She has not had any endoscopic examinations to date. I had a little concern intraoperatively that there might be some thickening of the posterior upper wall of the duodenum at the time of the cholecystectomy. She had a CT scan suggest stomach thickening. She had a CT of the abdomen which suggested left colon thickening. She has had a lot of nausea and vomiting. She had eight episodes of vomiting when she came in. Her labs are noted. IMPRESSION: We had a андрей discussion and she would like to proceed with upper and lower scope.
--- NOTE | 2022-11-14 11:08 | OP ---
SURGERY DATE/TIME: 11/13/2022 1025 PREOPERATIVE DIAGNOSIS: Severe abdominal pain, recent vomiting. CT scan showing stomach and colon thickening. POSTOPERATIVE DIAGNOSES: 1) Gastroesophageal reflux disease 2 over 4, somewhat thickened gastric fold but not unusual. 2) Colonoscopy complete to cecum grossly clear. PROCEDURES: 1) EGD. 2) Colonoscopy. SURGEON: Alex George M.D. ANESTHESIA: MAC by David Curtis CRNA. COMPLICATIONS: None. CONDITION: Stable. DESCRIPTION OF PROCEDURE: The patient is taken to endoscopy. Left lateral decubitus position. Pharyngoesophageal junction normal. Esophagus normal down to gastroesophageal junction. Grade 2 over 4 gastroesophageal reflux disease. There were some thickened folds could be consistent with like a Menetrier's disease or something of that nature. There is probably just a normal variation. It distended well. There were no ulcers. There was no obstruction. Pylorus satisfactory. Pyloric channel satisfactory. Duodenal bulb no ulcer. Second portion of the duodenum satisfactory. Scope withdrawn looped upon itself. No hiatal hernia. Grade 2 over 4 gastroesophageal reflux disease is present. The scope is withdrawn. Anal digital examination satisfactory tone. Scope advanced to the cecum. Base of the cecum, ileocecal valve and appendiceal orifice was normal. There was some baby pudding stool in about 10 to 15% of the colon limiting the exam some but gross exam was totally normal. The colon was visible and did not have any polypoid lesions, did not have any redness, did not have any ulceration, did not have any suggestion of colitis. The patient tolerated the procedure satisfactory. Findings discussed with the family in the waiting room.
[2022-11-14] MEDS: HUMALOG SQ PRN ×2 (11:34→22:28)
[2022-11-14] MEDS ORDERED: Hydromorphone 1 mg/ml Injection IV PRN (18:38)
[2022-11-14] MEDS ORDERED: HYDROMORPHONE 30 MG/30 ML-NS PCA IV PRN (21:45)
[2022-11-14] MEDS: Ambien 10 MG PO SCH (21:56)
[2022-11-14] MEDS: Effexor XR 75 MG PO SCH (21:57)
[2022-11-14] MEDS: Cyclobenzaprine 10 MG PO PRN (22:28)
[2022-11-15] MEDS: FLAGYL 500 MG IVPB 500 MG/100 ML BAG IV SCH ×5 (02:05→23:17)
[2022-11-15] MEDS: solu-MEDROL 60 MG, Sterile H2O 10 ml 2 ML IV SCH ×8 (02:06→18:17)
[2022-11-15] MEDS: Lactated Ringers 1,000 ML IV SCH ×2 (02:10→14:49)
[2022-11-15] MEDS: APRESOLINE 20 MG/ML INJ IV PRN ×2 (05:02→18:51)
[2022-11-15 08:10] LABS: Absolute Neutrophil Ct (ANC) 7.14 x10^3/uL (1.4-6.9); BASOPHIL % 0.1 % (0.0-0.4); Basophil (Absolute #) 0.01 x10^3/uL (0-0.4); Eosinophil % 0.6 % (0.00-5.0); Eosinophil (Absolute #) 0.06 x10^3/uL (0-0.5); Hematocrit 32.8 % (35-47); Hemoglobin 11.4 g/dL (12.0-16.0); IMMATURE GRAN # 0.04 x10^3u/L (0.00-0.03); IMMATURE GRAN % 0.4 % (0.00-0.4); Lymphocyte (Absolute #) 2.82 x10^3/uL (1.0-4.6); Lymphocytes % 25.9 % (24.0-44.0); Mean Cell Volume 80.6 fL (78-100); Mean Corpuscular Hgb Concent. 34.8 g/dL (32-36); Mean Platelet Volume 9.2 fL (7.5-11.0); Monocyte (Absolute #) 0.83 x10^3/uL (0.0-1.3); Monocytes % 7.6 % (0.0-12.0); Neutrophil % 65.4 % (36.0-66.0); Platelet Count 163 x10^3/uL (150-450); Red Blood Count 4.07 x10^6/uL (4.1-5.4); Red Cell Distribution Width 14.2 % (11.5-14.0); White Blood Count 10.9 x10^3/uL (4.0-10.5)
[2022-11-15 08:32] LABS: ALBUMIN 2.2 g/dL (3.5-5.0); BILIRUBIN,TOTAL 0.3 mg/dL (0.2-1.3); Calcium 7.3 mg/dL (8.4-10.2); Creatinine 1 1.78 mg/dL (0.52-1.04); EST GLOMERULAR FILTRATION RATE 34.5 ML/MIN; Potassium 3.9 mmol/L (3.5-5.1); Total Protein 4.6 g/dL (6.3-8.2)
[2022-11-15] MEDS: ENTRESTO 49 MG-51 MG TABLET PO SCH ×2 (09:23→21:20)
[2022-11-15] MEDS: ECOTRIN 81 MG PO SCH (09:24)
[2022-11-15] MEDS: COREG 12.5 MG PO SCH ×2 (09:24→21:20)
[2022-11-15] MEDS: clonazePAM PO SCH ×3 (09:24→21:20)
[2022-11-15] MEDS: Protonix 40MG Tablet PO SCH (09:24)
[2022-11-15] MEDS: PLAVIX Tablet PO SCH (09:24)
[2022-11-15] MEDS: Pepcid 20 MG VIAL IV SCH ×2 (09:25→21:21)
--- NOTE | 2022-11-15 09:32 | PCM.DS ---
Discharge Summary Date of Admission: 11/12/22 09:46 Admitting Physician: CHIVO ALSTON Consults: Consults on Case 11/12/22 10:04 Consult Surgery ROUTINE Primary Care Provider: GOMEZ CURIEL Allergies Allergies morphine Allergy (Intermediate, Verified 11/12/22 01:35) Itching Hospital Summary - Hospital Course Hospital Course: Pt is a 36 yo female with CHF, CAD, HLD, hx PE, DMI, anxiety and depression who was admitted with pancolitis. She had cholecystectomy [address] scan there was pancolitis and sclerosis of bones as below: 1.. Gastric folds thickening and first part of the duodenum mural thickening which are likely due to gastritis. Confirmation by endoscopy is advised. The previously mentioned extra luminal air appears to be intra luminal. 2. Diffuse edematous mural thickening was noted involving transverse and ascending colon with air-fluid levels suggesting an inflammatory process. 3. Mild free fluid was noted in the pelvis and minimal perihepatic fluid. 4. Subtle diffuse sclerosis was noted in the visualized bones, further evaluation for metabolic disease workup or renal osteodystrophy needs consideration. Her BP have been elevated at times, with a high over the past 24 hours of 174/109. WBC were 10.8. She was admitted and placed on IV rocephin and flagyl and was on day #4 today. Also on solumedrol 60mg IV q6h. Yesterday she ate a regular diet. Last night I was called and her 50mcg fentanyl every 2 hours was not controlling her pain. We changed her to dilaudid [employer] which did control her pain overnight. This morning I advised she needed to decrease her diet and she disagreed, she said she had done well with omelet and tater tots yesterday morning. I said, "I beg to differ, because then your pain increased in the evening, and we had to start the dilaudid [employer] instead of the fentanyl." She said that this was a chronic problem that she had been dealing with and she was just going to have to get used to the pain, that she had had this issue for [address] Alston told her he would send her home with pain medicine today. I told her that Dr. Altson was not aware of her increase in pain last night. I told her that medically she was not ready to go home. I ordered a procalcitonin; her WBC today were 10.9. I did discuss with her the possibility of stopping the dilaudid, scaling back the diet, and sending her home later on today if she was doing much better, but soon after I left the room she decided to leave [facility]. - Vitals & Intake/Output Vital Signs: Vital Signs Temperature 97.1 F 11/15/22 07:29 Pulse Rate 111 H 11/15/22 07:29 Respiratory Rate 17 11/15/22 07:29 Blood Pressure 147/101 11/15/22 07:29 O2 Sat by Pulse Oximetry 100 11/15/22 07:29 Intake & Output: Intake & Output 11/12/22 11/13/22 11/14/22 11/15/22 11:59 11:59 11:59 11:59 Intake Total 5749 2760 3404 Output Total 3000 Balance 5749 2760 404 Weight 68.1 kg 68.1 kg - Lab Result Diagrams: 11/15/22 07:48 11/14/22 04:32 Lab Results-Last 24 Hrs: Lab Results-Last 24 Hours 11/14/22 11/14/22 11/14/22 Range/Units 11:25 16:24 22:16 WBC (4.0-10.5) x10^3/uL RBC (4.1-5.4) x10^6/uL Hgb (12.0-16.0) g/dL Hct (35-47) % MCV (78-100) fL MCH (26-32) pg MCHC (32-36) g/dL RDW (11.5-14.0) % Plt Count (150-450) x10^3/uL MPV (7.5-11.0) fL Gran % (36.0-66.0) % Immature Gran % (Auto) (0.00-0.4) % Nucleat RBC Rel Count (0.00-0.1) % Eos # (Auto) (0-0.5) x10^3/uL Immature Gran # (Auto) (0.00-0.03) x10^3u/L Absolute Lymphs (auto) (1.0-4.6) x10^3/uL Absolute Monos (auto) (0.0-1.3) x10^3/uL Absolute Nucleated RBC (0.00-0.01) x10^3u/L Lymphocytes % (24.0-44.0) % Monocytes % (0.0-12.0) % Eosinophils % (0.00-5.0) % Basophils % (0.0-0.4) % Absolute Granulocytes (1.4-6.9) x10^3/uL Basophils # (0-0.4) x10^3/uL POC Glucometer 222 H 179 H 249 H (74 to 106) mg/dL 11/15/22 11/15/22 Range/Units 07:23 07:48 WBC 10.9 H (4.0-10.5) x10^3/uL RBC 4.07 L (4.1-5.4) x10^6/uL Hgb 11.4 L (12.0-16.0) g/dL Hct 32.8 L (35-47) % MCV 80.6 (78-100) fL MCH 28.0 (26-32) pg MCHC 34.8 (32-36) g/dL RDW 14.2 H (11.5-14.0) % Plt Count 163 (150-450) x10^3/uL MPV 9.2 (7.5-11.0) fL Gran % 65.4 (36.0-66.0) % Immature Gran % (Auto) 0.4 (0.00-0.4) % Nucleat RBC Rel Count 0.0 (0.00-0.1) % Eos # (Auto) 0.06 (0-0.5) x10^3/uL Immature Gran # (Auto) 0.04 H (0.00-0.03) x10^3u/L Absolute Lymphs (auto) 2.82 (1.0-4.6) x10^3/uL Absolute Monos (auto) 0.83 (0.0-1.3) x10^3/uL Absolute Nucleated RBC 0.00 (0.00-0.01) x10^3u/L Lymphocytes % 25.9 (24.0-44.0) % Monocytes % 7.6 (0.0-12.0) % Eosinophils % 0.6 (0.00-5.0) % Basophils % 0.1 (0.0-0.4) % Absolute Granulocytes 7.14 H (1.4-6.9) x10^3/uL Basophils # 0.01 (0-0.4) x10^3/uL POC Glucometer 180 H (74 to 106) mg/dL Micro Results-Entire Visit: Microbiology 11/12/22 02:10 Urine Culture - Final Urine, Void MIXED EVANGELIST; 3 OR MORE TYPES. NO PREDOMINANT ORGANISM. NO FURTHER WORKUP. PLEASE RESUBMIT IF CLINICALLY INDICATED. Accuchecks Date 11/15/22 Date 11/14/22 Date 11/14/22 Date 11/14/22 Date 11/14/22 Time 07:29 Time 16:26 Time 12:31 Discharge Exam General Appearance: no apparent distress, other (initially sleeping; woke to touch) Neurologic Exam: alert, cooperative Eye Exam: eyes nml inspection Ears, Nose, Throat Exam: moist mucous membranes Neck Exam: normal inspection Respiratory Exam: normal breath sounds, lungs clear, No crackles/rales, No rhonchi, No wheezing Cardiovascular Exam: regular rate/rhythm, normal heart sounds, No murmur Gastrointestinal/Abdomen Exam: soft, normal bowel sounds, tenderness (LLQ), No distention, No mass, No guarding, No rebound Extremity Exam: normal inspection, No pedal edema, No swelling Skin Exam: normal color, warm, dry, No rash Final Diagnosis/Problem List - Final Discharge Diagnosis/Problem (1) Pancolitis Current Visit: Yes Status: Acute Assessment & Plan: She has been on rocephin and flagyl for 4 days, but she has currently left AMA. Will send in augmentin that she could take at home, although she should definitely stay for treatment and should not be eating more than a clear liquid diet. Code(s): K51.00 - ULCERATIVE (CHRONIC) PANCOLITIS WITHOUT COMPLICATIONS (2) Hypertension Current Visit: No Status: Acute Assessment & Plan: The nurse tried to give her prn BP medication (hydralazine) before she left. Pt stated, "My blood pressure is just going to stay high." Code(s): I10 - ESSENTIAL (PRIMARY) HYPERTENSION (3) Left against medical advice Current Visit: Yes Status: Acute Code(s): Z53.29 - PROC/TRTMT NOT CRD OUT BEC PT DECISION FOR OTH REASONS - Discharge Disposition: Home, Self-Care Condition: Fair Prescriptions: New Lactobacillus Acidophilus [Acidophilus TABLET] 1 tab PO BID 7 Days #14 tablet Amox Tr/Potass Clav. 875 mg [Augmentin 875-125 Tablet] 875 mg PO BID 7 Days #14 tablet No Action Carvedilol 12.5 mg [Coreg 12.5 mg] 25 mg PO BID Fexofenadine HCl 180 mg PO DAILY Insulin Lispro [Humalog] 1 unit SQ UD Venlafaxine HCl [Effexor Xr] 150 mg PO HS Sacubitril/Valsartan [Entresto 24 mg-26 mg Tablet] 1 tab PO BID PANTOPRAZOLE 40 mg Tablet [Protonix 40MG Tablet] 40 mg PO QAM Cyclobenzaprine HCl 10 mg [Cyclobenzaprine 10 MG] 10 mg PO TID PRN PRN Reason: Muscle Spasms Insulin Glargine,Hum.rec.anlog [Basaglar Tempo Pen U-100] 34 unit SQ HS Trazodone HCl 150 mg PO HS Ramelteon [Rozerem] 8 mg PO HS Clonazepam [Klonopin] 0.5 mg PO TID Clopidogrel Bisulfate [PLAVIX Tablet] 75 mg PO DAILY #1 Follow up with: GOMEZ CURIEL [Primary Care Provider] - JOSIAS XIE NP [Family Provider] -
[2022-11-15] MEDS: OXYCODONE-ACETAMINOPHEN 10-325 PO PRN ×3 (11:35→21:20)
[2022-11-15] MEDS: ROCEPHIN 1 Gm-D5w 50 ml Bag** 1 G/50 ML IVPB IV SCH (11:45)
[2022-11-15] MEDS: Ambien 10 MG PO SCH (21:20)
[2022-11-15] MEDS: Effexor XR 75 MG PO SCH (21:21)
[2022-11-15] MEDS: Cyclobenzaprine 10 MG PO PRN (23:17)
[2022-11-15] MEDS: HUMALOG SQ PRN (23:23)
[2022-11-16] MEDS: solu-MEDROL 60 MG, Sterile H2O 10 ml 2 ML IV SCH ×6 (00:39→10:41)
[2022-11-16] MEDS: Lactated Ringers 1,000 ML IV SCH (01:51)
[2022-11-16] MEDS: OXYCODONE-ACETAMINOPHEN 10-325 PO PRN ×2 (04:15→08:26)
[2022-11-16 05:21] LABS: Absolute Neutrophil Ct (ANC) 5.29 x10^3/uL (1.4-6.9); Basophil (Absolute #) 0 x10^3/uL (0-0.4); Eosinophil % 1.6 % (0.00-5.0); Eosinophil (Absolute #) 0.14 x10^3/uL (0-0.5); Hematocrit 34.6 % (35-47); Hemoglobin 11.8 g/dL (12.0-16.0); IMMATURE GRAN # 0.03 x10^3u/L (0.00-0.03); IMMATURE GRAN % 0.3 % (0.00-0.4); Lymphocyte (Absolute #) 2.69 x10^3/uL (1.0-4.6); Lymphocytes % 30.2 % (24.0-44.0); Mean Cell Volume 81.8 fL (78-100); Mean Corpuscular Hemoglobin 27.9 pg (26-32); Mean Corpuscular Hgb Concent. 34.1 g/dL (32-36); Mean Platelet Volume 9.4 fL (7.5-11.0); Monocyte (Absolute #) 0.76 x10^3/uL (0.0-1.3); Monocytes % 8.5 % (0.0-12.0); Neutrophil % 59.4 % (36.0-66.0); Platelet Count 150 x10^3/uL (150-450); Red Blood Count 4.23 x10^6/uL (4.1-5.4); White Blood Count 8.9 x10^3/uL (4.0-10.5)
[2022-11-16] MEDS: FLAGYL 500 MG IVPB 500 MG/100 ML BAG IV SCH ×2 (05:24→10:41)
[2022-11-16 06:08] LABS: ALBUMIN 2.1 g/dL (3.5-5.0); ANION GAP 6.6 MEQ/L (5-15); BILIRUBIN,TOTAL 0.3 mg/dL (0.2-1.3); Calcium 7.4 mg/dL (8.4-10.2); Creatinine 1 1.65 mg/dL (0.52-1.04); EST GLOMERULAR FILTRATION RATE 37.6 ML/MIN; Potassium 3.7 mmol/L (3.5-5.1); Total Protein 4.6 g/dL (6.3-8.2)
--- NOTE | 2022-11-16 09:33 | PCM.DS ---
Discharge Summary Date of Admission: 11/12/22 19:41 Admitting Physician: CHIVO ALSTON Consults: Consults on Case 11/12/22 10:04 Consult Surgery ROUTINE Primary Care Provider: GOMEZ CURIEL Allergies Allergies morphine Allergy (Intermediate, Verified 11/12/22 01:35) Itching Hospital Summary - Hospital Course Hospital Course: patient was admitted with LLQ abd pain and diarrhea, ct showed thickening of colon. colonoscopy was normal per Dr Alex George, she has a normal white blood cell count and is tolerating po intake. still has some llq pain at the time of discharge but is minimal and she is doing well clinically and stable for discharge. patient states she called and schedule an appt with Adela Cox her [employer] next . - Vitals & Intake/Output Vital Signs: Vital Signs Temperature 96.5 F 11/16/22 07:27 Pulse Rate 104 H 11/16/22 07:27 Respiratory Rate 16 11/16/22 07:27 Blood Pressure 163/97 11/16/22 07:27 O2 Sat by Pulse Oximetry 92 L 11/16/22 07:27 Intake & Output: Intake & Output 11/13/22 11/14/22 11/15/22 11/16/22 11:59 11:59 11:59 11:59 Intake Total 5749 2760 3644 4131 Output Total 3000 Balance 5749 2760 644 4131 Weight 68.1 kg - Lab Result Diagrams: 11/16/22 04:59 11/16/22 04:59 Lab Results-Last 24 Hrs: Lab Results-Last 24 Hours 11/15/22 11/15/22 11/15/22 Range/Units 07:48 11:28 16:28 WBC (4.0-10.5) x10^3/uL RBC (4.1-5.4) x10^6/uL Hgb (12.0-16.0) g/dL Hct (35-47) % MCV (78-100) fL MCH (26-32) pg MCHC (32-36) g/dL RDW (11.5-14.0) % Plt Count (150-450) x10^3/uL MPV (7.5-11.0) fL Gran % (36.0-66.0) % Immature Gran % (Auto) (0.00-0.4) % Nucleat RBC Rel Count (0.00-0.1) % Eos # (Auto) (0-0.5) x10^3/uL Immature Gran # (Auto) (0.00-0.03) x10^3u/L Absolute Lymphs (auto) (1.0-4.6) x10^3/uL Absolute Monos (auto) (0.0-1.3) x10^3/uL Absolute Nucleated RBC (0.00-0.01) x10^3u/L Lymphocytes % (24.0-44.0) % Monocytes % (0.0-12.0) % Eosinophils % (0.00-5.0) % Basophils % (0.0-0.4) % Absolute Granulocytes (1.4-6.9) x10^3/uL Basophils # (0-0.4) x10^3/uL Sodium 133 L (137-145) mmol/L Potassium 3.9 (3.5-5.1) mmol/L Chloride 107 (98-107) mmol/L Carbon Dioxide 22 (22-30) mmol/L Anion Gap 8.0 (5-15) MEQ/L BUN 27 H (7-17) mg/dL Creatinine 1.78 H (0.52-1.04) mg/dL Estimated GFR 34.5 ML/MIN Glucose 183 H (74-106) mg/dL POC Glucometer 160 H 145 H (74 to 106) mg/dL Calcium 7.3 L (8.4-10.2) mg/dL Total Bilirubin 0.30 (0.2-1.3) mg/dL AST 16 (14-36) U/L ALT 11 (0-35) U/L Alkaline Phosphatase 67 (38-126) U/L Serum Total Protein 4.6 L (6.3-8.2) g/dL Albumin 2.2 L (3.5-5.0) g/dL Procalcitonin (0.030-0.080) ng/mL 11/15/22 11/15/22 11/16/22 Range/Units 21:32 Unknown 04:59 WBC 8.9 (4.0-10.5) x10^3/uL RBC 4.23 (4.1-5.4) x10^6/uL Hgb 11.8 L (12.0-16.0) g/dL Hct 34.6 L (35-47) % MCV 81.8 (78-100) fL MCH 27.9 (26-32) pg MCHC 34.1 (32-36) g/dL RDW 14.0 (11.5-14.0) % Plt Count 150 (150-450) x10^3/uL MPV 9.4 (7.5-11.0) fL Gran % 59.4 (36.0-66.0) % Immature Gran % (Auto) 0.3 (0.00-0.4) % Nucleat RBC Rel Count 0.0 (0.00-0.1) % Eos # (Auto) 0.14 (0-0.5) x10^3/uL Immature Gran # (Auto) 0.03 (0.00-0.03) x10^3u/L Absolute Lymphs (auto) 2.69 (1.0-4.6) x10^3/uL Absolute Monos (auto) 0.76 (0.0-1.3) x10^3/uL Absolute Nucleated RBC 0.00 (0.00-0.01) x10^3u/L Lymphocytes % 30.2 (24.0-44.0) % Monocytes % 8.5 (0.0-12.0) % Eosinophils % 1.6 (0.00-5.0) % Basophils % 0.0 (0.0-0.4) % Absolute Granulocytes 5.29 (1.4-6.9) x10^3/uL Basophils # 0 (0-0.4) x10^3/uL Sodium (137-145) mmol/L Potassium (3.5-5.1) mmol/L Chloride (98-107) mmol/L Carbon Dioxide (22-30) mmol/L Anion Gap (5-15) MEQ/L BUN (7-17) mg/dL Creatinine (0.52-1.04) mg/dL Estimated GFR ML/MIN Glucose (74-106) mg/dL POC Glucometer 327 H (74 to 106) mg/dL Calcium (8.4-10.2) mg/dL Total Bilirubin (0.2-1.3) mg/dL AST (14-36) U/L ALT (0-35) U/L Alkaline Phosphatase (38-126) U/L Serum Total Protein (6.3-8.2) g/dL Albumin (3.5-5.0) g/dL Procalcitonin 0.062 (0.030-0.080) ng/mL 11/16/22 11/16/22 Range/Units 04:59 06:58 WBC (4.0-10.5) x10^3/uL RBC (4.1-5.4) x10^6/uL Hgb (12.0-16.0) g/dL Hct (35-47) % MCV (78-100) fL MCH (26-32) pg MCHC (32-36) g/dL RDW (11.5-14.0) % Plt Count (150-450) x10^3/uL MPV (7.5-11.0) fL Gran % (36.0-66.0) % Immature Gran % (Auto) (0.00-0.4) % Nucleat RBC Rel Count (0.00-0.1) % Eos # (Auto) (0-0.5) x10^3/uL Immature Gran # (Auto) (0.00-0.03) x10^3u/L Absolute Lymphs (auto) (1.0-4.6) x10^3/uL Absolute Monos (auto) (0.0-1.3) x10^3/uL Absolute Nucleated RBC (0.00-0.01) x10^3u/L Lymphocytes % (24.0-44.0) % Monocytes % (0.0-12.0) % Eosinophils % (0.00-5.0) % Basophils % (0.0-0.4) % Absolute Granulocytes (1.4-6.9) x10^3/uL Basophils # (0-0.4) x10^3/uL Sodium 133 L (137-145) mmol/L Potassium 3.7 (3.5-5.1) mmol/L Chloride 105 (98-107) mmol/L Carbon Dioxide 25 (22-30) mmol/L Anion Gap 6.6 (5-15) MEQ/L BUN 23 H (7-17) mg/dL Creatinine 1.65 H (0.52-1.04) mg/dL Estimated GFR 37.6 ML/MIN Glucose 91 (74-106) mg/dL POC Glucometer 104 (74 to 106) mg/dL Calcium 7.4 L (8.4-10.2) mg/dL Total Bilirubin 0.30 (0.2-1.3) mg/dL AST 17 (14-36) U/L ALT 14 (0-35) U/L Alkaline Phosphatase 59 (38-126) U/L Serum Total Protein 4.6 L (6.3-8.2) g/dL Albumin 2.1 L (3.5-5.0) g/dL Procalcitonin (0.030-0.080) ng/mL Micro Results-Entire Visit: Microbiology 11/12/22 02:10 Urine Culture - Final Urine, Void MIXED EVANGELIST; 3 OR MORE TYPES. NO PREDOMINANT ORGANISM. NO FURTHER WORKUP. PLEASE RESUBMIT IF CLINICALLY INDICATED. Accuchecks Date 11/16/22 Date 11/15/22 Date 11/15/22 Time 07:27 Time 16:47 Time 11:43 Discharge Exam General Appearance: no apparent distress Neurologic Exam: alert, oriented x 3 Respiratory Exam: normal breath sounds, lungs clear, No respiratory distress Cardiovascular Exam: regular rate/rhythm, normal heart sounds Gastrointestinal/Abdomen Exam: soft, tenderness (LLQ mild, improved with distraction), No guarding, No rebound Final Diagnosis/Problem List - Final Discharge Diagnosis/Problem (1) Pancolitis Current Visit: Yes Status: Acute Assessment & Plan: negative colonoscopy, improved with abx therapy. will discharge home on po abx with outpatient f/u Code(s): K51.00 - ULCERATIVE (CHRONIC) PANCOLITIS WITHOUT COMPLICATIONS (2) Hypokalemia Current Visit: Yes Status: Acute Code(s): E87.6 - HYPOKALEMIA (3) Abdominal pain Current Visit: No Status: Acute Code(s): R10.9 - UNSPECIFIED ABDOMINAL PAIN (4) CAD (coronary artery disease) Current Visit: No Status: Chronic Code(s): I25.10 - ATHSCL HEART DISEASE OF [place] CORONARY ARTERY W/O ANG PCTRS - Discharge Disposition: Home, Self-Care Condition: Fair Prescriptions: New Lactobacillus Acidophilus [Acidophilus TABLET] 1 tab PO BID 7 Days #14 tablet Ciprofloxacin [Cipro 500 MG] 500 mg PO BID #14 tablet Hydrocodone/Acetaminophen [Hydrocodone-Acetamin 7.5-325] 1 each PO Q6H PRN PRN #28 tablet MDD 4 PRN Reason: Pain Continue Carvedilol 12.5 mg [Coreg 12.5 mg] 25 mg PO BID Fexofenadine HCl 180 mg PO DAILY Insulin Lispro [Humalog] 1 unit SQ UD Venlafaxine HCl [Effexor Xr] 150 mg PO HS Sacubitril/Valsartan [Entresto 24 mg-26 mg Tablet] 1 tab PO BID PANTOPRAZOLE 40 mg Tablet [Protonix 40MG Tablet] 40 mg PO QAM Cyclobenzaprine HCl 10 mg [Cyclobenzaprine 10 MG] 10 mg PO TID PRN PRN Reason: Muscle Spasms Insulin Glargine,Hum.rec.anlog [Basaglar Tempo Pen U-100] 34 unit SQ HS Trazodone HCl 150 mg PO HS Ramelteon [Rozerem] 8 mg PO HS Clonazepam [Klonopin] 0.5 mg PO TID Clopidogrel Bisulfate [PLAVIX Tablet] 75 mg PO DAILY #1 Follow up with: ADELA COX NP [Family Provider] - 1 Week
[2022-11-16] MEDS: ECOTRIN 81 MG PO SCH (10:33)
[2022-11-16] MEDS: Protonix 40MG Tablet PO SCH (10:34)
[2022-11-16] MEDS: clonazePAM PO SCH (10:34)
[2022-11-16] MEDS: Pepcid 20 MG VIAL IV SCH ×2 (10:34→10:39)
[2022-11-16] MEDS: COREG 12.5 MG PO SCH (10:34)
[2022-11-16] MEDS: ENTRESTO 49 MG-51 MG TABLET PO SCH (10:34)
[2022-11-16] MEDS: PLAVIX Tablet PO SCH (10:34)
[2022-11-16] MEDS: ROCEPHIN 1 Gm-D5w 50 ml Bag** 1 G/50 ML IVPB IV SCH (10:40)
[2022-11-16 11:05] VITALS: BP 172/92; PULSE 107; O2SAT 99
== END 2022-11-16 11:49 | disposition home or self-care (01) | DRG 387 ==
LOC: ED 01:33 → MED SURG 09:46 → OBSVTOIN 19:41
PROVIDERS: ADMIT Family Medicine; ATTEND Family Medicine
PROC: 0DJ08ZZ Inspection of Upper Intestinal Tract, Via Natural or Artificial Opening Endoscopic (ICD-10-PCS; principal; 2022-11-13)
PROC: 0DJD8ZZ Inspection of Lower Intestinal Tract, Via Natural or Artificial Opening Endoscopic (ICD-10-PCS; 2022-11-13)
DX: K51.00 Ulcerative (chronic) pancolitis without complications (principal); I11.0 Hypertensive heart disease with heart failure; I50.9 Heart failure, unspecified; E87.6 Hypokalemia; R10.9 Unspecified abdominal pain; I25.10 Atherosclerotic heart disease of native coronary artery without angina pectoris; E78.5 Hyperlipidemia, unspecified; E10.9 Type 1 diabetes mellitus without complications; K21.9 Gastro-esophageal reflux disease without esophagitis; Z79.899 Other long term (current) drug therapy; Z72.0 Tobacco use; Z95.1 Presence of aortocoronary bypass graft; Z20.828 Contact with and (suspected) exposure to other viral communicable diseases; Z53.29 Procedure and treatment not carried out because of patient's decision for other reasons
CPT/HCPCS: 0241U; 36000; 36415; 74176; 74177; 80053; 81001; 82570; 82947; 83605; 83690; 83735; 84145; 84156; 85025; 87086; 94762; 96360; 96365; 96374; 96375; 99140; 99285; J0360; J0696; J1170; J1817; J1885; J2405; J2704; J2930; J3010; J3475; A9270-GY

== ENCOUNTER 2022-11-23 07:04 | Emergency (ER) | payer OTHER ==
--- NOTE | 2022-11-23 07:21 | ERPHSYRPT ---
- History of Present Illness Time Seen by Provider: 11/23/22 07:18 Historian: patient Exam Limitations: no limitations Physician History: Patient is a 36-year-old female with a history of congestive heart failure, history of quadruple bypass in 2019, presents to our ED via EMS for evaluation of chest pain. Chest pain started yesterday evening at approximately 9 PM. Edin crystal went to sleep. Patient awoke with worsening pain. Pain described as an ache that tends to radiate towards her left arm. Pain associated with nausea and vomiting. Patient has a nitroglycerin patch. Patient was given nitroglycerin in route via EMS. Zofran administered as well. Patient took 2 aspirin this morning. 2 additional aspirin was administered by EMS. Patient's pain is unchanged. No trauma. No fever. Symptoms are constant. Symptoms are moderate in intensity. No specific worsening or improving factors. Patient voices no other complaints or concerns at this time. Of note patient had a cholecystectomy performed approximately 1 month ago. Portions of this note were created with voice recognition technology. There may be grammatical, spelling, punctuation or sound alike errors Timing/Duration: today Activities at Onset: none Location: other (Left chest) Severity of Pain-Max: moderate Severity of Pain-Current: mild Modifying Factors: Improves With: nothing Associated Symptoms: nausea, vomiting, shortness of breath, edema (Bilateral lower extremity pitting edema) Prior Chest Pain/Cardiac Workup: echocardiography Nitro Today/Relief: 0.4 mg x 1 (Patient has a nitro patch and was also given a sublingual nitro. No change in characteristics of pain) Aspirin Treatment Today: 81 mg x 4 (Patient took 2 aspirin at home. 2 administered in route via EMS) Allergies/Adverse Reactions: morphine Allergy (Intermediate, Verified 11/23/22 07:27) Itching Home Medications: Carvedilol 12.5 mg [Coreg 12.5 mg] 25 mg PO BID 10/21/18 [History] Fexofenadine HCl 180 mg PO DAILY 10/21/18 [History] Insulin Lispro [Humalog] 1 unit SQ UD 10/21/18 [History] Clonazepam [Klonopin] 0.5 mg PO TID 10/11/22 [History] Cyclobenzaprine HCl 10 mg [Cyclobenzaprine 10 MG] 10 mg PO TID PRN 10/11/22 [History] Insulin Glargine,Hum.rec.anlog [Basaglar Tempo Pen U-100] 34 unit SQ HS 10/11/22 [History] PANTOPRAZOLE 40 mg Tablet [Protonix 40MG Tablet] 40 mg PO QAM 10/11/22 [History] Ramelteon [Rozerem] 8 mg PO HS 10/11/22 [History] Sacubitril/Valsartan [Entresto 24 mg-26 mg Tablet] 1 tab PO BID 10/11/22 [History] Trazodone HCl 150 mg PO HS 10/11/22 [History] Venlafaxine HCl [Effexor Xr] 150 mg PO HS 10/11/22 [History] Hx Tetanus, Diphtheria Vaccination/Date Given: Yes Hx Influenza Vaccination/Date Given: Yes Hx Pneumococcal Vaccination/Date Given: No Travel Risk - Vaccine Status Have you recieved a Covid-19 vaccination: No - Review of Systems Constitutional: No Symptoms, No Fever, No Chills Eyes: No Symptoms Ears, Nose, & Throat: No Symptoms Respiratory: No Symptoms, No Cough, No Dyspnea Cardiac: Chest Pain, No Edema, No Syncope Abdominal/Gastrointestinal: No Symptoms, No Abdominal Pain, No Nausea, No Vomiting, No Diarrhea Genitourinary Symptoms: No Symptoms, No Dysuria Musculoskeletal: No Symptoms, No Back Pain, No Neck Pain Skin: No Symptoms, No Rash Neurological: No Symptoms, No Dizziness, No Focal Weakness, No Sensory Changes Psychological: No Symptoms Endocrine: No Symptoms Hematologic/Lymphatic: No Symptoms Immunological/Allergic: No Symptoms All Other Systems: Reviewed and Negative - Past Medical History Pertinent Past Medical History: Yes Neurological History: No Pertinent History ENT History: Other Cardiac History: Congestive Heart Failure, Coronary Artery Disease, High Cholesterol, Hypertension Respiratory History: CHF, Pulmonary Embolism Endocrine Medical History: Diabetes Type I Musculoskeletal History: No Pertinent History GI Medical History: Pancreatitis History: No Pertinent History Psycho-Social History: Anxiety, Depression Female Reproductive Disorders: No Pertinent History Other Medical History: Pituitary tumor removed - Past Surgical History Past Surgical History: Yes Neuro Surgical History: No Pertinent History Cardiac: CABG, Cardiac Catheterization Respiratory: No Pertinent History Gastrointestinal: No Pertinent History, Cholecystectomy Genitourinary: No Pertinent History Musculoskeletal: Orthopedic Surgery Female Surgical History: Hysterectomy, Dilation & Curettage, Section Other Surgical History: cholecystectomy with liver laceration repair 10/13/22. knee surgery, pituitary tumor removed - Social History Smoking Status: Current every day smoker How long have you smoked: 15 yrs Exposure to second hand smoke: No (uses pipe) Alcohol Use: None Drug Use: marijuana Patient Lives Alone: No Significant Family History: no pertinent family hx - Female History Hx Now: No - Nursing Vital Signs Nursing Vital Signs: Initial Vital Signs Temperature 96.5 F 11/23/22 07:07 Pulse Rate 95 H 11/23/22 07:07 Respiratory Rate 16 11/23/22 07:07 Blood Pressure 188/120 11/23/22 07:07 O2 Sat by Pulse Oximetry 99 11/23/22 07:07 Pain Scale Pain Intensity 0 - Physical Exam General Appearance: no apparent distress, alert Eye Exam: PERRL/EOMI, eyes nml inspection Ears, Nose, Throat Exam: normal ENT inspection, TMs normal, pharynx normal, moist mucous membranes Neck Exam: normal inspection, non-tender, supple, full range of motion Respiratory Exam: normal breath sounds, lungs clear, airway intact, No r espiratory distress Cardiovascular Exam: regular rate/rhythm, normal heart sounds, normal peripheral pulses Gastrointestinal/Abdomen Exam: soft, normal bowel sounds, other (Well-healed postsurgical scar status post cholecystectomy), No tenderness, No mass Back Exam: normal inspection, No CVA tenderness, No vertebral tenderness Extremity Exam: normal inspection, normal range of motion, pedal edema (2+ bilateral lower extremity pitting edema.) Neurologic Exam: alert, oriented x 3, cooperative, normal mood/affect, sensation nml, No motor deficits Skin Exam: normal color, warm, dry Lymphatic Exam: No adenopathy SpO2 Interpretation: normal SpO2: 98 O2 Delivery: Room Air - Course Nursing assessment & vital signs reviewed: Yes EKG Interpreted by Me: RATE (98), Sinus Rhythm, NORMAL AXIS, prolonged QT interval - Radiology Exams Chest X-ray Interpretation: Teleradiologist Report (New left base infiltrate versus atelectasis) Ordered Tests: Active Orders 24 hr Category Date Time Status Scaffold Setter STAT Care 11/23/22 07:07 Active EKG-ER Only STAT Care 11/23/22 07:06 Active IV Insertion STAT Care 11/23/22 07:06 Active Pulse Oximetry (ED) STAT Care 11/23/22 07:06 Active CHEST 1 VIEW (PORTABLE) Stat Exams 11/23/22 07:07 Completed CBC Q48H Lab 11/24/22 06:00 Ordered CBC Q48H Lab 11/26/22 06:00 Ordered CBC Q48H Lab 11/28/22 06:00 Ordered CBC Q48H Lab 11/30/22 06:00 Ordered CBC Q48H Lab 12/02/22 06:00 Ordered CBC Q48H Lab 12/04/22 06:00 Ordered CBC Q48H Lab 12/06/22 06:00 Ordered CBC W DIFF Stat Lab 11/23/22 07:27 Completed CMP Stat Lab 11/23/22 07:27 Completed D-DIMER QUANTITATIVE Stat Lab 11/23/22 07:27 Completed HCG QUALITATIVE, URINE Stat Lab 11/23/22 Ordered MAGNESIUM Stat Lab 11/23/22 08:28 Completed NT PRO BNPII Stat Lab 11/23/22 07:27 Completed PROTIME WITH INR Stat Lab 11/23/22 08:17 Completed PTT Q4H Lab 11/23/22 08:30 Received PTT Q4H Lab 11/23/22 12:30 Ordered PTT Q4H Lab 11/23/22 16:30 Ordered PTT Q4H Lab 11/23/22 20:30 Ordered PTT Q4H Lab 11/24/22 00:30 Ordered PTT Q4H Lab 11/24/22 04:30 Ordered PTT Q4H Lab 11/24/22 08:30 Ordered PTT Q4H Lab 11/24/22 12:30 Ordered PTT Q4H Lab 11/24/22 16:30 Ordered PTT Q4H Lab 11/24/22 20:30 Ordered PTT Q4H Lab 11/25/22 00:30 Ordered PTT Q4H Lab 11/25/22 04:30 Ordered PTT Stat Lab 11/23/22 08:17 Completed TROPONIN Q4H Lab 11/23/22 07:27 Completed TROPONIN Q4H Lab 11/23/22 11:15 Ordered TROPONIN Q4H Lab 11/23/22 15:15 Ordered Medication Summary Generic Name Dose Route Start Last Admin Trade Name Freq PRN Reason Stop Dose Admin Heparin Sodium/Dextrose 25,000 units in 250 mls @ 8.165 mls/hr 11/23/22 08:30 11/23/22 08:50 Heparin 25,000 Units/D5w: Use Order Set Wade IV 12/23/22 08:29 12 units/kg/hr .Q24H ALO 8.165 mls/hr Administration Protocol 12 UNITS/KG/HR Magnesium Sulfate/Dextrose 100 mls @ 100 mls/hr 11/23/22 09:00 11/23/22 09:53 Magnesium 1 Gm / 100 Ml D5w IV 11/23/22 10:59 100 mls/hr Q1H ALO Administration Nitroglycerin/Dextrose 250 mls @ 1.5 mls/hr 11/23/22 09:49 Ntg 0.2mg/Ml In D5w Glass IV 12/23/22 09:48 .Q24H PRN CHEST PAIN Protocol 5 MCG/MIN Discontinued Medications Generic Name Dose Route Start Last Admin Trade Name Freq PRN Reason Stop Dose Admin Fentanyl Citrate 25 mcg 11/23/22 07:30 11/23/22 07:36 Fentanyl Citrate 100 Mcg/2 Ml* Vial IV 11/23/22 07:31 25 mcg STAT ONE Administration Fentanyl Citrate Confirm 11/23/22 07:34 Fentanyl Citrate 100 Mcg/2 Ml* Vial Administered 11/23/22 07:35 Dose 100 mcg .ROUTE .STK-MED ONE Fentanyl Citrate 25 mcg 11/23/22 08:35 11/23/22 08:46 Fentanyl Citrate 100 Mcg/2 Ml* Vial IV 11/23/22 08:36 25 mcg STAT ONE Administration Fentanyl Citrate Confirm 11/23/22 08:38 Fentanyl Citrate 100 Mcg/2 Ml* Vial Administered 11/23/22 08:39 Dose 100 mcg .ROUTE .STK-MED ONE Furosemide 40 mg 11/23/22 08:13 11/23/22 08:46 Furosemide 40 Mg/4 Ml Vial IV 11/23/22 08:14 40 mg STAT ONE Administration Furosemide Confirm 11/23/22 08:38 Furosemide 40 Mg/4 Ml Vial Administered 11/23/22 08:39 Dose 40 mg .ROUTE .STK-MED ONE Heparin Sodium (Beef Lung) 4,100 unit 11/23/22 08:17 11/23/22 08:48 Heparin 5000 Units/0.5 Ml 5,000 Unit/0.5 Ml Syr 60 unit/kg (4100 unit) 11/23/22 08:18 4,100 unit IV Administration STAT STA Heparin Sodium (Beef Lung) Confirm 11/23/22 08:37 Heparin 5000 Units/0.5 Ml 5,000 Unit/0.5 Ml Syr Administered 11/23/22 08:38 Dose 5,000 unit .ROUTE .[facility]-MED ONE Lab/Rad Data: Laboratory Result Diagrams 11/23/22 07:27 11/23/22 07:27 Laboratory Results 11/23/22 11/23/22 11/23/22 Range/Units 08:28 08:22 08:17 WBC (4.0-10.5) x10^3/uL RBC (4.1-5.4) x10^6/uL Hgb (12.0-16.0) g/dL Hct (35-47) % MCV (78-100) fL MCH (26-32) pg MCHC (32-36) g/dL RDW (11.5-14.0) % Plt Count (150-450) x10^3/uL MPV (7.5-11.0) fL Gran % (36.0-66.0) % Immature Gran % (Auto) (0.00-0.4) % Nucleat RBC Rel Count (0.00-0.1) % Eos # (Auto) (0-0.5) x10^3/uL Immature Gran # (Auto) (0.00-0.03) x10^3u/L Absolute Lymphs (auto) (1.0-4.6) x10^3/uL Absolute Monos (auto) (0.0-1.3) x10^3/uL Absolute Nucleated RBC (0.00-0.01) x10^3u/L Lymphocytes % (24.0-44.0) % Monocytes % (0.0-12.0) % Eosinophils % (0.00-5.0) % Basophils % (0.0-0.4) % Absolute Granulocytes (1.4-6.9) x10^3/uL Basophils # (0-0.4) x10^3/uL PT 9.8 (9.4-12.5) SECONDS INR 0.89 (0.8-3.0) APTT 24.6 L (25.1-36.5) SECONDS D-Dimer (0.0-0.50) mg/L Sodium (137-145) mmol/L Potassium (3.5-5.1) mmol/L Chloride (98-107) mmol/L Carbon Dioxide (22-30) mmol/L Anion Gap (5-15) MEQ/L BUN (7-17) mg/dL Creatinine (0.52-1.04) mg/dL Estimated GFR ML/MIN Glucose (74-106) mg/dL Calcium (8.4-10.2) mg/dL Magnesium 1.1 L (1.6-2.3) mg/dL Total Bilirubin (0.2-1.3) mg/dL AST (14-36) U/L ALT (0-35) U/L Alkaline Phosphatase (38-126) U/L Troponin I (0.000-0.034) ng/mL NT-Pro-B Natriuret Pep (<300) pg/mL Serum Total Protein (6.3-8.2) g/dL Albumin (3.5-5.0) g/dL Influenza Type A Ag NEGATIVE (NEGATIVE) Influenza Type B Ag NEGATIVE (NEGATIVE) RSV (PCR) NEGATIVE (NEGATIVE) SARS-CoV-2 (PCR) NEGATIVE (NEGATIVE) 11/23/22 11/23/22 11/23/22 Range/Units 07:27 07:27 07:27 WBC (4.0-10.5) x10^3/uL RBC (4.1-5.4) x10^6/uL Hgb (12.0-16.0) g/dL Hct (35-47) % MCV (78-100) fL MCH (26-32) pg MCHC (32-36) g/dL RDW (11.5-14.0) % Plt Count (150-450) x10^3/uL MPV (7.5-11.0) fL Gran % (36.0-66.0) % Immature Gran % (Auto) (0.00-0.4) % Nucleat RBC Rel Count (0.00-0.1) % Eos # (Auto) (0-0.5) x10^3/uL Immature Gran # (Auto) (0.00-0.03) x10^3u/L Absolute Lymphs (auto) (1.0-4.6) x10^3/uL Absolute Monos (auto) (0.0-1.3) x10^3/uL Absolute Nucleated RBC (0.00-0.01) x10^3u/L Lymphocytes % (24.0-44.0) % Monocytes % (0.0-12.0) % Eosinophils % (0.00-5.0) % Basophils % (0.0-0.4) % Absolute Granulocytes (1.4-6.9) x10^3/uL Basophils # (0-0.4) x10^3/uL PT (9.4-12.5) SECONDS INR (0.8-3.0) APTT (25.1-36.5) SECONDS D-Dimer 2.44 H* (0.0-0.50) mg/L Sodium (137-145) mmol/L Potassium (3.5-5.1) mmol/L Chloride (98-107) mmol/L Carbon Dioxide (22-30) mmol/L Anion Gap (5-15) MEQ/L BUN (7-17) mg/dL Creatinine (0.52-1.04) mg/dL Estimated GFR ML/MIN Glucose (74-106) mg/dL Calcium (8.4-10.2) mg/dL Magnesium (1.6-2.3) mg/dL Total Bilirubin (0.2-1.3) mg/dL AST (14-36) U/L ALT (0-35) U/L Alkaline Phosphatase (38-126) U/L Troponin I 2.300 H* (0.000-0.034) ng/mL NT-Pro-B Natriuret Pep 8440 (<300) pg/mL Serum Total Protein (6.3-8.2) g/dL Albumin (3.5-5.0) g/dL Influenza Type A Ag (NEGATIVE) Influenza Type B Ag (NEGATIVE) RSV (PCR) (NEGATIVE) SARS-CoV-2 (PCR) (NEGATIVE) 11/23/22 11/23/22 Range/Units 07:27 07:27 WBC 12.9 H (4.0-10.5) x10^3/uL RBC 3.77 L (4.1-5.4) x10^6/uL Hgb 10.6 L (12.0-16.0) g/dL Hct 31.7 L (35-47) % MCV 84.1 (78-100) fL MCH 28.1 (26-32) pg MCHC 33.4 (32-36) g/dL RDW 13.8 (11.5-14.0) % Plt Count 192 (150-450) x10^3/uL MPV 9.3 (7.5-11.0) fL Gran % 78.8 H (36.0-66.0) % Immature Gran % (Auto) 0.6 H (0.00-0.4) % Nucleat RBC Rel Count 0.0 (0.00-0.1) % Eos # (Auto) 0.24 (0-0.5) x10^3/uL Immature Gran # (Auto) 0.08 H (0.00-0.03) x10^3u/L Absolute Lymphs (auto) 1.52 (1.0-4.6) x10^3/uL Absolute Monos (auto) 0.81 (0.0-1.3) x10^3/uL Absolute Nucleated RBC 0.00 (0.00-0.01) x10^3u/L Lymphocytes % 11.8 L (24.0-44.0) % Monocytes % 6.3 (0.0-12.0) % Eosinophils % 1.9 (0.00-5.0) % Basophils % 0.6 (0.0-0.4) % Absolute Granulocytes 10.12 H (1.4-6.9) x10^3/uL Basophils # 0.08 (0-0.4) x10^3/uL PT (9.4-12.5) SECONDS INR (0.8-3.0) APTT (25.1-36.5) SECONDS D-Dimer (0.0-0.50) mg/L Sodium 137 (137-145) mmol/L Potassium 3.9 (3.5-5.1) mmol/L Chloride 106 (98-107) mmol/L Carbon Dioxide 29 (22-30) mmol/L Anion Gap 6.6 (5-15) MEQ/L BUN 17 (7-17) mg/dL Creatinine 1.87 H (0.52-1.04) mg/dL Estimated GFR 32.6 ML/MIN Glucose 242 H (74-106) mg/dL Calcium 7.6 L (8.4-10.2) mg/dL Magnesium (1.6-2.3) mg/dL Total Bilirubin 0.30 (0.2-1.3) mg/dL AST 34 (14-36) U/L ALT 18 (0-35) U/L Alkaline Phosphatase 111 (38-126) U/L Troponin I (0.000-0.034) ng/mL NT-Pro-B Natriuret Pep (<300) pg/mL Serum Total Protein 5.5 L (6.3-8.2) g/dL Albumin 2.6 L (3.5-5.0) g/dL Influenza Type A Ag (NEGATIVE) Influenza Type B Ag (NEGATIVE) RSV (PCR) (NEGATIVE) SARS-CoV-2 (PCR) (NEGATIVE) - Progress Progress: improved Air Movement: good Progress Note: D-dimer positive at 2.44. However due to compromised renal function, GFR 32.6, patient is not a candidate for CTA. Patient will likely require a VQ scan. Troponin elevated at 2.3. Creatinine 1.87. Patient will be started on heparin drip. We are contacting Dr. Hill to see whether or not patient is a candidate to stay in our hospital. However in light of diminished renal function, elevated troponin and chest pain we will likely transfer patient to higher level of care. Patient given fentanyl for pain control. Pain improved not completely resolved at this point. We will continue to monitor. COVID test pending 11/23/22 08:[address] Hill who advises transfer to higher level of care 11/23/22 09:[address] Aceves, ED physician at [facility] who accepts transfer. Plan of care discussed with patient. She agrees to transfer to [facility] for further evaluation and treatment. Portions of this note were created with voice recognition technology. There may be grammatical, spelling, punctuation or sound alike errors 11/23/22 10:41 Patient is a 36-year-old female history of diabetes, quadruple bypass, cholecystectomy approximately 2 weeks ago presents to our ED for evaluation of l eft-sided chest pain that started last night around 9 PM. Patient did not seek medical attention however did so this morning as her pain was somewhat worse. Patient arrived via EMS. Patient was nauseous. Patient vomited. Patient received Zofran in route. Patient also received nitro sublingual and 2 aspirin. Patient took 2 aspirin this morning prior to EMS arrival. On physical exam patient had bilateral extremity 2+ pitting edema. Lungs clear. Patient's problem is acute in nature. Patient received an EKG which revealed a prolonged QT. Magnesium level obtained. Magnesium 1.1. Patient received 2 g of magnesium replacement. Chest x-ray revealed a left base atelectasis versus infiltrate. Patient has no respiratory complaints. Patient was not hypoxic. No fever. So no antibiotics administered. X-ray findings likely atelectasis. CBC CMP completed. Slight leukocytosis on CBC. CMP reveals patient's chronic renal insufficiency. Creatinine 1.87. COVID-negative. D-dimer positive. Troponin positive. Patient received a heparin drip to address the elevated D- dimer and troponin. Patient did not receive a CTA chest as her abnormal renal function precluded IV contrast dye. hCG negative. proBNP elevated at 8000+. Patient received 40 mg of Lasix IV. Patient allergic to morphine. She received fentanyl x2 which significantly improved her pain but not resolved her pain completely. In light of her ongoing chest pain we started nitroglycerin drip which further improved patient's pain. Patient's diagnosis is acute coronary syndrome, congestive heart failure, elevated D-dimer, elevated troponin/NSTEMI, chronic renal insufficiency prolonged QT. Complexity of problem addressed is high. Severe exacerbation of congestive heart failure coupled with elevated troponin. Patient's problem is systemic. No critical care time. Complexity of data reviewed and analyzed is extensive. Labs ordered. Labs reviewed and analyzed by Dr. Alvarez. EKG ordered and independently reviewed by Dr. Alvarez. Patient served as independent historian however significant amount of information was obtained from EMS. Discussion of test results and management was performed. Dr. Alvarez spoke to Dr. Hill regarding management. Dr. Hill advised transfer as patient required higher level of care. Risk of complication and or risk morbidity/mortality is high. Patient received IV fentanyl/narcotic controlled medication. Medications required monitoring. Patient's condition requires hospitalization. Patient transfer to [facility] for higher level of care. Plan of care established via shared decision making model. Patient was initially hypertensive upon arrival to our ED. Blood pressure gradually improved however significantly improved after administration of nitroglycerin IV. Patient voices no other complaints or concerns at this time. Portions of this note were created with voice recognition technology. There may be grammatical, spelling, punctuation or sound alike errors Blood Culture(s) Obtained: No Antibiotics given: No Discussed with : Bipin Will see patient in: other Counseled pt/family regarding: lab results, diagnosis, rad results - Departure Departure Disposition: Transfer Clinical Impression: Chest pain, CHF (congestive heart failure), Hypomagnesemia, Elevated troponin, Elevated d-dimer, Chronic renal insufficiency, NSTEMI (non-ST elevated myoca rdial infarction), ACS (acute coronary syndrome), Prolonged QT interval Condition: Stable Critical Care Time: No Referrals: GOMEZ CURIEL [Primary Care Provider] - Follow up/PCP as directed Instructions: Heart Failure
[2022-11-23] MEDS ORDERED: SUBLIMAZE 100 MCG/2 ML IV ONE ×2 (07:30→08:35)
[2022-11-23 07:34] LABS: Absolute Neutrophil Ct (ANC) 10.12 x10^3/uL (1.4-6.9); BASOPHIL % 0.6 % (0.0-0.4); Basophil (Absolute #) 0.08 x10^3/uL (0-0.4); Eosinophil % 1.9 % (0.00-5.0); Eosinophil (Absolute #) 0.24 x10^3/uL (0-0.5); Hematocrit 31.7 % (35-47); Hemoglobin 10.6 g/dL (12.0-16.0); IMMATURE GRAN # 0.08 x10^3u/L (0.00-0.03); IMMATURE GRAN % 0.6 % (0.00-0.4); Lymphocyte (Absolute #) 1.52 x10^3/uL (1.0-4.6); Lymphocytes % 11.8 % (24.0-44.0); Mean Cell Volume 84.1 fL (78-100); Mean Corpuscular Hemoglobin 28.1 pg (26-32); Mean Corpuscular Hgb Concent. 33.4 g/dL (32-36); Mean Platelet Volume 9.3 fL (7.5-11.0); Monocyte (Absolute #) 0.81 x10^3/uL (0.0-1.3); Monocytes % 6.3 % (0.0-12.0); Neutrophil % 78.8 % (36.0-66.0); Platelet Count 192 x10^3/uL (150-450); Red Blood Count 3.77 x10^6/uL (4.1-5.4); Red Cell Distribution Width 13.8 % (11.5-14.0); White Blood Count 12.9 x10^3/uL (4.0-10.5)
[2022-11-23] MEDS ORDERED: SUBLIMAZE 100 MCG/2 ML ONE ×2 (07:34→08:38)
[2022-11-23 07:47] LABS: ALBUMIN 2.6 g/dL (3.5-5.0); ANION GAP 6.6 MEQ/L (5-15); BILIRUBIN,TOTAL 0.3 mg/dL (0.2-1.3); Calcium 7.6 mg/dL (8.4-10.2); Creatinine 1 1.87 mg/dL (0.52-1.04); EST GLOMERULAR FILTRATION RATE 32.6 ML/MIN; Potassium 3.9 mmol/L (3.5-5.1); Total Protein 5.5 g/dL (6.3-8.2)
[2022-11-23] MEDS ORDERED: Lasix 40 MG/4 ML IV ONE (08:13)
[2022-11-23] MEDS ORDERED: HEPARIN 5000 UNITS/0.5 ML (HIGH RISK MED) IV STA (08:17)
[2022-11-23] MEDS ORDERED: Heparin 25,000 units/D5W: USE ORDER SET PROTO 25,000 UNITS/250 ML BAG IV SCH (08:30)
[2022-11-23 08:32] LABS: INR 0.89 (0.8-3.0); PROTIME 9.8 SECONDS (9.4-12.5); PTT 24.6 SECONDS (25.1-36.5)
[2022-11-23] MEDS ORDERED: HEPARIN 5000 UNITS/0.5 ML (HIGH RISK MED) ONE (08:37)
[2022-11-23] MEDS ORDERED: Heparin 25,000 units/D5W: USE ORDER SET PROTO 25,000 UNITS/250 ML BAG IV ONE (08:38)
[2022-11-23] MEDS ORDERED: Lasix 40 MG/4 ML ONE (08:38)
[2022-11-23 08:59] LABS: INFLUENZA A NEGATIVE (NEGATIVE); INFLUENZA B NEGATIVE (NEGATIVE); RESPIRATORY SYNCTIAL VIRUS NEGATIVE (NEGATIVE); SARS-CoV-2 Xpert Express NEGATIVE (NEGATIVE)
[2022-11-23] MEDS ORDERED: Magnesium 1 Gm / 100 Ml D5W*** 100 ML IV ONE ×2 (09:01→09:52)
[2022-11-23] MEDS: Magnesium 1 Gm / 100 Ml D5W*** 100 ML IV SCH ×2 (09:02→09:53)
--- NOTE | 2022-11-23 09:18 | XRAY ---
Indication: Chest pain. Comparison: October 13, 2022 Portable chest demonstrates new minimal left base infiltrate versus atelectasis. Remaining heart and lungs unremarkable again with CABG. Bony thorax intact.
[2022-11-23] MEDS ORDERED: Ntg 0.2MG/Ml in D5W GLASS*** 250 ML IV PRN (09:49)
[2022-11-23 11:31] VITALS: BP 148/88; PULSE 93; O2SAT 95
== END 2022-11-23 11:25 | disposition short-term general hospital (02) ==
LOC: ED 07:04
DX: I21.4 Non-ST elevation (NSTEMI) myocardial infarction (principal); I24.9 Acute ischemic heart disease, unspecified; I13.0 Hypertensive heart and chronic kidney disease with heart failure and stage 1 through stage 4 chronic kidney disease, or unspecified chronic kidney disease; I50.9 Heart failure, unspecified; N18.9 Chronic kidney disease, unspecified; R07.9 Chest pain, unspecified; E83.42 Hypomagnesemia; R77.8 Other specified abnormalities of plasma proteins; R79.1 Abnormal coagulation profile; R94.31 Abnormal electrocardiogram [ECG] [EKG]; R11.2 Nausea with vomiting, unspecified; E10.22 Type 1 diabetes mellitus with diabetic chronic kidney disease; Z79.4 Long term (current) use of insulin; Z79.899 Other long term (current) drug therapy; Z28.310 Unvaccinated for COVID-19; Z72.0 Tobacco use
CPT/HCPCS: 0241U; 36000; 36415; 71045; 80053; 83735; 83880; 84484; 85025; 85379; 85610; 85730; 93005; 93041; 94760; 96365; 96367; 96374; 96375; 96376; 99284; J1644; J1940; J3010; J3475

== ENCOUNTER 2022-11-28 08:51 | Emergency (ER) | payer OTHER ==
[2022-11-28] MEDS ORDERED: BABY ASPIRIN 81 MG CHEW PO ONE (08:57)
[2022-11-28] MEDS ORDERED: Zofran 4 MG/2 ML VIAL IV ONE (08:57)
[2022-11-28] MEDS ORDERED: Zofran 4 MG/2 ML VIAL ONE (09:03)
[2022-11-28 09:14] VITALS: O2SAT 98
[2022-11-28 09:24] LABS: BASOPHIL % 0.4 % (0.0-0.4); Basophil (Absolute #) 0.05 x10^3/uL (0-0.4); Eosinophil % 1.6 % (0.00-5.0); Eosinophil (Absolute #) 0.18 x10^3/uL (0-0.5); Hematocrit 30.1 % (35-47); Hemoglobin 9.9 g/dL (12.0-16.0); IMMATURE GRAN # 0.06 x10^3u/L (0.00-0.03); IMMATURE GRAN % 0.5 % (0.00-0.4); Lymphocyte (Absolute #) 1.32 x10^3/uL (1.0-4.6); Lymphocytes % 11.8 % (24.0-44.0); Mean Cell Volume 86.7 fL (78-100); Mean Corpuscular Hemoglobin 28.5 pg (26-32); Mean Corpuscular Hgb Concent. 32.9 g/dL (32-36); Mean Platelet Volume 9.5 fL (7.5-11.0); Monocyte (Absolute #) 0.45 x10^3/uL (0.0-1.3); Neutrophil % 81.7 % (36.0-66.0); Platelet Count 166 x10^3/uL (150-450); Red Blood Count 3.47 x10^6/uL (4.1-5.4); Red Cell Distribution Width 14.2 % (11.5-14.0); White Blood Count 11.2 x10^3/uL (4.0-10.5)
--- NOTE | 2022-11-28 09:31 | XRAY ---
Indication: Chest pain. Comparison: November 23, 2022 Portable chest is now clear. Heart not enlarged again with CABG. No acute findings.
--- NOTE | 2022-11-28 09:34 | ERPHSYRPT ---
- History of Present Illness Time Seen by Provider: 11/28/22 09:00 Historian: patient, EMS Exam Limitations: no limitations Patient Subjective Stated Complaint: C/O chest pain that started last night around 7pm. Patient states that she had a heart stent placed by Dr. Casiano on 11/24/22. Triage Nursing Assessment: Patient arrived by ambulance. She is alert and oriented. No SOB. Skin tone normal. 1+ pitting edema noted to BLE. PARK WNL. Physician History: This is a 37-year-old white female patient who continues to smoke cigarettes despite significant coronary artery disease who was brought in to our emergency department by [facility]ie inspector/ambulance service secondary to chest pain that began yesterday. Patient underwent cardiac catheterization and cardiac stent placement [address] Casiano, dean of admissions out [facility] in [facility]. Patient is also on Brilinta anticoagulation therapy. The patient states that the pain is in the left anterior chest and is a pressure but she also feels a sharpness in the left lateral chest. Patient was given a single nitroglycerin tablet and 4 baby aspirin in route to our facility. She also has a Nitropaste patch in place. Patient is allergic to morphine but she can take Dilaudid for pain control. Patient has a history of hypertension, diabetes, gastroesophageal reflux disease, congestive heart failure, hyperlipidemia and pancreatitis. Activities at Onset: none Quality: pressure, sharpness Location: other (Left anterior chest) Chest Pain Radiation: no radiation Severity of Pain-Max: moderate Severity of Pain-Current: moderate Modifying Factors: Improves With: nothing Prior Chest Pain/Cardiac Workup: cardiac cath, recently seen/treated, recent hospitalization Nitro Today/Relief: 0.4 mg x 1, provided by EMS (Also patient has a Nitropaste patch on in place.) Aspirin Treatment Today: 81 mg x 4, provided by EMS Allergies/Adverse Reactions: morphine Allergy (Intermediate, Verified 11/28/22 09:25) Itching fentanyl Allergy (Verified 11/28/22 09:25) Home Medications: Carvedilol 12.5 mg [Coreg 12.5 mg] 25 mg PO BID 10/21/18 [History] Fexofenadine HCl 180 mg PO DAILY 10/21/18 [History] Insulin Lispro [Humalog] 1 unit SQ UD 03/17/19 [History] Clonazepam [Klonopin] 0.5 mg PO TID 10/11/22 [History] Cyclobenzaprine HCl 10 mg [Cyclobenzaprine 10 MG] 10 mg PO TID PRN 10/11/22 [History] Insulin Glargine,Hum.rec.anlog [Basaglar Tempo Pen U-100] 34 unit SQ HS 10/11/22 [History] PANTOPRAZOLE 40 mg Tablet [Protonix 40MG Tablet] 40 mg PO QAM 10/11/22 [History] Ramelteon [Rozerem] 8 mg PO HS 10/11/22 [History] Sacubitril/Valsartan [Entresto 24 mg-26 mg Tablet] 1 tab PO BID 10/11/22 [History] Trazodone HCl 150 mg PO HS 10/11/22 [History] Venlafaxine HCl [Effexor Xr] 150 mg PO HS 10/11/22 [History] Hx Tetanus, Diphtheria Vaccination/Date Given: Yes Hx Influenza Vaccination/Date Given: Yes Hx Pneumococcal Vaccination/Date Given: No Immunizations Up to Date: Yes Travel Risk - International Travel Have you traveled outside of the country in past 3 weeks: No - Coronavirus Screening Are you exhibiting any of the following symptoms?: No Close contact with a COVID-19 positive Pt in past 14-21 Days: No - Vaccine Status Have you recieved a Covid-19 vaccination: No - Review of Systems Constitutional: No Symptoms Eyes: No Symptoms Ears, Nose, & Throat: No Symptoms Respiratory: No Symptoms Cardiac: No Symptoms, Chest Pain Abdominal/Gastrointestinal: No Symptoms Genitourinary Symptoms: No Symptoms Musculoskeletal: No Symptoms Skin: No Symptoms Neurological: No Symptoms Psychological: No Symptoms Endocrine: No Symptoms Hematologic/Lymphatic: No Symptoms Immunological/Allergic: No Symptoms All Other Systems: Reviewed and Negative - Past Medical History Pertinent Past Medical History: Yes Neurological History: No Pertinent History ENT History: Other Cardiac History: Congestive Heart Failure, Coronary Artery Disease, High Cholesterol, Hypertension Respiratory History: CHF, Pulmonary Embolism Endocrine Medical History: Diabetes Type I Musculoskeletal History: No Pertinent History GI Medical History: Pancreatitis History: No Pertinent History Psycho-Social History: Anxiety, Depression Female Reproductive Disorders: No Pertinent History Other Medical History: Pituitary tumor removed - Past Surgical History Past Surgical History: Yes Neuro Surgical History: No Pertinent History Cardiac: CABG, Cardiac Catheterization, Cardiac Stent Respiratory: No Pertinent History Gastrointestinal: Cholecystectomy Genitourinary: No Pertinent History Musculoskeletal: Orthopedic Surgery Female Surgical History: Hysterectomy, Dilation & Curettage, Section Other Surgical History: cholecystectomy with liver laceration repair 10/13/22. knee surgery, pituitary tumor removed - Social History Smoking Status: Current every day smoker How long have you smoked: 15 yrs Exposure to second hand smoke: No (uses pipe) Alcohol Use: None Drug Use: marijuana Patient Lives Alone: No Significant Family History: no pertinent family hx - Female History Hx Now: No - Nursing Vital Signs Nursing Vital Signs: Initial Vital Signs Temperature 98.2 F 11/28/22 08:57 Pulse Rate 100 H 11/28/22 08:57 Respiratory Rate 20 11/28/22 08:57 Blood Pressure 161/104 11/28/22 08:57 O2 Sat by Pulse Oximetry 98 11/28/22 08:57 Pain Scale Pain Intensity 8 - Physical Exam General Appearance: no apparent distress, alert, anxiety Eye Exam: PERRL/EOMI, eyes nml inspection Ears, Nose, Throat Exam: normal ENT inspection, moist mucous membranes Neck Exam: normal inspection, non-tender, supple, full range of motion Respiratory Exam: normal breath sounds, chest tenderness, lungs clear, respiratory distress, airway intact Cardiovascular Exam: regular rate/rhythm, normal heart sounds, normal peripheral pulses Gastrointestinal/Abdomen Exam: soft, normal bowel sounds, No tenderness Pelvic Exam: not done Rectal Exam: not done Back Exam: normal inspection, normal range of motion, No CVA tenderness, No vertebral tenderness Extremity Exam: normal inspection, normal range of motion, pelvis stable Neurologic Exam: alert, oriented x 3, cooperative, work distributor II-XII nml as tested, normal mood/affect, nml cerebellar function, nml station & gait, sensation nml Skin Exam: normal color, warm, dry Lymphatic Exam: No adenopathy SpO2 Interpretation: normal SpO2: 98 O2 Delivery: Room Air - Course Nursing assessment & vital signs reviewed: Yes EKG Interpreted by Me: RATE ([id number]), Sinus Tach, NORMAL AXIS, NORMAL INTERVALS, NORMAL QRS, NORMAL ST-T, Other (No acute ischemic changes on today's twelve-lead EKG) Ordered Tests: Active Orders 24 hr Category Date Time Status Laundry Routeman STAT Care 11/28/22 08:57 Active EKG-ER Only STAT Care 11/28/22 08:57 Active IV Insertion STAT Care 11/28/22 08:57 Active Pulse Oximetry (ED) STAT Care 11/28/22 08:57 Active CHEST 1 VIEW (PORTABLE) Stat Exams 11/28/22 08:57 Completed CBC W DIFF Stat Lab 11/28/22 09:15 Completed CMP Stat Lab 11/28/22 09:15 Completed NT PRO BNPII Stat Lab 11/28/22 09:15 Completed TROPONIN Q4H Lab 11/28/22 09:15 Completed TROPONIN Q4H Lab 11/28/22 13:00 Ordered TROPONIN Q4H Lab 11/28/22 17:00 Ordered Medication Summary Discontinued Medications Generic Name Dose Route Start Last Admin Trade Name Freq PRN Reason Stop Dose Admin Aspirin 324 mg 11/28/22 08:57 11/28/22 08:59 Aspirin 81 Mg Tab.Chew PO 11/28/22 08:58 Not Given STAT ONE Hydromorphone HCl 1 mg 11/28/22 09:48 11/28/22 09:54 Hydromorphone 1 Mg/1ml Inj IV 11/28/22 09:49 1 mg STAT ONE Administration Hydromorphone HCl Confirm 11/28/22 09:53 Hydromorphone 1 Mg/1ml Inj Administered 11/28/22 09:54 Dose 1 mg .ROUTE .STK-MED ONE Ondansetron HCl 4 mg 11/28/22 08:57 11/28/22 09:05 Ondansetron Hcl 4 Mg/2 Ml Vial IV 11/28/22 08:58 4 mg STAT ONE Administration Ondansetron HCl Confirm 11/28/22 09:03 Ondansetron Hcl 4 Mg/2 Ml Vial Administered 11/28/22 09:04 Dose 4 mg .ROUTE .STK-MED ONE Lab/Rad Data: Laboratory Result Diagrams 11/28/22 09:15 11/28/22 09:15 Laboratory Results 11/28/22 11/28/22 11/28/22 Range/Units 09:15 09:15 09:15 WBC (4.0-10.5) x10^3/uL RBC (4.1-5.4) x10^6/uL Hgb (12.0-16.0) g/dL Hct (35-47) % MCV (78-100) fL MCH (26-32) pg MCHC (32-36) g/dL RDW (11.5-14.0) % Plt Count (150-450) x10^3/uL MPV (7.5-11.0) fL Gran % (36.0-66.0) % Immature Gran % (Auto) (0.00-0.4) % Nucleat RBC Rel Count (0.00-0.1) % Eos # (Auto) (0-0.5) x10^3/uL Immature Gran # (Auto) (0.00-0.03) x10^3u/L Absolute Lymphs (auto) (1.0-4.6) x10^3/uL Absolute Monos (auto) (0.0-1.3) x10^3/uL Absolute Nucleated RBC (0.00-0.01) x10^3u/L Lymphocytes % (24.0-44.0) % Monocytes % (0.0-12.0) % Eosinophils % (0.00-5.0) % Basophils % (0.0-0.4) % Absolute Granulocytes (1.4-6.9) x10^3/uL Basophils # (0-0.4) x10^3/uL Sodium 137 (137-145) mmol/L Potassium 4.6 (3.5-5.1) mmol/L Chloride 102 (98-107) mmol/L Carbon Dioxide 35 H (22-30) mmol/L Anion Gap 4.9 L (5-15) MEQ/L BUN 23 H (7-17) mg/dL Creatinine 2.19 H (0.52-1.04) mg/dL Estimated GFR 27.0 ML/MIN Glucose 233 H (74-106) mg/dL Calcium 7.8 L (8.4-10.2) mg/dL Total Bilirubin 0.30 (0.2-1.3) mg/dL AST 20 (14-36) U/L ALT 13 (0-35) U/L Alkaline Phosphatase 87 (38-126) U/L Troponin I 1.910 H* (0.000-0.034) ng/mL NT-Pro-B Natriuret Pep 40509 (<300) pg/mL Serum Total Protein 5.0 L (6.3-8.2) g/dL Albumin 2.4 L (3.5-5.0) g/dL 11/28/22 Range/Units 09:15 WBC 11.2 H (4.0-10.5) x10^3/uL RBC 3.47 L (4.1-5.4) x10^6/uL Hgb 9.9 L (12.0-16.0) g/dL Hct 30.1 L (35-47) % MCV 86.7 (78-100) fL MCH 28.5 (26-32) pg MCHC 32.9 (32-36) g/dL RDW 14.2 H (11.5-14.0) % Plt Count 166 (150-450) x10^3/uL MPV 9.5 (7.5-11.0) fL Gran % 81.7 H (36.0-66.0) % Immature Gran % (Auto) 0.5 H (0.00-0.4) % Nucleat RBC Rel Count 0.0 (0.00-0.1) % Eos # (Auto) 0.18 (0-0.5) x10^3/uL Immature Gran # (Auto) 0.06 H (0.00-0.03) x10^3u/L Absolute Lymphs (auto) 1.32 (1.0-4.6) x10^3/uL Absolute Monos (auto) 0.45 (0.0-1.3) x10^3/uL Absolute Nucleated RBC 0.00 (0.00-0.01) x10^3u/L Lymphocytes % 11.8 L (24.0-44.0) % Monocytes % 4.0 (0.0-12.0) % Eosinophils % 1.6 (0.00-5.0) % Basophils % 0.4 (0.0-0.4) % Absolute Granulocytes 9.10 H (1.4-6.9) x10^3/uL Basophils # 0.05 (0-0.4) x10^3/uL Sodium (137-145) mmol/L Potassium (3.5-5.1) mmol/L Chloride (98-107) mmol/L Carbon Dioxide (22-30) mmol/L Anion Gap (5-15) MEQ/L BUN (7-17) mg/dL Creatinine (0.52-1.04) mg/dL Estimated GFR ML/MIN Glucose (74-106) mg/dL Calcium (8.4-10.2) mg/dL Total Bilirubin (0.2-1.3) mg/dL AST (14-36) U/L ALT (0-35) U/L Alkaline Phosphatase (38-126) U/L Troponin I (0.000-0.034) ng/mL NT-Pro-B Natriuret Pep (<300) pg/mL Serum Total Protein (6.3-8.2) g/dL Albumin (3.5-5.0) g/dL - Progress Air Movement: good Progress Note: 11/28/22 10:01 Chest x-ray was interpreted by the radiologist and I reviewed the impression. Chest x-ray is clear. There is no acute cardiopulmonary process. This patient has a medical issue of moderate complexity. The level of complexi ty and the work-up performed was based on review of the patient's past medical history, medication list, drug allergy list, history present illness and physical findings on examination. The work-up performed is placement of intravenous line, twelve-lead EKG, infusion of Zofran and Dilaudid pain med icine, CBC, CMP, BNP. I reviewed the results with the patient. I placed a call to patient's dean of admissions Dr. Casiano. As expected her troponin level is elevated secondary to recent cardiac procedure. We will follow Dr. Casiano's direction for disposition. 11/28/22 11:[address] Casiano, the patient's dean of admissions. I reviewed the patient history of present illness, physical findings on examination, results of the twelve-lead EKG and the laboratory data including the troponin of 1.9. Dr. Casiano is aware and understands the results I read to him and discussed with him. He stated that the patient can be treated medically as an outpatient. He stated it is okay to discharge her to home. She is to continue taking her Brilinta and aspirin. She is to stop smoking tobacco and marijuana. If she has persistent chest pain or the chest pain worsens, she is to go directly to the emergency room at [facility]. Blood Culture(s) Obtained: No Antibiotics given: No Counseled pt/family regarding: lab results, diagnosis, need for follow-up, rad results Medical Desision Making - Discussion of managment Care discussed with:: specialist (Dr. Casiano her dean of admissions) Reviewed:: Test results Agreed on:: Treatment plan, need for follow-up Will see patient: In office - Social Determinants of Health Limited access to: transportation - Diagnostic Testing Diagnostic test were ordered, analyzed, and reviewed by me: Yes Radiological Interpretation: Reviewed by me, Teleradiologist Report - Risk of complications The pt has a mod risk of morbidity or mortality based on: Need for prescription drug management - Departure Departure Disposition: Home Clinical Impression: Chest pain, Elevated troponin Condition: Stable Critical Care Time: No Referrals: GOMEZ CURIEL [Primary Care Provider] - Follow up/PCP as directed Additional Instructions: Continue your medication of Brilinta and aspirin as prescribed. Stop smoking tobacco and marijuana. Follow-up with Dr. Casiano's office today by phone to make a follow-up appointment. If your chest pain worsens or persists, go directly to the emergency department at [facility] for further evaluation and management.
[2022-11-28 09:40] LABS: ALBUMIN 2.4 g/dL (3.5-5.0); ANION GAP 4.9 MEQ/L (5-15); BILIRUBIN,TOTAL 0.3 mg/dL (0.2-1.3); Calcium 7.8 mg/dL (8.4-10.2); Creatinine 1 2.19 mg/dL (0.52-1.04); Potassium 4.6 mmol/L (3.5-5.1)
[2022-11-28] MEDS ORDERED: Hydromorphone 1 mg/ml Injection IV ONE ×2 (09:48→12:04)
[2022-11-28] MEDS ORDERED: Hydromorphone 1 mg/ml Injection ONE ×2 (09:53→12:09)
[2022-11-28 13:10] VITALS: BP 140/80; PULSE 90
== END 2022-11-28 13:11 | disposition home or self-care (01) ==
LOC: ED 08:51
DX: R07.9 Chest pain, unspecified (principal); R77.8 Other specified abnormalities of plasma proteins; I11.0 Hypertensive heart disease with heart failure; I50.9 Heart failure, unspecified; E10.9 Type 1 diabetes mellitus without complications; E78.5 Hyperlipidemia, unspecified; Z79.4 Long term (current) use of insulin; Z79.899 Other long term (current) drug therapy; Z28.310 Unvaccinated for COVID-19; Z72.0 Tobacco use
CPT/HCPCS: 36000; 36415; 71045; 80053; 83880; 84484; 85025; 93005; 93041; 94760; 96374; 96375; 96376; 99284; J1170; J2405

== ENCOUNTER 2022-12-03 09:29 | Emergency (ER) | payer OTHER ==
[2022-12-03] MEDS ORDERED: Sodium Chloride 0.9% 1000 ML 1,000 ML IV STA (09:43)
[2022-12-03] MEDS ORDERED: BENADRYL 50 MG/ML IV ONE (09:43)
[2022-12-03] MEDS ORDERED: PROTONIX 40 MG IV IV ONE ×2 (09:43→09:55)
[2022-12-03] MEDS ORDERED: Zofran 4 MG/2 ML VIAL IV ONE (09:43)
--- NOTE | 2022-12-03 09:53 | ERPHSYRPT ---
- History of Present Illness Time Seen by Provider: 12/03/22 09:50 Historian: patient, EMS Exam Limitations: no limitations Patient Subjective Stated Complaint: pt here for vomiting since last night with left lower abd pain, Triage Nursing Assessment: pt alert,arrived per ambulance, resp easy, skin w/d/pale, vomited small amount in ambulance, tendert to palpate left upper quad Physician History: Patient is 37-year-old female with significant past medical history of type 2 diabetes, chronic recurrent pancreatitis as well as recent myocardial infarction and status post stent placement started having nausea vomiting since last night with left upper quadrant abdominal pain started today morning. Patient called ambulance and was brought into the emergency room by ambulance. When patient arrived in ER patient was constantly vomiting. Patient is alert awake oriented to time place and person and is able to answer all the questions. She is also complaining of lightheadedness as well as epigastric and generaliz ed abdominal pain. She denies any blood in her stool or urine. Timing/Duration: yesterday Quality: aching Abdominal Pain Onset Location: RUQ, LUQ Pain Radiation: no radiation Severity of Pain-Max: moderate Severity of Pain-Current: moderate Associated Symptoms: nausea, vomiting, weakness Previous symptoms: same symptoms as today Allergies/Adverse Reactions: morphine Allergy (Intermediate, Verified 12/03/22 09:34) Itching fentanyl Allergy (Verified 12/03/22 09:34) Home Medications: Carvedilol 12.5 mg [Coreg 12.5 mg] 25 mg PO BID 10/21/18 [History] Fexofenadine HCl 180 mg PO DAILY 10/21/18 [History] Insulin Lispro [Humalog] 1 unit SQ UD 10/21/18 [History] Clonazepam [Klonopin] 0.5 mg PO TID 10/11/22 [History] Cyclobenzaprine HCl 10 mg [Cyclobenzaprine 10 MG] 10 mg PO TID PRN 10/11/22 [History] Insulin Glargine,Hum.rec.anlog [Basaglar Tempo Pen U-100] 34 unit SQ HS 10/11/22 [History] PANTOPRAZOLE 40 mg Tablet [Protonix 40MG Tablet] 40 mg PO QAM 10/11/22 [History] Ramelteon [Rozerem] 8 mg PO HS 10/11/22 [History] Sacubitril/Valsartan [Entresto 24 mg-26 mg Tablet] 1 tab PO BID 10/11/22 [History] Trazodone HCl 150 mg PO HS 10/11/22 [History] Venlafaxine HCl [Effexor Xr] 150 mg PO HS 10/11/22 [History] Hx Tetanus, Diphtheria Vaccination/Date Given: Yes Hx Influenza Vaccination/Date Given: Yes Hx Pneumococcal Vaccination/Date Given: No Immunizations Up to Date: Yes Travel Risk - International Travel Have you traveled outside of the country in past 3 weeks: No - Coronavirus Screening Are you exhibiting any of the following symptoms?: Yes Symptoms: Vomiting/Diarrhea - Vaccine Status Have you recieved a Covid-19 vaccination: No - Review of Systems Constitutional: Weakness, No Fever, No Chills Eyes: No Symptoms Ears, Nose, & Throat: No Symptoms Respiratory: No Cough, No Dyspnea Cardiac: No Chest Pain, No Edema, No Syncope Abdominal/Gastrointestinal: Abdominal Pain, Nausea, Vomiting, No Diarrhea Genitourinary Symptoms: No Dysuria Musculoskeletal: No Back Pain, No Neck Pain Skin: No Rash Neurological: No Dizziness, No Focal Weakness, No Sensory Changes Psychological: No Symptoms Endocrine: No Symptoms All Other Systems: Reviewed and Negative - Past Medical History Pertinent Past Medical History: Yes Neurological History: No Pertinent History ENT History: Other Cardiac History: Congestive Heart Failure, Coronary Artery Disease, High Cholesterol, Hypertension, Myocardial Infarction ([place]) Respiratory History: CHF, Pulmonary Embolism Endocrine Medical History: Diabetes Type I Musculoskeletal History: No Pertinent History GI Medical History: Pancreatitis History: No Pertinent History Psycho-Social History: Anxiety, Depression Female Reproductive Disorders: No Pertinent History Other Medical History: Pituitary tumor removed. MA 11/23/22 - Past Surgical History Past Surgical History: Yes Neuro Surgical History: No Pertinent History Cardiac: CABG, Cardiac Catheterization, Cardiac Stent Respiratory: No Pertinent History Gastrointestinal: Cholecystectomy Genitourinary: No Pertinent History Musculoskeletal: Orthopedic Surgery Female Surgical History: Hysterectomy, Dilation & Curettage, Section Other Surgical History: cholecystectomy with liver laceration repair 10/13/22. knee surgery, pituitary tumor removed - Social History Smoking Status: Current every day smoker How long have you smoked: 15 yrs Exposure to second hand smoke: No (uses pipe) Alcohol Use: None Drug Use: marijuana Patient Lives Alone: No Significant Family History: no pertinent family hx - Female History Hx Last Menstrual Period: post Hx Now: No - Nursing Vital Signs Nursing Vital Signs: Initial Vital Signs Temperature 967.7 F 12/03/22 09:35 Pulse Rate 105 H 12/03/22 09:35 Respiratory Rate 16 12/03/22 09:35 Blood Pressure 174/116 12/03/22 09:35 O2 Sat by Pulse Oximetry 100 12/03/22 09:35 Pain Scale Pain Intensity 10 - Physical Exam General Appearance: moderate distress, alert Eye Exam: PERRL/EOMI, eyes nml inspection Ears, Nose, Throat Exam: normal ENT inspection, pharynx normal, moist mucous membranes Neck Exam: normal inspection, non-tender, supple, full range of motion Respiratory Exam: normal breath sounds, lungs clear, No respiratory distress Cardiovascular Exam: regular rate/rhythm, normal heart sounds Gastrointestinal/Abdomen Exam: soft, normal bowel sounds, tenderness, No mass Back Exam: normal inspection, normal range of motion, No CVA tenderness, No vertebral tenderness Extremity Exam: normal inspection, normal range of motion, pelvis stable Neurologic Exam: alert, oriented x 3, cooperative, normal mood/affect, nml cerebellar function, sensation nml, No motor deficits Skin Exam: normal color, warm, dry SpO2: 100 - Course Nursing assessment & vital signs reviewed: Yes EKG Interpreted by Me: Sinus Rhythm Rhythm Strip: Normal Sinus Rhythm - Radiology Exams Chest X-ray Interpretation: Reviewed by me, Negative Ordered Tests: Active Orders 24 hr Category Date Time Status EKG-ER Only STAT Care 12/03/22 09:43 Active CHEST 1 VIEW (PORTABLE) Stat Exams 12/03/22 09:44 Taken AMYLASE Stat Lab 12/03/22 09:59 Completed CBC W DIFF Stat Lab 12/03/22 09:59 Completed CMP Stat Lab 12/03/22 09:59 Completed LIPASE Stat Lab 12/03/22 09:59 Completed TROPONIN Q4H Lab 12/03/22 09:59 Completed TROPONIN Q4H Lab 12/03/22 11:55 Received TROPONIN Q4H Lab 12/03/22 13:45 Ordered TROPONIN Q4H Lab 12/03/22 15:45 Ordered TROPONIN Q4H Lab 12/03/22 17:45 Ordered TROPONIN Q4H Lab 12/03/22 19:45 Ordered TROPONIN Q4H Lab 12/03/22 23:45 Ordered UA W/RFX UR CULTURE Stat Lab 12/03/22 09:43 Ordered Urine Triage Profile Stat Lab 12/03/22 09:43 Ordered Medication Summary Generic Name Dose Route Start Last Admin Trade Name Odalys PRN Reason Stop Dose Admin Ceftriaxone Sodium/Dextrose 1 g in 50 mls @ 100 mls/hr 12/03/22 11:42 12/03/22 11:47 Rocephin 1 Gm-D5w 50 Ml Bag IV 12/03/22 12:11 100 mls/hr STAT STA 100 mls/hr Administration Discontinued Medications Generic Name Dose Route Start Last Admin Trade Name Odalys PRN Reason Stop Dose Admin Diphenhydramine HCl 25 mg 12/03/22 09:43 12/03/22 09:56 Diphenhydramine Hcl 50 Mg/Ml Vial IV 12/03/22 09:44 25 mg STAT ONE Administration Diphenhydramine HCl Confirm 12/03/22 09:54 Diphenhydramine Hcl 50 Mg/Ml Vial Administered 12/03/22 09:55 Dose 50 mg .ROUTE .STK-MED ONE Hydromorphone HCl 0.5 mg 12/03/22 10:42 12/03/22 10:51 Hydromorphone 1 Mg/1ml Inj IV 12/03/22 10:43 0.5 mg STAT ONE Administration Hydromorphone HCl Confirm 12/03/22 10:50 Hydromorphone 1 Mg/1ml Inj Administered 12/03/22 10:51 Dose 1 mg .ROUTE .STK-MED ONE Sodium Chloride 1,000 mls @ 999 mls/hr 12/03/22 09:43 12/03/22 11:44 Sodium Chloride 0.9% 1000 Ml IV 12/03/22 10:43 Infused .Q1H1M STA Infusion Sodium Chloride Confirm 12/03/22 09:55 Sodium Chloride 0.9% 1000 Ml Administered 12/03/22 09:56 Dose 1,000 mls @ ud .ROUTE .STK-MED ONE Ceftriaxone Sodium/Dextrose Confirm 12/03/22 11:45 Rocephin 1 Gm-D5w 50 Ml Bag Administered 12/03/22 11:46 Dose 1 g in 50 mls @ ud IV .STK-MED ONE Ondansetron HCl 4 mg 12/03/22 09:43 12/03/22 09:57 Ondansetron Hcl 4 Mg/2 Ml Vial IV 12/03/22 09:44 4 mg STAT ONE Administration Ondansetron HCl Confirm 12/03/22 09:54 Ondansetron Hcl 4 Mg/2 Ml Vial Administered 12/03/22 09:55 Dose 4 mg .ROUTE .STK-MED ONE Pantoprazole Sodium 40 mg 12/03/22 09:43 12/03/22 09:56 Pantoprazole 40 Mg Vial IV 12/03/22 09:44 40 mg STAT ONE Administration Pantoprazole Sodium Confirm 12/03/22 09:55 Pantoprazole 40 Mg Vial Administered 12/03/22 09:56 Dose 40 mg IV .STK-MED ONE Lab/Rad Data: Laboratory Result Diagrams 12/03/22 09:59 12/03/22 09:59 Laboratory Results 12/03/22 12/03/22 12/03/22 Range/Units 09:59 09:59 09:59 WBC 12.7 H (4.0-10.5) x10^3/uL RBC 3.76 L (4.1-5.4) x10^6/uL Hgb 10.6 L (12.0-16.0) g/dL Hct 31.9 L (35-47) % MCV 84.8 (78-100) fL MCH 28.2 (26-32) pg MCHC 33.2 (32-36) g/dL RDW 14.5 H (11.5-14.0) % Plt Count 241 (150-450) x10^3/uL MPV 9.5 (7.5-11.0) fL Gran % 80.0 H (36.0-66.0) % Immature Gran % (Auto) 0.5 H (0.00-0.4) % Nucleat RBC Rel Count 0.0 (0.00-0.1) % Eos # (Auto) 0.30 (0-0.5) x10^3/uL Immature Gran # (Auto) 0.06 H (0.00-0.03) x10^3u/L Absolute Lymphs (auto) 1.40 (1.0-4.6) x10^3/uL Absolute Monos (auto) 0.69 (0.0-1.3) x10^3/uL Absolute Nucleated RBC 0.00 (0.00-0.01) x10^3u/L Lymphocytes % 11.0 L (24.0-44.0) % Monocytes % 5.4 (0.0-12.0) % Eosinophils % 2.4 (0.00-5.0) % Basophils % 0.7 (0.0-0.4) % Absolute Granulocytes 10.18 H (1.4-6.9) x10^3/uL Basophils # 0.09 (0-0.4) x10^3/uL Sodium 140 (137-145) mmol/L Potassium 3.7 (3.5-5.1) mmol/L Chloride 102 (98-107) mmol/L Carbon Dioxide 32 H (22-30) mmol/L Anion Gap 9.5 (5-15) MEQ/L BUN 20 H (7-17) mg/dL Creatinine 2.24 H (0.52-1.04) mg/dL Estimated GFR 26.3 ML/MIN Glucose 182 H (74-106) mg/dL Calcium 7.7 L (8.4-10.2) mg/dL Total Bilirubin 0.50 (0.2-1.3) mg/dL AST 24 (14-36) U/L ALT 17 (0-35) U/L Alkaline Phosphatase 73 (38-126) U/L Troponin I 0.152 H* (0.000-0.034) ng/mL Serum Total Protein 6.0 L (6.3-8.2) g/dL Albumin 3.0 L (3.5-5.0) g/dL Amylase 74 (30-110) U/L Lipase 355 H (23-300) U/L - Progress Progress: unchanged Discussed with Dr.: Other (Dr Dumont, [facility] ER Physician, Dr Claude Casiano, (Cardiology)) Counseled pt/family regarding: lab results, diagnosis, need for follow-up, rad results Medical Desision Making - Independent Historian Additional History obtained from: EMS - External Record(s) Reviewed Records reviewed as a part of evaluation & management: Inpatient, Discharge Summary - Discussion of managment Care discussed with:: on-call "doc" (ER Physician Dr Dumont at [facility], Dr Claude Casiano (Cardiology)) Reviewed:: Test results, Need for additional workup Agreed on:: Treatment plan, need for follow-up Will see patient: in ED - Diagnostic Testing Diagnostic test were ordered, analyzed, and reviewed by me: Yes Radiological Interpretation: Reviewed by me - Risk of complications The pt has a high risk of morbidity or mortality based on: Drug therapy requiring intensive monitoring for toxicity, Need for major surgery in patient with known risk factors - Departure Departure Disposition: Transfer ([facility] ER) Clinical Impression: Elevated troponin Vomiting Qualifiers: Vomiting type: unspecified Nausea presence: with nausea Qualified Code(s): R11.2 - Nausea with vomiting, unspecified CAD (coronary artery disease) Qualifiers: Coronary Disease-Associated Artery/Lesion type: [place] artery [place] vs. transplanted heart: [place] heart Associated angina: without angina Qualified Code(s): I25.10 - Atherosclerotic heart disease of [place] coronary artery without angina pectoris Condition: Stable Critical Care Time: Yes Critical Care Time(excluding separately billable procedures): Critical 30-74 mins Referrals: GOMEZ CURIEL [Primary Care Provider] - Follow up/PCP as directed Additional Instructions: Discharge/Care Plan DANO DE LA TORRE was seen on 12/03/22 in the Emergency Room. The patient was counseled regarding Diagnosis,Lab results, Imaging studies, need for follow up and when to return to the Emergency Room. Prescriptions given: Discharge Note I have spoken with the patient and/or caregivers. I have explained the patient's condition, diagnosis and treatment plan based on the information available to me at this time. I have answered the patient's and/or caregiver's questions and addressed any concerns. The patient and/or caregivers have as good understanding of the patient's diagnosis, condition and treatment plan as can be expected at this point. The vital signs have been stable. The patient's condition is stable and appropriate for discharge from the emergency department. The patient will pursue further outpatient evaluation with the primary care physician or other designated or consulting physician as outlined in the d ischarge instructions. The patient and/or caregivers are agreeable to this plan of care and follow-up instructions have been explained in detail. The patient and/or caregivers have received these instruction. The patient/and or caregivers are aware that any significant change in condition or worsening of symptoms should prompt an immediate return to this or the closest emergency department or call 911. DNAO DE LA TORRE was seen on 12/03/22 n the Emergency Room. At that time you were treated for an emergent condition, during your visit Laboratory, Radiology and/or other procedures may have been ordered. It is very important that you follow-up with your Primary Care Physician GOMEZ CURIEL within the next 24-48 hours to review your Emergency Room visit and the final results of testing that was ordered. Some test results such as Urine Cultures, Blood Cultures, and other cultures if ordered will not be finalized for 24-48 hours. If you do not have a Primary Care Provider please call the medical [facility] at [phone] to obtain a copy of your results or you may sign into our patient portal to obtain these results by visiting us @ [email or web address] and completing the following steps: 1. Click on the Patient Portal link 2. Click the Patient Self Enrollment Link to complete the enrollment form and entering your 3. Once the enrollment form is completed you will receive an email with a temporary ID and password at the email address you provided. 4. Next choose a user name and password. Your user name must be at least 4 characters long and your password must be at least 4 characters long. 5. Choose a security question from the list and provide your answer to the question. If you already have signed into the Health Portal you may access your Health Care Information 27/02 by the following steps: 1. Login to our website @ [email or web address] 2. Enter your original user name and password. FAQS The [facility] Health Portal is an online tool that contains your Lab Results, Radiology Reports, Visit History, Discharge Instructions and Health Summary Lab and Radiology Results will not be available for 72 hours on the portal. The Portal is a secure site, passwords are encryted and URLs are re-written so they cannot be copied and pasted. You and authorized family members are the only ones who can access your Portal. Also there is a timeout feature that protects y our information if you leave the Portal page open. If you have technical difficulty please use the Contact Us link on the page this will allow you to submit any questions you have regarding the Portal or you may contact the Medical Record Department at [phone] ext [phone].
[2022-12-03] MEDS ORDERED: Zofran 4 MG/2 ML VIAL ONE (09:54)
[2022-12-03] MEDS ORDERED: BENADRYL 50 MG/ML ONE (09:54)
[2022-12-03] MEDS ORDERED: Sodium Chloride 0.9% 1000 ML 1,000 ML ONE (09:55)
[2022-12-03 10:00] LABS: Absolute Neutrophil Ct (ANC) 10.18 x10^3/uL (1.4-6.9); BASOPHIL % 0.7 % (0.0-0.4); Basophil (Absolute #) 0.09 x10^3/uL (0-0.4); Eosinophil % 2.4 % (0.00-5.0); Hematocrit 31.9 % (35-47); Hemoglobin 10.6 g/dL (12.0-16.0); IMMATURE GRAN # 0.06 x10^3u/L (0.00-0.03); IMMATURE GRAN % 0.5 % (0.00-0.4); Mean Cell Volume 84.8 fL (78-100); Mean Corpuscular Hemoglobin 28.2 pg (26-32); Mean Corpuscular Hgb Concent. 33.2 g/dL (32-36); Mean Platelet Volume 9.5 fL (7.5-11.0); Monocyte (Absolute #) 0.69 x10^3/uL (0.0-1.3); Monocytes % 5.4 % (0.0-12.0); Platelet Count 241 x10^3/uL (150-450); Red Blood Count 3.76 x10^6/uL (4.1-5.4); Red Cell Distribution Width 14.5 % (11.5-14.0); White Blood Count 12.7 x10^3/uL (4.0-10.5)
[2022-12-03] MEDS ORDERED: Hydromorphone 1 mg/ml Injection IV ONE (10:42)
[2022-12-03 10:44] LABS: ANION GAP 9.5 MEQ/L (5-15); BILIRUBIN,TOTAL 0.5 mg/dL (0.2-1.3); Calcium 7.7 mg/dL (8.4-10.2); Creatinine 1 2.24 mg/dL (0.52-1.04); EST GLOMERULAR FILTRATION RATE 26.3 ML/MIN; Potassium 3.7 mmol/L (3.5-5.1)
[2022-12-03] MEDS ORDERED: Hydromorphone 1 mg/ml Injection ONE (10:50)
[2022-12-03] MEDS ORDERED: ROCEPHIN 1 Gm-D5w 50 ml Bag** 1 G/50 ML IVPB IV STA (11:42)
[2022-12-03] MEDS ORDERED: ROCEPHIN 1 Gm-D5w 50 ml Bag** 1 G/50 ML IVPB IV ONE (11:45)
[2022-12-03 12:10] VITALS: BP 106/100
[2022-12-03 12:56] VITALS: PULSE 77; O2SAT 98
--- NOTE | 2022-12-03 21:09 | XRAY ---
Indication: Pain. Comparison: November 28, 2022 Portable apical lordotic chest remains inflated and clear. Heart not enlarged again with CABG. No new/acute findings.
== END 2022-12-03 12:56 | disposition short-term general hospital (02) ==
LOC: ED 09:29
DX: R77.8 Other specified abnormalities of plasma proteins (principal); R11.2 Nausea with vomiting, unspecified; I25.10 Atherosclerotic heart disease of native coronary artery without angina pectoris; R10.12 Left upper quadrant pain; R42 Dizziness and giddiness; R10.13 Epigastric pain; E11.9 Type 2 diabetes mellitus without complications; E78.5 Hyperlipidemia, unspecified; I11.0 Hypertensive heart disease with heart failure; I50.9 Heart failure, unspecified; Z79.4 Long term (current) use of insulin; Z79.899 Other long term (current) drug therapy; Z28.310 Unvaccinated for COVID-19; Z72.0 Tobacco use
CPT/HCPCS: 36415; 71045; 80053; 82150; 83690; 84484; 85025; 93005; 96360; 96374; 96375; 99285; 99291; J0696; J1170; J1200; J2405

== ENCOUNTER 2022-12-05 04:45 | Emergency (ER) | payer MEDICAID, OTHER ==
--- NOTE | 2022-12-05 05:18 | ERPHSYRPT ---
<OTILIO PACHECO - Last Filed: 12/05/22 06:57> - History of Present Illness Time Seen by Provider: 12/05/22 05:11 Historian: patient, EMS Exam Limitations: no limitations Patient Subjective Stated Complaint: pt states "around 10pm while I was resting it started hurting, intermittently radiates down left arm and was accompanied with a real sharp pain in left leg. cp remained constant sharp and stabbing 9/10. little bit of nausea" Triage Nursing Assessment: pt brought via ems cot into room 6 and transfered per 2 EMS staff. pt is alert and oriented times three, able to move all extremities, speaks in complete sentences, resp even and unlabored. no s/s distress noted. lung sound clear and diminished posteriorly bilat Physician History: Onset of chest pain around 10 pm, said she tried NTG x 1 without relief. Arrived via EMS. Known CAD, had stent placed at [facility] on 11/24/[address] Casiano. She is still smoking. Claims to be compliant with med. Diabetic on insulin as well. Timing/Duration: today, hour(s) (6 hrs ago) Activities at Onset: none Quality: pressure Location: substernal Chest Pain Radiation: arm Severity of Pain-Max: moderate Severity of Pain-Current: moderate Modifying Factors: Improves With: nothing Associated Symptoms: denies symptoms Prior Chest Pain/Cardiac Workup: cardiac cath, heart attack, recently seen/treated, recent hospitalization Nitro Today/Relief: 0.4 mg x 1 Aspirin Treatment Today: 81 mg x 4, provided by EMS Allergies/Adverse Reactions: morphine Allergy (Intermediate, Verified 12/03/22 09:34) Itching fentanyl Allergy (Verified 12/03/22 09:34) Home Medications: Carvedilol 12.5 mg [Coreg 12.5 mg] 25 mg PO BID 10/21/18 [History] Fexofenadine HCl 180 mg PO DAILY 10/21/18 [History] Insulin Lispro [Humalog] 1 unit SQ UD 10/21/18 [History] Clonazepam [Klonopin] 0.5 mg PO TID 10/11/22 [History] Cyclobenzaprine HCl 10 mg [Cyclobenzaprine 10 MG] 10 mg PO TID PRN 10/11/22 [History] Insulin Glargine,Hum.rec.anlog [Basaglar Tempo Pen U-100] 34 unit SQ HS 10/11/22 [History] PANTOPRAZOLE 40 mg Tablet [Protonix 40MG Tablet] 40 mg PO QAM 10/11/22 [History] Ramelteon [Rozerem] 8 mg PO HS 10/11/22 [History] Sacubitril/Valsartan [Entresto 24 mg-26 mg Tablet] 1 tab PO BID 10/11/22 [History] Trazodone HCl 150 mg PO HS 10/11/22 [History] Venlafaxine HCl [Effexor Xr] 150 mg PO HS 10/11/22 [History] Atorvastatin Calcium [Lipitor] 80 mg PO HS 12/05/22 [History] Ticagrelor [Brilinta] 90 mg PO BID 12/05/22 [History] Hx Tetanus, Diphtheria Vaccination/Date Given: Yes Hx Influenza Vaccination/Date Given: Yes Hx Pneumococcal Vaccination/Date Given: No Immunizations Up to Date: Yes Travel Risk - International Travel Have you traveled outside of the country in past 3 weeks: No - Coronavirus Screening Are you exhibiting any of the following symptoms?: No Close contact with a COVID-19 positive Pt in past 14-21 Days: No - Vaccine Status Have you recieved a Covid-19 vaccination: No - Review of Systems Constitutional: No Symptoms Eyes: No Symptoms Ears, Nose, & Throat: No Symptoms Respiratory: No Symptoms Cardiac: Chest Pain Abdominal/Gastrointestinal: No Symptoms Genitourinary Symptoms: No Symptoms Musculoskeletal: No Symptoms Skin: No Symptoms Neurological: No Symptoms Psychological: No Symptoms Endocrine: No Symptoms Hematologic/Lymphatic: No Symptoms Immunological/Allergic: No Symptoms All Other Systems: Reviewed and Negative - Past Medical History Pertinent Past Medical History: Yes Neurological History: No Pertinent History ENT History: Other Cardiac History: Angina, Congestive Heart Failure, Coronary Artery Disease, Deep Vein Thrombosis, High Cholesterol, Hypertension, Myocardial Infarction ([place]) Respiratory History: Pulmonary Embolism Endocrine Medical History: Diabetes Type I Musculoskeletal History: No Pertinent History GI Medical History: GERD, Gallbladder Disease, Pancreatitis History: Renal Disease Psycho-Social History: Anxiety, Depression Female Reproductive Disorders: Other Other Medical History: blind in right eye. renal insufficiency, heavy painful menstrual cycle - Past Surgical History Past Surgical History: Yes Neuro Surgical History: No Pertinent History Cardiac: Angioplasty, CABG Respiratory: No Pertinent History Gastrointestinal: Cholecystectomy Genitourinary: No Pertinent History Musculoskeletal: No Pertinent History Female Surgical History: Hysterectomy Other Surgical History: cholecystectomy with liver laceration repair 10/13/22. knee surgery, pituitary tumor removed - Social History Smoking Status: Current every day smoker How long have you smoked: 15 yrs Exposure to second hand smoke: No (uses pipe) Alcohol Use: None Drug Use: marijuana Patient Lives Alone: No Significant Family History: no pertinent family hx - Female History Hx Last Menstrual Period: Sep 2021 Hx Now: No - Physical Exam General Appearance: mild distress Eye Exam: PERRL/EOMI Ears, Nose, Throat Exam: normal ENT inspection Neck Exam: normal inspection, non-tender Respiratory Exam: normal breath sounds, lungs clear Cardiovascular Exam: regular rate/rhythm, normal heart sounds Gastrointestinal/Abdomen Exam: soft Pelvic Exam: not done Rectal Exam: not done Back Exam: normal inspection Extremity Exam: normal inspection, normal range of motion Neurologic Exam: alert, oriented x 3, cooperative Skin Exam: normal color, warm, dry SpO2 Interpretation: normal SpO2: 100 O2 Delivery: Room Air - Course Nursing assessment & vital signs reviewed: Yes EKG Interpreted by Me: RATE (95), Sinus Rhythm, Left [place] Deviation, NORMAL INTERVALS, NORMAL QRS, NORMAL ST-T - Progress Progress: improved Air Movement: good Progress Note: 12/05/22 06:37 Recurrent CP with hx CAD, frequently in ER, typically always says NTG does not help, dilaudid is only thing that helps. EKG without ischemia. Labs coming back, K low, troponin slightly elevated. BP up. She says NTG without relief, dilaudid ordered, along with NTP and KCl. She had ASA per EMS. Will turn over to Dr. Dominguez in ED at 0700. Blood Culture(s) Obtained: No Antibiotics given: No - Departure Clinical Impression: Hypokalemia, Hypomagnesemia, Needs smoking cessation education Chest pain Qualifiers: Chest pain type: chest pain due to myocardial ischemia Ischemic chest pain type: unstable angina pectoris Qualified Code(s): I20.0 - Unstable angina Condition: Stable Critical Care Time: Yes Critical Care Time(excluding separately billable procedures): Critical 30-74 mins Referrals: GOMEZ CURIEL [Primary Care Provider] - Follow up/PCP as directed Additional Instructions: Stop smoking. Make sure your diabetes is under control. Take all your medication as prescribed. Call Dr. Rowley's office today to make arrangements for follow-up appointment. <DINA DOMINGUEZ - Last Filed: 12/05/22 07:57> - Nursing Vital Signs Nursing Vital Signs: Initial Vital Signs Temperature 97.0 F 12/05/22 04:47 Pulse Rate 98 H 12/05/22 04:47 Respiratory Rate 16 12/05/22 04:47 Blood Pressure 149/97 12/05/22 04:47 O2 Sat by Pulse Oximetry 100 12/05/22 04:47 Pain Scale Pain Intensity 4 Ordered Tests: Active Orders 24 hr Category Date Time Status EKG-ER Only STAT Care 12/05/22 05:23 Active CBC W DIFF Stat Lab 12/05/22 05:10 Completed CMP Stat Lab 12/05/22 05:10 Completed MAG [MAGNESIUM] Stat Lab 12/05/22 05:10 Completed TROPONIN Q4H Lab 12/05/22 05:10 Completed TROPONIN Q4H Lab 12/05/22 09:30 Ordered TROPONIN Q4H Lab 12/05/22 13:30 Ordered TROPONIN Q4H Lab 12/05/22 17:30 Ordered TROPONIN Q4H Lab 12/05/22 21:30 Ordered Medication Summary Generic Name Dose Route Start Last Admin Trade Name Freq PRN Reason Stop Dose Admin Nitroglycerin 0.4 mg 12/05/22 05:24 12/05/22 05:40 Nitroglycerin 0.4 Mg Tablet Bottle SL 01/04/23 05:23 0.4 mg Q5MIN PRN MR X 3 PRN Administration CHEST PAIN Discontinued Medications Generic Name Dose Route Start Last Admin Trade Name Freq PRN Reason Stop Dose Admin Hydromorphone HCl 1 mg 12/05/22 06:33 12/05/22 06:39 Hydromorphone 1 Mg/1ml Inj IV 12/05/22 06:34 1 mg STAT ONE Administration Hydromorphone HCl Confirm 12/05/22 06:37 Hydromorphone 1 Mg/1ml Inj Administered 12/05/22 06:38 Dose 1 mg .ROUTE .STK-MED ONE Magnesium Oxide 400 mg 12/05/22 07:21 12/05/22 07:26 Magnesium Oxide 400 Mg Tablet PO 05/01/23 07:22 400 mg STAT ONE Administration Magnesium Oxide Confirm 12/05/22 07:25 Magnesium Oxide 400 Mg Tablet Administered 12/05/22 07:26 Dose 400 mg .ROUTE .STK-MED ONE Nitroglycerin 1 gm 12/05/22 06:33 12/05/22 06:38 Nitroglycerin 1 Gm Packet TOP 12/05/22 06:34 1 gm STAT ONE Administration Nitroglycerin Confirm 12/05/22 06:37 Nitroglycerin 1 Gm Packet Administered 12/05/22 06:38 Dose 1 gm .ROUTE .STK-MED ONE Ondansetron HCl 4 mg 12/05/22 05:32 12/05/22 05:34 Ondansetron Hcl 4 Mg/2 Ml Vial IV 12/05/22 05:33 4 mg STAT ONE Administration Ondansetron HCl Confirm 12/05/22 05:34 Ondansetron Hcl 4 Mg/2 Ml Vial Administered 12/05/22 05:35 Dose 4 mg .ROUTE .STK-MED ONE Potassium Chloride 40 meq 12/05/22 06:32 12/05/22 06:38 Potassium Chloride Tab 10 Meq Tab PO 12/05/22 06:33 40 meq STAT ONE Administration Potassium Chloride Confirm 12/05/22 06:37 Potassium Chloride Tab 10 Meq Tab Administered 12/05/22 06:38 Dose 40 meq PO .STK-MED ONE Lab/Rad Data: Laboratory Result Diagrams 12/05/22 05:10 12/05/22 05:10 Laboratory Results 12/05/22 12/05/22 12/05/22 Range/Units 05:10 05:10 05:10 WBC (4.0-10.5) x10^3/uL RBC (4.1-5.4) x10^6/uL Hgb (12.0-16.0) g/dL Hct (35-47) % MCV (78-100) fL MCH (26-32) pg MCHC (32-36) g/dL RDW (11.5-14.0) % Plt Count (150-450) x10^3/uL MPV (7.5-11.0) fL Gran % (36.0-66.0) % Immature Gran % (Auto) (0.00-0.4) % Nucleat RBC Rel Count (0.00-0.1) % Eos # (Auto) (0-0.5) x10^3/uL Immature Gran # (Auto) (0.00-0.03) x10^3u/L Absolute Lymphs (auto) (1.0-4.6) x10^3/uL Absolute Monos (auto) (0.0-1.3) x10^3/uL Absolute Nucleated RBC (0.00-0.01) x10^3u/L Lymphocytes % (24.0-44.0) % Monocytes % (0.0-12.0) % Eosinophils % (0.00-5.0) % Basophils % (0.0-0.4) % Absolute Granulocytes (1.4-6.9) x10^3/uL Basophils # (0-0.4) x10^3/uL Sodium 139 (137-145) mmol/L Potassium 3.1 L (3.5-5.1) mmol/L Chloride 105 (98-107) mmol/L Carbon Dioxide 30 (22-30) mmol/L Anion Gap 7.9 (5-15) MEQ/L BUN 19 H (7-17) mg/dL Creatinine 2.07 H (0.52-1.04) mg/dL Estimated GFR 28.8 ML/MIN Glucose 143 H (74-106) mg/dL Calcium 6.9 L (8.4-10.2) mg/dL Magnesium 1.1 L (1.6-2.3) mg/dL Total Bilirubin 0.30 (0.2-1.3) mg/dL AST 20 (14-36) U/L ALT 14 (0-35) U/L Alkaline Phosphatase 65 (38-126) U/L Troponin I 0.070 H* (0.000-0.034) ng/mL Serum Total Protein 5.5 L (6.3-8.2) g/dL Albumin 2.6 L (3.5-5.0) g/dL 12/05/22 Range/Units 05:10 WBC 7.4 (4.0-10.5) x10^3/uL RBC 3.25 L (4.1-5.4) x10^6/uL Hgb 9.1 L (12.0-16.0) g/dL Hct 27.4 L (35-47) % MCV 84.3 (78-100) fL MCH 28.0 (26-32) pg MCHC 33.2 (32-36) g/dL RDW 14.3 H (11.5-14.0) % Plt Count 197 (150-450) x10^3/uL MPV 9.8 (7.5-11.0) fL Gran % 63.1 (36.0-66.0) % Immature Gran % (Auto) 0.4 (0.00-0.4) % Nucleat RBC Rel Count 0.0 (0.00-0.1) % Eos # (Auto) 0.21 (0-0.5) x10^3/uL Immature Gran # (Auto) 0.03 (0.00-0.03) x10^3u/L Absolute Lymphs (auto) 1.98 (1.0-4.6) x10^3/uL Absolute Monos (auto) 0.45 (0.0-1.3) x10^3/uL Absolute Nucleated RBC 0.00 (0.00-0.01) x10^3u/L Lymphocytes % 26.8 (24.0-44.0) % Monocytes % 6.1 (0.0-12.0) % Eosinophils % 2.8 (0.00-5.0) % Basophils % 0.8 (0.0-0.4) % Absolute Granulocytes 4.67 (1.4-6.9) x10^3/uL Basophils # 0.06 (0-0.4) x10^3/uL Sodium (137-145) mmol/L Potassium (3.5-5.1) mmol/L Chloride (98-107) mmol/L Carbon Dioxide (22-30) mmol/L Anion Gap (5-15) MEQ/L BUN (7-17) mg/dL Creatinine (0.52-1.04) mg/dL Estimated GFR ML/MIN Glucose (74-106) mg/dL Calcium (8.4-10.2) mg/dL Magnesium (1.6-2.3) mg/dL Total Bilirubin (0.2-1.3) mg/dL AST (14-36) U/L ALT (0-35) U/L Alkaline Phosphatase (38-126) U/L Troponin I (0.000-0.034) ng/mL Serum Total Protein (6.3-8.2) g/dL Albumin (3.5-5.0) g/dL - Progress Progress Note: 12/05/22 07:[address] Casiano, the patient's freight associate. I reviewed the 12-lead EKG findings as well as her lab results including a troponin of 0.070. Her troponins are trending downward since her cardiac catheterization and stent placement. Patient is continuing to smoke and her compliance with her medication is in question. Patient is to continue her medication as prescribed. She is to call Dr. Rowley's office today to make arrangements for follow-up appointment. Dr. Casiano stated that he feels this patient can be treated as an outpatient and can be discharged home. Patient's medical issues of moderate complexity. Medical Desision Making - Independent Historian Additional History obtained from: [facility]/EMT - Discussion of managment Care discussed with:: specialist (Dr. Casiano, the patient's freight associate) Reviewed:: Test results Agreed on:: Treatment plan, need for follow-up - Diagnostic Testing Diagnostic test were ordered, analyzed, and reviewed by me: Yes - Risk of complications Low Risk: Low risk of morbidity from additional dx testing or treatment - Departure Departure Disposition: Home
[2022-12-05] MEDS: Nitrostat 0.4 MG Tablet SL PRN ×3 (05:27→05:40)
[2022-12-05] MEDS ORDERED: Zofran 4 MG/2 ML VIAL IV ONE (05:32)
[2022-12-05] MEDS ORDERED: Zofran 4 MG/2 ML VIAL ONE (05:34)
[2022-12-05 05:43] LABS: Absolute Neutrophil Ct (ANC) 4.67 x10^3/uL (1.4-6.9); BASOPHIL % 0.8 % (0.0-0.4); Basophil (Absolute #) 0.06 x10^3/uL (0-0.4); Eosinophil % 2.8 % (0.00-5.0); Eosinophil (Absolute #) 0.21 x10^3/uL (0-0.5); Hematocrit 27.4 % (35-47); Hemoglobin 9.1 g/dL (12.0-16.0); IMMATURE GRAN # 0.03 x10^3u/L (0.00-0.03); IMMATURE GRAN % 0.4 % (0.00-0.4); Lymphocyte (Absolute #) 1.98 x10^3/uL (1.0-4.6); Lymphocytes % 26.8 % (24.0-44.0); Mean Cell Volume 84.3 fL (78-100); Mean Corpuscular Hgb Concent. 33.2 g/dL (32-36); Mean Platelet Volume 9.8 fL (7.5-11.0); Monocyte (Absolute #) 0.45 x10^3/uL (0.0-1.3); Monocytes % 6.1 % (0.0-12.0); Neutrophil % 63.1 % (36.0-66.0); Platelet Count 197 x10^3/uL (150-450); Red Blood Count 3.25 x10^6/uL (4.1-5.4); Red Cell Distribution Width 14.3 % (11.5-14.0); White Blood Count 7.4 x10^3/uL (4.0-10.5)
[2022-12-05 05:56] LABS: ALBUMIN 2.6 g/dL (3.5-5.0); ANION GAP 7.9 MEQ/L (5-15); BILIRUBIN,TOTAL 0.3 mg/dL (0.2-1.3); Calcium 6.9 mg/dL (8.4-10.2); Creatinine 1 2.07 mg/dL (0.52-1.04); EST GLOMERULAR FILTRATION RATE 28.8 ML/MIN; Potassium 3.1 mmol/L (3.5-5.1); Total Protein 5.5 g/dL (6.3-8.2)
[2022-12-05] MEDS ORDERED: Klor Con PO ONE ×2 (06:32→06:37)
[2022-12-05] MEDS ORDERED: Hydromorphone 1 mg/ml Injection IV ONE (06:33)
[2022-12-05] MEDS ORDERED: NITRO-BID 2% UD PACKETS TOP ONE (06:33)
[2022-12-05] MEDS ORDERED: NITRO-BID 2% UD PACKETS ONE (06:37)
[2022-12-05] MEDS ORDERED: Hydromorphone 1 mg/ml Injection ONE (06:37)
[2022-12-05] MEDS ORDERED: MAG-OX 400 PO ONE (07:21)
[2022-12-05] MEDS ORDERED: MAG-OX 400 ONE (07:25)
[2022-12-05 08:07] VITALS: BP 142/92; PULSE 92; O2SAT 96
== END 2022-12-05 08:13 | disposition home or self-care (01) ==
LOC: ED 04:45
DX: I25.110 Atherosclerotic heart disease of native coronary artery with unstable angina pectoris (principal); E87.6 Hypokalemia; E83.42 Hypomagnesemia; I11.0 Hypertensive heart disease with heart failure; I50.9 Heart failure, unspecified; E78.5 Hyperlipidemia, unspecified; E10.9 Type 1 diabetes mellitus without complications; Z79.02 Long term (current) use of antithrombotics/antiplatelets; Z79.899 Other long term (current) drug therapy; Z28.310 Unvaccinated for COVID-19; Z72.0 Tobacco use
CPT/HCPCS: 36415; 80053; 83735; 84484; 85025; 93005; 96374; 96375; 99284; 99291; J1170; J2405; A9270-GY

== ENCOUNTER 2022-12-07 08:09 | Emergency (ER) | payer MEDICAID ==
[2022-12-07] MEDS ORDERED: BENADRYL 50 MG/ML IV ONE (08:33)
[2022-12-07] MEDS ORDERED: BABY ASPIRIN 81 MG CHEW PO ONE (08:33)
[2022-12-07] MEDS ORDERED: Nitrostat 0.4 MG (ED) SL ONE ×2 (08:33→09:03)
[2022-12-07] MEDS ORDERED: Zofran 4 MG/2 ML VIAL IV ONE (08:33)
[2022-12-07] MEDS ORDERED: Sodium Chloride 0.9% 1000 ML 1,000 ML IV STA (08:33)
[2022-12-07 08:53] LABS: Absolute Neutrophil Ct (ANC) 7.98 x10^3/uL (1.4-6.9); BASOPHIL % 0.7 % (0.0-0.4); Basophil (Absolute #) 0.08 x10^3/uL (0-0.4); Eosinophil % 2.4 % (0.00-5.0); Eosinophil (Absolute #) 0.26 x10^3/uL (0-0.5); IMMATURE GRAN # 0.08 x10^3u/L (0.00-0.03); IMMATURE GRAN % 0.7 % (0.00-0.4); Lymphocyte (Absolute #) 1.89 x10^3/uL (1.0-4.6); Lymphocytes % 17.2 % (24.0-44.0); Mean Cell Volume 84.2 fL (78-100); Mean Corpuscular Hemoglobin 28.1 pg (26-32); Mean Corpuscular Hgb Concent. 33.3 g/dL (32-36); Mean Platelet Volume 9.6 fL (7.5-11.0); Monocytes % 6.4 % (0.0-12.0); Neutrophil % 72.6 % (36.0-66.0); Platelet Count 226 x10^3/uL (150-450); Red Blood Count 3.92 x10^6/uL (4.1-5.4); Red Cell Distribution Width 14.6 % (11.5-14.0)
[2022-12-07] MEDS ORDERED: Zofran 4 MG/2 ML VIAL ONE (09:02)
[2022-12-07] MEDS ORDERED: BABY ASPIRIN 81 MG CHEW ONE (09:03)
[2022-12-07] MEDS ORDERED: Sodium Chloride 0.9% 1000 ML 1,000 ML ONE (09:03)
[2022-12-07] MEDS ORDERED: BENADRYL 50 MG/ML ONE (09:03)
--- NOTE | 2022-12-07 09:09 | ERPHSYRPT ---
- History of Present Illness Time Seen by Provider: 12/07/22 08:10 Source: patient Exam Limitations: no limitations Patient Subjective Stated Complaint: VOMITNG SINCE LAST NIGHT ABOUT 6 -7 TIMES, SHE CO PAIN TO CHEST FROM VOMITING.. EMS SAW PT STICK HAND DOWN THROAT TO VO BRITTANI, SHE ADMITED TO DOING THIS. Triage Nursing Assessment: PT ALERT, RESP EAST, SKIN WARM/DRY AND PALE, NO EDEMA NOTED. TOOK MEDS THIS AM Physician History: Patient here with vomiting. Patient states that she has had some chest pain, vomiting. Patient does have a known cardiac history. No falls no other trauma. No fever no chills. Patient states that vomiting has been intentional. Intentionally sticks her throat down to make yourself feel better. Patient has no active chest pain. Did feel better after vomiting. Allergies/Adverse Reactions: morphine Allergy (Intermediate, Verified 12/07/22 08:18) Itching fentanyl Allergy (Verified 12/07/22 08:18) Home Medications: Carvedilol 12.5 mg [Coreg 12.5 mg] 25 mg PO BID 10/21/18 [History] Fexofenadine HCl 180 mg PO DAILY 10/21/18 [History] Insulin Lispro [Humalog] 1 unit SQ UD 10/21/18 [History] Clonazepam [Klonopin] 0.5 mg PO TID 10/11/22 [History] Cyclobenzaprine HCl 10 mg [Cyclobenzaprine 10 MG] 10 mg PO TID PRN 10/11/22 [History] Insulin Glargine,Hum.rec.anlog [Basaglar Tempo Pen U-100] 34 unit SQ HS 10/11/22 [History] PANTOPRAZOLE 40 mg Tablet [Protonix 40MG Tablet] 40 mg PO QAM 10/11/22 [History] Ramelteon [Rozerem] 8 mg PO HS 10/11/22 [History] Sacubitril/Valsartan [Entresto 24 mg-26 mg Tablet] 1 tab PO BID 10/11/22 [History] Trazodone HCl 150 mg PO HS 10/11/22 [History] Venlafaxine HCl [Effexor Xr] 150 mg PO HS 10/11/22 [History] Atorvastatin Calcium [Lipitor] 80 mg PO HS 12/05/22 [History] Ticagrelor [Brilinta] 90 mg PO BID 12/05/22 [History] Hx Tetanus, Diphtheria Vaccination/Date Given: Yes Hx Influenza Vaccination/Date Given: Yes Hx Pneumococcal Vaccination/Date Given: No Immunizations Up to Date: Yes Travel Risk - International Travel Have you traveled outside of the country in past 3 weeks: No - Coronavirus Screening Are you exhibiting any of the following symptoms?: No Close contact with a COVID-19 positive Pt in past 14-21 Days: No - Vaccine Status Have you recieved a Covid-19 vaccination: No - Review of Systems Constitutional: No Fever, No Chills Eyes: No Symptoms Ears, Nose, & Throat: No Symptoms Respiratory: No Cough, No Dyspnea Cardiac: Chest Pain, No Edema, No Syncope Abdominal/Gastrointestinal: Vomiting, No Abdominal Pain, No Nausea, No Diarrhea Genitourinary Symptoms: No Dysuria Musculoskeletal: No Back Pain, No Neck Pain Skin: No Rash Neurological: No Dizziness, No Focal Weakness, No Sensory Changes Psychological: No Symptoms Endocrine: No Symptoms All Other Systems: Reviewed and Negative - Past Medical History Pertinent Past Medical History: Yes Neurological History: No Pertinent History ENT History: Other Cardiac History: Angina, Congestive Heart Failure, Coronary Artery Disease, Deep Vein Thrombosis, High Cholesterol, Hypertension, Myocardial Infarction ([place]) Respiratory History: Pulmonary Embolism Endocrine Medical History: Diabetes Type I Musculoskeletal History: No Pertinent History GI Medical History: GERD, Gallbladder Disease, Pancreatitis History: Renal Disease Psycho-Social History: Anxiety, Depression Female Reproductive Disorders: Other Other Medical History: blind in right eye. renal insufficiency, heavy painful menstrual cycle - Past Surgical History Past Surgical History: Yes Neuro Surgical History: No Pertinent History Cardiac: Angioplasty, CABG Respiratory: No Pertinent History Gastrointestinal: Cholecystectomy Genitourinary: No Pertinent History Musculoskeletal: No Pertinent History Female Surgical History: Hysterectomy Other Surgical History: cholecystectomy with liver laceration repair 10/13/22. knee surgery, pituitary tumor removed - Social History Smoking Status: Current every day smoker How long have you smoked: 15 yrs Exposure to second hand smoke: No (uses pipe) Alcohol Use: None Drug Use: marijuana Patient Lives Alone: No Significant Family History: no pertinent family hx - Female History Hx Last Menstrual Period: NONE Hx Now: No - Nursing Vital Signs Nursing Vital Signs: Initial Vital Signs Pulse Rate 105 H 12/07/22 08:17 Respiratory Rate 18 12/07/22 08:17 Blood Pressure 209/136 12/07/22 08:17 O2 Sat by Pulse Oximetry 100 12/07/22 08:17 Pain Scale Pain Intensity 8 - Physical Exam General Appearance: no apparent distress, alert Eye Exam: PERRL/EOMI, eyes nml inspection Ears, Nose, Throat Exam: normal ENT inspection, TMs normal, pharynx normal, moist mucous membranes Neck Exam: normal inspection, non-tender, supple, full range of motion Respiratory Exam: normal breath sounds, lungs clear, No respiratory distress Cardiovascular Exam: regular rate/rhythm, normal heart sounds, normal peripheral pulses Gastrointestinal/Abdomen Exam: soft, normal bowel sounds, No tenderness, No mass Back Exam: normal inspection, normal range of motion, No CVA tenderness, No vertebral tenderness Extremity Exam: normal inspection, normal range of motion, pelvis stable Neurologic Exam: alert, oriented x 3, cooperative, normal mood/affect, nml cerebellar function, nml station & gait, sensation nml, No motor deficits Skin Exam: normal color, warm, dry, No rash Lymphatic Exam: No adenopathy SpO2: 100 - Course Nursing assessment & vital signs reviewed: Yes EKG Interpreted by Me: Sinus Rhythm (EKG shows no ST changes. No new cardiac changes. Reviewed previous EKG.) Ordered Tests: Active Orders 24 hr Category Date Time Status Filtering Machine Tender STAT Care 12/07/22 08:33 Active EKG-ER Only STAT Care 12/07/22 08:33 Active IV Insertion STAT Care 12/07/22 08:33 Active CHEST 1 VIEW (PORTABLE) Stat Exams 12/07/22 08:33 Completed CBC W DIFF Stat Lab 12/07/22 08:52 Completed CMP Stat Lab 12/07/22 08:52 Completed NT PRO BNPII Stat Lab 12/07/22 08:52 Completed TROPONIN Q4H Lab 12/07/22 08:52 Completed TROPONIN Q4H Lab 12/07/22 10:53 Completed TROPONIN Q4H Lab 12/07/22 16:45 Ordered Medication Summary Discontinued Medications Generic Name Dose Route Start Last Admin Trade Name Freq PRN Reason Stop Dose Admin Aspirin 324 mg 12/07/22 08:33 12/07/22 09:07 Aspirin 81 Mg Tab.Chew PO 12/07/22 08:34 324 mg STAT ONE Administration Aspirin Confirm 05/03/23 09:03 Aspirin 81 Mg Tab.Chew Administered 12/07/22 09:04 Dose 324 mg .ROUTE .STK-MED ONE Diphenhydramine HCl 50 mg 12/07/22 08:33 12/07/22 09:08 Diphenhydramine Hcl 50 Mg/Ml Vial IV 12/07/22 08:34 50 mg STAT ONE Administration Diphenhydramine HCl Confirm 12/07/22 09:03 Diphenhydramine Hcl 50 Mg/Ml Vial Administered 12/07/22 09:04 Dose 50 mg .ROUTE .STK-MED ONE Droperidol 1.25 mg 12/07/22 08:33 12/07/22 09:07 Droperidol 5 Mg/2 Ml Vial IV 12/07/22 08:34 1.25 mg STAT ONE Administration Droperidol Confirm 12/07/22 09:03 Droperidol 5 Mg/2 Ml Vial Administered 12/07/22 09:04 Dose 5 mg .ROUTE .STK-MED ONE Sodium Chloride 1,000 mls @ 999 mls/hr 12/07/22 08:33 12/07/22 10:37 Sodium Chloride 0.9% 1000 Ml IV 12/07/22 09:33 Infused .Q1H1M STA Infusion Sodium Chloride Confirm 12/07/22 09:03 Sodium Chloride 0.9% 1000 Ml Administered 12/07/22 09:04 Dose 1,000 mls @ ud .ROUTE .STK-MED ONE Nitroglycerin 0.4 mg 12/07/22 08:33 12/07/22 09:06 Nitroglycerin 0.4 Mg (Ed) 0.4 Mg Tab.Subl SL 12/07/22 08:34 0.4 mg STAT ONE Administration Nitroglycerin Confirm 12/07/22 09:03 Nitroglycerin 0.4 Mg (Ed) 0.4 Mg Tab.Subl Administered 12/07/22 09:04 Dose 0.4 mg SL .STK-MED ONE Ondansetron HCl 4 mg 12/07/22 08:33 12/07/22 09:07 Ondansetron Hcl 4 Mg/2 Ml Vial IV 12/07/22 08:34 4 mg STAT ONE Administration Ondansetron HCl Confirm 12/07/22 09:02 Ondansetron Hcl 4 Mg/2 Ml Vial Administered 12/07/22 09:03 Dose 4 mg .ROUTE .STK-MED ONE Lab/Rad Data: Laboratory Result Diagrams 12/07/22 08:52 12/07/22 08:52 Laboratory Results 12/07/22 12/07/22 12/07/22 Range/Units 10:53 08:52 08:52 WBC (4.0-10.5) x10^3/uL RBC (4.1-5.4) x10^6/uL Hgb (12.0-16.0) g/dL Hct (35-47) % MCV (78-100) fL MCH (26-32) pg MCHC (32-36) g/dL RDW (11.5-14.0) % Plt Count (150-450) x10^3/uL MPV (7.5-11.0) fL Gran % (36.0-66.0) % Immature Gran % (Auto) (0.00-0.4) % Nucleat RBC Rel Count (0.00-0.1) % Eos # (Auto) (0-0.5) x10^3/uL Immature Gran # (Auto) (0.00-0.03) x10^3u/L Absolute Lymphs (auto) (1.0-4.6) x10^3/uL Absolute Monos (auto) (0.0-1.3) x10^3/uL Absolute Nucleated RBC (0.00-0.01) x10^3u/L Lymphocytes % (24.0-44.0) % Monocytes % (0.0-12.0) % Eosinophils % (0.00-5.0) % Basophils % (0.0-0.4) % Absolute Granulocytes (1.4-6.9) x10^3/uL Basophils # (0-0.4) x10^3/uL Sodium 138 (137-145) mmol/L Potassium 4.1 (3.5-5.1) mmol/L Chloride 107 (98-107) mmol/L Carbon Dioxide 23 (22-30) mmol/L Anion Gap 11.9 (5-15) MEQ/L BUN 15 (7-17) mg/dL Creatinine 1.77 H (0.52-1.04) mg/dL Estimated GFR 34.5 ML/MIN Glucose 152 H (74-106) mg/dL Calcium 7.0 L (8.4-10.2) mg/dL Total Bilirubin 0.50 (0.2-1.3) mg/dL AST 24 (14-36) U/L ALT 15 (0-35) U/L Alkaline Phosphatase 63 (38-126) U/L Troponin I 0.023 0.031 (0.000-0.034) ng/mL NT-Pro-B Natriuret Pep 48112 (<300) pg/mL Serum Total Protein 5.9 L (6.3-8.2) g/dL Albumin 2.9 L (3.5-5.0) g/dL 12/07/22 Range/Units 08:52 WBC 11.0 H (4.0-10.5) x10^3/uL RBC 3.92 L (4.1-5.4) x10^6/uL Hgb 11.0 L (12.0-16.0) g/dL Hct 33.0 L (35-47) % MCV 84.2 (78-100) fL MCH 28.1 (26-32) pg MCHC 33.3 (32-36) g/dL RDW 14.6 H (11.5-14.0) % Plt Count 226 (150-450) x10^3/uL MPV 9.6 (7.5-11.0) fL Gran % 72.6 H (36.0-66.0) % Immature Gran % (Auto) 0.7 H (0.00-0.4) % Nucleat RBC Rel Count 0.0 (0.00-0.1) % Eos # (Auto) 0.26 (0-0.5) x10^3/uL Immature Gran # (Auto) 0.08 H (0.00-0.03) x10^3u/L Absolute Lymphs (auto) 1.89 (1.0-4.6) x10^3/uL Absolute Monos (auto) 0.70 (0.0-1.3) x10^3/uL Absolute Nucleated RBC 0.00 (0.00-0.01) x10^3u/L Lymphocytes % 17.2 L (24.0-44.0) % Monocytes % 6.4 (0.0-12.0) % Eosinophils % 2.4 (0.00-5.0) % Basophils % 0.7 (0.0-0.4) % Absolute Granulocytes 7.98 H (1.4-6.9) x10^3/uL Basophils # 0.08 (0-0.4) x10^3/uL Sodium (137-145) mmol/L Potassium (3.5-5.1) mmol/L Chloride (98-107) mmol/L Carbon Dioxide (22-30) mmol/L Anion Gap (5-15) MEQ/L BUN (7-17) mg/dL Creatinine (0.52-1.04) mg/dL Estimated GFR ML/MIN Glucose (74-106) mg/dL Calcium (8.4-10.2) mg/dL Total Bilirubin (0.2-1.3) mg/dL AST (14-36) U/L ALT (0-35) U/L Alkaline Phosphatase (38-126) U/L Troponin I (0.000-0.034) ng/mL NT-Pro-B Natriuret Pep (<300) pg/mL Serum Total Protein (6.3-8.2) g/dL Albumin (3.5-5.0) g/dL - Progress Progress: improved Progress Note: 12/07/22 09:09 differential diagnosis includes: PNA, STEMI, NSTEMI, other infection, muscul oskeletal pain, pneumothorax - We'll obtain basic labs, fluids, EKG, troponin, chest x-ray - EKG shows no ST changes - my read. See full read below. - O2 saturations consistently greater than 95%. - CXR shows no pneumonia, pneumothorax - my read 12/07/22 11:53 Today the troponin is the lowest it has been. Troponin here with a change was 0.031, 0.023. This is appropriately trending down from her previous cardiac cath. Patient's BNP is elevated. However it is similar to previous BNPs. Chest x-ray is clear showing no signs of acute pulmonary edema. 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 No signs of acute heart failure. No shortness of breath, lower extremity edema, abnormal heart sounds. Plan for discharge home at this point in time. Patient will need to return here for any new or changing symptoms. She will call her grain commodity manager today for close follow-up. Rest of the labs and imaging was negative. Nausea and vomiting completely resolved in the emergency department. Plan for discharge home. Medical Desision Making - External Record(s) Reviewed Records reviewed as a part of evaluation & management: Inpatient, Discharge Summary - Diagnostic Testing Diagnostic test were ordered, analyzed, and reviewed by me: Yes Radiological Interpretation: Reviewed by me - Risk of complications Minimal Risk: Minimal risk of morbidity - Departure Departure Disposition: Home Clinical Impression: Nausea & vomiting Condition: Stable Critical Care Time: No Referrals: GOMEZ CURIEL [Primary Care Provider] - Follow up/PCP as directed
[2022-12-07 09:15] LABS: ALBUMIN 2.9 g/dL (3.5-5.0); ANION GAP 11.9 MEQ/L (5-15); BILIRUBIN,TOTAL 0.5 mg/dL (0.2-1.3); Creatinine 1 1.77 mg/dL (0.52-1.04); EST GLOMERULAR FILTRATION RATE 34.5 ML/MIN; Potassium 4.1 mmol/L (3.5-5.1); Total Protein 5.9 g/dL (6.3-8.2)
--- NOTE | 2022-12-07 10:35 | XRAY ---
CLINICAL HISTORY:chest pain COMPARISON:Prior X-ray dated 12/03/2022. TECHNIQUES: FINDINGS: Sternotomy sutures and surgical lorna are seen along heart region. Radiographic examination of the chest demonstrates clear lungs. Normal configuration of the mediastinum. The lenard are normal in size and position. The cardiac size is normal. The bony thorax is unremarkable. The costophrenic and cardiophrenic angles are clear. IMPRESSION: 1-No gross abnormality. 2-Prior x-ray was also unremarkable. Electronically Signed by: Andrea Ahumada MD. (12/07/2022 09:33:15 C.O.D. BILLER)
[2022-12-07 11:52] VITALS: O2SAT 100
[2022-12-07 11:54] VITALS: BP 185/118; PULSE 70
== END 2022-12-07 12:10 | disposition home or self-care (01) ==
LOC: ED 08:09
DX: R11.2 Nausea with vomiting, unspecified (principal); R07.9 Chest pain, unspecified; I11.0 Hypertensive heart disease with heart failure; I50.9 Heart failure, unspecified; E78.5 Hyperlipidemia, unspecified; E10.9 Type 1 diabetes mellitus without complications; Z79.4 Long term (current) use of insulin; Z79.02 Long term (current) use of antithrombotics/antiplatelets; Z79.899 Other long term (current) drug therapy; Z28.310 Unvaccinated for COVID-19; Z72.0 Tobacco use
CPT/HCPCS: 36000; 36415; 71045; 80053; 83880; 84484; 85025; 93005; 93041; 96360; 96374; 96375; 99284; J1200; J2405; A9270-GY

== ENCOUNTER 2023-06-15 17:41 | Emergency (ER) | payer MEDICAID, OTHER ==
--- NOTE | 2023-06-15 17:43 | ERPHSYRPT ---
- History of Present Illness Historian: patient Exam Limitations: no limitations Timing/Duration: other (1-1/2 weeks) Quality: aching Abdominal Pain Onset Location: generalized abdomen Pain Radiation: no radiation Severity of Pain-Max: moderate Severity of Pain-Current: moderate Modifying Factors: Improves With: vomiting Associated Symptoms: loss of appetite, nausea, vomiting, weakness, No chest pain, No diarrhea, No headache, No shortness of breath Previous symptoms: same symptoms as today, recent hospitalization Hx Tetanus, Diphtheria Vaccination/Date Given: Yes Hx Influenza Vaccination/Date Given: Yes Hx Pneumococcal Vaccination/Date Given: No <DINA DOMINGUEZ - Last Filed: 06/15/23 18:18> <NELSON CAREY - Last Filed: 06/15/23 20:46> - History of Present Illness Time Seen by Provider: 06/15/23 17:43 Physician History: This is a 37-year-old white female patient who presents to the emergency room department with complaint of 1-1/2 weeks of upper abdominal/epigastric pain with associated vomiting for 1-1/2 weeks. Patient recently left AGAINST MEDICAL ADVICE from [facility]. However she was in the hospital for 4 days. Patient smells of marijuana today. She denies any other illicit drug use but states that she did smoke marijuana today. She denies alcohol use or abuse. Patient has multiple medical problems including chronic angina, CHF, coronary artery disease (angioplasty and CABG) DVT, hyperlipidemia, hypertension, pulmonary embolus and is on Brilinta, gastroesophageal reflux disease, pancrea titis, anxiety, renal insufficiency and insulin-dependent diabetes. She currently denies chest pain. She denies shortness of breath. She has not had any diarrhea symptoms. (DINA DOMINGUEZ) Allergies/Adverse Reactions: morphine Allergy (Intermediate, Verified 06/15/23 17:51) Itching Home Medications: Carvedilol 12.5 mg [Coreg 12.5 mg] 25 mg PO BID 10/21/18 [History] Fexofenadine HCl 180 mg PO DAILY 10/21/18 [History] Insulin Lispro [Humalog] 1 unit SQ UD 10/21/18 [History] Clonazepam [Klonopin] 0.5 mg PO TID 10/11/22 [History] Cyclobenzaprine HCl 10 mg [Cyclobenzaprine 10 MG] 10 mg PO TID PRN 10/11 [History] Insulin Glargine,Hum.rec.anlog [Basaglar Tempo Pen U-100] 34 unit SQ HS 10/11/22 [History] PANTOPRAZOLE 40 mg Tablet [Protonix 40MG Tablet] 40 mg PO QAM 10/11/22 [History] Ramelteon [Rozerem] 8 mg PO HS 10/11/22 [History] Sacubitril/Valsartan [Entresto 24 mg-26 mg Tablet] 1 tab PO BID 10/11/22 [History] Trazodone HCl 150 mg PO HS 10/11/22 [History] Venlafaxine HCl [Effexor Xr] 150 mg PO HS 10/11/22 [History] Atorvastatin Calcium [Lipitor] 80 mg PO HS 12/05/22 [History] Ticagrelor [Brilinta] 90 mg PO BID 12/05/22 [History] Lipase/Protease/Amylase [Jefry Marie 12,000 Unit Capsule] 1 cap PO BID 06/15/23 [History] Travel Risk - International Travel Have you traveled outside of the country in past 3 weeks: No - Coronavirus Screening Are you exhibiting any of the following symptoms?: Yes Symptoms: Vomiting/Diarrhea Close contact with a COVID-19 positive Pt in past 14-21 Days: No - Vaccine Status Have you recieved a Covid-19 vaccination: No <DINA DOMINGUEZ - Last Filed: 06/15/23 18:18> - Review of Systems Constitutional: Weakness Eyes: No Symptoms Ears, Nose, & Throat: No Symptoms Respiratory: No Symptoms Cardiac: No Symptoms Abdominal/Gastrointestinal: Abdominal Pain, Nausea, Vomiting, Appetite Changes, No Diarrhea Genitourinary Symptoms: No Symptoms Musculoskeletal: No Symptoms Skin: No Symptoms Neurological: No Symptoms Psychological: No Symptoms Endocrine: No Symptoms Hematologic/Lymphatic: No Symptoms Immunological/Allergic: No Symptoms All Other Systems: Reviewed and Negative <DINA DOMINGUEZ - Last Filed: 06/15/23 18:18> - Past Medical History Pertinent Past Medical History: Yes Neurological History: No Pertinent History ENT History: Other Cardiac History: Angina, Congestive Heart Failure, Coronary Artery Disease, Deep Vein Thrombosis, High Cholesterol, Hypertension, Myocardial Infarction ([place]) Respiratory History: Pulmonary Embolism Endocrine Medical History: Diabetes Type I Musculoskeletal History: No Pertinent History GI Medical History: GERD, Gallbladder Disease, Pancreatitis History: Renal Disease Psycho-Social History: Anxiety, Depression Female Reproductive Disorders: Other Other Medical History: blind in right eye. renal insufficiency, heavy painful menstrual cycle - Past Surgical History Past Surgical History: Yes Neuro Surgical History: No Pertinent History Cardiac: Angioplasty, CABG Respiratory: No Pertinent History Gastrointestinal: Cholecystectomy Genitourinary: No Pertinent History Musculoskeletal: No Pertinent History Female Surgical History: Hysterectomy Other Surgical History: cholecystectomy with liver laceration repair 10/13/22. knee surgery, pituitary tumor removed - Social History Smoking Status: Current every day smoker How long have you smoked: 15 yrs Exposure to second hand smoke: No (uses pipe) Alcohol Use: None Drug Use: marijuana Patient Lives Alone: No Significant Family History: no pertinent family hx <DINA DOMINGUEZ - Last Filed: 06/15/23 18:18> - Physical Exam General Appearance: no apparent distress, alert, anxiety, thin Eye Exam: PERRL/EOMI, scleral icterus Ears, Nose, Throat Exam: normal ENT inspection, moist mucous membranes Neck Exam: normal inspection, non-tender, supple, full range of motion Respiratory Exam: normal breath sounds, lungs clear, No chest tenderness, No respiratory distress Cardiovascular Exam: regular rate/rhythm, normal heart sounds, normal peripheral pulses Gastrointestinal/Abdomen Exam: soft, normal bowel sounds, tenderness (Generalized tenderness to palpation), guarding (Generalized to palpation), No rebound Pelvic Exam: not done Rectal Exam: not done Back Exam: normal inspection, normal range of motion, No CVA tenderness, No vertebral tenderness Neurologic Exam: alert, oriented x 3, cooperative, mop man II-XII nml as tested, normal mood/affect, nml cerebellar function, nml station & gait, sensation nml Skin Exam: jaundice Lymphatic Exam: No adenopathy SpO2 Interpretation: normal O2 Delivery: Room Air <DINA DOMINGUEZ - Last Filed: 06/15/23 18:18> - Nursing Vital Signs Nursing Vital Signs: Initial Vital Signs Temperature 98.2 F 06/15/23 17:41 Pulse Rate 90 06/15/23 17:41 Respiratory Rate 15 06/15/23 17:41 Blood Pressure 168/103 06/15/23 17:41 O2 Sat by Pulse Oximetry 100 06/15/23 17:41 Pain Scale Pain Intensity 9 - Course Nursing assessment & vital signs reviewed: Yes <DINA DOMINGUEZ - Last Filed: 06/15/23 18:18> - Course Nursing assessment & vital signs reviewed: Yes EKG Interpreted by Me: RATE (90), Sinus Rhythm, prolonged QT interval, Non- specific ST Changes, Other (Poor R wave progression) - Radiology Exams Chest X-ray Interpretation: Interpreted by me - CT Exams Abdomen/Pelvis CT Interpretation: Other (CT of the abdomen pelvis shows diffuse thickening of the gastric wall consistent with gastritis versus possible malignancy.) <NELSON CAREY - Last Filed: 06/15/23 20:46> Ordered Tests: Active Orders 24 hr Category Date Time Status Clean Catch Urine Specimen STAT Care 06/15/23 18:35 Active EKG-ER Only STAT Care 06/15/23 18:35 Active IV Insertion STAT Care 06/15/23 18:35 Active ABDOMEN AND PELVIS W/0 CONTRAS [CT] Stat Exams 06/15/23 19:27 Taken AMYLASE Stat Lab 06/15/23 19:00 Completed CBC W DIFF Stat Lab 06/15/23 19:00 Completed CMP Stat Lab 06/15/23 19:00 Completed CULTURE,URINE Stat Lab 06/15/23 18:43 Received LIPASE Stat Lab 06/15/23 19:00 Completed Lactic Acid Stat Lab 06/15/23 19:00 Completed TROPONIN Q4H Lab 06/15/23 19:00 Completed TROPONIN Q4H Lab 06/15/23 22:45 Ordered TROPONIN Q4H Lab 06/16/23 02:45 Ordered UA W/RFX UR CULTURE Stat Lab 06/15/23 18:43 Completed Urine Triage Profile Stat Lab 06/15/23 18:43 Completed Medication Summary Discontinued Medications Generic Name Dose Route Start Last Admin Trade Name Freq PRN Reason Stop Dose Admin Aspirin 324 mg 06/15/23 20:38 Aspirin 81 Mg Tab.Chew PO 06/15/23 20:39 STAT ONE Heparin Sodium (Beef Lung) 5,000 unit 06/15/23 20:38 Heparin 5000 Units/0.5 Ml 5,000 Unit/0.5 Ml Syr IV 06/15/23 20:39 STAT ONE Hydromorphone HCl 1 mg 06/15/23 19:16 06/15/23 19:19 Hydromorphone 1 Mg/1ml Inj IV 06/15/23 19:17 1 mg STAT ONE Administration Hydromorphone HCl Confirm 06/15/23 19:18 Hydromorphone 1 Mg/1ml Inj Administered 06/15/23 19:19 Dose 1 mg .ROUTE .STK-MED ONE Sodium Chloride 1,000 mls @ 999 mls/hr 06/15/23 18:35 06/15/23 19:50 Sodium Chloride 0.9% 1000 Ml IV 06/15/23 19:35 Infused .Q1H1M STA Infusion Sodium Chloride Confirm 06/15/23 18:45 Sodium Chloride 0.9% 1000 Ml Administered 06/15/23 18:46 Dose 1,000 mls @ ud .ROUTE .STK-MED ONE Sodium Chloride 1,000 mls @ 999 mls/hr 06/15/23 20:18 06/15/23 20:22 Sodium Chloride 0.9% 1000 Ml IV 06/15/23 21:18 999 mls/hr .Q1H1M STA Administration Sodium Chloride Confirm 06/15/23 20:21 Sodium Chloride 0.9% 1000 Ml Administered 06/15/23 20:22 Dose 1,000 mls @ ud .ROUTE .STK-MED ONE Meperidine HCl 25 mg 06/15/23 18:38 06/15/23 18:46 Meperidine Hcl 25 Mg Syringe IV 06/15/23 18:39 25 mg STAT ONE Administration Meperidine HCl Confirm 06/15/23 18:44 Meperidine Hcl 50 Mg/Ml Carp Administered 06/15/23 18:45 Dose 50 mg .ROUTE .STK-MED ONE Pantoprazole Sodium 40 mg 06/15/23 18:35 06/15/23 18:46 Pantoprazole 40 Mg Vial IV 06/15/23 18:36 40 mg STAT ONE Administration Pantoprazole Sodium Confirm 06/15/23 18:45 Pantoprazole 40 Mg Vial Administered 06/15/23 18:46 Dose 40 mg IV .STK-MED ONE Prochlorperazine Edisylate 5 mg 06/15/23 18:35 06/15/23 18:46 Prochlorperazine Edisylate 10 Mg/2 Ml Vial IV 06/15/23 18:36 5 mg STAT ONE Administration Prochlorperazine Edisylate Confirm 06/15/23 18:45 Prochlorperazine Edisylate 10 Mg/2 Ml Vial Administered 06/15/23 18:46 Dose 10 mg .ROUTE .STK-MED ONE Lab/Rad Data: Laboratory Result Diagrams 06/15/23 19:00 06/15/23 19:00 Laboratory Results 06/15/23 06/15/23 06/15/23 Range/Units 19:00 19:00 19:00 WBC (4.0-10.5) x10^3/uL RBC (4.1-5.4) x10^6/uL Hgb (12.0-16.0) g/dL Hct (35-47) % MCV (78-100) fL MCH (26-32) pg MCHC (32-36) g/dL RDW (11.5-14.0) % Plt Count (150-450) x10^3/uL MPV (7.5-11.0) fL Gran % (36.0-66.0) % Immature Gran % (Auto) (0.00-0.4) % Nucleat RBC Rel Count (0.00-0.1) % Eos # (Auto) (0-0.5) x10^3/uL Immature Gran # (Auto) (0.00-0.03) x10^3u/L Absolute Lymphs (auto) (1.0-4.6) x10^3/uL Absolute Monos (auto) (0.0-1.3) x10^3/uL Absolute Nucleated RBC (0.00-0.01) x10^3u/L Lymphocytes % (24.0-44.0) % Monocytes % (0.0-12.0) % Eosinophils % (0.00-5.0) % Basophils % (0.0-0.4) % Absolute Granulocytes (1.4-6.9) x10^3/uL Basophils # (0-0.4) x10^3/uL Sodium 137 (137-145) mmol/L Potassium 3.8 (3.5-5.1) mmol/L Chloride 108 H (98-107) mmol/L Carbon Dioxide 25 (22-30) mmol/L Anion Gap 7.4 (5-15) MEQ/L BUN 22 H (7-17) mg/dL Creatinine 2.37 H (0.52-1.04) mg/dL Estimated GFR 26.6 ML/MIN Glucose 82 (74-106) mg/dL Lactic Acid 0.5 (0.4-2.0) Calcium 7.4 L (8.4-10.2) mg/dL Total Bilirubin 0.30 (0.2-1.3) mg/dL AST 28 (14-36) U/L ALT 21 (0-35) U/L Alkaline Phosphatase 71 (38-126) U/L Troponin I 0.195 H* (0.000-0.034) ng/mL Serum Total Protein 5.1 L (6.3-8.2) g/dL Albumin 2.4 L (3.5-5.0) g/dL Amylase 39 (30-110) U/L Lipase 45 (23-300) U/L Urine Color (Yellow) Urine Appearance (Clear) Urine pH (4.6-8.0) Ur Specific [place] (1.005-1.030) Urine Protein (Negative) Urine Glucose (UA) (Negative) mg/dL Urine Ketones (Negative) Urine Blood (Negative) Urine Nitrite (Negative) Urine Bilirubin (Negative) Urine Urobilinogen (0.2) mg/dL Ur Leukocyte Esterase (Negative) U Hyaline Cast (Auto) (0-2) /LPF Urine Microscopic RBC (0-5) /HPF Urine Microscopic WBC (0-5) /HPF Ur Epithelial Cells (None Seen) /HPF Urine Bacteria (None Seen) /HPF Urine Culture Reflexed (NO) Urine Opiates Level (NEGATIVE) Ur Methadone (NEGATIVE) Urine Barbiturates (NEGATIVE) Ur Phencyclidine (PCP) (NEGATIVE) Urine Amphetamine (NEGATIVE) U Benzodiazepine Level (NEGATIVE) Urine Cocaine (NEGATIVE) Urine Marijuana (THC) (NEGATIVE) 06/15/23 06/15/23 06/15/23 Range/Units 19:00 18:43 18:43 WBC 6.8 (4.0-10.5) x10^3/uL RBC 3.12 L (4.1-5.4) x10^6/uL Hgb 8.5 L (12.0-16.0) g/dL Hct 27.1 L (35-47) % MCV 86.9 (78-100) fL MCH 27.2 (26-32) pg MCHC 31.4 L (32-36) g/dL RDW 13.3 (11.5-14.0) % Plt Count 122 L (150-450) x10^3/uL MPV 9.7 (7.5-11.0) fL Gran % 65.5 (36.0-66.0) % Immature Gran % (Auto) 0.1 (0.00-0.4) % Nucleat RBC Rel Count 0.0 (0.00-0.1) % Eos # (Auto) 0.21 (0-0.5) x10^3/uL Immature Gran # (Auto) 0.01 (0.00-0.03) x10^3u/L Absolute Lymphs (auto) 1.59 (1.0-4.6) x10^3/uL Absolute Monos (auto) 0.46 (0.0-1.3) x10^3/uL Absolute Nucleated RBC 0.00 (0.00-0.01) x10^3u/L Lymphocytes % 23.5 L (24.0-44.0) % Monocytes % 6.8 (0.0-12.0) % Eosinophils % 3.1 (0.00-5.0) % Basophils % 1.0 (0.0-0.4) % Absolute Granulocytes 4.42 (1.4-6.9) x10^3/uL Basophils # 0.07 (0-0.4) x10^3/uL Sodium (137-145) mmol/L Potassium (3.5-5.1) mmol/L Chloride (98-107) mmol/L Carbon Dioxide (22-30) mmol/L Anion Gap (5-15) MEQ/L BUN (7-17) mg/dL Creatinine (0.52-1.04) mg/dL Estimated GFR ML/MIN Glucose (74-106) mg/dL Lactic Acid (0.4-2.0) Calcium (8.4-10.2) mg/dL Total Bilirubin (0.2-1.3) mg/dL AST (14-36) U/L ALT (0-35) U/L Alkaline Phosphatase (38-126) U/L Troponin I (0.000-0.034) ng/mL Serum Total Protein (6.3-8.2) g/dL Albumin (3.5-5.0) g/dL Amylase (30-110) U/L Lipase (23-300) U/L Urine Color Yellow (Yellow) Urine Appearance Clear (Clear) Urine pH 6.0 (4.6-8.0) Ur Specific [place] 1.015 (1.005-1.030) Urine Protein >=1000 A (Negative) Urine Glucose (UA) Negative (Negative) mg/dL Urine Ketones Negative (Negative) Urine Blood Negative (Negative) Urine Nitrite Positive A (Negative) Urine Bilirubin Negative (Negative) Urine Urobilinogen 0.2 (0.2) mg/dL Ur Leukocyte Esterase Negative (Negative) U Hyaline Cast (Auto) NONE SEEN (0-2) /LPF Urine Microscopic RBC 0-2 (0-5) /HPF Urine Microscopic WBC 3-5 (0-5) /HPF Ur Epithelial Cells Few (None Seen) /HPF Urine Bacteria Many A (None Seen) /HPF Urine Culture Reflexed YES (NO) Urine Opiates Level POSITIVE (NEGATIVE) Ur Methadone NEGATIVE (NEGATIVE) Urine Barbiturates NEGATIVE (NEGATIVE) Ur Phencyclidine (PCP) NEGATIVE (NEGATIVE) Urine Amphetamine NEGATIVE (NEGATIVE) U Benzodiazepine Level NEGATIVE (NEGATIVE) Urine Cocaine NEGATIVE (NEGATIVE) Urine Marijuana (THC) POSITIVE (NEGATIVE) - Progress Progress: pain not gone completely <DINA DOMINGUEZ - Last Filed: 06/15/23 18:18> - Progress Progress: unchanged <NELSON CAREY - Last Filed: 06/15/23 20:46> - Progress Progress Note: 06/15/23 18:22 This patient's medical issue is 1 of at least moderate possibly high complexity. The level of complexity in the work-up performed is based on review of the patient's past medical history, review of the patient's medication list, review the patient's drug allergy list, history of present illness and physical findings on examination. Work-up in this patient includes placement of intravenous line, CBC, CMP, amylase, lipase, urinalysis, urine drug screen, twelve-lead EKG, troponin level, infusion of intravenous fluids, intravenous Demerol, intravenous Zofran. We will also perform a CT scan of the abdomen and pelvis. Patient care transferred to Dr. Nelson Carey at shift change. I will review the laboratory and radiographic studies that he is to follow-up on. He will make final disposition of this patient. (DINA DOMINGUEZ) Medical Desision Making - Diagnostic Testing Diagnostic test were ordered, analyzed, and reviewed by me: No <DINA DOMINGUEZ - Last Filed: 06/15/23 18:18> - Discussion of managment Care discussed with:: on-call "doc" (Spoke with Dr. Santos at [facility] ER he excepted the patient in transfer as a non-STEMI.) Reviewed:: Test results Agreed on:: Treatment plan, decision to admit Will see patient: in ED - Diagnostic Testing Diagnostic test were ordered, analyzed, and reviewed by me: Yes Radiological Interpretation: Interpreted by me, Reviewed by me - Risk of complications The pt has a mod risk of morbidity or mortality based on: Need for prescription drug management <NELSON CAREY - Last Filed: 06/15/23 20:46> - Departure Departure Disposition: Home Critical Care Time: No <DINA DOMINGUEZ - Last Filed: 06/15/23 18:18> - Departure Departure Disposition: Transfer (Transferred to [facility] Dr. Santos excepting) Critical Care Time(excluding separately billable procedures): Critical 30-74 mins (35) <NELSON CAREY - Last Filed: 06/15/23 20:46> - Departure Clinical Impression: Abdominal pain, Vomiting, NSTEMI (non-ST elevated myocardial infarction), Epigastric pain, Gastric wall thickening, CAD (coronary artery disease) Condition: Stable Referrals: GOMEZ CURIEL [Primary Care Provider] - Follow up/PCP as directed
[2023-06-15 17:58] VITALS: TEMP 98.2
[2023-06-15] MEDS ORDERED: Sodium Chloride 0.9% 1000 ML 1,000 ML IV STA ×2 (18:35→20:18)
[2023-06-15] MEDS ORDERED: PROTONIX 40 MG IV IV ONE ×2 (18:35→18:45)
[2023-06-15] MEDS ORDERED: Compazine 10 MG/2 ML IV ONE (18:35)
[2023-06-15] MEDS ORDERED: DEMEROL 25MG SYRINGE IV ONE (18:38)
[2023-06-15] MEDS ORDERED: DEMEROL 50 MG ONE (18:44)
[2023-06-15] MEDS ORDERED: Compazine 10 MG/2 ML ONE (18:45)
[2023-06-15] MEDS ORDERED: Sodium Chloride 0.9% 1000 ML 1,000 ML ONE ×2 (18:45→20:21)
[2023-06-15] MEDS ORDERED: Hydromorphone 1 mg/ml Injection IV ONE (19:16)
[2023-06-15] MEDS ORDERED: Hydromorphone 1 mg/ml Injection ONE (19:18)
[2023-06-15 19:19] LABS: Absolute Neutrophil Ct (ANC) 4.42 x10^3/uL (1.4-6.9); Basophil (Absolute #) 0.07 x10^3/uL (0-0.4); Eosinophil % 3.1 % (0.00-5.0); Eosinophil (Absolute #) 0.21 x10^3/uL (0-0.5); Hematocrit 27.1 % (35-47); Hemoglobin 8.5 g/dL (12.0-16.0); IMMATURE GRAN # 0.01 x10^3u/L (0.00-0.03); IMMATURE GRAN % 0.1 % (0.00-0.4); Lymphocyte (Absolute #) 1.59 x10^3/uL (1.0-4.6); Lymphocytes % 23.5 % (24.0-44.0); Mean Cell Volume 86.9 fL (78-100); Mean Corpuscular Hemoglobin 27.2 pg (26-32); Mean Corpuscular Hgb Concent. 31.4 g/dL (32-36); Mean Platelet Volume 9.7 fL (7.5-11.0); Monocyte (Absolute #) 0.46 x10^3/uL (0.0-1.3); Monocytes % 6.8 % (0.0-12.0); Neutrophil % 65.5 % (36.0-66.0); Platelet Count 122 x10^3/uL (150-450); Red Blood Count 3.12 x10^6/uL (4.1-5.4); Red Cell Distribution Width 13.3 % (11.5-14.0); White Blood Count 6.8 x10^3/uL (4.0-10.5)
[2023-06-15 19:39] LABS: ALBUMIN 2.4 g/dL (3.5-5.0); ANION GAP 7.4 MEQ/L (5-15); BILIRUBIN,TOTAL 0.3 mg/dL (0.2-1.3); Calcium 7.4 mg/dL (8.4-10.2); Creatinine 1 2.37 mg/dL (0.52-1.04); EST GLOMERULAR FILTRATION RATE 26.6 ML/MIN; Potassium 3.8 mmol/L (3.5-5.1); Total Protein 5.1 g/dL (6.3-8.2)
[2023-06-15 19:41] LABS: Amphetamine,Urine NEGATIVE (NEGATIVE); Barbiturate,Urine NEGATIVE (NEGATIVE); Benzodiazepine,Urine NEGATIVE (NEGATIVE); Cocaine,Urine NEGATIVE (NEGATIVE); Methadone,Urine NEGATIVE (NEGATIVE); Opiate,Urine POSITIVE (NEGATIVE); PCP,Urine NEGATIVE (NEGATIVE); THC,Urine POSITIVE (NEGATIVE)
[2023-06-15 20:03] LABS: Appearance Clear (Clear); Bacteria Many /HPF (None Seen); Bilirubin Negative (Negative); Blood Negative (Negative); Glucose, Urine Negative (Negative); Hyaline Casts NONE SEEN /LPF (0-2); Ketones Negative (Negative); Leukocyte Esterase Negative (Negative); Nitrite Positive (Negative); Protein,Urine Dip >=1000 (Negative); RBC 0-2 /HPF (0-5); Specific Gravity 1.015 (1.005-1.030); Urobilinogen 0.2 mg/dL (0.2)
[2023-06-15 20:05] LABS: ADD URINE CULTURE? YES (NO); Epithelial Cells Few /HPF (None Seen)
[2023-06-15] MEDS ORDERED: BABY ASPIRIN 81 MG CHEW PO ONE (20:38)
[2023-06-15] MEDS ORDERED: HEPARIN 5000 UNITS/0.5 ML (HIGH RISK MED) IV ONE (20:38)
[2023-06-15 21:09] VITALS: BP 162/107; PULSE 89; RESP 15; O2SAT 99
--- NOTE | 2023-06-16 08:37 | XRAY ---
Indication: Abdomen pain and vomiting. History of pancreatitis and gastritis. Multiple contiguous axial images obtained through the abdomen and pelvis without contrast as ordered. Comparison: November 12, 2022 Lung bases clear. Heart not enlarged. Noncontrasted stomach and bowel loops appear nonobstructed. Stomach again demonstrates diffuse gastric wall thickening either incomplete distention versus gastritis versus malignancy such as lymphoma. Again tiny perihepatic/perisplenic and small pelvic nonspecific free fluid. No walled off fluid collection or free air. Again cholecystectomy and hysterectomy. Remaining liver, pancreas, spleen, adrenal glands, kidneys, ureters, and bladder are unremarkable for noncontrast exam. There remains mild scattered aortoiliac calcifications without AAA. Osseous structures intact again with minimal/mild multilevel degenerative endplate spurring, bilateral L4 spondylolysis without listhesis, and broad-based L4-S1 disc bulge. Impression: 1. Again diffuse gastric wall thickening either from incomplete distention versus gastritis versus malignancy. 2. Again tiny abdominal and small pelvic nonspecific free fluid. 3. Chronic findings including arteriosclerotic disease and chronic bony findings.
--- NOTE | 2023-06-16 08:41 | XRAY ---
Indication: Abdominal pain and vomiting. STEMI. Comparison: December 07, 2022 Portable chest demonstrates new subtle peripheral left base air space opacity. Remaining heart and lungs unremarkable again with incidental CABG. Bony thorax intact. Comment: Left lung finding not reported by interpreting ER clinician. Telephone report given to Dr. Blackburn at 0837 hrs. on June 16, 2023.
== END 2023-06-15 21:13 | disposition left against medical advice (07) ==
LOC: ED 17:41
DX: I21.4 Non-ST elevation (NSTEMI) myocardial infarction (principal); R11.2 Nausea with vomiting, unspecified; R10.13 Epigastric pain; R93.3 Abnormal findings on diagnostic imaging of other parts of digestive tract; I25.10 Atherosclerotic heart disease of native coronary artery without angina pectoris; E78.5 Hyperlipidemia, unspecified; E10.9 Type 1 diabetes mellitus without complications; I11.0 Hypertensive heart disease with heart failure; I50.9 Heart failure, unspecified; Z79.02 Long term (current) use of antithrombotics/antiplatelets; Z79.899 Other long term (current) drug therapy; Z28.310 Unvaccinated for COVID-19; Z72.0 Tobacco use
CPT/HCPCS: 36000; 36415; 71045; 74176; 80053; 80307; 81001; 82150; 83605; 83690; 84484; 85025; 87077; 87086; 87186; 93005; 96360; 96361; 96374; 96375; 99284; 99291; J1170; J2175

== ENCOUNTER 2023-07-12 11:16 | Emergency (ER) | payer OTHER ==
--- NOTE | 2023-07-12 11:28 | ERPHSYRPT ---
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 Patient has been to our facility several times for the same condition. Patient has known Duron's esophagus. Patient also has a history of hypertension, diabetes, gastroesophageal reflux disease, CHF, hyperlipidemia, pancreatitis, anxiety, depression. She is also on Brilinta. Patient continues to smoke cigarettes daily Timing/Duration: yesterday, worse Quality: sharpness Abdominal Pain Onset Location: LUQ Pain Radiation: LUQ, flank Severity of Pain-Max: moderate Severity of Pain-Current: moderate Modifying Factors: Improves With: vomiting (Left) Associated Symptoms: loss of appetite, nausea, vomiting, No chest pain, No shortness of breath Previous symptoms: same symptoms as today, recently seen Allergies/Adverse Reactions: morphine Allergy (Intermediate, Verified 07/12/23 11:24) Itching Home Medications: Carvedilol 12.5 mg [Coreg 12.5 mg] 25 mg PO BID 10/21/18 [History] Fexofenadine HCl 180 mg PO DAILY 10/21/18 [History] Insulin Lispro [Humalog] 1 unit SQ UD 10/21/18 [History] Clonazepam [Klonopin] 0.5 mg PO TID 10/11/22 [History] Cyclobenzaprine HCl 10 mg [Cyclobenzaprine 10 MG] 10 mg PO TID PRN 10/11/22 [History] Insulin Glargine,Hum.rec.anlog [Basaglar Tempo Pen U-100] 34 unit SQ HS 10/11/22 [History] PANTOPRAZOLE 40 mg Tablet [Protonix 40MG Tablet] 40 mg PO QAM 10/11/22 [History] Ramelteon [Rozerem] 8 mg PO HS 10/11/22 [History] Sacubitril/Valsartan [Entresto 24 mg-26 mg Tablet] 1 tab PO BID 10/11/22 [History] Trazodone HCl 150 mg PO HS 10/11/22 [History] Venlafaxine HCl [Effexor Xr] 150 mg PO HS 10/11/22 [History] Atorvastatin Calcium [Lipitor] 80 mg PO HS 12/05/22 [History] Ticagrelor [Brilinta] 90 mg PO BID 12/05/22 [History] Lipase/Protease/Amylase [Jefry Marie 12,000 Unit Capsule] 1 cap PO BID 06/15/23 [History] Hx Tetanus, Diphtheria Vaccination/Date Given: Yes Hx Influenza Vaccination/Date Given: Yes Hx Pneumococcal Vaccination/Date Given: No Travel Risk - International Travel Have you traveled outside of the country in past 3 weeks: No - Coronavirus Screening Are you exhibiting any of the following symptoms?: No Close contact with a COVID-19 positive Pt in past 14-21 Days: No - Vaccine Status Have you recieved a Covid-19 vaccination: No - Review of Systems Constitutional: No Symptoms Eyes: No Symptoms Ears, Nose, & Throat: No Symptoms Respiratory: No Symptoms Cardiac: No Symptoms Abdominal/Gastrointestinal: Abdominal Pain, Nausea, Vomiting (Upper quadrant), Appetite Changes Genitourinary Symptoms: Flank Pain (Left) Musculoskeletal: No Symptoms Skin: No Symptoms Neurological: No Symptoms Psychological: No Symptoms Endocrine: No Symptoms Hematologic/Lymphatic: No Symptoms Immunological/Allergic: No Symptoms All Other Systems: Reviewed and Negative - Past Medical History Pertinent Past Medical History: Yes Neurological History: No Pertinent History ENT History: Other Cardiac History: Angina, Congestive Heart Failure, Coronary Artery Disease, Deep Vein Thrombosis, High Cholesterol, Hypertension, Myocardial Infarction (ID) Respiratory History: Pulmonary Embolism Endocrine Medical History: Diabetes Type I Musculoskeletal History: No Pertinent History GI Medical History: GERD, Gallbladder Disease, Pancreatitis History: Renal Disease Psycho-Social History: Anxiety, Depression Female Reproductive Disorders: Other Other Medical History: blind in right eye. renal insufficiency, heavy painful menstrual cycle - Past Surgical History Past Surgical History: Yes Neuro Surgical History: No Pertinent History Cardiac: Angioplasty, CABG Respiratory: No Pertinent History Gastrointestinal: Cholecystectomy Genitourinary: No Pertinent History Musculoskeletal: No Pertinent History Female Surgical History: Hysterectomy Other Surgical History: cholecystectomy with liver laceration repair 10/13/22. knee surgery, pituitary tumor removed - Social History Smoking Status: Current every day smoker How long have you smoked: 15 yrs Exposure to second hand smoke: No (uses pipe) Alcohol Use: None Drug Use: marijuana Patient Lives Alone: No Significant Family History: no pertinent family hx - Nursing Vital Signs Nursing Vital Signs: Initial Vital Signs Temperature 98.0 F 07/12/23 11:25 Pulse Rate 85 07/12/23 11:25 Respiratory Rate 12 07/12/23 11:25 Blood Pressure 140/87 07/12/23 11:25 O2 Sat by Pulse Oximetry 90 L 07/12/23 11:25 Pain Scale Pain Intensity 9 - Physical Exam General Appearance: no apparent distress, alert, anxiety, thin Eye Exam: PERRL/EOMI, eyes nml inspection Ears, Nose, Throat Exam: normal ENT inspection, moist mucous membranes Neck Exam: normal inspection, non-tender, supple, full range of motion Respiratory Exam: normal breath sounds, lungs clear, airway intact, No chest tenderness, No respiratory distress Cardiovascular Exam: regular rate/rhythm, normal heart sounds, normal peripheral pulses Gastrointestinal/Abdomen Exam: soft, normal bowel sounds, tenderness (Left upper quadrant), guarding Pelvic Exam: not done (Left upper quadrant to palpation) Rectal Exam: not done Back Exam: normal inspection, normal range of motion, No CVA tenderness, No vertebral tenderness Extremity Exam: normal inspection, normal range of motion, pelvis stable Neurologic Exam: alert, oriented x 3, cooperative, 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 nml as tested, sensation nml Skin Exam: normal color, warm, dry Lymphatic Exam: No adenopathy SpO2 Interpretation: borderline oxygenation O2 Delivery: Room Air - Course Nursing assessment & vital signs reviewed: Yes Ordered Tests: Active Orders 24 hr Category Date Time Status AMA [Release AMA] OM.NOW Care 07/12/23 14:08 Active IV Insertion STAT Care 07/12/23 11:43 Active ABDOMEN AND PELVIS W/0 CONTRAS [CT] Stat Exams 07/12/23 12:36 Completed AMYLASE Stat Lab 07/12/23 11:57 Completed CBC W DIFF Stat Lab 07/12/23 11:57 Completed CMP Stat Lab 07/12/23 11:57 Completed LIPASE Stat Lab 07/12/23 11:57 Completed Lactic Acid Stat Lab 07/12/23 12:09 Completed UA W/RFX UR CULTURE Stat Lab 07/12/23 11:46 Completed Urine Triage Profile Stat Lab 07/12/23 11:46 Completed Medication Summary Discontinued Medications Generic Name Dose Route Start Last Admin Trade Name Freq PRN Reason Stop Dose Admin Hydromorphone HCl 0.5 mg 07/12/23 13:25 07/12/23 14:05 Hydromorphone 1 Mg/1ml Inj IV 07/12/23 13:26 0.5 mg STAT ONE Administration Hydromorphone HCl Confirm 07/12/23 14:00 Hydromorphone 1 Mg/1ml Inj Administered 07/12/23 14:01 Dose 1 mg .ROUTE .STK-MED ONE Sodium Chloride 1,000 mls @ 999 mls/hr 07/12/23 11:43 07/12/23 12:59 Sodium Chloride 0.9% 1000 Ml IV 07/12/23 12:43 Infused .Q1H1M STA Infusion Sodium Chloride Confirm 07/12/23 11:49 Sodium Chloride 0.9% 1000 Ml Administered 07/12/23 11:50 Dose 1,000 mls @ ud .ROUTE .STK-MED ONE Ondansetron HCl 4 mg 07/12/23 13:25 07/12/23 14:03 Ondansetron Hcl 4 Mg/2 Ml Vial IV 07/12/23 13:26 4 mg STAT ONE Administration Ondansetron HCl Confirm 07/12/23 13:59 Ondansetron Hcl 4 Mg/2 Ml Vial Administered 07/12/23 14:00 Dose 4 mg .ROUTE .STK-MED ONE Pantoprazole Sodium 40 mg 07/12/23 13:25 07/12/23 14:04 Pantoprazole 40 Mg Vial IV 07/12/23 13:26 40 mg STAT ONE Administration Pantoprazole Sodium Confirm 07/12/23 13:59 Pantoprazole 40 Mg Vial Administered 07/12/23 14:00 Dose 40 mg IV .STK-MED ONE Lab/Rad Data: Laboratory Result Diagrams 07/12/23 11:57 07/12/23 11:57 Laboratory Results 07/12/23 07/12/23 07/12/23 Range/Units 12:09 11:57 11:57 WBC 8.2 (4.0-10.5) x10^3/uL RBC 2.77 L (4.1-5.4) x10^6/uL Hgb 7.7 L (12.0-16.0) g/dL Hct 24.2 L (35-47) % MCV 87.4 (78-100) fL MCH 27.8 (26-32) pg MCHC 31.8 L (32-36) g/dL RDW 14.4 H (11.5-14.0) % Plt Count 145 L (150-450) x10^3/uL MPV 10.6 (7.5-11.0) fL Gran % 75.7 H (36.0-66.0) % Immature Gran % (Auto) 0.2 (0.00-0.4) % Nucleat RBC Rel Count 0.0 (0.00-0.1) % Eos # (Auto) 0.13 (0-0.5) x10^3/uL Immature Gran # (Auto) 0.02 (0.00-0.03) x10^3u/L Absolute Lymphs (auto) 1.29 (1.0-4.6) x10^3/uL Absolute Monos (auto) 0.50 (0.0-1.3) x10^3/uL Absolute Nucleated RBC 0.00 (0.00-0.01) x10^3u/L Lymphocytes % 15.7 L (24.0-44.0) % Monocytes % 6.1 (0.0-12.0) % Eosinophils % 1.6 (0.00-5.0) % Basophils % 0.7 (0.0-0.4) % Absolute Granulocytes 6.22 (1.4-6.9) x10^3/uL Basophils # 0.06 (0-0.4) x10^3/uL Sodium 133 L (137-145) mmol/L Potassium 4.2 (3.5-5.1) mmol/L Chloride 103 (98-107) mmol/L Carbon Dioxide 24 (22-30) mmol/L Anion Gap 9.8 (5-15) MEQ/L BUN 30 H (7-17) mg/dL Creatinine 2.64 H (0.52-1.04) mg/dL Estimated GFR 23.4 ML/MIN Glucose 148 H (74-106) mg/dL Lactic Acid 0.3 L (0.4-2.0) Calcium 8.2 L (8.4-10.2) mg/dL Total Bilirubin 0.60 (0.2-1.3) mg/dL AST 21 (14-36) U/L ALT 16 (0-35) U/L Alkaline Phosphatase 93 (38-126) U/L Serum Total Protein 5.8 L (6.3-8.2) g/dL Albumin 2.9 L (3.5-5.0) g/dL Amylase 42 (30-110) U/L Lipase 33 (23-300) U/L Urine Color (Yellow) Urine Appearance (Clear) Urine pH (4.6-8.0) Ur Specific [place] (1.005-1.030) Urine Protein (Negative) Urine Glucose (UA) (Negative) mg/dL Urine Ketones (Negative) Urine Blood (Negative) Urine Nitrite (Negative) Urine Bilirubin (Negative) Urine Urobilinogen (0.2) mg/dL Ur Leukocyte Esterase (Negative) U Hyaline Cast (Auto) (0-2) /LPF Urine Microscopic RBC (0-5) /HPF Urine Microscopic WBC (0-5) /HPF Ur Epithelial Cells (None Seen) /HPF Urine Bacteria (None Seen) /HPF Urine Culture Reflexed (NO) Urine Opiates Level (NEGATIVE) Ur Methadone (NEGATIVE) Urine Barbiturates (NEGATIVE) Ur Phencyclidine (PCP) (NEGATIVE) Urine Amphetamine (NEGATIVE) U Benzodiazepine Level (NEGATIVE) Urine Cocaine (NEGATIVE) Urine Marijuana (THC) (NEGATIVE) 07/12/23 07/12/23 Range/Units 11:46 11:46 WBC (4.0-10.5) x10^3/uL RBC (4.1-5.4) x10^6/uL Hgb (12.0-16.0) g/dL Hct (35-47) % MCV (78-100) fL MCH (26-32) pg MCHC (32-36) g/dL RDW (11.5-14.0) % Plt Count (150-450) x10^3/uL MPV (7.5-11.0) fL Gran % (36.0-66.0) % Immature Gran % (Auto) (0.00-0.4) % Nucleat RBC Rel Count (0.00-0.1) % Eos # (Auto) (0-0.5) x10^3/uL Immature Gran # (Auto) (0.00-0.03) x10^3u/L Absolute Lymphs (auto) (1.0-4.6) x10^3/uL Absolute Monos (auto) (0.0-1.3) x10^3/uL Absolute Nucleated RBC (0.00-0.01) x10^3u/L Lymphocytes % (24.0-44.0) % Monocytes % (0.0-12.0) % Eosinophils % (0.00-5.0) % Basophils % (0.0-0.4) % Absolute Granulocytes (1.4-6.9) x10^3/uL Basophils # (0-0.4) x10^3/uL Sodium (137-145) mmol/L Potassium (3.5-5.1) mmol/L Chloride (98-107) mmol/L Carbon Dioxide (22-30) mmol/L Anion Gap (5-15) MEQ/L BUN (7-17) mg/dL Creatinine (0.52-1.04) mg/dL Estimated GFR ML/MIN Glucose (74-106) mg/dL Lactic Acid (0.4-2.0) Calcium (8.4-10.2) mg/dL Total Bilirubin (0.2-1.3) mg/dL AST (14-36) U/L ALT (0-35) U/L Alkaline Phosphatase (38-126) U/L Serum Total Protein (6.3-8.2) g/dL Albumin (3.5-5.0) g/dL Amylase (30-110) U/L Lipase (23-300) U/L Urine Color Yellow (Yellow) Urine Appearance Clear (Clear) Urine pH 6.0 (4.6-8.0) Ur Specific [place] 1.010 (1.005-1.030) Urine Protein >=1000 A (Negative) Urine Glucose (UA) 100 A (Negative) mg/dL Urine Ketones Negative (Negative) Urine Blood Trace (Negative) Urine Nitrite Negative (Negative) Urine Bilirubin Negative (Negative) Urine Urobilinogen 0.2 (0.2) mg/dL Ur Leukocyte Esterase Negative (Negative) U Hyaline Cast (Auto) 3-5 A (0-2) /LPF Urine Microscopic RBC 0-2 (0-5) /HPF Urine Microscopic WBC 0-2 (0-5) /HPF Ur Epithelial Cells None Seen (None Seen) /HPF Urine Bacteria None Seen (None Seen) /HPF Urine Culture Reflexed NO (NO) Urine Opiates Level NEGATIVE (NEGATIVE) Ur Methadone NEGATIVE (NEGATIVE) Urine Barbiturates NEGATIVE (NEGATIVE) Ur Phencyclidine (PCP) NEGATIVE (NEGATIVE) Urine Amphetamine NEGATIVE (NEGATIVE) U Benzodiazepine Level NEGATIVE (NEGATIVE) Urine Cocaine NEGATIVE (NEGATIVE) Urine Marijuana (THC) POSITIVE A (NEGATIVE) - Progress Progress: improved, pain not gone completely, re-examined Progress Note: 07/12/23 14:04 This patient's medical issue is 1 of moderate complexity. The level complex in the workup performed based on review the patient's past medical history, review the patient's medication list, review of the patient's drug allergy list, history present illness and physical findings on examination. The workup in the patient includes placement of intravenous line, infusion normal saline solution, CBC, CMP, amylase, lipase, CT scan of the abdomen pelvis and urinalysis. I reviewed the patient's laboratory data. Of significance, the patient has a 7.7 hemoglobin level. Approximately 1 month ago that level was 8.5. The CT scan of the abdomen pelvis was interpreted by the radiologist. It was compared to a CT scan that was performed approximately 1 month ago. I reviewed the impression. I also discussed these findings with the patient. The impression states new incompletely visualized moderate bilateral pleural effusions with patchy groundglass opacities. There is new mild anasarca. There is a small amount of pelvic free fluid which was decreased from the prior study. There is diffuse gastric wall thickening from incomplete distention versus gastritis versus malignancy. I reviewed the results of the laboratory data and the radiographic studies with the patient patient states that she has her initial pain specialist consultation/appointment next week on 07/18/2023. She is also scheduled for an upper endoscopy on 07/26/2023 in [place]. Patient does not want to be admitted or transferred at this time. She just wants pain control. I discussed with her the new findings of the pleural effusion and the decreasing hemoglobin level. I discussed the benefits of being placed in observation here at our facility if the hospitalist would agree, or the alternative of transferring the patient to [place] where her GI specialist is for further evaluation and management. Patient refuses. Patient is awake alert oriented and understands that her condition may worsen suddenly. She would just like a couple days of pain control. She will sign AGAINST MEDICAL ADVICE form. 07/12/23 14:30 I spoke with telehospitalist Dr. Jimenez. We reviewed the patient's labs and CT scan results. He, like I, feel the patient would be best served by transferring the patient to the facility where her certified orthoptist is. However, patient has signed the AGAINST MEDICAL ADVICE form that she does not want to be transferred. We emphasized that this facility does not have anything to offer her. Her condition is not emergent at this time but she was encouraged to call her primary care provider, certified orthoptist and pain specialist today to make them aware of her condition. I encouraged her to allow me to transfer her to [place] where her certified orthoptist is and she again refuses to do so. Counseled pt/family regarding: lab results, diagnosis, need for follow-up, rad results Medical Desision Making - Independent Historian Additional History obtained from: Tube Splicer/EMT - Diagnostic Testing Diagnostic test were ordered, analyzed, and reviewed by me: Yes Radiological Interpretation: Reviewed by me, Teleradiologist Report - Risk of complications The pt has a mod risk of morbidity or mortality based on: Need for prescription drug management - Departure Departure Disposition: AMA Clinical Impression: Abdominal pain, Vomiting Condition: Stable Critical Care Time: No Referrals: GOMEZ CURIEL [Primary Care Provider] - Follow up/PCP as directed Additional Instructions: Clear liquid diet. Make sure you are taking adequate clear liquid diet before advancing your diet. Take all your medications as prescribed. Call your pain specialist and GI specialist as well as your primary care provider today, to obtain further evaluation and management including earlier appointments. Prescriptions: Hydrocodone/Acetaminophen [Hydrocodone-Acetamn 7.5-325/15] 10 ml PO Q8H PRN #60 ml MDD 30 ml PRN Reason: Cough
[2023-07-12 11:30] VITALS: TEMP 98
[2023-07-12] MEDS ORDERED: Sodium Chloride 0.9% 1000 ML 1,000 ML IV STA (11:43)
[2023-07-12] MEDS ORDERED: Sodium Chloride 0.9% 1000 ML 1,000 ML ONE (11:49)
[2023-07-12 11:57] LABS: ADD URINE CULTURE? NO (NO); Appearance Clear (Clear); Bacteria None Seen /HPF (None Seen); Bilirubin Negative (Negative); Blood Trace (Negative); Epithelial Cells None Seen /HPF (None Seen); Glucose, Urine 100 mg/dL (Negative); Ketones Negative (Negative); Leukocyte Esterase Negative (Negative); Nitrite Negative (Negative); Protein,Urine Dip >=1000 (Negative); RBC 0-2 /HPF (0-5); Urobilinogen 0.2 mg/dL (0.2); WBC 0-2 /HPF (0-5)
[2023-07-12 11:58] LABS: Absolute Neutrophil Ct (ANC) 6.22 x10^3/uL (1.4-6.9); BASOPHIL % 0.7 % (0.0-0.4); Basophil (Absolute #) 0.06 x10^3/uL (0-0.4); Eosinophil % 1.6 % (0.00-5.0); Eosinophil (Absolute #) 0.13 x10^3/uL (0-0.5); Hematocrit 24.2 % (35-47); Hemoglobin 7.7 g/dL (12.0-16.0); IMMATURE GRAN # 0.02 x10^3u/L (0.00-0.03); IMMATURE GRAN % 0.2 % (0.00-0.4); Lymphocyte (Absolute #) 1.29 x10^3/uL (1.0-4.6); Lymphocytes % 15.7 % (24.0-44.0); Mean Cell Volume 87.4 fL (78-100); Mean Corpuscular Hemoglobin 27.8 pg (26-32); Mean Corpuscular Hgb Concent. 31.8 g/dL (32-36); Mean Platelet Volume 10.6 fL (7.5-11.0); Monocytes % 6.1 % (0.0-12.0); Neutrophil % 75.7 % (36.0-66.0); Platelet Count 145 x10^3/uL (150-450); Red Blood Count 2.77 x10^6/uL (4.1-5.4); Red Cell Distribution Width 14.4 % (11.5-14.0); White Blood Count 8.2 x10^3/uL (4.0-10.5)
[2023-07-12 12:13] LABS: Amphetamine,Urine NEGATIVE (NEGATIVE); Barbiturate,Urine NEGATIVE (NEGATIVE); Benzodiazepine,Urine NEGATIVE (NEGATIVE); Cocaine,Urine NEGATIVE (NEGATIVE); Methadone,Urine NEGATIVE (NEGATIVE); Opiate,Urine NEGATIVE (NEGATIVE); PCP,Urine NEGATIVE (NEGATIVE); THC,Urine POSITIVE (NEGATIVE)
[2023-07-12 12:14] LABS: ALBUMIN 2.9 g/dL (3.5-5.0); ANION GAP 9.8 MEQ/L (5-15); BILIRUBIN,TOTAL 0.6 mg/dL (0.2-1.3); Calcium 8.2 mg/dL (8.4-10.2); Creatinine 1 2.64 mg/dL (0.52-1.04); EST GLOMERULAR FILTRATION RATE 23.4 ML/MIN; Potassium 4.2 mmol/L (3.5-5.1); Total Protein 5.8 g/dL (6.3-8.2)
--- NOTE | 2023-07-12 13:19 | XRAY ---
Indication: Abdominal pain. Multiple contiguous axial images obtained through the abdomen and pelvis without contrast. Comparison: June 15, 2023 Lung bases demonstrates new incompletely visualized moderate bilateral pleural effusions and hazy patchy groundglass airspace opacities. Heart is not enlarged. New mild diffuse anasarca. Noncontrasted stomach and bowel loops appear nonobstructed with normal appendix. Stomach again demonstrates diffuse gastric wall thickening either incomplete distention versus gastritis versus malignancy. Small pelvic free fluid, less than before. No free air. Stable cholecystectomy and hysterectomy. Remaining liver, pancreas, spleen, adrenal glands, kidneys, ureters, and bladder are unremarkable for noncontrast exam. There remains mild aortoiliac calcifications without AAA. Osseous structures intact again with minimal multilevel thoracolumbar degenerative spondylosis, bilateral L4 spondylolysis with minimal grade 1 listhesis, old right rib fractures, and broad-based L4-S1 disc bulge. Impression: 1. New incompletely visualized moderate bilateral pleural effusions and patchy groundglass airspace opacities. 2. New mild anasarca. 3. Small nonspecific pelvic free fluid but less than before. 4. Again diffuse gastric wall thickening either from incomplete distention versus gastritis versus malignancy. 5. Stable chronic findings including arteriosclerotic disease and chronic bony findings.
[2023-07-12] MEDS ORDERED: Hydromorphone 1 mg/ml Injection IV ONE (13:25)
[2023-07-12] MEDS ORDERED: PROTONIX 40 MG IV IV ONE ×2 (13:25→13:59)
[2023-07-12] MEDS ORDERED: Zofran 4 MG/2 ML VIAL IV ONE (13:25)
[2023-07-12] MEDS ORDERED: Zofran 4 MG/2 ML VIAL ONE (13:59)
[2023-07-12] MEDS ORDERED: Hydromorphone 1 mg/ml Injection ONE (14:00)
[2023-07-12 14:11] VITALS: O2SAT 95
[2023-07-12 15:03] VITALS: BP 164/89; PULSE 90; RESP 13
== END 2023-07-12 15:10 | disposition left against medical advice (07) ==
LOC: ED 11:16
DX: R10.12 Left upper quadrant pain (principal); R11.2 Nausea with vomiting, unspecified; E10.9 Type 1 diabetes mellitus without complications; I11.0 Hypertensive heart disease with heart failure; I50.9 Heart failure, unspecified; E78.5 Hyperlipidemia, unspecified; Z79.02 Long term (current) use of antithrombotics/antiplatelets; Z79.4 Long term (current) use of insulin; Z79.891 Long term (current) use of opiate analgesic; Z79.899 Other long term (current) drug therapy; Z28.310 Unvaccinated for COVID-19; Z72.0 Tobacco use
CPT/HCPCS: 36415; 74176; 80053; 80307; 81001; 82150; 83605; 83690; 85025; 96374; 96375; 99284; J1170; J2405

== ENCOUNTER 2023-07-13 16:33 | Observation (INO) | payer OTHER ==
[2023-07-13] MEDS ORDERED: Zofran 4 MG/2 ML VIAL IV ONE (16:48)
[2023-07-13] MEDS ORDERED: Hydromorphone 1 mg/ml Injection IV ONE (16:56)
[2023-07-13] MEDS ORDERED: Zofran 4 MG/2 ML VIAL ONE (17:02)
[2023-07-13] MEDS ORDERED: Hydromorphone 1 mg/ml Injection ONE (17:02)
--- NOTE | 2023-07-13 17:10 | XRAY ---
Indication: Cough. Comparison: June 15, 2023 Portable chest demonstrates new bilateral mid to lower lung airspace disease with moderate bibasilar effusions as reported on CT one day earlier. Heart not enlarged. Bony thorax intact again with sternotomy wires.
[2023-07-13 17:28] LABS: Basophil (Absolute #) 0.09 x10^3/uL (0-0.4); Eosinophil (Absolute #) 0.18 x10^3/uL (0-0.5); Hematocrit 26.6 % (35-47); Hemoglobin 8.5 g/dL (12.0-16.0); IMMATURE GRAN # 0.04 x10^3u/L (0.00-0.03); IMMATURE GRAN % 0.4 % (0.00-0.4); Lymphocyte (Absolute #) 1.93 x10^3/uL (1.0-4.6); Lymphocytes % 21.3 % (24.0-44.0); Mean Cell Volume 87.2 fL (78-100); Mean Corpuscular Hemoglobin 27.9 pg (26-32); Mean Platelet Volume 10.4 fL (7.5-11.0); Monocyte (Absolute #) 0.52 x10^3/uL (0.0-1.3); Monocytes % 5.7 % (0.0-12.0); Neutrophil % 69.6 % (36.0-66.0); Platelet Count 165 x10^3/uL (150-450); Red Blood Count 3.05 x10^6/uL (4.1-5.4); Red Cell Distribution Width 14.5 % (11.5-14.0); White Blood Count 9.1 x10^3/uL (4.0-10.5)
[2023-07-13 17:41] LABS: ALBUMIN 3.2 g/dL (3.5-5.0); ANION GAP 10.1 MEQ/L (5-15); BILIRUBIN,TOTAL 0.5 mg/dL (0.2-1.3); Calcium 8.8 mg/dL (8.4-10.2); Creatinine 1 2.66 mg/dL (0.52-1.04); EST GLOMERULAR FILTRATION RATE 23.2 ML/MIN; Potassium 4.3 mmol/L (3.5-5.1); Total Protein 6.3 g/dL (6.3-8.2)
[2023-07-13] MEDS ORDERED: Zithromax 500 MG/ 250 ML NaCl Premix 500 MG/250 ML IVPB IV STA (17:42)
[2023-07-13] MEDS ORDERED: ROCEPHIN 2 Gm-D5w 50ML BAG** 2 G/50 ML IVPB IV STA (17:42)
[2023-07-13] MEDS ORDERED: ROCEPHIN 2 Gm-D5w 50ML BAG** 2 G/50 ML IVPB IV ONE (18:06)
[2023-07-13 18:09] LABS: INFLUENZA A NEGATIVE (NEGATIVE); INFLUENZA B NEGATIVE (NEGATIVE); RESPIRATORY SYNCTIAL VIRUS NEGATIVE (NEGATIVE); SARS-CoV-2 Xpert Express NEGATIVE (NEGATIVE)
[2023-07-13] MEDS ORDERED: Zithromax 500 MG/ 250 ML NaCl Premix 500 MG/250 ML IVPB IV ONE (18:39)
[2023-07-13] MEDS ORDERED: Lasix 40 MG/4 ML IV ONE (19:37)
--- NOTE | 2023-07-13 19:38 | ERPHSYRPT ---
- History of Present Illness Time Seen by Provider: 07/13/23 16:38 Historian: patient Exam Limitations: no limitations Patient Subjective Stated Complaint: C/O abdominal pain and throat pain that started 5 days ago. Triage Nursing Assessment: Patient arrived by ambulance. She is alert and oriented; tearful. NO SOB. Abdomen is firm. No active N/V. PARK WNL. Physician History: 37 years old female with complicated medical history of diabetes mellitus, hypertension, congestive heart failure, coronary artery disease with quadruple bypass, Duron's esophagus, questionable history of esophageal cancer, difficulty swallowing patient of Dr. Michelle oncologist who was evaluated yesterday in this ER for abdominal pain with CT showing bilateral pleural effusion and airspace disease, mild anasarca along with gastric wall thickening, was recommended to be transferred to higher level of care but patient left AMA presented back with increasing pain. Patient reports generalized abdominal pain for the last 5 days without any nausea or vomiting. No obvious difficulty breathing reported. No fever or chills reported. Denies any sick contact. Allergies/Adverse Reactions: morphine Allergy (Intermediate, Verified 07/13/23 18:15) Itching Home Medications: Carvedilol 12.5 mg [Coreg 12.5 mg] 37.5 mg PO BID 10/21/18 [History] Fexofenadine HCl 180 mg PO DAILY 10/21/18 [History] Insulin Lispro [Humalog] 1 unit SQ UD 10/21/18 [History] Clonazepam [Klonopin] 0.5 mg PO TID 10/11/22 [History] Cyclobenzaprine HCl 10 mg [Cyclobenzaprine 10 MG] 10 mg PO TID PRN 10/11/22 [History] Insulin Glargine,Hum.rec.anlog [Basaglar Tempo Pen U-100] 34 unit SQ HS 10/11/22 [History] PANTOPRAZOLE 40 mg Tablet [Protonix 40MG Tablet] 40 mg PO BID 10/11/22 [History] Ramelteon [Rozerem] 8 mg PO HS 10/11/22 [History] Sacubitril/Valsartan [Entresto 24 mg-26 mg Tablet] 1 tab PO BID 10/11/22 [History] Trazodone HCl 150 mg PO HS 10/11/22 [History] Venlafaxine HCl [Effexor Xr] 150 mg PO HS 10/11/22 [History] Atorvastatin Calcium [Lipitor] 1 tab PO HS 12/05/22 [History] Ticagrelor [Brilinta] 90 mg PO BID 12/05/22 [History] Lipase/Protease/Amylase [Jefry Dr 12,000 Unit Capsule] 1 cap PO BID 06/15/23 [History] Hx Tetanus, Diphtheria Vaccination/Date Given: Yes Hx Influenza Vaccination/Date Given: Yes Hx Pneumococcal Vaccination/Date Given: No Immunizations Up to Date: Yes Travel Risk - International Travel Have you traveled outside of the country in past 3 weeks: No - Coronavirus Screening Are you exhibiting any of the following symptoms?: No Close contact with a COVID-19 positive Pt in past 14-21 Days: No - Vaccine Status Have you recieved a Covid-19 vaccination: No - Review of Systems Constitutional: Fatigue, Weakness Eyes: No Symptoms Ears, Nose, & Throat: No Symptoms Respiratory: Cough Cardiac: No Symptoms Abdominal/Gastrointestinal: Abdominal Pain Genitourinary Symptoms: No Symptoms Musculoskeletal: Arthralgias Skin: No Symptoms Neurological: No Symptoms Psychological: Anxiety, Depression Hematologic/Lymphatic: Anemia Immunological/Allergic: No Symptoms - Past Medical History Pertinent Past Medical History: Yes Neurological History: No Pertinent History ENT History: Other Cardiac History: Angina, Congestive Heart Failure, Coronary Artery Disease, Deep Vein Thrombosis, High Cholesterol, Hypertension, Myocardial Infarction ([place]) Respiratory History: Pulmonary Embolism Endocrine Medical History: Diabetes Type I Musculoskeletal History: No Pertinent History GI Medical History: GERD, Gallbladder Disease, Pancreatitis History: Renal Disease Psycho-Social History: Anxiety, Depression Female Reproductive Disorders: Other Other Medical History: blind in right eye. renal insufficiency, barrettes esophagus - Past Surgical History Past Surgical History: Yes Neuro Surgical History: No Pertinent History Cardiac: Angioplasty, CABG Respiratory: No Pertinent History Gastrointestinal: Cholecystectomy Genitourinary: No Pertinent History Musculoskeletal: No Pertinent History Female Surgical History: Hysterectomy Other Surgical History: cholecystectomy with liver laceration repair 10/13/22. knee surgery, pituitary tumor removed - Social History Smoking Status: Current every day smoker How long have you smoked: 15 yrs Exposure to second hand smoke: No (uses pipe) Alcohol Use: None Drug Use: marijuana Patient Lives Alone: No Significant Family History: no pertinent family hx - Female History Hx Now: No - Nursing Vital Signs Nursing Vital Signs: Initial Vital Signs Pulse Rate 73 07/13/23 16:38 Respiratory Rate 18 07/13/23 16:38 O2 Sat by Pulse Oximetry 98 07/13/23 16:38 Pain Scale Pain Intensity 7 - Physical Exam General Appearance: mild distress, alert Eye Exam: other (Legal blindness right eye. Intact range of motion of left eye.) Ears, Nose, Throat Exam: normal ENT inspection Neck Exam: normal inspection, full range of motion Respiratory Exam: diminished breath sounds, crackles/rales Cardiovascular Exam: regular rate/rhythm, normal heart sounds, edema Gastrointestinal/Abdomen Exam: soft, normal bowel sounds, tenderness (Diffuse mild) Back Exam: normal inspection Extremity Exam: normal inspection, normal range of motion Neurologic Exam: alert, oriented x 3, cooperative, manager marketing communications II-XII nml as tested Skin Exam: normal color SpO2 Interpretation: normal SpO2: 92 O2 Delivery: Room Air - Course EKG Interpreted by Me: RATE (85), Sinus Rhythm, NORMAL AXIS, NORMAL INTERVALS, Q-wave, Non-specific ST Changes Ordered Tests: Medication Summary Discontinued Medications Generic Name Dose Route Start Last Admin Trade Name Freq PRN Reason Stop Dose Admin Albuterol/Ipratropium 3 ml 07/14/23 01:22 Ipratropium/Albuterol Sulfate 3 Ml Ampul.Neb IH 08/13/23 01:21 Q4HPRN PRN SHORTNESS OF BREATH/WHEEZING Lipase/Protease/Amylase 2 each 07/14/23 10:00 07/14/23 10:26 Lipase/Protease/Amylase 1 Each Capsule. PO 08/13/23 09:59 2 each BID ALO Administration Carvedilol 37.5 mg 07/14/23 10:00 07/14/23 10:12 Carvedilol 12.5 Mg Tablet PO 08/13/23 09:59 37.5 mg BID ALO Administration Clonazepam 0.5 mg 07/14/23 10:00 07/14/23 15:32 Clonazepam 0.5 Mg Tablet PO 08/13/23 09:59 0.5 mg TID ALO Administration Cyclobenzaprine HCl 10 mg 07/14/23 01:26 Cyclobenzaprine Hcl 10 Mg Tablet PO 08/13/23 01:25 TID PRN PRN MUSCLE SPASMS Furosemide 40 mg 07/13/23 19:37 07/13/23 20:18 Furosemide 40 Mg/4 Ml Vial IV 07/13/23 19:38 40 mg STAT ONE Administration Furosemide Confirm 07/13/23 20:18 Furosemide 40 Mg/4 Ml Vial Administered 07/13/23 20:19 Dose 40 mg .ROUTE .STK-MED ONE Furosemide 60 mg 07/14/23 01:30 07/14/23 01:31 Furosemide 40 Mg/4 Ml Vial IV 08/13/23 01:29 60 mg Q12H ALO Administration Furosemide Confirm 07/14/23 01:32 Furosemide 20 Mg/Vial Administered 07/14/23 01:33 Dose 20 mg .ROUTE .STK-MED ONE Furosemide 60 mg 07/14/23 10:00 07/14/23 10:12 Furosemide 100 Mg/10 Ml Vial IV 08/13/23 09:59 60 mg Q12HT ALO Administration Heparin Sodium (Beef Lung) 5,000 unit 07/14/23 10:00 07/14/23 10:13 Heparin 5000 Units/0.5 Ml 5,000 Unit/0.5 Ml Syr SQ 08/13/23 09:59 5,000 unit BID ALO Administration Hydromorphone HCl 1 mg 07/13/23 16:56 07/13/23 17:07 Hydromorphone 1 Mg/1ml Inj IV 07/13/23 16:57 1 mg STAT ONE Administration Hydromorphone HCl Confirm 07/13/23 17:02 Hydromorphone 1 Mg/1ml Inj Administered 07/13/23 17:03 Dose 1 mg .ROUTE .STK-MED ONE Hydromorphone HCl 1 mg 07/14/23 11:42 07/14/23 13:09 Hydromorphone 1 Mg/1ml Inj IV 07/19/23 11:41 1 mg Q4H PRN PRN Administration PAIN Ceftriaxone Sodium/Dextrose 2 g in 50 mls @ 100 mls/hr 07/13/23 17:42 07/13/23 18:38 Rocephin 2 Gm-D5w 50ml Bag IV 07/13/23 18:11 Infused STAT STA Infusion Azithromycin 500 mg in 250 mls @ 250 mls/hr 07/13/23 17:42 07/13/23 20:26 Zithromax 500 Mg/ 250 Ml Nacl Premix IV 07/13/23 18:41 Infused STAT STA Infusion Ceftriaxone Sodium/Dextrose Confirm 07/13/23 18:06 Rocephin 2 Gm-D5w 50ml Bag Administered 07/13/23 18:07 Dose 2 g in 50 mls @ ud IV .STK-MED ONE Azithromycin Confirm 07/13/23 18:39 Zithromax 500 Mg/ 250 Ml Nacl Premix Administered 07/13/23 18:40 Dose 500 mg in 250 mls @ ud IV .STK-MED ONE Piperacillin Sod/Tazobactam 100 mls @ 200 mls/hr 07/14/23 06:00 07/14/23 05:26 Sod 3.375 gm/ Sodium Chloride IV 07/17/23 05:59 200 mls/hr Q6HT ALO Administration Azithromycin 500 mg in 250 mls @ 250 mls/hr 07/14/23 10:00 07/14/23 10:21 Zithromax 500 Mg/ 250 Ml Nacl Premix IV 08/13/23 09:59 Not Given Q24H10 ALO Sodium Chloride Confirm 07/14/23 05:24 Sodium Chloride 100ml Mini-Bag Plus Administered 07/14/23 05:25 Dose 100 mls @ ud IV .STK-MED ONE Piperacillin Sod/Tazobactam 100 mls @ 200 mls/hr 07/14/23 12:00 07/14/23 1 2:06 Sod 2.25 gm/ Sodium Chloride IV 08/13/23 11:59 200 mls/hr Q6HT ALO Administration Insulin Glargine 34 unit 07/14/23 22:00 Insulin Glargine 1 Unit SQ 08/13/23 21:59 HS [facility] Insulin Human Lispro 12 unit 07/14/23 08:00 07/14/23 08:19 Insulin Lispro 1 Unit SQ 08/13/23 07:59 12 unit BREAKFAST ALO Administration Insulin Human Lispro 12 unit 07/14/23 12:00 07/14/23 12:09 Insulin Lispro 1 Unit SQ 08/13/23 11:59 Not Given LUNCH [facility] Insulin Human Lispro 14 unit 07/14/23 17:00 Insulin Lispro 1 Unit SQ 08/13/23 16:59 DINNER [facility] Loratadine 10 mg 07/14/23 10:00 07/14/23 10:12 Loratadine 10 Mg Tablet PO 08/13/23 09:59 10 mg DAILY ALO Administration Magnesium Oxide 400 mg 07/14/23 07:39 07/14/23 08:19 Magnesium Oxide 400 Mg Tablet PO 07/14/23 07:40 400 mg ONCE ONE Administration Morphine Sulfate 2 mg 07/14/23 01:24 07/14/23 10:13 Morphine Sulfate 2 Mg/Ml Inj IV 07/19/23 01:23 2 mg Q4H PRN PRN Administration PAIN Ondansetron HCl 4 mg 07/13/23 16:48 07/13/23 17:05 Ondansetron Hcl 4 Mg/2 Ml Vial IV 07/13/23 16:49 4 mg STAT ONE Administration Ondansetron HCl Confirm 07/13/23 17:02 Ondansetron Hcl 4 Mg/2 Ml Vial Administered 07/13/23 17:03 Dose 4 mg .ROUTE .STK-MED ONE Pantoprazole Sodium 40 mg 07/14/23 10:00 07/14/23 10:12 Protonix (Pantoprazole) 40 Mg Tablet PO 08/13/23 09:59 40 mg BID ALO Administration Pantoprazole Sodium 40 mg 07/14/23 01:45 07/14/23 01:36 Pantoprazole 40 Mg Vial IV 08/13/23 01:44 40 mg Q24H ALO Administration Piperacillin Sod/Tazobactam Sod Confirm 07/14/23 05:23 Piperacillin/Tazobactam Sodium 3.375 Gm Vial Administered 07/14/23 05:24 Dose 3.375 gm IV .STK-MED ONE Sacubitril/Valsartan 0.5 tablet 07/14/23 10:00 07/14/23 10:12 Sacubitril/Valsartan 1 Tablet Tablet PO 08/13/23 09:59 0.5 tablet BID ALO Administration Simvastatin 40 mg 07/14/23 22:00 Simvastatin 20 Mg Tablet PO 08/13/23 21:59 HS [facility] Ticagrelor 90 mg 07/14/23 10:00 07/14/23 10:26 Ticagrelor 90 Mg Tablet PO 08/13/23 09:59 90 mg BID ALO Administration Trazodone HCl 150 mg 07/14/23 22:00 Trazodone Hcl 150 Mg Tablet PO 08/13/23 21:59 HS [facility] Venlafaxine HCl 150 mg 07/14/23 22:00 Venlafaxine Hcl 75 Mg Extended Release Capsule PO 08/13/23 21:59 HS [facility] Lab/Rad Data: Laboratory Result Diagrams 07/13/23 16:47 07/13/23 17:28 Laboratory Results 07/13/23 07/13/23 07/13/23 Range/Units 17:28 17:28 17:28 WBC (4.0-10.5) x10^3/uL RBC (4.1-5.4) x10^6/uL Hgb (12.0-16.0) g/dL Hct (35-47) % MCV (78-100) fL MCH (26-32) pg MCHC (32-36) g/dL RDW (11.5-14.0) % Plt Count (150-450) x10^3/uL MPV (7.5-11.0) fL Gran % (36.0-66.0) % Immature Gran % (Auto) (0.00-0.4) % Nucleat RBC Rel Count (0.00-0.1) % Eos # (Auto) (0-0.5) x10^3/uL Immature Gran # (Auto) (0.00-0.03) x10^3u/L Absolute Lymphs (auto) (1.0-4.6) x10^3/uL Absolute Monos (auto) (0.0-1.3) x10^3/uL Absolute Nucleated RBC (0.00-0.01) x10^3u/L Lymphocytes % (24.0-44.0) % Monocytes % (0.0-12.0) % Eosinophils % (0.00-5.0) % Basophils % (0.0-0.4) % Absolute Granulocytes (1.4-6.9) x10^3/uL Basophils # (0-0.4) x10^3/uL Sodium 133 L (137-145) mmol/L Potassium 4.3 (3.5-5.1) mmol/L Chloride 105 (98-107) mmol/L Carbon Dioxide 23 (22-30) mmol/L Anion Gap 10.1 (5-15) MEQ/L BUN 30 H (7-17) mg/dL Creatinine 2.66 H (0.52-1.04) mg/dL Estimated GFR 23.2 ML/MIN Glucose 116 H (74-106) mg/dL Lactic Acid (0.4-2.0) Calcium 8.8 (8.4-10.2) mg/dL Total Bilirubin 0.50 (0.2-1.3) mg/dL AST 20 (14-36) U/L ALT 16 (0-35) U/L Alkaline Phosphatase 110 (38-126) U/L Troponin I (0.000-0.034) ng/mL NT-Pro-B Natriuret Pep 27103 (<300) pg/mL Serum Total Protein 6.3 (6.3-8.2) g/dL Albumin 3.2 L (3.5-5.0) g/dL Lipase (23-300) U/L Influenza Type A Ag NEGATIVE (NEGATIVE) Influenza Type B Ag NEGATIVE (NEGATIVE) RSV (PCR) NEGATIVE (NEGATIVE) SARS-CoV-2 (PCR) NEGATIVE (NEGATIVE) 07/13/23 07/13/23 07/13/23 Range/Units 17:00 17:00 16:47 WBC (4.0-10.5) x10^3/uL RBC (4.1-5.4) x10^6/uL Hgb (12.0-16.0) g/dL Hct (35-47) % MCV (78-100) fL MCH (26-32) pg MCHC (32-36) g/dL RDW (11.5-14.0) % Plt Count (150-450) x10^3/uL MPV (7.5-11.0) fL Gran % (36.0-66.0) % Immature Gran % (Auto) (0.00-0.4) % Nucleat RBC Rel Count (0.00-0.1) % Eos # (Auto) (0-0.5) x10^3/uL Immature Gran # (Auto) (0.00-0.03) x10^3u/L Absolute Lymphs (auto) (1.0-4.6) x10^3/uL Absolute Monos (auto) (0.0-1.3) x10^3/uL Absolute Nucleated RBC (0.00-0.01) x10^3u/L Lymphocytes % (24.0-44.0) % Monocytes % (0.0-12.0) % Eosinophils % (0.00-5.0) % Basophils % (0.0-0.4) % Absolute Granulocytes (1.4-6.9) x10^3/uL Basophils # (0-0.4) x10^3/uL Sodium (137-145) mmol/L Potassium (3.5-5.1) mmol/L Chloride (98-107) mmol/L Carbon Dioxide (22-30) mmol/L Anion Gap (5-15) MEQ/L BUN (7-17) mg/dL Creatinine (0.52-1.04) mg/dL Estimated GFR ML/MIN Glucose (74-106) mg/dL Lactic Acid 0.9 (0.4-2.0) Calcium (8.4-10.2) mg/dL Total Bilirubin (0.2-1.3) mg/dL AST (14-36) U/L ALT (0-35) U/L Alkaline Phosphatase (38-126) U/L Troponin I 0.023 (0.000-0.034) ng/mL NT-Pro-B Natriuret Pep (<300) pg/mL Serum Total Protein (6.3-8.2) g/dL Albumin (3.5-5.0) g/dL Lipase 22 L (23-300) U/L Influenza Type A Ag (NEGATIVE) Influenza Type B Ag (NEGATIVE) RSV (PCR) (NEGATIVE) SARS-CoV-2 (PCR) (NEGATIVE) 07/13/23 Range/Units 16:47 WBC 9.1 (4.0-10.5) x10^3/uL RBC 3.05 L (4.1-5.4) x10^6/uL Hgb 8.5 L (12.0-16.0) g/dL Hct 26.6 L (35-47) % MCV 87.2 (78-100) fL MCH 27.9 (26-32) pg MCHC 32.0 (32-36) g/dL RDW 14.5 H (11.5-14.0) % Plt Count 165 (150-450) x10^3/uL MPV 10.4 (7.5-11.0) fL Gran % 69.6 H (36.0-66.0) % Immature Gran % (Auto) 0.4 (0.00-0.4) % Nucleat RBC Rel Count 0.0 (0.00-0.1) % Eos # (Auto) 0.18 (0-0.5) x10^3/uL Immature Gran # (Auto) 0.04 H (0.00-0.03) x10^3u/L Absolute Lymphs (auto) 1.93 (1.0-4.6) x10^3/uL Absolute Monos (auto) 0.52 (0.0-1.3) x10^3/uL Absolute Nucleated RBC 0.00 (0.00-0.01) x10^3u/L Lymphocytes % 21.3 L (24.0-44.0) % Monocytes % 5.7 (0.0-12.0) % Eosinophils % 2.0 (0.00-5.0) % Basophils % 1.0 (0.0-0.4) % Absolute Granulocytes 6.30 (1.4-6.9) x10^3/uL Basophils # 0.09 (0-0.4) x10^3/uL Sodium (137-145) mmol/L Potassium (3.5-5.1) mmol/L Chloride (98-107) mmol/L Carbon Dioxide (22-30) mmol/L Anion Gap (5-15) MEQ/L BUN (7-17) mg/dL Creatinine (0.52-1.04) mg/dL Estimated GFR ML/MIN Glucose (74-106) mg/dL Lactic Acid (0.4-2.0) Calcium (8.4-10.2) mg/dL Total Bilirubin (0.2-1.3) mg/dL AST (14-36) U/L ALT (0-35) U/L Alkaline Phosphatase (38-126) U/L Troponin I (0.000-0.034) ng/mL NT-Pro-B Natriuret Pep (<300) pg/mL Serum Total Protein (6.3-8.2) g/dL Albumin (3.5-5.0) g/dL Lipase (23-300) U/L Influenza Type A Ag (NEGATIVE) Influenza Type B Ag (NEGATIVE) RSV (PCR) (NEGATIVE) SARS-CoV-2 (PCR) (NEGATIVE) - Progress Progress: pain not gone completely Progress Note: 07/13/23 19:46 37 years old female with complicated medical history of diabetes mellitus, hypertension, congestive heart failure, coronary artery disease with quadruple bypass, Duron's esophagus, questionable history of esophageal cancer, difficulty swallowing patient of Dr. Michelle oncologist who was evaluated yesterday in this ER for abdominal pain with CT showing bilateral pleural effusion and airspace disease, mild anasarca along with gastric wall thickening, was recommended to be transferred to higher level of care but patient left AMA presented back with increasing pain. Patient reports generalized abdominal pain for the last 5 days without any nausea or vomiting. No obvious difficulty breathing reported. No fever or chills reported. Denies any sick contact. She is given symptomatic treatment for pain. Workup showed normal white count, has CKD with a creatinine of 2.6 which is right around baseline. Patient has chest x-ray showing bilateral airspace disease/opacities with effusion, and given a dose of Lasix as she has some element of CHF with elevated BNP. She is also started on Rocephin and Zithromax. 07/13/23 20:47 Troponins are negative and EKG is sinus rhythm with no acute ST elevations. Discussed with Dr. Sánchez hospitalist at [facility], reviewed history, current workup and agreed with transfer. I have discussed the results of workup with patient and plan of transfer for higher level of care and she agreed with it. 07/13/23 20:56 No beds are available overnight at [facility] and possibly tomorrow after discharges. I have discussed with Dr. Flores, reviewed history, workup and plan of transfer, agreed with observation admission until beds become available at [facility]. Discussed with DrMariella: Other (Dr. Flores [id number]) Counseled pt/family regarding: lab results, diagnosis, need for follow-up, rad results Medical Desision Making - Discussion of managment Care discussed with:: hospitalist (Dr. Sánchez 2019) Reviewed:: Test results Agreed on:: Treatment plan Will see patient: in hospital - Diagnostic Testing Diagnostic test were ordered, analyzed, and reviewed by me: Yes Radiological Interpretation: Reviewed by me - Risk of complications The pt has a high risk of morbidity or mortality based on: Decision regarding hospitilization or escalation of hosp level of care - Departure Departure Disposition: Transfer Clinical Impression: Acute exacerbation of CHF (congestive heart failure), Bilateral pneumonia, Bilateral pleural effusion, Chronic abdominal pain Condition: Fair Critical Care Time: No
[2023-07-13] MEDS ORDERED: Lasix 40 MG/4 ML ONE (20:18)
[2023-07-14 00:24] LABS: Appearance Clear (Clear); Bacteria None Seen /HPF (None Seen); Bilirubin Negative (Negative); Blood Negative (Negative); Epithelial Cells None Seen /HPF (None Seen); Glucose, Urine Negative (Negative); Hyaline Casts NONE SEEN /LPF (0-2); Ketones Negative (Negative); Leukocyte Esterase Negative (Negative); Nitrite Negative (Negative); Protein,Urine Dip 100 (Negative); RBC 0-2 /HPF (0-5); Specific Gravity <=1.005 (1.005-1.030); Urobilinogen 0.2 mg/dL (0.2); WBC 0-2 /HPF (0-5)
[2023-07-14 00:30] LABS: ADD URINE CULTURE? NO (NO)
[2023-07-14] MEDS ORDERED: DUONEB 0.5-3 MG/3 ml Neb IH PRN (01:22)
[2023-07-14] MEDS ORDERED: Cyclobenzaprine 10 MG PO PRN (01:26)
[2023-07-14] MEDS ORDERED: NON-FORMULARY ITEM (Insulin Lispro 1 UNIT Ml) SQ SCH (01:30)
[2023-07-14] MEDS ORDERED: Lasix 40 MG/4 ML IV SCH (01:30)
--- NOTE | 2023-07-14 01:31 | PCM.HP ---
History of Present Illness - Chief Complaint Chief Complaint: Acute CHF exacerbation Date: 07/14/23 History of Present Illness: Ms. 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 She admits to 5 months of abdominal pain which started around the time she had her cholecystectomy. Over the last few weeks the pain has worsened, and upon arrival to [place], her imaging was remarkable for airspace disease in her lungs, moderate pleural effusions, and gastric thickening, while her laboratory data revealed anemia, hyponatremia, an elevated Cr. On my examination, she denies any current fevers, chills, nausea, vomiting, diarrhea, syncope, presyncope, visual changes, orthopnea, PND, odynophagia, dysphagia, chest pain, shortness of breath, dysuria, hematuria, melena, hematochezia, or neurological changes. All other systems were reviewed and were negative. - Review of Systems Constitutional: No Fever, No Chills Eyes: No Symptoms Ears, Nose, & Throat: No Symptoms Respiratory: No Cough, No Short Of Breath Cardiac: No Chest Pain, No Edema, No Syncope Abdominal/Gastrointestinal: Abdominal Pain Genitourinary Symptoms: No Dysuria Musculoskeletal: No Back Pain, No Neck Pain Skin: No Rash Neurological: No Dizziness, No Focal Weakness, No Sensory Changes Psychological: No Symptoms Endocrine: No Symptoms Hematologic/Lymphatic: No Symptoms Immunological/Allergic: No Symptoms Medications & Allergies Home Medications: Home Medication List Carvedilol 12.5 mg [Coreg 12.5 mg] 37.5 mg PO BID 10/21/18 [History Confirmed 07/13/23] Fexofenadine HCl 180 mg PO DAILY 10/21/18 [History Confirmed 07/13/23] Insulin Lispro [Humalog] 1 unit SQ UD 10/21/18 [History Confirmed 07/13/23] Clonazepam [Klonopin] 0.5 mg PO TID 10/11/22 [History Confirmed 07/13/23] Cyclobenzaprine HCl 10 mg [Cyclobenzaprine 10 MG] 10 mg PO TID PRN 10/11/22 [History Confirmed 07/13/23] Insulin Glargine,Hum.rec.anlog [Basaglar Tempo Pen U-100] 34 unit SQ HS 10/11/22 [History Confirmed 07/13/23] PANTOPRAZOLE 40 mg Tablet [Protonix 40MG Tablet] 40 mg PO BID 10/11/22 [History Confirmed 07/13/23] Ramelteon [Rozerem] 8 mg PO HS 10/11/22 [History Confirmed 07/13/23] Sacubitril/Valsartan [Entresto 24 mg-26 mg Tablet] 1 tab PO BID 10/11/22 [History Confirmed 07/13/23] Trazodone HCl 150 mg PO HS 10/11/22 [History Confirmed 07/13/23] Venlafaxine HCl [Effexor Xr] 150 mg PO HS 10/11/22 [History Confirmed 07/13/23] Atorvastatin Calcium [Lipitor] 1 tab PO HS 12/05/22 [History Confirmed 07/13/23] Ticagrelor [Brilinta] 90 mg PO BID 12/05/22 [History Confirmed 07/13/23] Lipase/Protease/Amylase [Jefry Marie 12,000 Unit Capsule] 1 cap PO BID 06/15/23 [History Confirmed 07/13/23] Allergies/Adverse Reactions: Allergies Allergy/AdvReac Type Severity Reaction Status Date / Time morphine Allergy Intermediate Itching Verified 07/13/23 18:15 - Past Medical History Past Medical History: Yes Neurological History: No Pertinent History ENT History: Other Cardiac History: Angina, Congestive Heart Failure, Coronary Artery Disease, Deep Vein Thrombosis, High Cholesterol, Hypertension, Myocardial Infarction (ID) Respiratory History: Asthma, CHF, Pneumonia, Pulmonary Embolism Endocrine Medical History: Diabetes Type I Musculoskelatal History: No Pertinent History GI Medical History: GERD, Gallbladder Disease, Pancreatitis History: Renal Disease Pyscho-Social History: Anxiety, Depression Reproductive Disorders: No Pertinent History Comment: blind in right eye. renal insufficiency, barrettes esophagus - Female History Are you now?: No - Past Surgical History Past Surgical History: Yes Neuro Surgical History: No Pertinent History Cardiac History: Angioplasty, CABG, Cardiac Catheterization, Cardiac Stent Respiratory Surgery: No Pertinent History GI Surgical History: Cholecystectomy Genitourinary Surgical Hx: No Pertinent History Musculskeletal Surgical Hx: No Pertinent History Female Surgical History: Hysterectomy Other Surgical History: cholecystectomy with liver laceration repair 10/13/22. knee surgery, pituitary tumor removed - Social History Smoking Status: Current every day smoker How long have you smoked: 10 Exposure to second hand smoke: No Alcohol: None Drug Use: marijuana Significant Family History: no pertinent family hx - Physical Exam Vital Signs: Vital Signs - 24 hr Temp Pulse Resp BP BP Pulse Ox 07/14/23 00:00 95 H 20 98 07/13/23 21:50 97.1 F 88 18 154/89 99 07/13/23 21:30 92 H 20 146/98 95 07/13/23 21:00 93 H 20 135/91 94 L 07/13/23 20:57 92 L 07/13/23 20:30 97 H 16 166/111 94 L 07/13/23 20:21 76 14 146/101 98 07/13/23 20:15 90 7 L 134/91 97 07/13/23 18:30 74 13 142/92 96 07/13/23 18:00 89 17 144/95 07/13/23 17:30 90 19 146/96 92 L 07/13/23 17:00 88 13 137/91 91 L 07/13/23 16:39 57 L 12 161/109 98 07/13/23 16:38 73 18 98 General Appearance: no apparent distress, alert Neurologic Exam: alert, oriented x 3, cooperative, normal mood/affect, nml cerebellar function, nml station & gait, sensation nml, No motor deficits Eye Exam: PERRL/EOMI, eyes nml inspection Ears, Nose, Throat Exam: normal ENT inspection, TMs normal, pharynx normal, moist mucous membranes Neck Exam: normal inspection, non-tender, supple, full range of motion Respiratory Exam: normal breath sounds, lungs clear, No respiratory distress Cardiovascular Exam: regular rate/rhythm, normal heart sounds, normal peripheral pulses Gastrointestinal/Abdomen Exam: soft, normal bowel sounds, tenderness, No mass Back Exam: normal inspection, normal range of motion, No CVA tenderness, No vertebral tenderness Extremity Exam: normal inspection, normal range of motion, pelvis stable Skin Exam: normal color, warm, dry, No rash Lymphatic Exam: No adenopathy Results - Labs Lab/Micro Results: Lab Results-Last 24 Hours 07/13/23 07/13/23 07/13/23 Range/Units 16:47 16:47 17:00 WBC 9.1 (4.0-10.5) x10^3/uL RBC 3.05 L (4.1-5.4) x10^6/uL Hgb 8.5 L (12.0-16.0) g/dL Hct 26.6 L (35-47) % MCV 87.2 (78-100) fL MCH 27.9 (26-32) pg MCHC 32.0 (32-36) g/dL RDW 14.5 H (11.5-14.0) % Plt Count 165 (150-450) x10^3/uL MPV 10.4 (7.5-11.0) fL Gran % 69.6 H (36.0-66.0) % Immature Gran % (Auto) 0.4 (0.00-0.4) % Nucleat RBC Rel Count 0.0 (0.00-0.1) % Eos # (Auto) 0.18 (0-0.5) x10^3/uL Immature Gran # (Auto) 0.04 H (0.00-0.03) x10^3u/L Absolute Lymphs (auto) 1.93 (1.0-4.6) x10^3/uL Absolute Monos (auto) 0.52 (0.0-1.3) x10^3/uL Absolute Nucleated RBC 0.00 (0.00-0.01) x10^3u/L Lymphocytes % 21.3 L (24.0-44.0) % Monocytes % 5.7 (0.0-12.0) % Eosinophils % 2.0 (0.00-5.0) % Basophils % 1.0 (0.0-0.4) % Absolute Granulocytes 6.30 (1.4-6.9) x10^3/uL Basophils # 0.09 (0-0.4) x10^3/uL Sodium (137-145) mmol/L Potassium (3.5-5.1) mmol/L Chloride (98-107) mmol/L Carbon Dioxide (22-30) mmol/L Anion Gap (5-15) MEQ/L BUN (7-17) mg/dL Creatinine (0.52-1.04) mg/dL Estimated GFR ML/MIN Glucose (74-106) mg/dL Lactic Acid 0.9 (0.4-2.0) Calcium (8.4-10.2) mg/dL Total Bilirubin (0.2-1.3) mg/dL AST (14-36) U/L ALT (0-35) U/L Alkaline Phosphatase (38-126) U/L Troponin I (0.000-0.034) ng/mL NT-Pro-B Natriuret Pep (<300) pg/mL Serum Total Protein (6.3-8.2) g/dL Albumin (3.5-5.0) g/dL Lipase 22 L (23-300) U/L Urine Color (Yellow) Urine Appearance (Clear) Urine pH (4.6-8.0) Ur Specific [place] (1.005-1.030) Urine Protein (Negative) Urine Glucose (UA) (Negative) mg/dL Urine Ketones (Negative) Urine Blood (Negative) Urine Nitrite (Negative) Urine Bilirubin (Negative) Urine Urobilinogen (0.2) mg/dL Ur Leukocyte Esterase (Negative) U Hyaline Cast (Auto) (0-2) /LPF Urine Microscopic RBC (0-5) /HPF Urine Microscopic WBC (0-5) /HPF Ur Epithelial Cells (None Seen) /HPF Urine Bacteria (None Seen) /HPF Urine Culture Reflexed (NO) Influenza Type A Ag (NEGATIVE) Influenza Type B Ag (NEGATIVE) RSV (PCR) (NEGATIVE) SARS-CoV-2 (PCR) (NEGATIVE) 07/13/23 07/13/23 07/13/23 Range/Units 17:00 17:28 17:28 WBC (4.0-10.5) x10^3/uL RBC (4.1-5.4) x10^6/uL Hgb (12.0-16.0) g/dL Hct (35-47) % MCV (78-100) fL MCH (26-32) pg MCHC (32-36) g/dL RDW (11.5-14.0) % Plt Count (150-450) x10^3/uL MPV (7.5-11.0) fL Gran % (36.0-66.0) % Immature Gran % (Auto) (0.00-0.4) % Nucleat RBC Rel Count (0.00-0.1) % Eos # (Auto) (0-0.5) x10^3/uL Immature Gran # (Auto) (0.00-0.03) x10^3u/L Absolute Lymphs (auto) (1.0-4.6) x10^3/uL Absolute Monos (auto) (0.0-1.3) x10^3/uL Absolute Nucleated RBC (0.00-0.01) x10^3u/L Lymphocytes % (24.0-44.0) % Monocytes % (0.0-12.0) % Eosinophils % (0.00-5.0) % Basophils % (0.0-0.4) % Absolute Granulocytes (1.4-6.9) x10^3/uL Basophils # (0-0.4) x10^3/uL Sodium 133 L (137-145) mmol/L Potassium 4.3 (3.5-5.1) mmol/L Chloride 105 (98-107) mmol/L Carbon Dioxide 23 (22-30) mmol/L Anion Gap 10.1 (5-15) MEQ/L BUN 30 H (7-17) mg/dL Creatinine 2.66 H (0.52-1.04) mg/dL Estimated GFR 23.2 ML/MIN Glucose 116 H (74-106) mg/dL Lactic Acid (0.4-2.0) Calcium 8.8 (8.4-10.2) mg/dL Total Bilirubin 0.50 (0.2-1.3) mg/dL AST 20 (14-36) U/L ALT 16 (0-35) U/L Alkaline Phosphatase 110 (38-126) U/L Troponin I 0.023 (0.000-0.034) ng/mL NT-Pro-B Natriuret Pep 40940 (<300) pg/mL Serum Total Protein 6.3 (6.3-8.2) g/dL Albumin 3.2 L (3.5-5.0) g/dL Lipase (23-300) U/L Urine Color (Yellow) Urine Appearance (Clear) Urine pH (4.6-8.0) Ur Specific [place] (1.005-1.030) Urine Protein (Negative) Urine Glucose (UA) (Negative) mg/dL Urine Ketones (Negative) Urine Blood (Negative) Urine Nitrite (Negative) Urine Bilirubin (Negative) Urine Urobilinogen (0.2) mg/dL Ur Leukocyte Esterase (Negative) U Hyaline Cast (Auto) (0-2) /LPF Urine Microscopic RBC (0-5) /HPF Urine Microscopic WBC (0-5) /HPF Ur Epithelial Cells (None Seen) /HPF Urine Bacteria (None Seen) /HPF Urine Culture Reflexed (NO) Influenza Type A Ag (NEGATIVE) Influenza Type B Ag (NEGATIVE) RSV (PCR) (NEGATIVE) SARS-CoV-2 (PCR) (NEGATIVE) 07/13/23 07/14/23 Range/Units 17:28 00:00 WBC (4.0-10.5) x10^3/uL RBC (4.1-5.4) x10^6/uL Hgb (12.0-16.0) g/dL Hct (35-47) % MCV (78-100) fL MCH (26-32) pg MCHC (32-36) g/dL RDW (11.5-14.0) % Plt Count (150-450) x10^3/uL MPV (7.5-11.0) fL Gran % (36.0-66.0) % Immature Gran % (Auto) (0.00-0.4) % Nucleat RBC Rel Count (0.00-0.1) % Eos # (Auto) (0-0.5) x10^3/uL Immature Gran # (Auto) (0.00-0.03) x10^3u/L Absolute Lymphs (auto) (1.0-4.6) x10^3/uL Absolute Monos (auto) (0.0-1.3) x10^3/uL Absolute Nucleated RBC (0.00-0.01) x10^3u/L Lymphocytes % (24.0-44.0) % Monocytes % (0.0-12.0) % Eosinophils % (0.00-5.0) % Basophils % (0.0-0.4) % Absolute Granulocytes (1.4-6.9) x10^3/uL Basophils # (0-0.4) x10^3/uL Sodium (137-145) mmol/L Potassium (3.5-5.1) mmol/L Chloride (98-107) mmol/L Carbon Dioxide (22-30) mmol/L Anion Gap (5-15) MEQ/L BUN (7-17) mg/dL Creatinine (0.52-1.04) mg/dL Estimated GFR ML/MIN Glucose (74-106) mg/dL Lactic Acid (0.4-2.0) Calcium (8.4-10.2) mg/dL Total Bilirubin (0.2-1.3) mg/dL AST (14-36) U/L ALT (0-35) U/L Alkaline Phosphatase (38-126) U/L Troponin I (0.000-0.034) ng/mL NT-Pro-B Natriuret Pep (<300) pg/mL Serum Total Protein (6.3-8.2) g/dL Albumin (3.5-5.0) g/dL Lipase (23-300) U/L Urine Color Yellow (Yellow) Urine Appearance Clear (Clear) Urine pH 6.0 (4.6-8.0) Ur Specific [place] <=1.005 (1.005-1.030) Urine Protein 100 A (Negative) Urine Glucose (UA) Negative (Negative) mg/dL Urine Ketones Negative (Negative) Urine Blood Negative (Negative) Urine Nitrite Negative (Negative) Urine Bilirubin Negative (Negative) Urine Urobilinogen 0.2 (0.2) mg/dL Ur Leukocyte Esterase Negative (Negative) U Hyaline Cast (Auto) NONE SEEN (0-2) /LPF Urine Microscopic RBC 0-2 (0-5) /HPF Urine Microscopic WBC 0-2 (0-5) /HPF Ur Epithelial Cells None Seen (None Seen) /HPF Urine Bacteria None Seen (None Seen) /HPF Urine Culture Reflexed NO (NO) Influenza Type A Ag NEGATIVE (NEGATIVE) Influenza Type B Ag NEGATIVE (NEGATIVE) RSV (PCR) NEGATIVE (NEGATIVE) SARS-CoV-2 (PCR) NEGATIVE (NEGATIVE) - Radiology Impressions Radiology Exams & Impressions: Radiology Procedures Category Date Time Status CHEST 1 VIEW (PORTABLE) Stat Exams 07/13/23 16:47 Completed Assessment/Plan (1) Chronic abdominal pain Current Visit: Yes Status: Acute Assessment & Plan: ANTIBIOTICS AND STEROIDS Azithromycin Zosyn ASSESSMENT 1. Chronic Abdominal Pain 2. Pneumonia 3. Bilateral Pleural Effusions 4. Acute on Chronic Kidney Disease 5. Hyponatremia 6. Type II Diabetes Mellitus 7. Coronary Artery Disease s/p CABG 8. Chart Diagnosis of CHF 9. Chronic Anemia 10. 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 Broad ABx; viral panel negative 2. Lasix 60 BID - surprisingly she is not on any diuretics at home 3. Morphine for pain - it will be difficult to transition her to a home regimen given the chronicity of the pain 4. Continue antihypertensives 5. Continue diabetic medications SubQ Heparin/PPI The entirety of this encounter was done via telemedicine José Miguel Flores MD Pulmonary and Critical Care Medicine Code(s): R10.9 - UNSPECIFIED ABDOMINAL PAIN; G89.29 - OTHER CHRONIC PAIN Telemedicine Encounter - Telemedicine Encounter Telemedicine Encounter: The entirety of this encounter was performed via Telemedicine"
[2023-07-14] MEDS ORDERED: Lasix 20 MG/2 ML ONE (01:32)
[2023-07-14] MEDS: MORPHINE SULFATE 2 MG INJ IV PRN ×3 (01:33→10:13)
[2023-07-14] MEDS ORDERED: PROTONIX 40 MG IV IV SCH (01:45)
[2023-07-14 02:27] LABS: Absolute Neutrophil Ct (ANC) 6.29 x10^3/uL (1.4-6.9); BASOPHIL % 0.9 % (0.0-0.4); Basophil (Absolute #) 0.08 x10^3/uL (0-0.4); Eosinophil % 2.5 % (0.00-5.0); Eosinophil (Absolute #) 0.23 x10^3/uL (0-0.5); Hemoglobin 8.4 g/dL (12.0-16.0); IMMATURE GRAN # 0.02 x10^3u/L (0.00-0.03); IMMATURE GRAN % 0.2 % (0.00-0.4); Lymphocyte (Absolute #) 2.02 x10^3/uL (1.0-4.6); Lymphocytes % 22.1 % (24.0-44.0); Mean Corpuscular Hgb Concent. 31.1 g/dL (32-36); Mean Platelet Volume 10.2 fL (7.5-11.0); Monocyte (Absolute #) 0.48 x10^3/uL (0.0-1.3); Monocytes % 5.3 % (0.0-12.0); Platelet Count 157 x10^3/uL (150-450); Red Cell Distribution Width 14.6 % (11.5-14.0); White Blood Count 9.1 x10^3/uL (4.0-10.5)
[2023-07-14 02:48] LABS: ALBUMIN 3.2 g/dL (3.5-5.0); ANION GAP 13.8 MEQ/L (5-15); BILIRUBIN,TOTAL 0.5 mg/dL (0.2-1.3); Calcium 8.8 mg/dL (8.4-10.2); Creatinine 1 2.71 mg/dL (0.52-1.04); EST GLOMERULAR FILTRATION RATE 22.6 ML/MIN; Potassium 4.2 mmol/L (3.5-5.1); Total Protein 6.4 g/dL (6.3-8.2)
[2023-07-14] MEDS ORDERED: PIPERACILLIN/TAZOBACTAM IV ONE (05:23)
[2023-07-14] MEDS ORDERED: Sodium Chloride 100ML MINI-BAG PLUS 100 ML IV ONE (05:24)
[2023-07-14] MEDS ORDERED: PIPERACILLIN/TAZOBACTAM 3.375 GM in Sodium Chloride 100ML MINI-BAG PLUS 100 ML IV SCH (06:00)
[2023-07-14] MEDS ORDERED: MAG-OX 400 PO ONE (07:39)
[2023-07-14] MEDS ORDERED: HUMALOG SQ SCH ×3 (08:00→17:00)
[2023-07-14 08:19] VITALS: RESP 16
[2023-07-14] MEDS ORDERED: NON-FORMULARY ITEM (Sacubitril/Valsartan [Entresto 24 Mg-26 Mg Tablet] 1 EACH Tablet) PO SCH (10:00)
[2023-07-14] MEDS ORDERED: CLARITIN 10 MG PO SCH (10:00)
[2023-07-14] MEDS ORDERED: COREG 12.5 MG PO SCH (10:00)
[2023-07-14] MEDS ORDERED: Furosemide 100mg/10 ml Vial IV SCH (10:00)
[2023-07-14] MEDS ORDERED: ZENPEP DR 5,000 UNIT CAPSULE PO SCH (10:00)
[2023-07-14] MEDS ORDERED: [UNRECOGNIZED DRUG - OTHER] PO SCH (10:00)
[2023-07-14] MEDS ORDERED: BRILINTA PO SCH (10:00)
[2023-07-14] MEDS ORDERED: ENTRESTO 49 MG-51 MG TABLET PO SCH (10:00)
[2023-07-14] MEDS ORDERED: Zithromax 500 MG/ 250 ML NaCl Premix 500 MG/250 ML IVPB IV SCH (10:00)
[2023-07-14] MEDS ORDERED: NON-FORMULARY ITEM (Fexofenadine Hcl [Fexofenadine Hcl] 180 MG Tablet) PO SCH (10:00)
[2023-07-14] MEDS ORDERED: Protonix 40MG Tablet PO SCH (10:00)
[2023-07-14] MEDS ORDERED: AMYLASE PO SCH (10:00)
[2023-07-14] MEDS ORDERED: HEPARIN 5000 UNITS/0.5 ML (HIGH RISK MED) SQ SCH (10:00)
[2023-07-14] MEDS ORDERED: PROTEASE PO SCH (10:00)
[2023-07-14] MEDS ORDERED: LIPASE PO SCH (10:00)
[2023-07-14] MEDS: clonazePAM PO SCH ×2 (10:12→15:32)
[2023-07-14] MEDS ORDERED: Hydromorphone 1 mg/ml Injection IV PRN (11:42)
[2023-07-14] MEDS ORDERED: Piperacillin/Tazobactam 2.25 GM 2.25 GM in Sodium Chloride 100ML MINI-BAG PLUS 100 ML IV SCH (12:00)
[2023-07-14 12:12] VITALS: BP 183/101; PULSE 90; TEMP 97.8
--- NOTE | 2023-07-14 14:14 | PCM.DS ---
Discharge Summary Date of Admission: 07/13/23 22:00 Date of Discharge: 07/14/23 Admitting Physician: CARMINE LITTLE MD Primary Care Provider: GOMEZ CURIEL Allergies Allergies morphine Allergy (Intermediate, Verified 07/13/23 18:15) Itching Hospital Summary - Hospital Course Hospital Course: Ms. Cantu is a 37 year-old female with PMHX of CKD, DM2, HTN, HLD, CAD s/p CABG, chronic anemia, chart diagnosis of CHF, and esophageal and colon cancer. She presented to the ER with abdominal pain. She admits to 5 months of abdominal pain which started around the time she had her cholecystectomy. She does follow with a GI specialist at [facility] for her complicated hx. Over the last few weeks the pain has worsened, and upon arrival to [place], her imaging was remarkable for airspace disease in her lungs, moderate pleural effusions, and gastric thickening, while her laboratory data revealed anemia, hyponatremia, an elevated Cr. She has acute on chronic renal failure. Severe LUQ pain that is chronic with chronic diarrhea. She recently had a CT of the abd on 07/12 without concerning findings. She overall does not feel well. Recommend transfer to a higher level of care. She s currently is awaiting a bed at [facility]. - Vitals & Intake/Output Vital Signs: Vital Signs Temperature 97.8 F 07/14/23 12:00 Pulse Rate 90 07/14/23 12:00 Respiratory Rate 16 07/14/23 12:00 Blood Pressure 183/101 07/14/23 12:00 O2 Sat by Pulse Oximetry 96 07/14/23 12:00 Intake & Output: Intake & Output 07/12/23 07/13/23 07/14/23 07/15/23 11:59 11:59 11:59 11:59 Intake Total 400 Output Total 750 Balance -350 Weight 63.7 kg - Lab Result Diagrams: 07/14/23 02:15 07/14/23 02:15 Lab Results-Last 24 Hrs: Lab Results-Last 24 Hours 07/13/23 07/13/23 07/13/23 Range/Units 16:47 16:47 17:00 WBC 9.1 (4.0-10.5) x10^3/uL RBC 3.05 L (4.1-5.4) x10^6/uL Hgb 8.5 L (12.0-16.0) g/dL Hct 26.6 L (35-47) % MCV 87.2 (78-100) fL MCH 27.9 (26-32) pg MCHC 32.0 (32-36) g/dL RDW 14.5 H (11.5-14.0) % Plt Count 165 (150-450) x10^3/uL MPV 10.4 (7.5-11.0) fL Gran % 69.6 H (36.0-66.0) % Immature Gran % (Auto) 0.4 (0.00-0.4) % Nucleat RBC Rel Count 0.0 (0.00-0.1) % Eos # (Auto) 0.18 (0-0.5) x10^3/uL Immature Gran # (Auto) 0.04 H (0.00-0.03) x10^3u/L Absolute Lymphs (auto) 1.93 (1.0-4.6) x10^3/uL Absolute Monos (auto) 0.52 (0.0-1.3) x10^3/uL Absolute Nucleated RBC 0.00 (0.00-0.01) x10^3u/L Lymphocytes % 21.3 L (24.0-44.0) % Monocytes % 5.7 (0.0-12.0) % Eosinophils % 2.0 (0.00-5.0) % Basophils % 1.0 (0.0-0.4) % Absolute Granulocytes 6.30 (1.4-6.9) x10^3/uL Basophils # 0.09 (0-0.4) x10^3/uL Sodium (137-145) mmol/L Potassium (3.5-5.1) mmol/L Chloride (98-107) mmol/L Carbon Dioxide (22-30) mmol/L Anion Gap (5-15) MEQ/L BUN (7-17) mg/dL Creatinine (0.52-1.04) mg/dL Estimated GFR ML/MIN Glucose (74-106) mg/dL POC Glucometer (74 to 106) mg/dL Hemoglobin A1c (4.5-6.0) % Lactic Acid 0.9 (0.4-2.0) Calcium (8.4-10.2) mg/dL Magnesium (1.6-2.3) mg/dL Total Bilirubin (0.2-1.3) mg/dL AST (14-36) U/L ALT (0-35) U/L Alkaline Phosphatase (38-126) U/L Troponin I (0.000-0.034) ng/mL NT-Pro-B Natriuret Pep (<300) pg/mL Serum Total Protein (6.3-8.2) g/dL Albumin (3.5-5.0) g/dL Lipase 22 L (23-300) U/L Urine Color (Yellow) Urine Appearance (Clear) Urine pH (4.6-8.0) Ur Specific [place] (1.005-1.030) Urine Protein (Negative) Urine Glucose (UA) (Negative) mg/dL Urine Ketones (Negative) Urine Blood (Negative) Urine Nitrite (Negative) Urine Bilirubin (Negative) Urine Urobilinogen (0.2) mg/dL Ur Leukocyte Esterase (Negative) U Hyaline Cast (Auto) (0-2) /LPF Urine Microscopic RBC (0-5) /HPF Urine Microscopic WBC (0-5) /HPF Ur Epithelial Cells (None Seen) /HPF Urine Bacteria (None Seen) /HPF Urine Culture Reflexed (NO) Influenza Type A Ag (NEGATIVE) Influenza Type B Ag (NEGATIVE) RSV (PCR) (NEGATIVE) SARS-CoV-2 (PCR) (NEGATIVE) 07/13/23 07/13/23 07/13/23 Range/Units 17:00 17:28 17:28 WBC (4.0-10.5) x10^3/uL RBC (4.1-5.4) x10^6/uL Hgb (12.0-16.0) g/dL Hct (35-47) % MCV (78-100) fL MCH (26-32) pg MCHC (32-36) g/dL RDW (11.5-14.0) % Plt Count (150-450) x10^3/uL MPV (7.5-11.0) fL Gran % (36.0-66.0) % Immature Gran % (Auto) (0.00-0.4) % Nucleat RBC Rel Count (0.00-0.1) % Eos # (Auto) (0-0.5) x10^3/uL Immature Gran # (Auto) (0.00-0.03) x10^3u/L Absolute Lymphs (auto) (1.0-4.6) x10^3/uL Absolute Monos (auto) (0.0-1.3) x10^3/uL Absolute Nucleated RBC (0.00-0.01) x10^3u/L Lymphocytes % (24.0-44.0) % Monocytes % (0.0-12.0) % Eosinophils % (0.00-5.0) % Basophils % (0.0-0.4) % Absolute Granulocytes (1.4-6.9) x10^3/uL Basophils # (0-0.4) x10^3/uL Sodium 133 L (137-145) mmol/L Potassium 4.3 (3.5-5.1) mmol/L Chloride 105 (98-107) mmol/L Carbon Dioxide 23 (22-30) mmol/L Anion Gap 10.1 (5-15) MEQ/L BUN 30 H (7-17) mg/dL Creatinine 2.66 H (0.52-1.04) mg/dL Estimated GFR 23.2 ML/MIN Glucose 116 H (74-106) mg/dL POC Glucometer (74 to 106) mg/dL Hemoglobin A1c (4.5-6.0) % Lactic Acid (0.4-2.0) Calcium 8.8 (8.4-10.2) mg/dL Magnesium (1.6-2.3) mg/dL Total Bilirubin 0.50 (0.2-1.3) mg/dL AST 20 (14-36) U/L ALT 16 (0-35) U/L Alkaline Phosphatase 110 (38-126) U/L Troponin I 0.023 (0.000-0.034) ng/mL NT-Pro-B Natriuret Pep 85242 (<300) pg/mL Serum Total Protein 6.3 (6.3-8.2) g/dL Albumin 3.2 L (3.5-5.0) g/dL Lipase (23-300) U/L Urine Color (Yellow) Urine Appearance (Clear) Urine pH (4.6-8.0) Ur Specific [place] (1.005-1.030) Urine Protein (Negative) Urine Glucose (UA) (Negative) mg/dL Urine Ketones (Negative) Urine Blood (Negative) Urine Nitrite (Negative) Urine Bilirubin (Negative) Urine Urobilinogen (0.2) mg/dL Ur Leukocyte Esterase (Negative) U Hyaline Cast (Auto) (0-2) /LPF Urine Microscopic RBC (0-5) /HPF Urine Microscopic WBC (0-5) /HPF Ur Epithelial Cells (None Seen) /HPF Urine Bacteria (None Seen) /HPF Urine Culture Reflexed (NO) Influenza Type A Ag (NEGATIVE) Influenza Type B Ag (NEGATIVE) RSV (PCR) (NEGATIVE) SARS-CoV-2 (PCR) (NEGATIVE) 07/13/23 07/14/23 07/14/23 Range/Units 17:28 00:00 02:15 WBC (4.0-10.5) x10^3/uL RBC (4.1-5.4) x10^6/uL Hgb (12.0-16.0) g/dL Hct (35-47) % MCV (78-100) fL MCH (26-32) pg MCHC (32-36) g/dL RDW (11.5-14.0) % Plt Count (150-450) x10^3/uL MPV (7.5-11.0) fL Gran % (36.0-66.0) % Immature Gran % (Auto) (0.00-0.4) % Nucleat RBC Rel Count (0.00-0.1) % Eos # (Auto) (0-0.5) x10^3/uL Immature Gran # (Auto) (0.00-0.03) x10^3u/L Absolute Lymphs (auto) (1.0-4.6) x10^3/uL Absolute Monos (auto) (0.0-1.3) x10^3/uL Absolute Nucleated RBC (0.00-0.01) x10^3u/L Lymphocytes % (24.0-44.0) % Monocytes % (0.0-12.0) % Eosinophils % (0.00-5.0) % Basophils % (0.0-0.4) % Absolute Granulocytes (1.4-6.9) x10^3/uL Basophils # (0-0.4) x10^3/uL Sodium (137-145) mmol/L Potassium (3.5-5.1) mmol/L Chloride (98-107) mmol/L Carbon Dioxide (22-30) mmol/L Anion Gap (5-15) MEQ/L BUN (7-17) mg/dL Creatinine (0.52-1.04) mg/dL Estimated GFR ML/MIN Glucose (74-106) mg/dL POC Glucometer (74 to 106) mg/dL Hemoglobin A1c (4.5-6.0) % Lactic Acid (0.4-2.0) Calcium (8.4-10.2) mg/dL Magnesium (1.6-2.3) mg/dL Total Bilirubin (0.2-1.3) mg/dL AST (14-36) U/L ALT (0-35) U/L Alkaline Phosphatase (38-126) U/L Troponin I 0.027 (0.000-0.034) ng/mL NT-Pro-B Natriuret Pep (<300) pg/mL Serum Total Protein (6.3-8.2) g/dL Albumin (3.5-5.0) g/dL Lipase (23-300) U/L Urine Color Yellow (Yellow) Urine Appearance Clear (Clear) Urine pH 6.0 (4.6-8.0) Ur Specific [place] <=1.005 (1.005-1.030) Urine Protein 100 A (Negative) Urine Glucose (UA) Negative (Negative) mg/dL Urine Ketones Negative (Negative) Urine Blood Negative (Negative) Urine Nitrite Negative (Negative) Urine Bilirubin Negative (Negative) Urine Urobilinogen 0.2 (0.2) mg/dL Ur Leukocyte Esterase Negative (Negative) U Hyaline Cast (Auto) NONE SEEN (0-2) /LPF Urine Microscopic RBC 0-2 (0-5) /HPF Urine Microscopic WBC 0-2 (0-5) /HPF Ur Epithelial Cells None Seen (None Seen) /HPF Urine Bacteria None Seen (None Seen) /HPF Urine Culture Reflexed NO (NO) Influenza Type A Ag NEGATIVE (NEGATIVE) Influenza Type B Ag NEGATIVE (NEGATIVE) RSV (PCR) NEGATIVE (NEGATIVE) SARS-CoV-2 (PCR) NEGATIVE (NEGATIVE) 07/14/23 07/14/2307/14/23 Range/Units 02:15 02:15 02:15 WBC 9.1 (4.0-10.5) x10^3/uL RBC 3.00 L (4.1-5.4) x10^6/uL Hgb 8.4 L (12.0-16.0) g/dL Hct 27.0 L (35-47) % MCV 90.0 (78-100) fL MCH 28.0 (26-32) pg MCHC 31.1 L (32-36) g/dL RDW 14.6 H (11.5-14.0) % Plt Count 157 (150-450) x10^3/uL MPV 10.2 (7.5-11.0) fL Gran % 69.0 H (36.0-66.0) % Immature Gran % (Auto) 0.2 (0.00-0.4) % Nucleat RBC Rel Count 0.0 (0.00-0.1) % Eos # (Auto) 0.23 (0-0.5) x10^3/uL Immature Gran # (Auto) 0.02 (0.00-0.03) x10^3u/L Absolute Lymphs (auto) 2.02 (1.0-4.6) x10^3/uL Absolute Monos (auto) 0.48 (0.0-1.3) x10^3/uL Absolute Nucleated RBC 0.00 (0.00-0.01) x10^3u/L Lymphocytes % 22.1 L (24.0-44.0) % Monocytes % 5.3 (0.0-12.0) % Eosinophils % 2.5 (0.00-5.0) % Basophils % 0.9 (0.0-0.4) % Absolute Granulocytes 6.29 (1.4-6.9) x10^3/uL Basophils # 0.08 (0-0.4) x10^3/uL Sodium 134 L (137-145) mmol/L Potassium 4.2 (3.5-5.1) mmol/L Chloride 103 (98-107) mmol/L Carbon Dioxide 21 L (22-30) mmol/L Anion Gap 13.8 (5-15) MEQ/L BUN 30 H (7-17) mg/dL Creatinine 2.71 H (0.52-1.04) mg/dL Estimated GFR 22.6 ML/MIN Glucose 116 H (74-106) mg/dL POC Glucometer (74 to 106) mg/dL Hemoglobin A1c (4.5-6.0) % Lactic Acid (0.4-2.0) Calcium 8.8 (8.4-10.2) mg/dL Magnesium 1.5 L (1.6-2.3) mg/dL Total Bilirubin 0.50 (0.2-1.3) mg/dL AST 19 (14-36) U/L ALT 16 (0-35) U/L Alkaline Phosphatase 108 (38-126) U/L Troponin I (0.000-0.034) ng/mL NT-Pro-B Natriuret Pep (<300) pg/mL Serum Total Protein 6.4 (6.3-8.2) g/dL Albumin 3.2 L (3.5-5.0) g/dL Lipase (23-300) U/L Urine Color (Yellow) Urine Appearance (Clear) Urine pH (4.6-8.0) Ur Specific [place] (1.005-1.030) Urine Protein (Negative) Urine Glucose (UA) (Negative) mg/dL Urine Ketones (Negative) Urine Blood (Negative) Urine Nitrite (Negative) Urine Bilirubin (Negative) Urine Urobilinogen (0.2) mg/dL Ur Leukocyte Esterase (Negative) U Hyaline Cast (Auto) (0-2) /LPF Urine Microscopic RBC (0-5) /HPF Urine Microscopic WBC (0-5) /HPF Ur Epithelial Cells (None Seen) /HPF Urine Bacteria (None Seen) /HPF Urine Culture Reflexed (NO) Influenza Type A Ag (NEGATIVE) Influenza Type B Ag (NEGATIVE) RSV (PCR) (NEGATIVE) SARS-CoV-2 (PCR) (NEGATIVE) 07/14/23 07/14/23 07/14/23 Range/Units 06:17 06:17 06:38 WBC (4.0-10.5) x10^3/uL RBC (4.1-5.4) x10^6/uL Hgb (12.0-16.0) g/dL Hct (35-47) % MCV (78-100) fL MCH (26-32) pg MCHC (32-36) g/dL RDW (11.5-14.0) % Plt Count (150-450) x10^3/uL MPV (7.5-11.0) fL Gran % (36.0-66.0) % Immature Gran % (Auto) (0.00-0.4) % Nucleat RBC Rel Count (0.00-0.1) % Eos # (Auto) (0-0.5) x10^3/uL Immature Gran # (Auto) (0.00-0.03) x10^3u/L Absolute Lymphs (auto) (1.0-4.6) x10^3/uL Absolute Monos (auto) (0.0-1.3) x10^3/uL Absolute Nucleated RBC (0.00-0.01) x10^3u/L Lymphocytes % (24.0-44.0) % Monocytes % (0.0-12.0) % Eosinophils % (0.00-5.0) % Basophils % (0.0-0.4) % Absolute Granulocytes (1.4-6.9) x10^3/uL Basophils # (0-0.4) x10^3/uL Sodium (137-145) mmol/L Potassium (3.5-5.1) mmol/L Chloride (98-107) mmol/L Carbon Dioxide (22-30) mmol/L Anion Gap (5-15) MEQ/L BUN (7-17) mg/dL Creatinine (0.52-1.04) mg/dL Estimated GFR ML/MIN Glucose (74-106) mg/dL POC Glucometer 95 (74 to 106) mg/dL Hemoglobin A1c 5.26 (4.5-6.0) % Lactic Acid (0.4-2.0) Calcium (8.4-10.2) mg/dL Magnesium (1.6-2.3) mg/dL Total Bilirubin (0.2-1.3) mg/dL AST (14-36) U/L ALT (0-35) U/L Alkaline Phosphatase (38-126) U/L Troponin I 0.020 (0.000-0.034) ng/mL NT-Pro-B Natriuret Pep (<300) pg/mL Serum Total Protein (6.3-8.2) g/dL Albumin (3.5-5.0) g/dL Lipase (23-300) U/L Urine Color (Yellow) Urine Appearance (Clear) Urine pH (4.6-8.0) Ur Specific [place] (1.005-1.030) Urine Protein (Negative) Urine Glucose (UA) (Negative) mg/dL Urine Ketones (Negative) Urine Blood (Negative) Urine Nitrite (Negative) Urine Bilirubin (Negative) Urine Urobilinogen (0.2) mg/dL Ur Leukocyte Esterase (Negative) U Hyaline Cast (Auto) (0-2) /LPF Urine Microscopic RBC (0-5) /HPF Urine Microscopic WBC (0-5) /HPF Ur Epithelial Cells (None Seen) /HPF Urine Bacteria (None Seen) /HPF Urine Culture Reflexed (NO) Influenza Type A Ag (NEGATIVE) Influenza Type B Ag (NEGATIVE) RSV (PCR) (NEGATIVE) SARS-CoV-2 (PCR) (NEGATIVE) 07/14/23 Range/Units 12:08 WBC (4.0-10.5) x10^3/uL RBC (4.1-5.4) x10^6/uL Hgb (12.0-16.0) g/dL Hct (35-47) % MCV (78-100) fL MCH (26-32) pg MCHC (32-36) g/dL RDW (11.5-14.0) % Plt Count (150-450) x10^3/uL MPV (7.5-11.0) fL Gran % (36.0-66.0) % Immature Gran % (Auto) (0.00-0.4) % Nucleat RBC Rel Count (0.00-0.1) % Eos # (Auto) (0-0.5) x10^3/uL Immature Gran # (Auto) (0.00-0.03) x10^3u/L Absolute Lymphs (auto) (1.0-4.6) x10^3/uL Absolute Monos (auto) (0.0-1.3) x10^3/uL Absolute Nucleated RBC (0.00-0.01) x10^3u/L Lymphocytes % (24.0-44.0) % Monocytes % (0.0-12.0) % Eosinophils % (0.00-5.0) % Basophils % (0.0-0.4) % Absolute Granulocytes (1.4-6.9) x10^3/uL Basophils # (0-0.4) x10^3/uL Sodium (137-145) mmol/L Potassium (3.5-5.1) mmol/L Chloride (98-107) mmol/L Carbon Dioxide (22-30) mmol/L Anion Gap (5-15) MEQ/L BUN (7-17) mg/dL Creatinine (0.52-1.04) mg/dL Estimated GFR ML/MIN Glucose (74-106) mg/dL POC Glucometer 70 L (74 to 106) mg/dL Hemoglobin A1c (4.5-6.0) % Lactic Acid (0.4-2.0) Calcium (8.4-10.2) mg/dL Magnesium (1.6-2.3) mg/dL Total Bilirubin (0.2-1.3) mg/dL AST (14-36) U/L ALT (0-35) U/L Alkaline Phosphatase (38-126) U/L Troponin I (0.000-0.034) ng/mL NT-Pro-B Natriuret Pep (<300) pg/mL Serum Total Protein (6.3-8.2) g/dL Albumin (3.5-5.0) g/dL Lipase (23-300) U/L Urine Color (Yellow) Urine Appearance (Clear) Urine pH (4.6-8.0) Ur Specific [place] (1.005-1.030) Urine Protein (Negative) Urine Glucose (UA) (Negative) mg/dL Urine Ketones (Negative) Urine Blood (Negative) Urine Nitrite (Negative) Urine Bilirubin (Negative) Urine Urobilinogen (0.2) mg/dL Ur Leukocyte Esterase (Negative) U Hyaline Cast (Auto) (0-2) /LPF Urine Microscopic RBC (0-5) /HPF Urine Microscopic WBC (0-5) /HPF Ur Epithelial Cells (None Seen) /HPF Urine Bacteria (None Seen) /HPF Urine Culture Reflexed (NO) Influenza Type A Ag (NEGATIVE) Influenza Type B Ag (NEGATIVE) RSV (PCR) (NEGATIVE) SARS-CoV-2 (PCR) (NEGATIVE) Micro Results-Entire Visit: Accuchecks Date 07/14/23 Date 07/14/23 Time 12:11 Time 06:55 - Radiology Exams Ordered Rad Exams-Entire Visit: Radiology Procedures Category Date Time Status CHEST 1 VIEW (PORTABLE) Stat Exams 07/13/23 16:47 Completed - Procedures and Test Procedures and Tests throughout Hospitalization: Therapy Orders & Screens 07/13/23 23:04 ST Screen per Nursing Assess ONCE Comment: Protocol Order Physician Instructions: Greater than [address] Admission Screening Reason For Exam: Triggered on Admission Diagnosis: Acute CHF exacerbation CVA/Dyshpagia/Aphasia: No Cognitive Deficits: No Dehydration/Nutrition Deficit: No Reflux: Yes Oral-Motor Difficulties: No Pneumonia: Yes Penitentiary Resident: No Total Points: 8 07/14/23 02:35 Respiratory Therapy Assessment DAILY Comment: Diagnosis: Acute CHF exacerbation 07/14/23 02:55 Smoking Cessation Education ONCE Comment: Diagnosis: Acute CHF exacerbation Smoking Status: Current every day smoker How long have you smoked: 10 Have you smoked in the past 12 months: Yes Approximately how many cigarettes per day: 10 Do you dip or chew tobacco: No If,Former Smoker,when did you quit: 5 months ago Discharge Exam General Appearance: mild distress, moderate distress, alert, anxiety Neurologic Exam: alert, oriented x 3, cooperative, normal mood/affect, nml cereb ellar function, sensation nml, No motor deficits Eye Exam: PERRL, EOMI, eyes nml inspection Ears, Nose, Throat Exam: normal ENT inspection, pharynx normal, moist mucous membranes Neck Exam: normal inspection, non-tender, supple, full range of motion Respiratory Exam: normal breath sounds, lungs clear, No respiratory distress Cardiovascular Exam: regular rate/rhythm, normal heart sounds Gastrointestinal/Abdomen Exam: soft, tenderness (LUQ severe with palpation, overall generalized tenderness), No mass Pelvic Exam: deferred Rectal Exam: deferred Back Exam: normal inspection, normal range of motion, No CVA tenderness, No vertebral tenderness Extremity Exam: normal inspection, normal range of motion Skin Exam: normal color, warm, dry Final Diagnosis/Problem List - Final Discharge Diagnosis/Problem (1) Pneumonia Current Visit: Yes Status: Acute Assessment & Plan: - Continue Zosyn - reports allergy to zithromax gave in ER- stopped - RA 96% - BC x2 pending Code(s): J18.9 - PNEUMONIA, UNSPECIFIED ORGANISM (2) Acute on chronic renal failure Current Visit: Yes Status: Acute Assessment & Plan: - 2:2 CHF and type II DM - 07/14 labs worsening with lasix - trend - tx to higher level of care Code(s): N17.9 - ACUTE KIDNEY FAILURE, UNSPECIFIED; N18.9 - CHRONIC KIDNEY DISEASE, UNSPECIFIED (3) Bilateral pleural effusion Current Visit: Yes Status: Acute Assessment & Plan: - chest XR 07/13: Portable chest demonstrates new bilateral mid to lower lung airspace disease with moderate bibasilar effusions as reported on CT one day earlier. Heart not enlarged. Bony thorax intact again with sternotomy wires. - Lasix - RA 96% Code(s): J90 - PLEURAL EFFUSION, NOT ELSEWHERE CLASSIFIED (4) Chronic anemia Current Visit: Yes Status: Acute Assessment & Plan: - Hgb stable 8.4 Code(s): D64.9 - ANEMIA, UNSPECIFIED (5) History of esophageal cancer Current Visit: Yes Status: Acute Assessment & Plan: - Continue Protonix Code(s): Z85.01 - PERSONAL HISTORY OF MALIGNANT NEOPLASM OF ESOPHAGUS (6) CHF (congestive heart failure) Current Visit: Yes Status: Acute Assessment & Plan: - Continue coreg, entresto - Lasix - BNP 78157 on admission - Tele Code(s): I50.9 - HEART FAILURE, UNSPECIFIED (7) Controlled type 2 diabetes mellitus Current Visit: Yes Status: Acute Assessment & Plan: - A1C 07/14- 5.26 - Humalog 12 units with breakfast and lunch, Humalog 14 units with dinner - Lantus 34 units at HS - Carb consistent diet Code(s): E11.9 - TYPE 2 DIABETES MELLITUS WITHOUT COMPLICATIONS (8) Chronic abdominal pain Current Visit: Yes Status: Acute Assessment & Plan: - LUQ svere- lipase WNL - Morphine not controlling pain- changed to Dilaudid - KUB- 07/14/23 nonacute and nonobstructed with cholecystectomy clips. Solid organs unremarkable. Osseous structures intact with right hip chunky heterotopic ossifications. Small effusions both lung bases as seen on CT abdomen/pelvis 2 days ago. - CT Abd/ Pelvis 07/12: Impression: 1. New incompletely visualized moderate bilateral pleural effusions and patchy groundglass airspace opacities. 2. New mild anasarca. 3. Small nonspecific pelvic free fluid but less than before. 4. Again diffuse gastric wall thickening either from incomplete distention versus gastritis versus malignancy. 5. Stable chronic findings including arteriosclerotic disease and chronic bony findings. Code(s): R10.9 - UNSPECIFIED ABDOMINAL PAIN; G89.29 - OTHER CHRONIC PAIN (9) Hypomagnesemia Current Visit: No Status: Acute Assessment & Plan: - Mg+ 1.5 replaced Code(s): E83.42 - HYPOMAGNESEMIA (10) Hyponatremia Current Visit: No Status: Acute Assessment & Plan: - Na+ 134- mild- trend Code(s): E87.1 - HYPO-OSMOLALITY AND HYPONATREMIA (11) Chronic diarrhea Current Visit: Yes Status: Acute Assessment & Plan: - post gallbladder removal - repeatedly in the hospital - will check for c-diff Code(s): K52.9 - NONINFECTIVE GASTROENTERITIS AND COLITIS, UNSPECIFIED - Discharge Discharge Date: 07/14/23 Disposition: DC TO [facility] Condition: Fair Prescriptions: Continue Carvedilol 12.5 mg [Coreg 12.5 mg] 37.5 mg PO BID Fexofenadine HCl 180 mg PO DAILY Insulin Lispro [Humalog] 1 unit SQ UD Venlafaxine HCl [Effexor Xr] 150 mg PO HS Sacubitril/Valsartan [Entresto 24 mg-26 mg Tablet] 1 tab PO BID PANTOPRAZOLE 40 mg Tablet [Protonix 40MG Tablet] 40 mg PO BID Cyclobenzaprine HCl 10 mg [Cyclobenzaprine 10 MG] 10 mg PO TID PRN PRN Reason: Muscle Spasms Insulin Glargine,Hum.rec.anlog [Basaglar Tempo Pen U-100] 34 unit SQ HS Trazodone HCl 150 mg PO HS Ramelteon [Rozerem] 8 mg PO HS Clonazepam [Klonopin] 0.5 mg PO TID Ticagrelor [Brilinta] 90 mg PO BID Atorvastatin Calcium [Lipitor] 1 tab PO HS Lipase/Protease/Amylase [Creon Dr 12,000 Unit Capsule] 1 cap PO BID Follow up with: GOMEZ CURIEL [Primary Care Provider] -
--- NOTE | 2023-07-14 14:39 | XRAY ---
Indication: Abdominal pain. Comparison: None KUB nonacute and nonobstructed with cholecystectomy clips. Solid organs unremarkable. Osseous structures intact with right hip chunky heterotopic ossifications. Small effusions both lung bases as seen on CT abdomen/pelvis 2 days ago.
[2023-07-14] MEDS ORDERED: NON-FORMULARY ITEM (Venlafaxine Hcl [Effexor Xr] 150 MG Cap.Er.24h) PO SCH (22:00)
[2023-07-14] MEDS ORDERED: Desyrel 150 MG PO SCH (22:00)
[2023-07-14] MEDS ORDERED: Effexor XR 75 MG PO SCH (22:00)
[2023-07-14] MEDS ORDERED: [UNRECOGNIZED DRUG - OTHER] SQ SCH (22:00)
[2023-07-14] MEDS ORDERED: INSULIN GLARGINE HUM REC ANLOG 100 UNIT/ML SQ SCH (22:00)
[2023-07-14] MEDS ORDERED: Lantus Insulin SQ SCH (22:00)
[2023-07-14] MEDS ORDERED: ZOCOR 20MG PO SCH (22:00)
[2023-07-14] MEDS ORDERED: NON-FORMULARY ITEM (Atorvastatin Calcium [Lipitor] 80 MG Tablet) PO SCH (22:00)
[2023-07-14] MEDS ORDERED: NON-FORMULARY ITEM (Trazodone Hcl [Trazodone Hcl] 100 MG Tablet) PO SCH (22:00)
[2023-07-16 23:05] VITALS: O2SAT 92
== END 2023-07-14 16:28 | disposition home or self-care (01) ==
LOC: ED 16:33 → MED SURG 22:00
PROVIDERS: ADMIT Internal Medicine Critical Care Medicine; ATTEND Internal Medicine Critical Care Medicine
DX: J18.9 Pneumonia, unspecified organism (principal); N17.9 Acute kidney failure, unspecified; E11.22 Type 2 diabetes mellitus with diabetic chronic kidney disease; I13.0 Hypertensive heart and chronic kidney disease with heart failure and stage 1 through stage 4 chronic kidney disease, or unspecified chronic kidney disease; N18.9 Chronic kidney disease, unspecified; I50.9 Heart failure, unspecified; J90 Pleural effusion, not elsewhere classified; D64.9 Anemia, unspecified; R10.9 Unspecified abdominal pain; E83.42 Hypomagnesemia; E87.1 Hypo-osmolality and hyponatremia; K52.9 Noninfective gastroenteritis and colitis, unspecified; E78.5 Hyperlipidemia, unspecified; I25.10 Atherosclerotic heart disease of native coronary artery without angina pectoris; F17.200 Nicotine dependence, unspecified, uncomplicated; Z85.01 Personal history of malignant neoplasm of esophagus; Z79.899 Other long term (current) drug therapy; Z20.828 Contact with and (suspected) exposure to other viral communicable diseases; Z95.1 Presence of aortocoronary bypass graft
CPT/HCPCS: 0241U; 36000; 36415; 71045; 74018; 80053; 81001; 82947; 83036; 83605; 83690; 83735; 83880; 84484; 85025; 87040; 94760; 96374; 96375; 99285; 93268; J0456; J0696; J1170; J1644; J1817; J1940; J2270; J2405; J2543; A9270-GY; G0378

== ENCOUNTER 2023-10-25 16:01 | Emergency (ER) | payer OTHER ==
--- NOTE | 2023-10-25 16:10 | ERPHSYRPT ---
- History of Present Illness Time Seen by Provider: 10/25/23 16:09 Historian: patient Exam Limitations: no limitations Physician History: This is a 37-year-old white female patient of Dr. Curiel who presents to the emergency department by the quality assurance technician service because of vomiting times several episodes and associated abdominal pain. Patient has been seen several times in this emergency department and other emergency departments for the same issue. Patient has a history of hypertension, insulin-dependent diabetes, gastroesophageal reflux disease, CHF, hyperlipidemia, pancreatitis, anxiety, depression. She takes Brilinta. Patient has a history of coronary disease (angioplasty and CABG) she has chronic renal disease and has chronic anemia. Patient has had a history of Duron's esophagus as well as hysterectomy and cholecystectomy. She continues to smoke cigarettes daily. Patient's last visit with the business insurance agent, per her report, was on 10/20/2023. She states she was diagnosed with a cancer. Patient's last hemoglobin level obtained here at our facility was 8.4 and this was on 07/14/2023. Patient has a history of chronic renal disease and her last BUN/creatinine level was 30/2.7 and GFR was 22.6 and this was also on date 07/14/2023. Patient obviously has multiple medical issues that are real and we need to perform a workup to rule out any em ergencies. However, patient does have a known history of drug-seeking behavior. Patient was told the outset that she will receive a single dose of Dilaudid, which she can take without any adverse effects, and depending on what is found during the workup, this will dictate whether or not the patient receives any more narcotics. Timing/Duration: today, worse Quality: aching Abdominal Pain Onset Location: epigastric, generalized abdomen Pain Radiation: no radiation Severity of Pain-Max: moderate Severity of Pain-Current: moderate Associated Symptoms: loss of appetite, nausea, vomiting, weakness Previous symptoms: same symptoms as today, no recent treatment (Patient states she has not been in the emergency departments anywhere for 4 months) Allergies/Adverse Reactions: morphine Allergy (Intermediate, Verified 10/25/23 16:03) Itching Home Medications: Carvedilol 12.5 mg [Coreg 12.5 mg] 37.5 mg PO BID 10/21/18 [History] Fexofenadine HCl 180 mg PO DAILY 10/21/18 [History] Insulin Lispro [Humalog] 1 unit SQ UD 10/21/18 [History] Clonazepam [Klonopin] 0.5 mg PO TID 10/11/22 [History] Cyclobenzaprine HCl 10 mg [Cyclobenzaprine 10 MG] 10 mg PO TID PRN 10/11/22 [History] Insulin Glargine,Hum.rec.anlog [Basaglar Tempo Pen U-100] 34 unit SQ HS 10/11/22 [History] PANTOPRAZOLE 40 mg Tablet [Protonix 40MG Tablet] 40 mg PO BID 10/11/22 [History] Ramelteon [Rozerem] 8 mg PO HS 10/11/22 [History] Sacubitril/Valsartan [Entresto 24 mg-26 mg Tablet] 1 tab PO BID 10/11/22 [History] Trazodone HCl 150 mg PO HS 10/11/22 [History] Venlafaxine HCl [Effexor Xr] 150 mg PO HS 10/11/22 [History] Atorvastatin Calcium [Lipitor] 1 tab PO HS 12/05/22 [History] Ticagrelor [Brilinta] 90 mg PO BID 12/05/22 [History] Lipase/Protease/Amylase [[place] Dr 12,000 Unit Capsule] 1 cap PO BID 06/15/23 [History] Hx Tetanus, Diphtheria Vaccination/Date Given: Yes Hx Influenza Vaccination/Date Given: Yes Hx Pneumococcal Vaccination/Date Given: No Travel Risk - International Travel Have you traveled outside of the country in past 3 weeks: No - Emerging Infectious Disease Are you exhibiting symptoms associated with any current EIDs: No - Vaccine Status Hx Covid Vaccintation/Booster/Date Given: No - Review of Systems Constitutional: Weakness Eyes: No Symptoms Ears, Nose, & Throat: No Symptoms Respiratory: No Symptoms Cardiac: No Symptoms, No Chest Pain Abdominal/Gastrointestinal: Abdominal Pain, Nausea, Vomiting, Appetite Changes, No Diarrhea Genitourinary Symptoms: No Symptoms Musculoskeletal: No Symptoms Skin: No Symptoms Neurological: No Symptoms Psychological: No Symptoms Endocrine: No Symptoms Hematologic/Lymphatic: No Symptoms Immunological/Allergic: No Symptoms All Other Systems: Reviewed and Negative - Past Medical History Pertinent Past Medical History: Yes Neurological History: No Pertinent History ENT History: Other Cardiac History: Angina, Congestive Heart Failure, Coronary Artery Disease, Deep Vein Thrombosis, High Cholesterol, Hypertension, Myocardial Infarction ([place]) Respiratory History: Pulmonary Embolism Endocrine Medical History: Diabetes Type I Musculoskeletal History: No Pertinent History GI Medical History: GERD, Gallbladder Disease, Pancreatitis History: Renal Disease Psycho-Social History: Anxiety, Depression Female Reproductive Disorders: Other Other Medical History: blind in right eye. renal insufficiency, barrettes esophagus - Past Surgical History Past Surgical History: Yes Neuro Surgical History: No Pertinent History Cardiac: Angioplasty, CABG Respiratory: No Pertinent History Gastrointestinal: Cholecystectomy Genitourinary: No Pertinent History Musculoskeletal: No Pertinent History Female Surgical History: Hysterectomy Other Surgical History: cholecystectomy with liver laceration repair 10/13/22. knee surgery, pituitary tumor removed Significant Family History: no pertinent family hx - Social History Smoking Status: Current every day smoker How long have you smoked: 15 yrs Exposure to second hand smoke: No (uses pipe) Alcohol Use: None Drug Use: marijuana Patient Lives Alone: No - Nursing Vital Signs Nursing Vital Signs: Initial Vital Signs Pulse Rate 85 10/25/23 16:06 Respiratory Rate 5 L 10/25/23 16:06 Blood Pressure 141/101 10/25/23 16:06 O2 Sat by Pulse Oximetry 100 10/25/23 16:06 Pain Scale Pain Intensity 10 - Physical Exam General Appearance: no apparent distress, alert, anxiety, thin Eye Exam: PERRL/EOMI, eyes nml inspection Ears, Nose, Throat Exam: normal ENT inspection, moist mucous membranes Neck Exam: normal inspection, non-tender, supple, full range of motion Respiratory Exam: normal breath sounds, lungs clear, airway intact, No chest tenderness, No respiratory distress Cardiovascular Exam: regular rate/rhythm, normal heart sounds, normal peripheral pulses Gastrointestinal/Abdomen Exam: soft, normal bowel sounds, No tenderness Pelvic Exam: not done Rectal Exam: not done Back Exam: normal inspection, normal range of motion, No CVA tenderness, No vertebral tenderness Extremity Exam: normal inspection, normal range of motion, pelvis stable Neurologic Exam: alert, oriented x 3, cooperative, payroll services analyst II-XII nml as tested, nml cerebellar function, nml station & gait, sensation nml Skin Exam: normal color, warm, dry Lymphatic Exam: No adenopathy SpO2 Interpretation: normal O2 Delivery: Room Air - Course Nursing assessment & vital signs reviewed: Yes Ordered Tests: Active Orders 24 hr Category Date Time Status IV Insertion STAT Care 10/25/23 16:10 Active ABDOMEN AND PELVIS W/0 CONTRAS [CT] Stat Exams 10/25/23 17:03 Taken AMYLASE Stat Lab 10/25/23 16:20 Completed CBC W DIFF Stat Lab 10/25/23 16:20 Completed CMP Stat Lab 10/25/23 16:20 Completed LIPASE Stat Lab 10/25/23 16:20 Completed Lactic Acid Stat Lab 10/25/23 16:32 Completed UA W/RFX UR CULTURE Stat Lab 10/25/23 16:10 Ordered Medication Summary Discontinued Medications Generic Name Dose Route Start Last Admin Trade Name Freq PRN Reason Stop Dose Admin Hydromorphone HCl 0.5 mg 10/25/23 16:56 10/25/23 17:29 Hydromorphone 1 Mg/1ml Inj IV 10/25/23 16:57 0.5 mg STAT ONE Administration Hydromorphone HCl Confirm 10/25/23 17:24 Hydromorphone 1 Mg/1ml Inj Administered 10/25/23 17:25 Dose 1 mg .ROUTE .STK-MED ONE Sodium Chloride 1,000 mls @ 999 mls/hr 10/25/23 16:10 10/25/23 16:33 Sodium Chloride 0.9% 1000 Ml IV 10/25/23 17:10 999 mls/hr .Q1H1M STA Administration Sodium Chloride Confirm 10/25/23 16:31 Sodium Chloride 0.9% 1000 Ml Administered 10/25/23 16:32 Dose 1,000 mls @ ud .ROUTE .STK-MED ONE Ondansetron HCl 4 mg 10/25/23 16:10 10/25/23 16:35 Ondansetron Hcl 4 Mg/2 Ml Vial IV 10/25/23 16:11 4 mg STAT ONE Administration Ondansetron HCl Confirm 10/25/23 16:31 Ondansetron Hcl 4 Mg/2 Ml Vial Administered 10/25/23 16:32 Dose 4 mg .ROUTE .STK-MED ONE Pantoprazole Sodium 40 mg 10/25/23 16:10 10/25/23 16:36 Pantoprazole 40 Mg Vial IV 10/25/23 16:11 40 mg STAT ONE Administration Pantoprazole Sodium Confirm 10/25/23 16:31 Pantoprazole 40 Mg Vial Administered 10/25/23 16:32 Dose 40 mg IV .Fio-MED ONE Lab/Rad Data: Laboratory Result Diagrams 10/25/23 16:20 10/25/23 16:20 Laboratory Results 10/25/23 10/25/23 10/25/23 Range/Units 16:32 16:20 16:20 WBC 7.2 (4.0-10.5) x10^3/uL RBC 3.66 L (4.1-5.4) x10^6/uL Hgb 10.0 L (12.0-16.0) g/dL Hct 31.2 L (35-47) % MCV 85.2 (78-100) fL MCH 27.3 (26-32) pg MCHC 32.1 (32-36) g/dL RDW 15.0 H (11.5-14.0) % Plt Count 139 L (150-450) x10^3/uL MPV 9.6 (7.5-11.0) fL Gran % 81.9 H (36.0-66.0) % Immature Gran % (Auto) 0.3 (0.00-0.4) % Nucleat RBC Rel Count 0.0 (0.00-0.1) % Eos # (Auto) 0.08 (0-0.5) x10^3/uL Immature Gran # (Auto) 0.02 (0.00-0.03) x10^3u/L Absolute Lymphs (auto) 0.69 L (1.0-4.6) x10^3/uL Absolute Monos (auto) 0.46 (0.0-1.3) x10^3/uL Absolute Nucleated RBC 0.00 (0.00-0.01) x10^3u/L Lymphocytes % 9.7 L (24.0-44.0) % Monocytes % 6.4 (0.0-12.0) % Eosinophils % 1.1 (0.00-5.0) % Basophils % 0.6 (0.0-0.4) % Absolute Granulocytes 5.86 (1.4-6.9) x10^3/uL Basophils # 0.04 (0-0.4) x10^3/uL Sodium 135 (135-145) mmol/L Potassium 5.6 H (3.5-5.1) mmol/L Chloride 101 (98-107) mmol/L Carbon Dioxide 27 (22-30) mmol/L Anion Gap 12.7 (5-15) MEQ/L BUN 35 H (7-17) mg/dL Creatinine 2.74 H (0.52-1.04) mg/dL Estimated GFR 22.3 ML/MIN Glucose 126 H (74-106) mg/dL Lactic Acid 0.4 (0.4-2.0) Calcium 8.7 (8.4-10.2) mg/dL Total Bilirubin 0.30 (0.2-1.3) mg/dL AST 19 (14-36) U/L ALT 17 (0-35) U/L Alkaline Phosphatase 138 H (38-126) U/L Serum Total Protein 6.3 (6.3-8.2) g/dL Albumin 3.2 L (3.5-5.0) g/dL Amylase 36 (30-110) U/L Lipase 24 (23-300) U/L - Progress Progress: improved, pain not gone completely Progress Note: 10/25/23 16:31 This patient's medical issue is 1 of moderate to high complexity. The level complex in the workup performed is based on review of the patient's past medical history, review of the patient's medication list, review the patient drug allergy list, history present illness and physical findings on examination. The workup in this patient includes placement of an intravenous line, infusion of normal saline solution, infusion of 4 mg intravenous Zofran, infusion of intravenous Protonix, CBC, CMP, amylase, lipase, urinalysis, CT scan of the abdomen pelvis. Patient is aware she might receive Dilaudid intravenously pending the results of her test as well as further observation of her vital signs. Specifically her respiratory rate. 10/25/23 17:53 Reported the patient's laboratory data results. Based on the current laboratory data results, there is no acute emergent findings. Patient was adamant that she would not undergo CAT scan of the abdomen pelvis until she received narcotic pain medicine. I told her I was trying to keep her safe because her respiratory rate was running in the 7-9 range. I told her that if she could keep her respiratory rate above 10 for a period of time we would provide her with a dose of Dilaudid 0.5 mg intravenously. After the patient received the dose of Dilaudid and just after returning from the CAT scan of the abdomen pelvis, the patient wants to leave AGAINST MEDICAL ADVICE. I spoke with her and she is aware and she has full understanding that she may have an emergency medical issue and by leaving she could . We do not have the results of the CAT scan of the abdomen pelvis. She understands and I will have her sign the AMA form. 10/25/23 18:03 Counseled pt/family regarding: lab results, diagnosis, need for follow-up, rad results Medical Desision Making - Diagnostic Testing Diagnostic test were ordered, analyzed, and reviewed by me: Yes - Risk of complications The pt has a high risk of morbidity or mortality based on: Decision regarding hospitilization or escalation of hosp level of care - Departure Departure Disposition: AMA Clinical Impression: Abdominal pain, Vomiting Condition: Fair Critical Care Time: No Referrals: GOMEZ CURIEL [Primary Care Provider] - Follow up/PCP as directed
[2023-10-25 16:19] VITALS: PULSE 85; TEMP 98.2; O2SAT 100
[2023-10-25 16:30] LABS: Absolute Neutrophil Ct (ANC) 5.86 x10^3/uL (1.4-6.9); BASOPHIL % 0.6 % (0.0-0.4); Basophil (Absolute #) 0.04 x10^3/uL (0-0.4); Eosinophil % 1.1 % (0.00-5.0); Eosinophil (Absolute #) 0.08 x10^3/uL (0-0.5); Hematocrit 31.2 % (35-47); IMMATURE GRAN # 0.02 x10^3u/L (0.00-0.03); IMMATURE GRAN % 0.3 % (0.00-0.4); Lymphocyte (Absolute #) 0.69 x10^3/uL (1.0-4.6); Lymphocytes % 9.7 % (24.0-44.0); Mean Cell Volume 85.2 fL (78-100); Mean Corpuscular Hemoglobin 27.3 pg (26-32); Mean Corpuscular Hgb Concent. 32.1 g/dL (32-36); Mean Platelet Volume 9.6 fL (7.5-11.0); Monocyte (Absolute #) 0.46 x10^3/uL (0.0-1.3); Monocytes % 6.4 % (0.0-12.0); Neutrophil % 81.9 % (36.0-66.0); Platelet Count 139 x10^3/uL (150-450); Red Blood Count 3.66 x10^6/uL (4.1-5.4); White Blood Count 7.2 x10^3/uL (4.0-10.5)
[2023-10-25] MEDS ORDERED: Zofran 4 MG/2 ML VIAL ONE (16:31)
[2023-10-25] MEDS ORDERED: Sodium Chloride 0.9% 1000 ML 1,000 ML ONE (16:31)
[2023-10-25] MEDS ORDERED: PROTONIX 40 MG IV IV ONE (16:31)
[2023-10-25] MEDS: Sodium Chloride 0.9% 1000 ML 1,000 ML IV STA (16:33)
[2023-10-25] MEDS: Zofran 4 MG/2 ML VIAL IV ONE (16:35)
[2023-10-25] MEDS: PROTONIX 40 MG IV IV ONE (16:36)
[2023-10-25 16:48] LABS: ALBUMIN 3.2 g/dL (3.5-5.0); ANION GAP 12.7 MEQ/L (5-15); BILIRUBIN,TOTAL 0.3 mg/dL (0.2-1.3); Calcium 8.7 mg/dL (8.4-10.2); Creatinine 1 2.74 mg/dL (0.52-1.04); EST GLOMERULAR FILTRATION RATE 22.3 ML/MIN; Potassium 5.6 mmol/L (3.5-5.1); Total Protein 6.3 g/dL (6.3-8.2)
[2023-10-25 17:19] VITALS: BP 163/106; RESP 9
[2023-10-25] MEDS ORDERED: Hydromorphone 1 mg/ml Injection ONE (17:24)
[2023-10-25] MEDS: Hydromorphone 1 mg/ml Injection IV ONE (17:29)
--- NOTE | 2023-10-26 08:41 | XRAY ---
Indication: Abdominal pain and vomiting. Multiple contiguous axial images obtained through the abdomen and pelvis without contrast. Comparison: July 12, 2023 Lung bases demonstrates interval diminished bibasilar effusions. There remains small right and tiny left effusions. Stable tiny right base calcified granulomas. Heart not enlarged. Visualized distal esophagus not demonstrates circumferential wall thickening favoring esophagitis. There remains mild diffuse anasarca. Noncontrasted stomach and bowel loops appear nonobstructed with normal appendix. Grossly stable diffuse gastric wall thickening either incomplete distention versus gastritis versus malignancy. Again tiny perihepatic and small pelvic free fluid. No free air. Again incidental splenic calcified granulomas, cholecystectomy, and hysterectomy. Remaining liver, pancreas, spleen, adrenal glands, kidneys, ureters, and bladder are unremarkable for noncontrast exam. Again mild scattered aortoiliac calcifications without AAA. Osseous structures intact again with mild multilevel degenerative spondylosis, bilateral L4 spondylolysis with minimal grade 1 listhesis, old right rib fractures, and broad-based L4-S1 disc bulge. Impression: 1. Again bibasilar effusions less than before again without cardiomegaly.. Grossly stable diffuse anasarca and small abdominal/pelvic free fluid.. 2. New distal esophageal circumferential wall thickening. Rule out esophagitis. 3. Grossly stable diffuse gastric wall thickening either incomplete distention versus gastritis versus malignancy. 4. Chronic findings including arteriosclerotic disease, chronic bony findings, and old granulomatous disease.
== END 2023-10-25 18:32 | disposition left against medical advice (07) ==
LOC: ED 16:01
DX: R11.2 Nausea with vomiting, unspecified (principal); R10.9 Unspecified abdominal pain; I13.0 Hypertensive heart and chronic kidney disease with heart failure and stage 1 through stage 4 chronic kidney disease, or unspecified chronic kidney disease; E10.22 Type 1 diabetes mellitus with diabetic chronic kidney disease; N18.9 Chronic kidney disease, unspecified; I50.9 Heart failure, unspecified; E78.5 Hyperlipidemia, unspecified; Z79.02 Long term (current) use of antithrombotics/antiplatelets; Z79.899 Other long term (current) drug therapy; Z28.310 Unvaccinated for COVID-19; Z72.0 Tobacco use
CPT/HCPCS: 36000; 36415; 74176; 80053; 82150; 83605; 83690; 85025; 96374; 96375; 99284; J1170; J2405